=== PATIENT | female | born 1950 | race Caucasian/White ===

== ENCOUNTER → 2016-09-10 | Outpatient (CLI) | payer OTHER, MEDICAID ==
[2016-02-02 16:21] VITALS: BP 92/53
--- NOTE | 2016-09-11 16:56 | KCIC ---
PROCEDURE Bone mineral density study using DEXA HISTORY Postmenopausal screening for osteoporosis. Follow up study. COMPARISON March 09, 2014. FINDINGS Bone Density: -BMD: (g/cm2) - AP Spine Total (L1-L4) ..........0.862 - Total left Hip.................0.754 T-Score: - AP Spine Total (L1-L4) .........-1.7 - Total left Hip.................-1.5 Z-Score: - AP Spine Total (L1-L4) ..........0 - Total left Hip.................-0.4 World Health Organization criteria for BMD interpretation classify patients as Normal (T-score at or above -1.0), Osteopenic (T-score between -1.0 and -2.5), or Osteoporotic (T-score at or below -2.5). IMPRESSION 1. AP Spine Total L1-L4 ---osteopenia. Since the previous study, there has been a decrease in the BMD of approximately 3 percent. 2. Total left Hip---osteopenia. Since the previous study, there has been a decrease in the BMD of approximately 4 percent. Electronically signed by: Akil Boston MD (Sep 11, 2016 16:55:01)
== END | disposition home or self-care (01) ==
LOC: KCIC DEXA 09:55
PROVIDERS: ATTEND Family Medicine
DX: Z13.820 Encounter for screening for osteoporosis (principal); M85.88 Other specified disorders of bone density and structure, other site
CPT/HCPCS: 77080

== ENCOUNTER → 2016-11-19 | Outpatient (CLI) | payer OTHER, MEDICAID ==
[2016-02-02 16:21] VITALS: BP 92/53
[~2016-11-19] MED LIST: IOHEXOL 240 MG/ML 50ML VIAL. IV ONE; IOHEXOL 300 MG/ML 75 ML VIAL IV ONE
--- NOTE | 2016-11-19 09:36 | RAD ---
EXAM: Abdomen and pelvis CT with intravenous contrast. HISTORY: Epigastric pain. TECHNIQUE: Computed tomographic images of the abdomen and pelvis were obtained following the administration of 75 cc Omnipaque 300 intravenous contrast. Multiplanar reformatting was performed. COMPARISON: None. FINDINGS: Evaluation of the lower thorax demonstrates atelectasis. There is no infiltrate or effusion. The heart is normal in size. There is a 1 cm hypodense lesion within the right hepatic lobe, too small to characterize. There is slight fatty infiltration of the liver along the falciform ligament. The gallbladder, pancreas, spleen, adrenal glands and kidneys are unremarkable. There is moderate colonic stool. There is no evidence of bowel obstruction. The bladder is unremarkable. The uterus is surgically absent. No pathologically enlarged lymph node is seen. There is aortic and aortic branch vessel atherosclerotic plaque. No suspicious osseous lesion is seen. IMPRESSION: 1. No acute abdominal or pelvic finding. 2. 1.0 cm hypodense lesion within the right hepatic lobe, too small to characterize. In the absence of known malignancy, this is likely a cyst or hemangioma. 3. Moderate colonic stool. PQRS Compliance Statement: One or more of the following individualized dose reduction techniques were utilized for this examination: 1. Automated exposure control 2. Adjustment of the mA and/or kV according to patient size 3. Use of iterative reconstruction technique
== END | disposition home or self-care (01) ==
LOC: CT 06:55
PROVIDERS: ATTEND Physician Assistant
DX: R10.13 Epigastric pain (principal)
CPT/HCPCS: 74177; Q9966; Q9967

== ENCOUNTER → 2017-01-17 | Day surgery (SDC) | payer OTHER, MEDICAID ==
[~2017-01-17] MED LIST changes: +ALPR0.5T PO; +ALPR0.5T6 PO; +ATOR10TA PO; +BUPR150T8 PO; +ESTR0.62 PO; +FLUT1DIS3 IH; +GABA-585 PO; -IOHEXOL 240 MG/ML 50ML VIAL. IV ONE; -IOHEXOL 300 MG/ML 75 ML VIAL IV ONE; +IPRA3AMP NEB; +IV RINGERS,LACTATED 1000ML 1,000 ML IV SCH; +LIDOCAINE 2% PF Vial for OR 5 ML VIAL. ONE; +OXYC-250 PO; +OXYC10TA32 PO; +OXYC1TAB9 PO; +PANT40TA5 PO; +PROPOFOL 0 ML IV ONE; +PROPOFOL 20 ML IV ONE; +VENL150C PO; +VENL150T PO; +VENTOLIN HFA18 GM INH
[2017-01-17 09:05] VITALS: BP 135/85
--- NOTE | 2017-01-22 11:05 | PATHOLOGY ---
PATHOLOGY REPORT * * * * * * * * FINAL DIAGNOSIS: Esophageal biopsies, distal esophagus: - Segments of mildly hyperplastic squamous esophageal mucosa. See comment. COMMENT: Sections of the distal esophageal biopsy reveal multiple segments of tangentially oriented, mildly hyperplastic squamous esophageal mucosa. The findings are consistent with reflux. There is no evidence of Tejeda's change, dysplasia, or malignancy. REPORT ELECTRONICALLY SIGNED BY: Shane Cleveland M.D. DATE/TIME: 01/21/2017 13:30 * * * * * * * * GROSS PATHOLOGY: Received in formalin labeled "Toña Guzmán, distal esophagus biopsy," are four segments of phillips soft tissue measuring 1.0 x 0.6 x 0.1 cm in aggregate dimensions and ranging from 0.4 to 0.6 cm in maximum dimension. The specimen is submitted entirely in cassette A1. (CAA; 01/18/2017) INITIAL CPT CODE(S): A; 40396 Professional services performed [place] [facility] [place] [address] Technical services performed by [facility] at [address] [place] [address]. SPECIMEN(S) RECEIVED: A.Distal esophagus biopsy CLINICAL HISTORY: Nausea, vomiting, epigastric pain PATIENT: TOÑA GUZMÁN /AGE: 12 1950 (Age: 66) PATIENT #: [id number] ALT CASE #: SPECIMEN COLLECTION DATE: 01/17/2017 SPECIMEN RECEIVED DATE: 01/17/2017 [facility] - [address] [place] [address] - PHONE: [phone] * * * END OF REPORT * * *
== END | disposition home or self-care (01) ==
LOC: ENDOS 07:01
PROVIDERS: ATTEND Internal Medicine Gastroenterology
DX: K21.0 Gastro-esophageal reflux disease with esophagitis (principal); K29.50 Unspecified chronic gastritis without bleeding; F41.9 Anxiety disorder, unspecified; M19.90 Unspecified osteoarthritis, unspecified site; E78.00 Pure hypercholesterolemia, unspecified; F32.9 Major depressive disorder, single episode, unspecified; Z83.3 Family history of diabetes mellitus; Z72.89 Other problems related to lifestyle; F17.210 Nicotine dependence, cigarettes, uncomplicated; Z90.710 Acquired absence of both cervix and uterus
CPT/HCPCS: 43239; J2704; 88305

== ENCOUNTER 2017-01-21 07:14 | Inpatient (IN) | payer OTHER ==
[~2017-01-21] VITALS: Ht 162.6 cm; Wt 54.7 kg
[~2017-01-21 07:14] MED LIST changes: -ALPR0.5T6 PO; -ATOR10TA PO; -BUPR150T8 PO; -ESTR0.62 PO; -FLUT1DIS3 IH; -IPRA3AMP NEB; -IV RINGERS,LACTATED 1000ML 1,000 ML IV SCH; -LIDOCAINE 2% PF Vial for OR 5 ML VIAL. ONE; -OXYC-250 PO; -OXYC1TAB9 PO; -PANT40TA5 PO; -PROPOFOL 0 ML IV ONE; -PROPOFOL 20 ML IV ONE; -VENL150C PO; -VENL150T PO; -VENTOLIN HFA18 GM INH
--- NOTE | 2017-01-21 07:18 | PHYS DOC ---
Past Medical History Past Medical History: Arthritis, Asthma, COPD, Fibromyalgia, High Cholesterol, Migraines, Seizure, Other Additional Past Medical Histor: OSTEOPOROSIS Past Surgical History: Appendectomy, Hysterectomy, Other Additional Past Surgical Histo: LEFT EYE Alcohol Use: None Drug Use: Marijuana Adult General Chief Complaint Chief Complaint: ABDOMINAL PAIN HPI HPI Patient is a 66 year old female who presents with abdominal pain and decreased appetite. She states he sentences been going on for several months and got worse about 4 days ago. She states she's had nothing to eat or drink over the last 4 days. She states that her stomach is hurting as a constant ache that has been moving around. She states that pain is also been going on for several months. She states she had an EGD done about a week ago and hasn't had any results. She denies any chest pain, shortness of breath, fevers chills, or constipation. Review of Systems Review of Systems Constitutional: Denies fever or chills [] Eyes: Denies change in visual acuity, redness, or eye pain [] HENT: Denies nasal congestion or sore throat [] Respiratory: Denies cough or shortness of breath [] Cardiovascular: No additional information not addressed in HPI [] GI: Positive for abdominal pain, denies any vomiting, diarrhea, constipation. : Denies dysuria or hematuria [] Musculoskeletal: Denies back pain or joint pain [] Integument: Denies rash or skin lesions [] Neurologic: Denies headache, focal weakness or sensory changes [] Endocrine: Denies polyuria or polydipsia [] Current Medications Current Medications Current Medications Medications (Trade) Dose Ordered Sig/[facility] Start Time Stop Time Status Last Admin Dose Admin Fentanyl Citrate (Fentanyl 2ml Vial) 25 mcg PRN Q15MIN PRN 01/21/17 07:30 01/22/17 07:29 01/21/17 08:46 25 MCG Info (Do NOT chart on this entry -- for MONITORING) 1 each PRN DAILY PRN 01/21/17 08:30 01/23/17 08:29 Iohexol (Omnipaque 240 Mg/ml) 30 ml 1X ONCE 01/21/17 08:30 01/21/17 08:31 DC 01/21/17 10:02 30 ML Iohexol (Omnipaque 300 Mg/ml) 75 ml 1X ONCE 01/21/17 08:30 01/21/17 08:31 DC 01/21/17 10:02 75 ML Ondansetron HCl (Zofran) 4 mg 1X ONCE 01/21/17 09:30 01/21/17 09:31 DC 01/21/17 09:33 4 MG Sodium Chloride 1,000 ml @ 1,000 mls/hr Q1H 01/21/17 07:45 01/21/17 08:44 DC 01/21/17 07:50 1,000 MLS/HR Allergies Allergies Allergies Coded Allergies Type Severity Reaction Last Updated Verified morphine Allergy Intermediate 01/17/17 Yes Physical Exam Physical Exam Constitutional: Well developed, well nourished, no acute distress, non-toxic appearance. [] HENT: Normocephalic, atraumatic, bilateral external ears normal, oropharynx moist, no oral exudates, nose normal. [] Eyes: PERRLA, EOMI, conjunctiva normal, no discharge. [] Neck: Normal range of motion, no tenderness, supple, no stridor. [] Cardiovascular:Heart rate regular rhythm, no murmur [] Lungs & Thorax: Bilateral breath sounds clear to auscultation [] Abdomen: Bowel sounds normal, soft, mild tender to palpation epigastric area, no masses, no pulsatile masses. [] Skin: Warm, dry, no erythema, no rash. [] Back: No tenderness, no CVA tenderness. [] Extremities: No tenderness, no cyanosis, no clubbing, ROM intact, no edema. [] Neurologic: Alert and oriented X 3, normal motor function, normal sensory function, no focal deficits noted. [] Psychologic: Affect normal, judgement normal, mood normal. [] Current Patient Data Vital Signs Vital Signs Date Time Temp Pulse Resp B/P (MAP) Pulse Ox O2 Delivery O2 Flow Rate FiO2 01/21/17 09:24 86 28 133/80 (97) Room Air 01/21/17 08:54 96 01/21/17 07:25 97.9 97.9 Lab Values Laboratory Tests Test 01/21/17 07:30 01/21/17 08:00 01/21/17 08:38 01/21/17 09:10 White Blood Count 16.7 x10^3/uL (4.0-11.0) H Red Blood Count 4.44 x10^6/uL (3.50-5.40) Hemoglobin 14.5 g/dL (12.0-15.5) Hematocrit 42.6 % (36.0-47.0) Mean Corpuscular Volume 96 fL (79-100) Mean Corpuscular Hemoglobin 33 pg (25-35) Mean Corpuscular Hemoglobin Concent 34 g/dL (31-37) Red Cell Distribution Width 13.1 % (11.5-14.5) Platelet Count 357 x10^3/uL (140-400) Neutrophils (%) (Auto) 84 % (31-73) H Lymphocytes (%) (Auto) 6 % (24-48) L Monocytes (%) (Auto) 9 % (0-9) Eosinophils (%) (Auto) 0 % (0-3) Basophils (%) (Auto) 1 % (0-3) Neutrophils # (Auto) 14.1 x10^3uL (1.8-7.7) H Lymphocytes # (Auto) 1.0 x10^3/uL (1.0-4.8) Monocytes # (Auto) 1.6 x10^3/uL (0.0-1.1) H Eosinophils # (Auto) 0.1 x10^3/uL (0.0-0.7) Basophils # (Auto) 0.1 x10^3/uL (0.0-0.2) Segmented Neutrophils % 83 % (35-66) H Band Neutrophils % 3 % (0-9) Lymphocytes % 8 % (24-48) L Monocytes % 6 % (0-10) Platelet Estimate Adequate (ADEQUATE) Prothrombin Time 12.2 SEC (11.7-14.0) Prothrombin Time INR 1.0 (0.8-1.1) Sodium Level 145 mmol/L (136-145) Potassium Level 3.0 mmol/L (3.5-5.1) L Chloride Level 105 mmol/L (98-107) Carbon Dioxide Level 22 mmol/L (21-32) Anion Gap 18 (6-14) H Blood Urea Nitrogen 18 mg/dL (7-20) Creatinine 0.9 mg/dL (0.6-1.0) Estimated GFR (Cockcroft-Gault) 63.0 Glucose Level 180 mg/dL (70-99) H Lactic Acid Level 3.3 mmol/L (0.4-2.0) H Calcium Level 10.6 mg/dL (8.5-10.1) H Magnesium Level 2.0 mg/dL (1.8-2.4) Total Bilirubin 0.7 mg/dL (0.2-1.0) Direct Bilirubin 0.2 mg/dL (0.0-0.2) Aspartate Amino Transferase (AST) 42 U/L (15-37) H Alanine Aminotransferase (ALT) 29 U/L (14-59) Alkaline Phosphatase 109 U/L (46-116) Creatine Kinase 671 U/L (26-192) H Creatine Kinase MB (Mass) 13.3 ng/mL (0.0-3.6) H Creatine Kinase MB Relative Index 2.0 % (0-4) Troponin I Quantitative 4.926 ng/mL (0.000-0.055) IV-Syi-E-Type Natriuretic Peptide 6757 pg/mL (0-124) H Total Protein 8.7 g/dL (6.4-8.2) H Albumin 4.6 g/dL (3.4-5.0) Lipase 49 U/L (73-393) L Thyroid Stimulating Hormone (TSH) 2.391 uIU/mL (0.358-3.74) Urine Opiates Screen Neg (NEG) Urine Methadone Screen Neg (NEG) Urine Barbiturates Neg (NEG) Urine Phencyclidine Screen Neg (NEG) Urine Amphetamine/Methamphetamine Neg (NEG) Urine Benzodiazepines Screen Pos (NEG) Urine Cocaine Screen Neg (NEG) Urine Cannabinoids Screen Pos (NEG) Urine Ethyl Alcohol Neg (NEG) O2 Saturation 98 % (92-99) Arterial Blood pH 7.58 (7.35-7.45) *H Arterial Blood pCO2 at Patient Temp 22 mmHg (35-46) L Arterial Blood pO2 at Patient Temp 96 mmHg (65-108) Arterial Blood HCO3 20 mmol/L (21-28) L Arterial Blood Base Excess 0 mmol/L (-3-3) FiO2 21 Urine Collection Type Unknown Urine Color Yellow Urine Clarity Hazy Urine pH 7.0 Urine Specific [place] 1.025 Urine Protein 100 mg/dL (NEG-TRACE) Urine Glucose (UA) Negative mg/dL (NEG) Urine Ketones (Stick) 15 mg/dL (NEG) Urine Blood Large (NEG) Urine Nitrite Negative (NEG) Urine Bilirubin Negative (NEG) Urine Urobilinogen Dipstick 0.2 mg/dL (0.2 mg/dL) Urine Leukocyte Esterase Negative (NEG) Urine RBC 1-2 /HPF (0-2) Urine WBC 0 /HPF (0-4) Urine Bacteria Moderate /HPF (0-FEW) Test 01/21/17 09:30 Lactic Acid Level 1.9 mmol/L (0.4-2.0) Creatine Kinase 895 U/L (26-192) H Creatine Kinase MB (Mass) 17.8 ng/mL (0.0-3.6) H Creatine Kinase MB Relative Index 2.0 % (0-4) Troponin I Quantitative 6.395 ng/mL (0.000-0.055) Laboratory Tests 01/21/17 07:30 Laboratory Tests 01/21/17 07:30 EKG EKG EKG shows sinus rhythm with rate of [address] elevations, T-wave inversions noted in aVL, normal axis, QTC 482 ms, as interpreted by me. Radiology/Procedures Radiology/[facility] [address] [place] [address] IMAGING REPORT Signed PATIENT: TOÑA GUZMÁN ACCOUNT: [id number] : 1950 LOCATION: ER AGE: 66 SEX: F EXAM STATUS: REG ER ORD. PHYSICIAN: SAROJ ESTEVEZ MD REASON: abd pain and vomitting PROCEDURE: ACUTE ABDOMEN SERIES Indication abdominal pain and vomiting for 3 days. A single view of the chest as well as flat and upright films of the abdomen were obtained and are compared to an examination 01/26/2016. The heart and pulmonary vessels appear normal. The lungs are clear of acute infiltrates. There has not been a significant change in the appearance of the chest compared to the previous exam. There is no free air. The abdominal gas pattern is normal. No organomegaly or abnormal calculi are seen. Benign-appearing calcifications are noted in the pelvis similar to the previous exam. IMPRESSION: No acute finding seen in the chest or abdomen on plain films DICTATED and SIGNED BY: KAYLIE VERA MD DATE: 01/21/17 0676 CC: SAROJ ESTEVEZ MD; SPARKLE ABRAHAM MD ~ Impressions: Abdominal pain Respiratory alkalosis with metabolic acidosis Elevated troponin COPD Continued tobacco abuse Course & Med Decision Making Course & Med Decision Making Pertinent Labs and Imaging studies reviewed. (See chart for details) Patient's EKG doesn't show signs of a STEMI but she does have an elevated troponin at 5. Her ABG shows acute respiratory alkalosis with a concomitant gap metabolic acidosis. Spoke with Dr. Abraham regarding admission and updated him with the vitals, labs, EKG findings and spoke with Dr. Garrett regarding the same. I have ordered repeat troponin and lactic acid. Dr. Garrett requests an echo to be ordered. The patient is in stable condition pending CT scan of her abdomen pelvis this time. [address] Garrett regarding the repeat troponin that is higher than the initial troponin and her CK-MB. She has been given aspirin and second liter of fluids. Her lactic acid has improved. The patient still complaining of abdominal pain and not chest discomfort. CT abdomen and pelvis is still pending at this time. CT scan of her abdomen pelvis does not show any acute abnormalities. Patient is being transferred to the floor. She is in stable condition at this time. I did repeat yet an additional EKG that does not show any additional changes or concerns. Dragon Disclaimer Dragon Disclaimer This electronic medical record was generated, in whole or in part, using a voice recognition dictation system. Departure Departure Impression: Primary Impression: Abdominal pain Disposition: ADMITTED INPATIENT Admitting Physician: Sparkle Abraham Condition: STABLE Referrals: SPARKLE ABRAHAM MD (PCP) SAROJ ESTEVEZ MD January 21, 2017 07:18
[2017-01-21 07:38] LABS: BASO # 0.1 x10^3/uL (0.0-0.2); BASO % 1 % (0-3); EOS % 0 % (0-3); HEMATOCRIT 42.6 % (36.0-47.0); HEMOGLOBIN 14.5 g/dL (12.0-15.5); LYMPH % 6 % (24-48); MEAN CORPUSCULAR HEMOGLOBIN 33 pg (25-35); MEAN CORPUSCULAR HGB CONC 34 g/dL (31-37); MEAN CORPUSCULAR VOLUME 96 fL (79-100); MONO % 9 % (0-9); NEUT % 84 % (31-73); PLATELET COUNT 357 x10^3/uL (140-400); RED BLOOD COUNT 4.44 x10^6/uL (3.50-5.40); RED CELL DISTRIBUTION WIDTH 13.1 % (11.5-14.5); WHITE BLOOD COUNT 16.7 x10^3/uL (4.0-11.0)
--- NOTE | 2017-01-21 07:40 | EKG ---
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
[2017-01-21] MEDS ORDERED: IV NORMAL SALINE 1000ML BAG 1,000 ML IV SCH (07:45)
[2017-01-21] MEDS: fentaNYL PF VIAL 100 MCG/2 ML VIAL IV PRN ×2 (07:49→08:46)
[2017-01-21 07:52] LABS: CALCIUM 10.6 mg/dL (8.5-10.1); CREATININE 0.9 mg/dL (0.6-1.0)
[2017-01-21 07:54] LABS: PROTHROMBIN TIME PATIENT 12.2 SEC (11.7-14.0)
--- NOTE | 2017-01-21 07:58 | RAD ---
Indication abdominal pain and vomiting for 3 days. A single view of the chest as well as flat and upright films of the abdomen were obtained and are compared to an examination 01/26/2016. The heart and pulmonary vessels appear normal. The lungs are clear of acute infiltrates. There has not been a significant change in the appearance of the chest compared to the previous exam. There is no free air. The abdominal gas pattern is normal. No organomegaly or abnormal calculi are seen. Benign-appearing calcifications are noted in the pelvis similar to the previous exam. IMPRESSION: No acute finding seen in the chest or abdomen on plain films
[2017-01-21 07:59] LABS: ALBUMIN 4.6 g/dL (3.4-5.0); DIRECT BILIRUBIN 0.2 mg/dL (0.0-0.2); TOTAL BILIRUBIN 0.7 mg/dL (0.2-1.0); TOTAL PROTEIN 8.7 g/dL (6.4-8.2)
[2017-01-21 08:06] LABS: CKMB MASS 13.3 ng/mL (0.0-3.6)
[2017-01-21] MEDS ORDERED: IOHEXOL 300 MG/ML 75 ML VIAL IV ONE (08:30)
[2017-01-21] MEDS ORDERED: IOHEXOL 240 MG/ML 50ML VIAL. PO ONE (08:30)
[2017-01-21] MEDS ORDERED: CONTRAST GIVEN MC PRN (08:30)
[2017-01-21 09:22] LABS: HCO3 ABG 20 mmol/L (21-28); PCO2 ABG 22 mmHg (35-46); PO2 ABG 96 mmHg (65-108); SAT O2 ABG 98 % (92-99)
[2017-01-21 09:24] LABS: BARBITURATES NEG (NEG); BENZODIAZEPINES POS (NEG); CANNABINOIDS POS (NEG); COCAINE NEG (NEG); METHADONE NEG (NEG); OPIATES NEG (NEG); PHENCYCLIDINE NEG (NEG)
[2017-01-21 09:25] LABS: FIO2 ABG 21
[2017-01-21] MEDS ORDERED: ONDANSETRON PF 4 MG/2 ML VIAL. IV ONE (09:30)
[2017-01-21] MEDS ORDERED: IV NORMAL SALINE 1000ML BAG 1,000 ML IV ONE (10:00)
[2017-01-21] MEDS ORDERED: ASPIRIN 325 MG TABLET PO ONE (10:15)
[2017-01-21 10:16] LABS: CKMB MASS 17.8 ng/mL (0.0-3.6)
--- NOTE | 2017-01-21 10:17 | ACF ---
Admission Forms Criteria ABDOMINAL PAIN Clinical Indications for Admission to Inpatient Care (Place 'X' for any and all applicable criteria): Admission is indicated for ANY ONE of the following(1)(2)(3)(4)(5): [ ]I. Inpatient admission required rather than observation care (Also use Abdominal Pain: Observation Care, as appropriate) because of ANY ONE of the following: [ ]a) Severe pain requiring acute inpatient management [ ]b) Identification of etiology/finding that requires inpatient care (eg, aortic dissection, free air) [ ]c) Absent bowel sounds with complete ileus(6) [ ]d) Suspected toxic megacolon [ ]e) Severe electrolyte abnormalities requiring inpatient care [ ]f) High fever or infection requiring inpatient admission as indicated by ANY ONE of following(7)(8): [ ] i) Appropriate outpatient or observational care antimicrobial treatment unavailable, not effective, or not feasible [ ] ii) Documented bacteremia [ ] iii) Temperature > 104.9 degrees F (oral) [ ] iv) T >103.1 F (oral) or < 96.8 F(rectal) that does not respond to all emergency treatment measures [ ]g) Signs of intestinal obstruction [B] [ ]h) Hemodynamic instability [ ]i) IV fluid to replace significant ongoing losses (greater than 3 L/m2 per day) (12)(13) [ ]j) Percutaneous or open drainage (eg, abscess, biliary tract ) procedures [ ]k) Parenteral nutrition regimen that must be implemented on inpatient basis [ ]l) Other condition,treatment or monitoring requiring inpatient admission. [ ]II. Peritoneal signs present [ ]III. Surgery needed that cannot be performed on an ambulatory basis. [ ]IV. Evaluation requires patient to not eat or drink for extended period ( eg, more than 24 hours). [ ]V. Contraindications and/or Inappropriate clinical situations for Observational Care in patients with abdominal pain, when ANY ONE of the following is required: [ ]a) Thorough evaluation is required to prevent catastrophic events due to delays in diagnosing (e.g.Mesenteric ischemia) 1,3 [ ]b) Patient with severe pathology or with chronic symptoms unlikely to improve in the ED stay (3) [X]. General contraindications and/or Inappropriate clinical situations for Observational Care in patients with abdominal pain, when ANY ONE of the following is required: [ ]a) Prediction of prolongation of LOS based on ANY ONE of the following may be considered as a contraindication for observational care 2, 3, 4, 5, 6, 7, 8, 9, 10, 11 [ ]i) Age > 65 yrs. [ ]ii) Patient arriving by ambulance [ ]iii) Patient with high acuity [ ]iv) Patient requiring vital sign monitoring [ ]v) Patient on IV medication [X]b) Systolic blood pressures 180mmHg 3,12 [ ]c) Patient with altered mental status including delirium and other alteration of consciousness, (3) [ ]d) Patient whose discharge disposition will be to a group home home or rehabilitation home should not be managed in Emergency Department Observation Unit. CMS rule requires 3 days hospital stay before such placement.3,13 [ ]e) Patient with failure to thrive due to broad array of etiologies 3,16,17 [ ]f) Inability to ambulate 3,14 Extended stay beyond goal length of stay may be needed for(2)(3): [ ]a) Persistent abdominal pain with suspected intra-abdominal process [ ]b) Diagnosed condition requiring continued stay (e.g., pancreatitis, complicated diverticulitis) [ ]c) Surgery (e.g., colectomy) The original [employer] content created by [employer] has been revised. The portions of the content which have been revised are identified through the use of italic text or in bold, and [facility] has neither reviewed nor approved the modified material.All other unmodified content is copyright [employer]. Please see references footnoted in the original [employer] edition 2016 Admission Criteria Met?: Yes MIGUEL A WALLACE January 21, 2017 10:17
[2017-01-21 10:23] LABS: BILIRUBIN,URINE NEGATIVE (NEG); GLUCOSE,URINE NEGATIVE (NEG); NITRITE,URINE NEGATIVE (NEG); PROTEIN,URINE 100 mg/dL (NEG-TRACE); UROBILINOGEN,URINE 0.2 mg/dL (0.2 mg/dL)
[2017-01-21 10:24] LABS: BACTERIA,URINE MODERATE /HPF (0-FEW); WBC,URINE 0 /HPF (0-4)
--- NOTE | 2017-01-21 10:26 | RAD ---
CT head without contrast History: Altered mental status. Comparison: CT head February 02, 2016. Procedure: Axial images are obtained of the head from the skull base through the vertex without IV contrast. One or more of the following individualized dose reduction techniques were utilized for the study: Automated exposure control Adjustment of mA and/or kV according to patient's size Use of iterative reconstruction technique. Findings: The ventricles and sulci are normal for the patient's age. No mass-effect, intracranial mass, midline shift, hemorrhage or obvious acute infarction is identified. Basilar cisterns are patent. Bone windows demonstrate no significant calvarial abnormality. The visualized paranasal sinuses appear clear. Impression: No acute intracranial process. Please note that CT can be relatively insensitive to acute ischemic infarction for up to 24 hours after symptom onset.
[2017-01-21] MEDS ORDERED: ONDANSETRON PF 4 MG/2 ML VIAL. IV PRN ×2 (10:30→17:34)
--- NOTE | 2017-01-21 10:40 | RAD ---
Indication abdominal pain. Axial images through the abdomen and pelvis were obtained. Both IV and oral contrast were administered. Approximately 75 cc of Omnipaque 300 was administered intravenously. Note is made of a previous examination 11/19/2016. The lung bases are clear. A definite significant finding in the liver is not seen. There is a hypervascular 1 cm mass in the right lobe of the liver likely reflecting an hemangioma. Clinical correlation as to the likelihood of hepatic disease advised. The gallbladder appears grossly normal. The spleen appears unremarkable. There is possible thickening of the gastric fundus. The finding is not certain. If gastric pathology is suspect endoscopy is advised. The pancreas appears unremarkable. No adrenal or renal anomalies are seen. There is no significant central or retroperitoneal adenopathy within the abdomen. An acute finding is not seen. In the pelvis no focal mass or inflammatory process is seen. IMPRESSION: No acute finding seen in the abdomen or pelvis. Probable small hemangioma in the liver. Possible thickening of the fundus of the stomach. The finding is not certain. If gastric pathology is suspect endoscopy would be advised PQRS Compliance Statement: One or more of the following individualized dose reduction techniques were utilized for this examination: 1. Automated exposure control 2. Adjustment of the mA and/or kV according to patient size 3. Use of iterative reconstruction technique
[2017-01-21 10:52] VITALS: BP 139/65
--- NOTE | 2017-01-21 11:42 | EKG ---
[facility] [address] [place] [address] Test Date: 2017-01-21 Test Time: 11:40:07 Pat Name: TOÑA GUZMÁN Department: Room: 262 1 Gender: F Role Player: : 1950 Requested By: FRANKY WINTERS Order Number: [id number] Reading MD: Mike Sykes Measurements Intervals [place] Rate: 73 P: 66 [place]: 144 QRS: 72 QRSD: 86 T: 72 QT: 442 QTc: 491 Interpretive Statements SINUS RHYTHM Electronically Signed On 01-23-2017 9:15:14 CDT by Mike Sykes
[2017-01-21 11:57] LABS: PLT ESTIMATE ADEQUATE (ADEQUATE)
--- NOTE | 2017-01-21 12:59 | EKG ---
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
[2017-01-21] MEDS ORDERED: HEPARIN for IV BOLUS 10,000 UNIT/10 ML VIAL. IV ONE (13:00)
[2017-01-21] MEDS: HEPARIN 25,000UTS/500ML PREMIX 500 ML IV PRN (13:40)
[2017-01-21 14:04] LABS: PH ABG 7.58 (7.35-7.45)
[2017-01-21 15:00] VITALS: BP 130/81
[2017-01-21] MEDS ORDERED: VENL150T PO (15:16)
[2017-01-21] MEDS ORDERED: VENL150C PO (15:16)
[2017-01-21] MEDS ORDERED: BUPR150T8 PO (15:19)
[2017-01-21] MEDS ORDERED: OXYC-250 PO (15:19)
[2017-01-21] MEDS ORDERED: OXYC1TAB9 PO (15:20)
[2017-01-21] MEDS ORDERED: PANT40TA5 PO (15:22)
[2017-01-21] MEDS ORDERED: IPRA3AMP NEB (15:22)
[2017-01-21] MEDS ORDERED: FLUT1DIS3 IH (15:23)
[2017-01-21] MEDS ORDERED: VENTOLIN HFA18 GM INH (15:24)
[2017-01-21] MEDS ORDERED: ALPR0.5T6 PO (15:28)
[2017-01-21] MEDS ORDERED: ATOR10TA PO (15:29)
[2017-01-21] MEDS ORDERED: ESTR0.62 PO (15:33)
--- NOTE | 2017-01-21 16:36 | CARD ---
APPROVED REPORT EXAM: Two-dimensional and M-mode echocardiogram with Doppler and color Doppler. Other Information Quality : GoodHR: 70bpm Rhythm : NSR INDICATION Elevated troponins RISK FACTORS Smoking 2D DIMENSIONS RVDd2.1 (2.9-3.5cm)Left Atrium(2D)2.8 (1.6-4.0cm) IVSd0.9 (0.7-1.1cm)Aortic Root(2D)2.2 (2.0-3.7cm) LVDd3.5 (3.9-5.9cm)LVOT Diameter2.0 (1.8-2.4cm) PWd1.0 (0.7-1.1cm)LVDs2.5 (2.5-4.0cm) FS (%) 28.7 %SV29.0 ml LVEF(%)55.0 (>50%) Aortic Valve LVOT Peak Ruben.96.4cm/sAVA (VMAX)1.97cm2 Mitral Valve MV E Sqmnhpgs69.8cm/sMV E Peak Gr.5mmHg MV DECEL [id number] A Fwawegxd459.3cm/s MV E Mean Gr.2mmHgE/A Ratio0.7 MV A [id number] Pulmonary Valve PV Peak Cusmesmm955.2cm/s Pulmonary Vein S1 Gdpkkody22.2cm/sD2 Hbdtmkxt62.1cm/s PVa [id number] LEFT VENTRICLE The left ventricle is normal size. There is normal left ventricular wall thickness. The left ventricu lar systolic function is normal and the ejection fraction is within normal range. The Ejection Fracti on is 55%. There is normal LV segmental wall motion. Transmitral Doppler flow pattern is Grade I-abno rmal relaxation pattern. RIGHT VENTRICLE The right ventricle is normal size. There is normal right ventricular wall thickness. The right ventr icular systolic function is normal. ATRIA The left atrium size is normal. The right atrium size is normal. The interatrial septum is intact wit h no evidence for an atrial septal defect or patent foramen ovale as noted on 2-D or Doppler imaging. AORTIC VALVE The aortic valve is thickened. The aortic valve is trileaflet. Doppler and Color Flow revealed no sig nificant aortic regurgitation. There is no significant aortic valvular stenosis. MITRAL VALVE The mitral valve leaflets are thickened. There is no evidence of mitral valve prolapse. There is no m itral valve stenosis. Doppler and Color Flow revealed trace mitral regurgitation. TRICUSPID VALVE Doppler and Color Flow revealed trace tricuspid regurgitation. Unable to determine pulmonary artery p ressure at exam time. PULMONIC VALVE Doppler and Color Flow revealed no pulmonic valvular regurgitation. There is no pulmonic valvular sanket nosis. GREAT VESSELS The aortic root is normal in size. The ascending aorta is normal in size. The pulmonary artery is nor mal. The IVC is normal in size and collapses >50% with inspiration. PERICARDIAL EFFUSION There is no evidence of significant pericardial effusion. Critical Notification Critical Value: No <Conclusion> The left ventricular systolic function is normal and the ejection fraction is within normal range. The Ejection Fraction is 55%. Transmitral Doppler flow pattern is Grade I-abnormal relaxation pattern. The left atrium size is normal. The right atrium size is normal. The aortic valve is thickened. The aortic valve is trileaflet. Doppler and Color Flow revealed no significant aortic regurgitation. Doppler and Color Flow revealed trace mitral regurgitation. Doppler and Color Flow revealed trace tricuspid regurgitation. Unable to determine pulmonary artery p ressure at exam time. Doppler and Color Flow revealed no pulmonic valvular regurgitation. There is no evidence of significant pericardial effusion.
--- NOTE | 2017-01-21 17:14 | PDOC2 ---
CONSULT Date of Consult Date of Consult DATE: 01/21/17 TIME: 17:07 Reason for Consult Reason for Consult: Elevated enzymes Referring Physician Referring Physician: Dr. Hallman Identification/Chief Complaint Chief Complaint Abdominal pain History of Present Illness Reason for Visit: This patient is a 66-year-old lady with a known history of asthma, hypertension , COPD, some substance abuse, that has some psychological issues and is not the best of historians. She has been having abdominal pains on and off for some time and has had a GI workup done in the past. She came in with periumbilical pain associated with nausea and denies having any chest pains. After arrival the patient's labs were found to be quite abnormal with multiple things being elevated including a high troponin. The patient's EKG shows J-point elevation in the inferior leads. At the time that I examined her she denies having any shortness of breath and she denies having any chest pains. Her lactic acid was elevated, her blood gases showed respiratory alkalosis with a metabolic acidosis that is a little overcompensated. Past Medical History Cardiovascular: HTN Pulmonary: Asthma, COPD Current Problem List Problem List Problems Medical Problems: (1) Abdominal pain Status: Acute Current Medications Current Medications Current Medications Fentanyl Citrate (Fentanyl 2ml Vial) 25 mcg PRN Q15MIN PRN IV PAIN GREATER THAN 3/10 Last administered on 01/21/17 08:46; Start 01/21/17 at 07:30; Stop at 07:29 Sodium Chloride 1,000 ml @ 1,000 mls/hr Q1H IV Last administered on 01/21/17 07:50; Start 01/21/17 at 07:45; Stop 01/21/17 at 08:44; Status DC Iohexol (Omnipaque 240 Mg/ml) 30 ml 1X ONCE PO Last administered on 01/21/17 10:02; Start 01/21/17 at 08:30; Stop 01/21/17 at 08:31; Status DC Iohexol (Omnipaque 300 Mg/ml) 75 ml 1X ONCE IV Last administered on 01/21/17 10:02; Start 01/21/17 at 08:30; Stop 01/21/17 at 08:31; Status DC Info (Do NOT chart on this entry -- for MONITORING) 1 each PRN DAILY PRN MC SEE COMMENTS; Start 01/21/17 at 08:30; Stop 01/23/17 at 08:29 Ondansetron HCl (Zofran) 4 mg 1X ONCE IV Last administered on 01/21/17 09:33 ; Start 01/21/17 at 09:30; Stop 01/21/17 at 09:31; Status DC Sodium Chloride 1,000 ml @ 1,000 mls/hr 1X ONCE IV Last administered on 10:00; Start 01/21/17 at 10:00; Stop 01/21/17 at 10:59; Status DC Aspirin (Britton Aspirin) 325 mg 1X ONCE PO Last administered on 01/21/17 10:17 ; Start 01/21/17 at 10:15; Stop 01/21/17 at 10:16; Status DC Ondansetron HCl (Zofran) 4 mg PRN Q8HRS PRN IV NAUSEA/VOMITING Last administered on 01/21/17 11:47; Start 01/21/17 at 10:30; Stop 01/22/17 at 10:29 Heparin Sodium/ Dextrose 500 ml @ 0 mls/hr CONT PRN IV SEE I/O RECORD Last administered on 01/21/17 13:40; Start 01/21/17 at 12:45 Heparin Sodium (Porcine) (Heparin Sodium) 4,700 unit 1X ONCE IV Last administered on 01/21/17 13:34; Start 01/21/17 at 13:00; Stop 01/21/17 at 13:01 ; Status DC Info (Anti-Coagulation Monitoring By Pharmacy) 1 each PRN DAILY PRN SEE COMMENTS; Start 01/21/17 at 13:00 Active Scripts Active Reported Premarin (Estrogens, Conjugated) 0.625 Mg Tablet 0.625 Mg PO DAILY Lipitor (Atorvastatin Calcium) 10 Mg Tablet 10 Mg PO HS Alprazolam 0.5 Mg Tablet 0.5 Mg PO PRN Q6HRS PRN Ventolin Hfa Inhaler (Albuterol Sulfate) 18 Gm Hfa.aer.ad 2 Puff INH QID Advair 250-50 Diskus (Fluticasone/Salmeterol) 1 Each Disk.w.dev 1 Inh IH BID Pantoprazole Sodium 40 Mg Tablet.dr 40 Mg PO DAILY Duoneb 0.5-3(2.5) Mg/3 Ml (Albuterol/Ipratropium) 3 Ml Ampul.neb 3 Ml NEB QID Oxycodone-Acetaminophen 10-325 (Oxycodone Hcl/Acetaminophen) 1 Each Tablet 1 Each PO PRN Q6HRS PRN Percocet 10-325 Mg Tablet (Oxycodone/Acetaminophen) 1 Each Tablet 1 Tab PO PRN Q6HRS PRN Wellbutrin Sr (Bupropion Hcl) 150 Mg Tablet.er 150 Mg PO DAILY Venlafaxine Hcl Er (Venlafaxine Hcl) 150 Mg Tab.er.24 150 Mg PO DAILY Effexor Xr (Venlafaxine Hcl) 150 Mg Cap.er.24h 150 Mg PO DAILY Gabapentin 100 Mg Capsule 400 Mg PO TID Xanax (Alprazolam) 0.5 Mg Tablet 0.5 Mg PO TID PRN Allergies Allergies: Coded Allergies: morphine (Verified Allergy, Intermediate, 01/17/17) Physical Exam Physical Exam The patient was not in acute distress at the time of this examination. H EENT pupils are reactive. Oral mucosa well-hydrated. Neck is supple no JVD. Lungs breath sounds are decreased but no Rales, no wheezing. Heart regular rate and rhythm S1-S2 no S3 no S4. Abdomen bowel sounds are present, mild periumbilical and epigastric tenderness. Extremities no edema. Vitals VITALS Vital Signs Date Time Temp Pulse Resp B/P (MAP) Pulse Ox O2 Delivery O2 Flow Rate FiO2 01/21/17 15:00 98.2 77 24 130/81 (97) 97 Room Air 98.2 01/21/17 11:43 2.0 Labs Labs Laboratory Tests Test 01/21/17 07:30 01/21/17 08:00 01/21/17 08:38 01/21/17 09:10 White Blood Count 16.7 x10^3/uL (4.0-11.0) Red Blood Count 4.44 x10^6/uL (3.50-5.40) Hemoglobin 14.5 g/dL (12.0-15.5) Hematocrit 42.6 % (36.0-47.0) Mean Corpuscular Volume 96 fL (79-100) Mean Corpuscular Hemoglobin 33 pg (25-35) Mean Corpuscular Hemoglobin Concent 34 g/dL (31-37) Red Cell Distribution Width 13.1 % (11.5-14.5) Platelet Count 357 x10^3/uL (140-400) Neutrophils (%) (Auto) 84 % (31-73) Lymphocytes (%) (Auto) 6 % (24-48) Monocytes (%) (Auto) 9 % (0-9) Eosinophils (%) (Auto) 0 % (0-3) Basophils (%) (Auto) 1 % (0-3) Neutrophils # (Auto) 14.1 x10^3uL (1.8-7.7) Lymphocytes # (Auto) 1.0 x10^3/uL (1.0-4.8) Monocytes # (Auto) 1.6 x10^3/uL (0.0-1.1) Eosinophils # (Auto) 0.1 x10^3/uL (0.0-0.7) Basophils # (Auto) 0.1 x10^3/uL (0.0-0.2) Segmented Neutrophils % 83 % (35-66) Band Neutrophils % 3 % (0-9) Lymphocytes % 8 % (24-48) Monocytes % 6 % (0-10) Platelet Estimate Adequate (ADEQUATE) Prothrombin Time 12.2 SEC (11.7-14.0) Prothromb Time International Ratio 1.0 (0.8-1.1) Sodium Level 145 mmol/L (136-145) Potassium Level 3.0 mmol/L (3.5-5.1) Chloride Level 105 mmol/L (98-107) Carbon Dioxide Level 22 mmol/L (21-32) Anion Gap 18 (6-14) Blood Urea Nitrogen 18 mg/dL (7-20) Creatinine 0.9 mg/dL (0.6-1.0) Estimated GFR (Cockcroft-Gault) 63.0 Glucose Level 180 mg/dL (70-99) Lactic Acid Level 3.3 mmol/L (0.4-2.0) Calcium Level 10.6 mg/dL (8.5-10.1) Magnesium Level 2.0 mg/dL (1.8-2.4) Total Bilirubin 0.7 mg/dL (0.2-1.0) Direct Bilirubin 0.2 mg/dL (0.0-0.2) Aspartate Amino Transf (AST/SGOT) 42 U/L (15-37) Alanine Aminotransferase (ALT/SGPT) 29 U/L (14-59) Alkaline Phosphatase 109 U/L (46-116) Creatine Kinase 671 U/L (26-192) Creatine Kinase MB (Mass) 13.3 ng/mL (0.0-3.6) Creatine Kinase MB Relative Index 2.0 % (0-4) Troponin I Quantitative 4.926 ng/mL (0.000-0.055) QS-Kef-L-Type Natriuretic Peptide 6757 pg/mL (0-124) Total Protein 8.7 g/dL (6.4-8.2) Albumin 4.6 g/dL (3.4-5.0) Lipase 49 U/L (73-393) Thyroid Stimulating Hormone (TSH) 2.391 uIU/mL (0.358-3.74) Urine Opiates Screen Neg (NEG) Urine Methadone Screen Neg (NEG) Urine Barbiturates Neg (NEG) Urine Phencyclidine Screen Neg (NEG) Urine Amphetamine/Methamphetamine Neg (NEG) Urine Benzodiazepines Screen Pos (NEG) Urine Cocaine Screen Neg (NEG) Urine Cannabinoids Screen Pos (NEG) Urine Ethyl Alcohol Neg (NEG) O2 Saturation 98 % (92-99) Arterial Blood pH 7.58 (7.35-7.45) Arterial Blood pCO2 at Patient Temp 22 mmHg (35-46) Arterial Blood pO2 at Patient Temp 96 mmHg (65-108) Arterial Blood HCO3 20 mmol/L (21-28) Arterial Blood Base Excess 0 mmol/L (-3-3) FiO2 21 Urine Collection Type Unknown Urine Color Yellow Urine Clarity Hazy Urine pH 7.0 Urine Specific [place] 1.025 Urine Protein 100 mg/dL (NEG-TRACE) Urine Glucose (UA) Negative mg/dL (NEG) Urine Ketones (Stick) 15 mg/dL (NEG) Urine Blood Large (NEG) Urine Nitrite Negative (NEG) Urine Bilirubin Negative (NEG) Urine Urobilinogen Dipstick 0.2 mg/dL (0.2 mg/dL) Urine Leukocyte Esterase Negative (NEG) Urine RBC 1-2 /HPF (0-2) Urine WBC 0 /HPF (0-4) Urine Bacteria Moderate /HPF (0-FEW) Test 01/21/17 09:30 01/21/17 12:10 01/21/17 16:20 Lactic Acid Level 1.9 mmol/L (0.4-2.0) Creatine Kinase 895 U/L (26-192) 1090 U/L (26-192) Creatine Kinase MB (Mass) 17.8 ng/mL (0.0-3.6) 20.0 ng/mL (0.0-3.6) Creatine Kinase MB Relative Index 2.0 % (0-4) 1.8 % (0-4) Troponin I Quantitative 6.395 ng/mL (0.000-0.055) 6.632 ng/mL (0.000-0.055) 5.364 ng/mL (0.000-0.055) Laboratory Tests Test 01/21/17 07:30 01/21/17 08:00 01/21/17 08:38 01/21/17 09:10 White Blood Count 16.7 x10^3/uL (4.0-11.0) Red Blood Count 4.44 x10^6/uL (3.50-5.40) Hemoglobin 14.5 g/dL (12.0-15.5) Hematocrit 42.6 % (36.0-47.0) Mean Corpuscular Volume 96 fL (79-100) Mean Corpuscular Hemoglobin 33 pg (25-35) Mean Corpuscular Hemoglobin Concent 34 g/dL (31-37) Red Cell Distribution Width 13.1 % (11.5-14.5) Platelet Count 357 x10^3/uL (140-400) Neutrophils (%) (Auto) 84 % (31-73) Lymphocytes (%) (Auto) 6 % (24-48) Monocytes (%) (Auto) 9 % (0-9) Eosinophils (%) (Auto) 0 % (0-3) Basophils (%) (Auto) 1 % (0-3) Neutrophils # (Auto) 14.1 x10^3uL (1.8-7.7) Lymphocytes # (Auto) 1.0 x10^3/uL (1.0-4.8) Monocytes # (Auto) 1.6 x10^3/uL (0.0-1.1) Eosinophils # (Auto) 0.1 x10^3/uL (0.0-0.7) Basophils # (Auto) 0.1 x10^3/uL (0.0-0.2) Segmented Neutrophils % 83 % (35-66) Band Neutrophils % 3 % (0-9) Lymphocytes % 8 % (24-48) Monocytes % 6 % (0-10) Platelet Estimate Adequate (ADEQUATE) Prothrombin Time 12.2 SEC (11.7-14.0) Prothromb Time International Ratio 1.0 (0.8-1.1) Sodium Level 145 mmol/L (136-145) Potassium Level 3.0 mmol/L (3.5-5.1) Chloride Level 105 mmol/L (98-107) Carbon Dioxide Level 22 mmol/L (21-32) Anion Gap 18 (6-14) Blood Urea Nitrogen 18 mg/dL (7-20) Creatinine 0.9 mg/dL (0.6-1.0) Estimated GFR (Cockcroft-Gault) 63.0 Glucose Level 180 mg/dL (70-99) Lactic Acid Level 3.3 mmol/L (0.4-2.0) Calcium Level 10.6 mg/dL (8.5-10.1) Magnesium Level 2.0 mg/dL (1.8-2.4) Total Bilirubin 0.7 mg/dL (0.2-1.0) Direct Bilirubin 0.2 mg/dL (0.0-0.2) Aspartate Amino Transf (AST/SGOT) 42 U/L (15-37) Alanine Aminotransferase (ALT/SGPT) 29 U/L (14-59) Alkaline Phosphatase 109 U/L (46-116) Creatine Kinase 671 U/L (26-192) Creatine Kinase MB (Mass) 13.3 ng/mL (0.0-3.6) Creatine Kinase MB Relative Index 2.0 % (0-4) Troponin I Quantitative 4.926 ng/mL (0.000-0.055) IW-Ibn-L-Type Natriuretic Peptide 6757 pg/mL (0-124) Total Protein 8.7 g/dL (6.4-8.2) Albumin 4.6 g/dL (3.4-5.0) Lipase 49 U/L (73-393) Thyroid Stimulating Hormone (TSH) 2.391 uIU/mL (0.358-3.74) Urine Opiates Screen Neg (NEG) Urine Methadone Screen Neg (NEG) Urine Barbiturates Neg (NEG) Urine Phencyclidine Screen Neg (NEG) Urine Amphetamine/Methamphetamine Neg (NEG) Urine Benzodiazepines Screen Pos (NEG) Urine Cocaine Screen Neg (NEG) Urine Cannabinoids Screen Pos (NEG) Urine Ethyl Alcohol Neg (NEG) O2 Saturation 98 % (92-99) Arterial Blood pH 7.58 (7.35-7.45) Arterial Blood pCO2 at Patient Temp 22 mmHg (35-46) Arterial Blood pO2 at Patient Temp 96 mmHg (65-108) Arterial Blood HCO3 20 mmol/L (21-28) Arterial Blood Base Excess 0 mmol/L (-3-3) FiO2 21 Urine Collection Type Unknown Urine Color Yellow Urine Clarity Hazy Urine pH 7.0 Urine Specific [place] 1.025 Urine Protein 100 mg/dL (NEG-TRACE) Urine Glucose (UA) Negative mg/dL (NEG) Urine Ketones (Stick) 15 mg/dL (NEG) Urine Blood Large (NEG) Urine Nitrite Negative (NEG) Urine Bilirubin Negative (NEG) Urine Urobilinogen Dipstick 0.2 mg/dL (0.2 mg/dL) Urine Leukocyte Esterase Negative (NEG) Urine RBC 1-2 /HPF (0-2) Urine WBC 0 /HPF (0-4) Urine Bacteria Moderate /HPF (0-FEW) Test 01/21/17 09:30 01/21/17 12:10 01/21/17 16:20 Lactic Acid Level 1.9 mmol/L (0.4-2.0) Creatine Kinase 895 U/L (26-192) 1090 U/L (26-192) Creatine Kinase MB (Mass) 17.8 ng/mL (0.0-3.6) 20.0 ng/mL (0.0-3.6) Creatine Kinase MB Relative Index 2.0 % (0-4) 1.8 % (0-4) Troponin I Quantitative 6.395 ng/mL (0.000-0.055) 6.632 ng/mL (0.000-0.055) 5.364 ng/mL (0.000-0.055) Assessment/Plan Assessment/Plan This patient comes in with noncardiac issues and found to be having an elevated troponin to a significant degree that could represent a non-STEMI with silent ischemia. In addition to that she is not the best of historians so she could've had an MN in the past 3 days and may not have much recollection. At the present time an echocardiogram was done that shows a left ventricular ejection fraction of 55% and no significant valvular disease. I would like to follow the serial enzymes and then if the patient is stable from noncardiac issues would then proceed with a heart catheterization in a day or 2. Thank you very much for asking me to participate in the care of this patient. FRANKY WINTERS MD January 21, 2017 17:14
[2017-01-21 19:40] VITALS: BP 148/76
[2017-01-21] MEDS: ATORVASTATIN CALCIUM 10 MG TABLET. PO SCH (22:32)
[2017-01-21] MEDS: GABAPENTIN 400 MG CAPSULE. PO SCH (22:32)
[2017-01-21] MEDS: PANTOPRAZOLE 40 MG TABLET.DR. PO SCH (22:33)
[2017-01-21] MEDS: ALPRAZolam 0.5 MG TABLET PO PRN (22:33)
[2017-01-21] MEDS: oxyCODONE/APAP 10/325 1 TAB TABLET PO PRN (22:42)
[2017-01-21 23:05] VITALS: BP 108/54
[2017-01-22 03:05] VITALS: BP 110/75
[2017-01-22 04:11] LABS: BASO % 0 % (0-3); EOS % 0 % (0-3); HEMATOCRIT 36.5 % (36.0-47.0); LYMPH # 2.7 x10^3/uL (1.0-4.8); LYMPH % 22 % (24-48); MEAN CORPUSCULAR HEMOGLOBIN 32 pg (25-35); MEAN CORPUSCULAR HGB CONC 33 g/dL (31-37); MEAN CORPUSCULAR VOLUME 98 fL (79-100); MONO % 11 % (0-9); NEUT % 66 % (31-73); PLATELET COUNT 232 x10^3/uL (140-400); RED BLOOD COUNT 3.74 x10^6/uL (3.50-5.40); RED CELL DISTRIBUTION WIDTH 13.6 % (11.5-14.5); WHITE BLOOD COUNT 12.2 x10^3/uL (4.0-11.0)
[2017-01-22 04:36] LABS: CALCIUM 8.1 mg/dL (8.5-10.1); CREATININE 0.6 mg/dL (0.6-1.0); GFR 100.6
[2017-01-22 04:46] LABS: POTASSIUM 2.2 mmol/L (3.5-5.1)
[2017-01-22] MEDS: POTASSIUM CL 40MEQ IN 0.9%NACL 1,000 ML IV SCH ×2 (05:17→18:50)
[2017-01-22] MEDS ORDERED: POTASSIUM CHLORIDE 20 MEQ TABLET.ER. PO ONE (05:30)
[2017-01-22] MEDS: PANTOPRAZOLE 40 MG TABLET.DR. PO SCH (06:29)
[2017-01-22 07:00] VITALS: BP 122/64
--- NOTE | 2017-01-22 08:38 | PDOC ---
Provider Note Provider Note [id number] SPARKLE ABRAHAM MD January 22, 2017 08:38
[2017-01-22] MEDS ORDERED: PROCHLORPERAZINE 5 MG TABLET. PO PRN (08:45)
[2017-01-22] MEDS ORDERED: PROCHLORPERAZINE 10 MG/2 ML VIAL. IV PRN (08:45)
[2017-01-22] MEDS: POTASSIUM CHLORIDE 20 MEQ TABLET.ER. PO SCH ×3 (09:14→18:11)
--- NOTE | 2017-01-22 09:14 | HP ---
ADMIT DATE: CHIEF COMPLAINT: Chest pain and abdominal pain. HISTORY OF PRESENT ILLNESS: A 66-year-old white female with severe COPD and deconditioning, chronic nonmalignant pain came in a couple of days after having a few hours of chest pain. She also came in with diffuse abdominal pain and abdominal CT scan was done which was unremarkable. She has had quite a bit of diarrhea and the C. diff test is negative so far. She is on no new medications. Overnight, she still continued to have diffuse abdominal pain and stools, nonbloody in nature. She has never had a previous heart attack or any cardiac events. She apparently had an EGD about [address] Amin but the results are not available on the record. The patient does not know the results or why this test was done. PAST MEDICAL HISTORY: Multiple. MEDICATIONS: Listed per the chart. ALLERGIES: LISTED TO MORPHINE. She takes oxycodone t.i.d. on the schedule. SOCIAL HISTORY: Continues to smoke fairly heavily, has smoked most of her adult life. She is single, lives with family, not employed. FAMILY HISTORY: Unremarkable. REVIEW OF SYSTEMS: Unremarkable. OBJECTIVE: ENT: All within normal limits. NECK: No masses, nodes or thyroid enlargement. LUNGS: Decreased breath sounds. No wheezes or tachypnea. CARDIOVASCULAR: Regular rate. No irregular beat or tachycardia. ABDOMEN: Diffusely tender. Bowel sounds increased. No masses are felt. EXTREMITIES: Excellent pedal and radial pulses, 2+ clubbing is noted. SKIN: Good skin turgor. No joint or skin lesions. NEUROLOGIC: Nonfocal, but confused, not well oriented at times, but responds appropriately to questions. ASSESSMENT: 1. Elevated troponin, CK-MB and mild EKG changes consistent with recent acute myocardial infarction, likely of inferior wall origin, per EKG. 2. Recent diarrhea, nausea and vomiting, etiology is unclear. 3. Chronic nonmalignant pain. 4. Chronic obstructive pulmonary disease. 5. Chronic tobacco abuse. PLAN: She is a DNR per her request. Potassium replacements are ongoing with oral and IV potassium and cardiac catheterization will be done by Dr. Sandhu once she is more stabilized and potassium levels are better. She remains on heparin, and clear liquids for her GI symptoms. SPARKLE ABRAHAM MD DR: ADAN/osman JOB#: [id number] / [id number]
[2017-01-22] MEDS: oxyCODONE/APAP 10/325 1 TAB TABLET PO PRN ×3 (09:15→21:49)
[2017-01-22] MEDS: GABAPENTIN 400 MG CAPSULE. PO SCH ×3 (09:15→21:45)
[2017-01-22] MEDS: buPROPion SR 150 MG TABLET.SA PO SCH (09:15)
[2017-01-22] MEDS: VENLAFAXINE 50 MG TABLET. PO SCH ×3 (09:15→21:45)
[2017-01-22 11:00] VITALS: BP 144/75
[2017-01-22] MEDS: ANTI-COAG MONITOR BY PHARMACY. MC PRN (13:02)
[2017-01-22 15:00] VITALS: BP 106/73
[2017-01-22] MEDS: HEPARIN 25,000UTS/500ML PREMIX 500 ML IV PRN (18:12)
--- NOTE | 2017-01-22 18:44 | PDOC ---
PROGRESS NOTES Subjective Subjective No chest pain Objective Objective Vital Signs Date Time Temp Pulse Resp B/P (MAP) Pulse Ox O2 Delivery O2 Flow Rate FiO2 01/22/17 18:07 18 95 Room Air 01/22/17 15:00 98.6 75 106/73 (84) 98.6 01/22/17 09:15 2.0 Intake and Output 01/22/17 07:00 Intake Total 1800 ml Balance 1800 ml Intake Oral 800 ml IV Total 1000 ml # Voids 2 # Bowel Movements 5 Physical Exam Physical Exam No changes in cardiac exam Assessment Assessment The situation was discussed with the pt as well as the options and risks and she wants to proceed with a cath possible. Will cath in am Comment Review of Relevant I have reviewed the following items chery (where applicable) has been applied. Labs Laboratory Tests Test 01/21/17 07:30 01/21/17 08:00 01/21/17 08:38 01/21/17 09:10 White Blood Count 16.7 x10^3/uL (4.0-11.0) Red Blood Count 4.44 x10^6/uL (3.50-5.40) Hemoglobin 14.5 g/dL (12.0-15.5) Hematocrit 42.6 % (36.0-47.0) Mean Corpuscular Volume 96 fL (79-100) Mean Corpuscular Hemoglobin 33 pg (25-35) Mean Corpuscular Hemoglobin Concent 34 g/dL (31-37) Red Cell Distribution Width 13.1 % (11.5-14.5) Platelet Count 357 x10^3/uL (140-400) Neutrophils (%) (Auto) 84 % (31-73) Lymphocytes (%) (Auto) 6 % (24-48) Monocytes (%) (Auto) 9 % (0-9) Eosinophils (%) (Auto) 0 % (0-3) Basophils (%) (Auto) 1 % (0-3) Neutrophils # (Auto) 14.1 x10^3uL (1.8-7.7) Lymphocytes # (Auto) 1.0 x10^3/uL (1.0-4.8) Monocytes # (Auto) 1.6 x10^3/uL (0.0-1.1) Eosinophils # (Auto) 0.1 x10^3/uL (0.0-0.7) Basophils # (Auto) 0.1 x10^3/uL (0.0-0.2) Segmented Neutrophils % 83 % (35-66) Band Neutrophils % 3 % (0-9) Lymphocytes % 8 % (24-48) Monocytes % 6 % (0-10) Platelet Estimate Adequate (ADEQUATE) Prothrombin Time 12.2 SEC (11.7-14.0) Prothromb Time International Ratio 1.0 (0.8-1.1) Sodium Level 145 mmol/L (136-145) Potassium Level 3.0 mmol/L (3.5-5.1) Chloride Level 105 mmol/L (98-107) Carbon Dioxide Level 22 mmol/L (21-32) Anion Gap 18 (6-14) Blood Urea Nitrogen 18 mg/dL (7-20) Creatinine 0.9 mg/dL (0.6-1.0) Estimated GFR (Cockcroft-Gault) 63.0 Glucose Level 180 mg/dL (70-99) Lactic Acid Level 3.3 mmol/L (0.4-2.0) Calcium Level 10.6 mg/dL (8.5-10.1) Magnesium Level 2.0 mg/dL (1.8-2.4) Total Bilirubin 0.7 mg/dL (0.2-1.0) Direct Bilirubin 0.2 mg/dL (0.0-0.2) Aspartate Amino Transf (AST/SGOT) 42 U/L (15-37) Alanine Aminotransferase (ALT/SGPT) 29 U/L (14-59) Alkaline Phosphatase 109 U/L (46-116) Creatine Kinase 671 U/L (26-192) Creatine Kinase MB (Mass) 13.3 ng/mL (0.0-3.6) Creatine Kinase MB Relative Index 2.0 % (0-4) Troponin I Quantitative 4.926 ng/mL (0.000-0.055) AP-Akc-V-Type Natriuretic Peptide 6757 pg/mL (0-124) Total Protein 8.7 g/dL (6.4-8.2) Albumin 4.6 g/dL (3.4-5.0) Lipase 49 U/L (73-393) Thyroid Stimulating Hormone (TSH) 2.391 uIU/mL (0.358-3.74) Urine Opiates Screen Neg (NEG) Urine Methadone Screen Neg (NEG) Urine Barbiturates Neg (NEG) Urine Phencyclidine Screen Neg (NEG) Urine Amphetamine/Methamphetamine Neg (NEG) Urine Benzodiazepines Screen Pos (NEG) Urine Cocaine Screen Neg (NEG) Urine Cannabinoids Screen Pos (NEG) Urine Ethyl Alcohol Neg (NEG) O2 Saturation 98 % (92-99) Arterial Blood pH 7.58 (7.35-7.45) Arterial Blood pCO2 at Patient Temp 22 mmHg (35-46) Arterial Blood pO2 at Patient Temp 96 mmHg (65-108) Arterial Blood HCO3 20 mmol/L (21-28) Arterial Blood Base Excess 0 mmol/L (-3-3) FiO2 21 Urine Collection Type Unknown Urine Color Yellow Urine Clarity Hazy Urine pH 7.0 Urine Specific [place] 1.025 Urine Protein 100 mg/dL (NEG-TRACE) Urine Glucose (UA) Negative mg/dL (NEG) Urine Ketones (Stick) 15 mg/dL (NEG) Urine Blood Large (NEG) Urine Nitrite Negative (NEG) Urine Bilirubin Negative (NEG) Urine Urobilinogen Dipstick 0.2 mg/dL (0.2 mg/dL) Urine Leukocyte Esterase Negative (NEG) Urine RBC 1-2 /HPF (0-2) Urine WBC 0 /HPF (0-4) Urine Bacteria Moderate /HPF (0-FEW) Test 01/21/17 09:30 01/21/17 12:10 01/21/17 14:00 01/21/17 16:20 Lactic Acid Level 1.9 mmol/L (0.4-2.0) Creatine Kinase 895 U/L (26-192) 1090 U/L (26-192) Creatine Kinase MB (Mass) 17.8 ng/mL (0.0-3.6) 20.0 ng/mL (0.0-3.6) Creatine Kinase MB Relative Index 2.0 % (0-4) 1.8 % (0-4) Troponin I Quantitative 6.395 ng/mL (0.000-0.055) 6.632 ng/mL (0.000-0.055) 5.364 ng/mL (0.000-0.055) Clostridium difficile Toxin (PCR) Negative (Negative) Test 01/21/17 19:55 5/31/17 03:20 01/22/17 11:30 Heparin Anti-Xa Act, Unfractionated 0.54 IU/mL (0.30-0.70) 0.44 IU/mL (0.30-0.70) Troponin I Quantitative 4.704 ng/mL (0.000-0.055) White Blood Count 12.2 x10^3/uL (4.0-11.0) Red Blood Count 3.74 x10^6/uL (3.50-5.40) Hemoglobin 12.0 g/dL (12.0-15.5) Hematocrit 36.5 % (36.0-47.0) Mean Corpuscular Volume 98 fL (79-100) Mean Corpuscular Hemoglobin 32 pg (25-35) Mean Corpuscular Hemoglobin Concent 33 g/dL (31-37) Red Cell Distribution Width 13.6 % (11.5-14.5) Platelet Count 232 x10^3/uL (140-400) Neutrophils (%) (Auto) 66 % (31-73) Lymphocytes (%) (Auto) 22 % (24-48) Monocytes (%) (Auto) 11 % (0-9) Eosinophils (%) (Auto) 0 % (0-3) Basophils (%) (Auto) 0 % (0-3) Neutrophils # (Auto) 8.1 x10^3uL (1.8-7.7) Lymphocytes # (Auto) 2.7 x10^3/uL (1.0-4.8) Monocytes # (Auto) 1.4 x10^3/uL (0.0-1.1) Eosinophils # (Auto) 0.0 x10^3/uL (0.0-0.7) Basophils # (Auto) 0.0 x10^3/uL (0.0-0.2) Sodium Level 146 mmol/L (136-145) Potassium Level 2.2 mmol/L (3.5-5.1) Chloride Level 110 mmol/L (98-107) Carbon Dioxide Level 24 mmol/L (21-32) Anion Gap 12 (6-14) Blood Urea Nitrogen 15 mg/dL (7-20) Creatinine 0.6 mg/dL (0.6-1.0) Estimated GFR (Cockcroft-Gault) 100.6 Glucose Level 101 mg/dL (70-99) Calcium Level 8.1 mg/dL (8.5-10.1) Laboratory Tests Test 01/21/17 19:55 01/22/17 03:20 01/22/17 11:30 Heparin Anti-Xa Act, Unfractionated 0.54 IU/mL (0.30-0.70) 0.44 IU/mL (0.30-0.70) Troponin I Quantitative 4.704 ng/mL (0.000-0.055) White Blood Count 12.2 x10^3/uL (4.0-11.0) Red Blood Count 3.74 x10^6/uL (3.50-5.40) Hemoglobin 12.0 g/dL (12.0-15.5) Hematocrit 36.5 % (36.0-47.0) Mean Corpuscular Volume 98 fL (79-100) Mean Corpuscular Hemoglobin 32 pg (25-35) Mean Corpuscular Hemoglobin Concent 33 g/dL (31-37) Red Cell Distribution Width 13.6 % (11.5-14.5) Platelet Count 232 x10^3/uL (140-400) Neutrophils (%) (Auto) 66 % (31-73) Lymphocytes (%) (Auto) 22 % (24-48) Monocytes (%) (Auto) 11 % (0-9) Eosinophils (%) (Auto) 0 % (0-3) Basophils (%) (Auto) 0 % (0-3) Neutrophils # (Auto) 8.1 x10^3uL (1.8-7.7) Lymphocytes # (Auto) 2.7 x10^3/uL (1.0-4.8) Monocytes # (Auto) 1.4 x10^3/uL (0.0-1.1) Eosinophils # (Auto) 0.0 x10^3/uL (0.0-0.7) Basophils # (Auto) 0.0 x10^3/uL (0.0-0.2) Sodium Level 146 mmol/L (136-145) Potassium Level 2.2 mmol/L (3.5-5.1) Chloride Level 110 mmol/L (98-107) Carbon Dioxide Level 24 mmol/L (21-32) Anion Gap 12 (6-14) Blood Urea Nitrogen 15 mg/dL (7-20) Creatinine 0.6 mg/dL (0.6-1.0) Estimated GFR (Cockcroft-Gault) 100.6 Glucose Level 101 mg/dL (70-99) Calcium Level 8.1 mg/dL (8.5-10.1) Microbiology 01/21/17 Urine Culture - Preliminary, Resulted 01/21/17 Urine Culture Result 1 (MANISHA) - Preliminary, Resulted Medications Current Medications Fentanyl Citrate (Fentanyl 2ml Vial) 25 mcg PRN Q15MIN PRN IV PAIN GREATER THAN 3/10 Last administered on 01/21/17 08:46; Start 01/21/17 at 07:30; Stop at 07:29; Status DC Sodium Chloride 1,000 ml @ 1,000 mls/hr Q1H IV Last administered on 01/21/17 07:50; Start 01/21/17 at 07:45; Stop 01/21/17 at 08:44; Status DC Iohexol (Omnipaque 240 Mg/ml) 30 ml 1X ONCE PO Last administered on 01/21/17 10:02; Start 01/21/17 at 08:30; Stop 01/21/17 at 08:31; Status DC Iohexol (Omnipaque 300 Mg/ml) 75 ml 1X ONCE IV Last administered on 01/21/17 10:02; Start 01/21/17 at 08:30; Stop 01/21/17 at 08:31; Status DC Info (Do NOT chart on this entry -- for MONITORING) 1 each PRN DAILY PRN MC SEE COMMENTS; Start 01/21/17 at 08:30; Stop 01/23/17 at 08:29 Ondansetron HCl (Zofran) 4 mg 1X ONCE IV Last administered on 01/21/17 09:33 ; Start 01/21/17 at 09:30; Stop 01/21/17 at 09:31; Status DC Sodium Chloride 1,000 ml @ 1,000 mls/hr 1X ONCE IV Last administered on 10:00; Start 01/21/17 at 10:00; Stop 01/21/17 at 10:59; Status DC Aspirin (Britton Aspirin) 325 mg 1X ONCE PO Last administered on 01/21/17 10:17 ; Start 01/21/17 at 10:15; Stop 01/21/17 at 10:16; Status DC Ondansetron HCl (Zofran) 4 mg PRN Q8HRS PRN IV NAUSEA/VOMITING Last administered on 01/21/17 11:47; Start 01/21/17 at 10:30; Stop 01/21/17 at 17:36 ; Status DC Heparin Sodium/ Dextrose 500 ml @ 0 mls/hr CONT PRN IV SEE I/O RECORD Last administered on 01/22/17 18:12; Start 01/21/17 at 12:45 Heparin Sodium (Porcine) (Heparin Sodium) 4,700 unit 1X ONCE IV Last administered on 01/21/17 13:34; Start 01/21/17 at 13:00; Stop 01/21/17 at 13:01 ; Status DC Info (Anti-Coagulation Monitoring By Pharmacy) 1 each PRN DAILY PRN MC SEE COMMENTS Last administered on 01/22/17 13:02; Start 01/21/17 at 13:00 Ondansetron HCl (Zofran) 4 mg PRN Q6HRS PRN IV NAUSEA/VOMITING; Start 01/21/17 at 17:34 Alprazolam (Xanax) 0.5 mg PRN TID PRN PO ANXIETY / AGITATION Last administered on 01/21/17 22:33; Start 01/21/17 at 21:15 Atorvastatin Calcium (Lipitor) 10 mg HS PO Last administered on 01/21/17 22:32 ; Start 01/21/17 at 22:00 Bupropion HCl (Wellbutrin Sr) 150 mg DAILY PO Last administered on 01/22/17 09 :15; Start 01/22/17 at 09:00 Gabapentin (Neurontin) 400 mg TID PO Last administered on 01/22/17 18:06; Start 01/21/17 at 22:00 Oxycodone/ Acetaminophen (Percocet 10/325) 1 tab PRN Q6HRS PRN PO SEVERE PAIN Last administered on 01/22/17 18:07; Start 01/21/17 at 21:15 Pantoprazole Sodium (Protonix) 40 mg DAILYAC PO Last administered on 01/22/17 06:29; Start 01/21/17 at 23:00 Venlafaxine HCl (Effexor) 50 mg TID PO Last administered on 01/22/17 18:06; Start 01/22/17 at 09:00 Potassium Chloride (Klor-Con) 20 meq 1X ONCE PO Last administered on 05:15; Start 01/22/17 at 05:30; Stop 01/22/17 at 05:31; Status DC Potassium Chloride (Klor-Con) 20 meq TIDWMEALS PO Last administered on 18:11; Start 01/22/17 at 08:00 Potassium Chloride/Sodium Chloride 1,000 ml @ 100 mls/hr Q10H IV Last administered on 01/22/17 05:17; Start 01/22/17 at 05:30 Prochlorperazine Maleate (Compazine) 5 mg PRN Q6HRS PRN PO NAUSEA/VOMITING Last administered on 01/22/17 09:15; Start 01/22/17 at 08:45 Prochlorperazine Edisylate (Compazine) 5 mg PRN Q6HRS PRN IV NAUSEA/VOMITING; Start 01/22/17 at 08:45 Active Scripts Active Reported Premarin (Estrogens, Conjugated) 0.625 Mg Tablet 0.625 Mg PO DAILY Lipitor (Atorvastatin Calcium) 10 Mg Tablet 10 Mg PO HS Alprazolam 0.5 Mg Tablet 0.5 Mg PO PRN Q6HRS PRN Ventolin Hfa Inhaler (Albuterol Sulfate) 18 Gm Hfa.aer.ad 2 Puff INH QID Pantoprazole Sodium 40 Mg Tablet.dr 40 Mg PO DAILY Duoneb 0.5-3(2.5) Mg/3 Ml (Albuterol/Ipratropium) 3 Ml Ampul.neb 3 Ml NEB QID Oxycodone-Acetaminophen 10-325 (Oxycodone Hcl/Acetaminophen) 1 Each Tablet 1 Each PO PRN Q6HRS PRN Percocet 10-325 Mg Tablet (Oxycodone/Acetaminophen) 1 Each Tablet 1 Tab PO PRN Q6HRS PRN Wellbutrin Sr (Bupropion Hcl) 150 Mg Tablet.er 150 Mg PO DAILY Venlafaxine Hcl Er (Venlafaxine Hcl) 150 Mg Tab.er.24 150 Mg PO DAILY Effexor Xr (Venlafaxine Hcl) 150 Mg Cap.er.24h 150 Mg PO DAILY Gabapentin 100 Mg Capsule 400 Mg PO TID Xanax (Alprazolam) 0.5 Mg Tablet 0.5 Mg PO TID PRN Vitals/I & O Vital Sign - Last 24 Hours 01/21/17 01/21/17 01/21/17 01/22/17 19:40 19:55 23:05 03:05 Temp 98.4 98.3 98.2 98.4 98.3 98.2 Pulse 67 67 71 Resp 18 18 B/P (MAP) 148/76 (100) 108/54 (72) 110/75 (87) Pulse Ox 96 97 98 O2 Delivery Room Air Room Air Room Air Room Air 01/22/17 01/22/17 01/22/17 01/22/17 07:00 08:00 09:15 11:00 Temp 98.3 98.1 98.3 98.1 Pulse 72 64 Resp 18 B/P (MAP) 122/64 (83) 144/75 (98) Pulse Ox 97 97 96 O2 Delivery Room Air Room Air Room Air Room Air O2 Flow Rate 2.0 01/22/17 01/22/17 01/22/17 13:57 15:00 18:07 Temp 98.6 98.6 Pulse 75 Resp 18 B/P (MAP) 106/73 (84) Pulse Ox 96 95 95 O2 Delivery Room Air Room Air Room Air Intake and Output 01/21/17 01/21/17 01/22/17 15:00 23:00 07:00 Intake Total 1000 ml 240 ml 560 ml Balance 1000 ml 240 ml 560 ml FRANKY WINTERS MD January 22, 2017 18:44
[2017-01-22 19:45] VITALS: BP 163/81
[2017-01-22] MEDS: ATORVASTATIN CALCIUM 10 MG TABLET. PO SCH (21:45)
[2017-01-22] MEDS: ALPRAZolam 0.5 MG TABLET PO PRN (21:48)
[2017-01-22 22:42] VITALS: BP 110/70
[2017-01-23] VITALS (12 sets, daily range): BP systolic 128–155; BP diastolic 63–82
[2017-01-23] MEDS: POTASSIUM CL 40MEQ IN 0.9%NACL 1,000 ML IV SCH ×2 (06:13→17:14)
[2017-01-23] MEDS: ANTI-COAG MONITOR BY PHARMACY. MC PRN (07:43)
[2017-01-23] MEDS: POTASSIUM CHLORIDE 20 MEQ TABLET.ER. PO SCH ×3 (08:00→18:31)
[2017-01-23] MEDS: oxyCODONE/APAP 10/325 1 TAB TABLET PO PRN ×2 (08:04→21:04)
--- NOTE | 2017-01-23 08:55 | PDOC ---
Provider Note Provider Note vss, labs ok, K+ 3.6 now- less abd pain, still some diarrhea- cath today SPARKLE ABRAHAM MD Jan 23, 2017 08:55
[2017-01-23] MEDS: VENLAFAXINE 50 MG TABLET. PO SCH ×3 (09:00→21:04)
[2017-01-23] MEDS: GABAPENTIN 400 MG CAPSULE. PO SCH ×3 (09:00→21:05)
[2017-01-23] MEDS ORDERED: IOHEXOL 300 MG/ML 100ML VIAL. ONE (10:59)
[2017-01-23] MEDS ORDERED: LIDOCAINE 2% 20 ML VIAL. ONE (10:59)
[2017-01-23] MEDS ORDERED: LIDOCAINE 2% 20 ML VIAL. IJ ONE (11:00)
[2017-01-23] MEDS ORDERED: IOHEXOL 300 MG/ML 100ML VIAL. IART ONE (11:00)
[2017-01-23] MEDS ORDERED: MIDAZOLAM HCL/PF 2 MG/2 ML VIAL. IV ONE (11:00)
[2017-01-23] MEDS ORDERED: fentaNYL PF VIAL 100 MCG/2 ML VIAL IV ONE (11:00)
--- NOTE | 2017-01-23 11:13 | PDOC ---
MODERATE SEDATION ASSESSMENT RISKS/ALTERNATIVES Risks/Alternatives Risks and alternatives of this type of sedation and procedure discussed with: RISK/ALTERNATIVES: Patient H & P ON CHART H & P H & P on chart and reviewed for co-morbid conditions and appropriate labs. H&P ON CHART: Yes STATUS PREG STATUS ASSESSED: Yes MEDS/ALLERGIES REVIEWED Meds/Allergies Reviewed Medications and Allergies including time and route of recently administered narcotics and sedatives. MEDS/ALLERGIES REVIEWED: Yes ASA RATING ASA RATING: I AIRWAY ASSESSMENT Airway Assessment Airway patency, oral function limitations, presence of caps, crowns, dentures, partials, and ability to extend neck assessed. AIRWAY ASSESSMENT: Yes MALLAMPATI SCORE MALLAMPATI SCORE: II PRE-SEDATION ASSESSMENT PRE-SEDATION ASSESSMENT: Yes FRANKY WINTERS MD Jan 23, 2017 11:12
[2017-01-23] MEDS ORDERED: CONTRAST GIVEN MC PRN (11:15)
[2017-01-23] MEDS ORDERED: MIDAZOLAM HCL/PF 2 MG/2 ML VIAL. ONE ×2 (11:19→11:31)
[2017-01-23] MEDS ORDERED: fentaNYL PF VIAL 100 MCG/2 ML VIAL ONE (11:19)
[2017-01-23] MEDS ORDERED: CLOPIDOGREL BISULFATE 75 MG TABLET ONE (11:47)
[2017-01-23] MEDS ORDERED: HEPARIN for IV BOLUS 10,000 UNIT/10 ML VIAL. ONE (11:47)
[2017-01-23] MEDS ORDERED: HEPARIN for IV BOLUS 10,000 UNIT/10 ML VIAL. IV ONE (11:48)
[2017-01-23] MEDS ORDERED: CLOPIDOGREL BISULFATE 75 MG TABLET PO ONE (12:00)
[2017-01-23] MEDS ORDERED: SURGICEL HEMOSTAT 2X3 EACH. ONE (12:16)
--- NOTE | 2017-01-23 13:27 | PDOC4 ---
PROCEDURE Procedure PROCEDURE NOTE Procedure: Left heart catheterization with a brachial approach and stenting of the obtuse marginal Preoperative diagnosis: chest pains, non-STEMI Postoperative diagnosis: Chest pain, non-STEMI, coronary artery disease, successful stenting of the obtuse marginal Procedure note: After obtaining informed consent the patient was brought to the [facility]. With the patient in the supine position the right antecubital area was prepped and draped in the usual fashion. The area was infiltrated with Xylocaine to obtain topical anesthesia. The skin was incised and then using blunt dissection I identified and isolated the brachial artery. The artery was then entered and a sheath was placed in a retrograde fashion. Through this sheath I then advanced a diagnostic catheter and we engaged the left coronary os views of the left coronary artery were then done. I then engage the right coronary os and views of the right coronary artery were then done. Findings: Coronaries: Left main is normal with a high takeoff. The LAD is a large vessel and it is normal all of the diagonals are rather small vessels but no significant disease. The circumflex is a codominant vessel that is normal and the obtuse marginal has a proximal 90% stenosis. The RCA is a medium size vessel with diffuse plaquing in the 20-40% range. After this was evaluated I decided that we needed to proceed with stenting of the obtuse marginal. The patient was given a bolus of IV heparin and then a guiding catheter was utilized to engage the left main. A guidewire was advanced into the circumflex and down into the obtuse marginal across the area of stenosis and to the distal part of the vessel. A 2.5 mm x 15 mm drug-eluting stent was then advanced over the guidewire and once I was satisfied with its position the stent was deployed. Multiple high-pressure inflations were then done there. A view was then done and I saw that there was still some residual disease present and therefore a 3.0 millimeter balloon was then utilized to post-dilate the area with high pressures. After that was done views were then done of the left coronary we saw that the left main the LAD and the circumflex were unchanged. The stent appears to be in good position in the obtuse marginal and no significant residual disease was present. No dissection was identified and now there was an excellent flow through the area. The guiding catheter was then removed and the sheath was pulled and then the artery was repaired with a pursestring suture. Following that we had no significant bleeding and the patient had a good radial pulse therefore the skin edges were approximated with interrupted mattress sutures. A dressing was applied to the area and the pt was returned to her room in satisfactory condition after tolerating the procedure rather well. The patient was given a bolus of Plavix by mouth before leaving the [facility]. This was dictated in [employer] because I was unable to sign on to [employer] since yesterday due to computer issues FRANKY WINTERS MD Jan 23, 2017 13:27
--- NOTE | 2017-01-23 13:38 | CARD ---
APPROVED REPORT PROCEDURE NARRATIVE [facility] PROCEDURE Patient Name: Lilli Johnson Number: [id number] Date of : 1950atient Status: Admitted Inpatient Attending Doctor: Otto Hallman [facility] Number: [id number] PROCEDURE NOTE PROCEDURE Procedure PROCEDURE NOTE Procedure: Left heart catheterization with a brachial approach and stenting of the obtuse marginal Preoperative diagnosis: chest pains, non-STEMI Postoperative diagnosis: Chest pain, non-STEMI, coronary artery disease, successful stenting of the o btuse marginal Procedure note: After obtaining informed consent the patient was brought to the [facility] [employer]. With the patient in the supine position the right antecubital area was prepped and draped in the usua l fashion. The area was infiltrated with Xylocaine to obtain topical anesthesia. The skin was incised and then using blunt dissection I identified and isolated the brachial artery. The artery was then entered and a sheath was placed in a retrograde fashion. Through this sheath I then advanced a diagnostic catheter and we engaged the left coronary os views o f the left coronary artery were then done. I then engage the right coronary os and views of the right coronary artery were then done. Findings: Coronaries: Left main is normal with a high takeoff. The LAD is a large vessel and it is normal all o f the diagonals are rather small vessels but no significant disease. The circumflex is a codominant v essel that is normal and the obtuse marginal has a proximal 90% stenosis. The RCA is a medium size vessel w ith diffuse plaquing in the 20-40% range. After this was evaluated I decided that we needed to proceed with stenting of the obtuse marginal. The patient was given a bolus of IV heparin and then a guiding catheter was utilized to engage the le ft main. A guidewire was advanced into the circumflex and down into the obtuse marginal across the area of sanket nosis and to the distal part of the vessel. A 2.5 mm x 15 mm drug-eluting stent was then advanced over the guidewire and once I was satisfied with its position the stent was deployed. Multiple high-pressure inflations were then done there. A view was then done and I saw that there was still some residual disease present and therefore a 3.0 millimeter balloon was then utilized to post-dilate the area with high pressures. After that was done views were then done of the left coronary we saw that the left main the LAD and t he circumflex were unchanged. The stent appears to be in good position in the obtuse marginal and no significant residual disease was present. No dissection was identified and now there was an excellent flow through the area. The guiding catheter was then removed and the sheath was pulled and then the artery was repaired with a pursestring suture. Following that we had no significant bleeding and the patient had a good radia l pulse therefore the skin edges were approximated with interrupted mattress sutures. A dressing was applied to the area and the pt was returned to her room in satisfactory condition afte r tolerating the procedure rather well. The patient was given a bolus of Plavix by mouth before leaving the [facility] [employer]. This was dictated in [place] because I was unable to sign on to [employer] since yesterday due to comp uter issues FRANKY WINTERS MDJun 2016 13:27 Conclusion This pt has CAD with a tight lesion on the OM. A succesful stenting of the OM was done with a drug eluting stent. Pt started on ASA/Plavix. If stable may go home in am. Sutures ou in one week. Recommendations Daily ASA with Plavix for at least one year
[2017-01-23] MEDS: PANTOPRAZOLE 40 MG TABLET.DR. PO SCH (14:08)
[2017-01-23] MEDS: buPROPion SR 150 MG TABLET.SA PO SCH (14:08)
[2017-01-23] MEDS: HEPARIN 25,000UTS/500ML PREMIX 500 ML IV PRN (17:20)
[2017-01-23] MEDS: ATORVASTATIN CALCIUM 10 MG TABLET. PO SCH (21:04)
[2017-01-23] MEDS: ALPRAZolam 0.5 MG TABLET PO PRN (21:05)
[2017-01-24 02:48] VITALS: BP 131/59
[2017-01-24] MEDS: POTASSIUM CL 40MEQ IN 0.9%NACL 1,000 ML IV SCH (03:26)
[2017-01-24] MEDS: oxyCODONE/APAP 10/325 1 TAB TABLET PO PRN (05:56)
[2017-01-24 07:37] VITALS: BP 164/62
[2017-01-24] MEDS ORDERED: CLOPIDOGREL BISULFATE 75 MG TABLET PO SCH (08:00)
[2017-01-24] MEDS ORDERED: ASPIRIN CHEWABLE 81 MG TABLET. PO SCH (08:00)
--- NOTE | 2017-01-24 08:24 | DISCH ---
DISCHARGE INSTRUCTIONS Condition on Discharge Condition on Discharge: Stable Activity After Discharge Activity Instructions for Disc: No restrictions Diet after Discharge Diet after Discharge: Cardiac Follow-Up Follow up with: SPARKLE Chapman 2, MD Jan 24, 2017 08:24
--- NOTE | 2017-01-24 08:28 | PDOC ---
Provider Note Provider Note [id number] SPARKLE ABRAHAM MD Jan 24, 2017 08:28
[2017-01-24] MEDS: buPROPion SR 150 MG TABLET.SA PO SCH (08:36)
[2017-01-24] MEDS: PANTOPRAZOLE 40 MG TABLET.DR. PO SCH (08:36)
[2017-01-24] MEDS: GABAPENTIN 400 MG CAPSULE. PO SCH (08:36)
[2017-01-24] MEDS: VENLAFAXINE 50 MG TABLET. PO SCH (08:36)
[2017-01-24] MEDS: POTASSIUM CHLORIDE 20 MEQ TABLET.ER. PO SCH (08:36)
[2017-01-24] MEDS ORDERED: CLOP75TA PO (09:41)
[2017-01-24] MEDS ORDERED: ASPI81TA2 PO (09:41)
--- NOTE | 2017-01-24 16:12 | DS ---
DATE OF DISCHARGE: 01/24/2017 HOSPITAL SUMMARY: A 66-year-old white female came in with abdominal pain, diarrhea, and recent episode of chest pain. Troponin was elevated at 6.6 and potassium was though at 3.0, was down to 2.2, but it came up to 3.6 prior to discharge. CK-MB was elevated, consistent with myocardial injury as well, but renal function was normal as was the CBC and urinalysis. There was a large present and the urine culture grew out E. coli sensitive to all antibiotics tested. Chest x-ray was clear and abdominal pelvic CT was unremarkable as was the head CT. Because of the elevated CK-MB and troponin, she underwent cardiac catheterization, which revealed minor disease of the right coronary artery, severe stenosis of the first obtuse marginal of the circumflex with about 90% stenosis. Dr. Sandhu angioplastied and stented that vessel today prior to dismissal and at this time, she is comfortable to be followed as an outpatient. FINAL DIAGNOSES: 1. Acute myocardial infarction. 2. Coronary artery disease, obtuse marginal branch of the circumflex. 3. Urinary tract infection. 4. Hypokalemia secondary to recent diarrhea. OPERATIONS AND PROCEDURES: Cardiac catheterization, coronary arteriograms, angioplasty and stent placement. COMPLICATIONS: None. CONSULTATIONS: Dr. Sandhu. DISPOSITION: We will add aspirin 81 mg daily and Plavix 75 mg daily indefinitely. She will take 3 days of Cipro 250 mg twice a day and all rest of the home medicines since remain the same. Activity as tolerated. Continued avoidance of tobacco encouraged. She is a DNR patient by her own choice given multiple chronic medical problems and tobacco use. SPARKLE ABRAHAM MD DR: ADAN/osman JOB#: [id number] / [id number]
== END 2017-01-24 10:35 | disposition home or self-care (01) | DRG 246 ==
LOC: ER 07:14 → 2 SOUTH 09:45
PROVIDERS: ADMIT Family Medicine; ATTEND Family Medicine
PROC: 027034Z Dilation of Coronary Artery, One Artery with Drug-eluting Intraluminal Device, Percutaneous Approach (ICD-10-PCS; principal; 2017-01-21)
PROC: 4A023N7 Measurement of Cardiac Sampling and Pressure, Left Heart, Percutaneous Approach (ICD-10-PCS; 2017-01-21)
PROC: B2111ZZ Fluoroscopy of Multiple Coronary Arteries using Low Osmolar Contrast (ICD-10-PCS; 2017-01-21)
DX: I21.4 Non-ST elevation (NSTEMI) myocardial infarction (principal); G92 Toxic encephalopathy; E87.4 Mixed disorder of acid-base balance; N39.0 Urinary tract infection, site not specified; F12.90 Cannabis use, unspecified, uncomplicated; G43.909 Migraine, unspecified, not intractable, without status migrainosus; M19.90 Unspecified osteoarthritis, unspecified site; E78.00 Pure hypercholesterolemia, unspecified; R56.9 Unspecified convulsions; E87.6 Hypokalemia; Z66 Do not resuscitate; F17.200 Nicotine dependence, unspecified, uncomplicated; G89.29 Other chronic pain; I10 Essential (primary) hypertension; I25.10 Atherosclerotic heart disease of native coronary artery without angina pectoris; J44.9 Chronic obstructive pulmonary disease, unspecified; M79.7 Fibromyalgia; M81.0 Age-related osteoporosis without current pathological fracture; Z90.49 Acquired absence of other specified parts of digestive tract; Z90.710 Acquired absence of both cervix and uterus
CPT/HCPCS: 36415; 36600; 70450; 74022; 74177; 80048; 80076; 81001; 82553; 82805; 83605; 83690; 83735; 83880; 84132; 84443; 84484; 85007; 85027; 85520; 85610; 87086; 87186; 87324; 92928; 93005; 93306; 93454; 96361; 96374; 96375; 96376; C1725; C1769; C1874; C1887; C1892; G0481; J2250; J2405; J3010; J3480; J7030; Q0164; Q9966; Q9967; 99285-25

== ENCOUNTER → 2017-02-07 | Outpatient (CLI) | payer OTHER ==
[2017-01-28 07:00] VITALS: BP 125/63
[~2017-02-07] MED LIST changes: +ALPR0.5T6 PO; +ASPI-630 PO; +ATOR10TA PO; +BUPR150T8 PO; +CLOP75TA PO; +ESTR0.62 PO; +FLUT1DIS3 IH; +IPRA3AMP NEB; +OXYC-328 PO; -OXYC10TA32 PO; +OXYC10TA45 PO; +OXYC1TAB9 PO; +PANT40TA5 PO; +VENL150C PO; +VENL150T PO; +VENTOLIN HFA18 GM INH
--- NOTE | 2017-02-07 17:06 | RAD ---
Left rib series 02/07/2017 Clinical history: Left chest wall pain for 2 weeks. AP and oblique digital radiographs of the left ribs were obtained. Comparison is made to a portable chest radiograph dated 01/24/2017. The left lung is essentially clear. Linear bands of subsegmental atelectasis is seen involving the left lower lobe. No left-sided pneumothorax is seen. No left-sided rib fracture is seen. Impression: No left rib fracture is seen.
== END | disposition home or self-care (01) ==
LOC: RAD 15:34
PROVIDERS: ATTEND Family Medicine
DX: J98.11 Atelectasis (principal)
CPT/HCPCS: 71100

== ENCOUNTER 2017-04-05 09:12 | Inpatient (IN) | payer OTHER ==
[~2017-04-05] VITALS: Ht 162.6 cm; Wt 54.4 kg
[2017-04-05] MEDS ORDERED: IV NORMAL SALINE 1000ML BAG 1,000 ML IV SCH (10:30)
[2017-04-05 10:38] LABS: BASO # 0.1 x10^3/uL (0.0-0.2); BASO % 1 % (0-3); EOS % 6 % (0-3); HEMATOCRIT 42.2 % (36.0-47.0); HEMOGLOBIN 14.6 g/dL (12.0-15.5); LYMPH # 1.4 x10^3/uL (1.0-4.8); LYMPH % 24 % (24-48); MEAN CORPUSCULAR HEMOGLOBIN 34 pg (25-35); MEAN CORPUSCULAR HGB CONC 35 g/dL (31-37); MEAN CORPUSCULAR VOLUME 98 fL (79-100); MONO % 12 % (0-9); NEUT % 57 % (31-73); PLATELET COUNT 268 x10^3/uL (140-400); RED BLOOD COUNT 4.32 x10^6/uL (3.50-5.40); RED CELL DISTRIBUTION WIDTH 13.8 % (11.5-14.5); WHITE BLOOD COUNT 5.6 x10^3/uL (4.0-11.0)
[2017-04-05 10:47] LABS: CALCIUM 9.6 mg/dL (8.5-10.1); CREATININE 0.9 mg/dL (0.6-1.0); POTASSIUM 3.3 mmol/L (3.5-5.1)
--- NOTE | 2017-04-05 10:48 | RAD ---
Two-view abdomen radiographs 04/05/2017 Clinical history: Abdominal pain. Supine and erect AP portable digital radiographs of the abdomen/pelvis were obtained. Comparison study is dated 03/31/2017. The abdominal bowel gas pattern is nonobstructive. Calcifications are seen within the pelvis consistent with phleboliths. There is no evidence of free air. Linear bands of subsegmental atelectasis are seen involving both lower lobes. Calcifications are seen within the pelvis consistent with phleboliths. The osseous structures are unchanged. Impression: Nonobstructive bowel gas pattern.
[2017-04-05 10:53] LABS: ALBUMIN 3.9 g/dL (3.4-5.0); ALBUMIN/GLOBULIN RATIO 1.1 (1.0-1.7); TOTAL BILIRUBIN 0.4 mg/dL (0.2-1.0); TOTAL PROTEIN 7.3 g/dL (6.4-8.2)
--- NOTE | 2017-04-05 13:04 | PHYS DOC ---
Past Medical History Past Medical History: Arthritis, Asthma, COPD, Fibromyalgia, High Cholesterol, [place], Migraines, Seizure, Other Additional Past Medical Histor: OSTEOPOROSIS, chronic abd pain Past Surgical History: Appendectomy, Hysterectomy, Other Additional Past Surgical Histo: LEFT EYE, cardiac stent Additional Information: 08/26 ppd Alcohol Use: None Drug Use: Benzodiazepine, Marijuana, Opiates Adult General Chief Complaint Chief Complaint: ABDOMINAL PAIN HPI HPI Patient is a 66 year old female who comes in with the complaint of abdominal pain. Patient states "I called Dr. Hallman and he told me to come back in." Patient was recently hospitalized with this and she states "I feel the same as I did when I came home from the hospital". States that she has no appetite and can't eat anything. She's had some nausea but no vomiting. When she was in the hospital recently she had diarrhea and then had a hard stool. She doesn't know whether she is constipated or not. He has lost weight due to this illness. I discussed the case with Dr. Hallman who told me that the patient is not able to have endoscopy because she has such bad COPD. It's limited what he can do for her due to her severity of COPD and he is not sure what is causing her abdominal pain symptoms. PCP Dr. Otto Hallman Review of Systems Review of Systems Constitutional: Denies fever or chills [] Eyes: Denies change in visual acuity, redness, or eye pain [] HENT: Denies nasal congestion or sore throat [] Respiratory: Denies cough or shortness of breath [] Cardiovascular: Denies chest pain GI: As in history of present illness : Denies dysuria or hematuria [] Musculoskeletal: Denies back pain or joint pain [] Integument: Denies rash or skin lesions [] Neurologic: Denies headache, focal weakness or sensory changes [] Current Medications Current Medications Current Medications Medications (Trade) Dose Ordered Sig/Salomón Start Time Stop Time Status Last Admin Dose Admin Sodium Chloride 1,000 ml @ 1,000 mls/hr Q1H 04/05/17 10:30 04/05/17 11:29 DC 04/05/17 10:44 1,000 MLS/HR Allergies Allergies Allergies Coded Allergies Type Severity Reaction Last Updated Verified aluminum Allergy Severe BREAK OUT ALL OVER 04/01/17 Yes gold Au 198 Allergy Severe BREAK OUT ALL OVER 04/01/17 Yes iron Allergy Severe BREAK OUT ALL OVER 04/01/17 Yes nickel Allergy Severe BREAK OUT ALL OVER 04/01/17 Yes silver Allergy Severe BREAK OUT ALL OVER 04/01/17 Yes morphine Allergy Intermediate 01/17/17 Yes Physical Exam Physical Exam Constitutional: Elderly, cachectic appearing 66-year-old female who is having no dyspnea, warm and dry, alert, mentating normally HENT: Normocephalic, atraumatic, bilateral external ears normal, nose normal. [ ] Eyes: conjunctiva normal, no discharge. [] Neck: Normal range of motion, no stridor. [] Cardiovascular:Heart rate regular rhythm, no murmur [] Lungs & Thorax: Bilateral breath sounds clear to auscultation [] Abdomen: Bowel sounds normal, soft, nondistended, no mass, no pulsatile mass. Mild generalized tenderness to palpation, no rebound or guarding, no localized tenderness. No hernia. Skin: Warm, dry, no erythema, no rash. [] Extremities: No tenderness, no cyanosis, no clubbing, ROM intact, no edema. [] Neurologic: Alert and oriented X 3, normal motor function, normal sensory function, no focal deficits noted. [] Current Patient Data Vital Signs Vital Signs Date Time Temp Pulse Resp B/P (MAP) Pulse Ox O2 Delivery O2 Flow Rate FiO2 04/05/17 13:00 76 17 104/55 (71) 96 04/05/17 10:44 Room Air 04/05/17 09:20 97.8 97.8 Lab Values Laboratory Tests Test 04/05/17 09:23 White Blood Count 5.6 x10^3/uL (4.0-11.0) Red Blood Count 4.32 x10^6/uL (3.50-5.40) Hemoglobin 14.6 g/dL (12.0-15.5) Hematocrit 42.2 % (36.0-47.0) Mean Corpuscular Volume 98 fL (79-100) Mean Corpuscular Hemoglobin 34 pg (25-35) Mean Corpuscular Hemoglobin Concent 35 g/dL (31-37) Red Cell Distribution Width 13.8 % (11.5-14.5) Platelet Count 268 x10^3/uL (140-400) Neutrophils (%) (Auto) 57 % (31-73) Lymphocytes (%) (Auto) 24 % (24-48) Monocytes (%) (Auto) 12 % (0-9) H Eosinophils (%) (Auto) 6 % (0-3) H Basophils (%) (Auto) 1 % (0-3) Neutrophils # (Auto) 3.2 x10^3uL (1.8-7.7) Lymphocytes # (Auto) 1.4 x10^3/uL (1.0-4.8) Monocytes # (Auto) 0.7 x10^3/uL (0.0-1.1) Eosinophils # (Auto) 0.3 x10^3/uL (0.0-0.7) Basophils # (Auto) 0.1 x10^3/uL (0.0-0.2) Sodium Level 140 mmol/L (136-145) Potassium Level 3.3 mmol/L (3.5-5.1) L Chloride Level 102 mmol/L (98-107) Carbon Dioxide Level 29 mmol/L (21-32) Anion Gap 9 (6-14) Blood Urea Nitrogen 7 mg/dL (7-20) Creatinine 0.9 mg/dL (0.6-1.0) Estimated GFR (Cockcroft-Gault) 63.0 BUN/Creatinine Ratio 8 (6-20) Glucose Level 96 mg/dL (70-99) Calcium Level 9.6 mg/dL (8.5-10.1) Total Bilirubin 0.4 mg/dL (0.2-1.0) Aspartate Amino Transferase (AST) 21 U/L (15-37) Alanine Aminotransferase (ALT) 19 U/L (14-59) Alkaline Phosphatase 83 U/L (46-116) Total Protein 7.3 g/dL (6.4-8.2) Albumin 3.9 g/dL (3.4-5.0) Albumin/Globulin Ratio 1.1 (1.0-1.7) Lipase 55 U/L (73-393) L Laboratory Tests 04/05/17 09:23 Laboratory Tests 04/05/17 09:23 EKG EKG [] Radiology/Procedures Radiology/Procedures Abdomen flat and upright read by the radiologist. No acute findings. Nonspecific bowel gas pattern. I reviewed the films. It does not appear to be consistent with significant constipation. [] Course & Med Decision Making Course & Med Decision Making Pertinent Labs and Imaging studies reviewed. (See chart for details) 66-year-old female with severe COPD returns with abdominal pain after recent hospitalization for same. She wondered if she might be constipated but flat and upright films of the abdomen do not appear consistent with constipation to me, also do not show obstruction or other abnormality. Labs are unremarkable. The patient is miserable from her symptoms. She has no appetite and states she is losing weight. I discussed the case with Dr. Hallman who will admit the patient for further evaluation. I wrote bridge orders. [] Dragon Disclaimer Dragon Disclaimer This electronic medical record was generated, in whole or in part, using a voice recognition dictation system. Departure Departure Impression: Primary Impression: Abdominal pain Disposition: ADMITTED INPATIENT Admitting Physician: Otto Hallman Condition: STABLE Referrals: OTTO HALLMAN MD (PCP) DEVIN GANN MD Apr 05, 2017 13:04
[2017-04-05 15:38] VITALS: BP 109/60
[2017-04-05] MEDS ORDERED: ALPRAZolam 0.5 MG TABLET PO PRN (16:00)
--- NOTE | 2017-04-05 16:14 | PDOC ---
Provider Note Provider Note [id number] SPARKLE ABRAHAM MD Apr 05, 2017 16:14
[2017-04-05] MEDS ORDERED: ASPIRIN CHEWABLE 81 MG TABLET. PO SCH (16:30)
[2017-04-05] MEDS ORDERED: GABAPENTIN 400 MG CAPSULE. PO SCH (16:30)
[2017-04-05] MEDS ORDERED: CLOPIDOGREL BISULFATE 75 MG TABLET PO SCH (16:30)
[2017-04-05] MEDS ORDERED: IPRATRPIUM/ALBUTEROL 0.5/2.5MG 3 ML NEBU. NEB SCH (16:30)
[2017-04-05] MEDS ORDERED: buPROPion XL 150 MG TAB.ER.24H. PO SCH (16:30)
[2017-04-05] MEDS ORDERED: SUCRALFATE 1 GM/10 ML ORAL.SUSP. PO SCH (16:30)
[2017-04-05] MEDS ORDERED: PANTOPRAZOLE 40 MG TABLET.DR. PO SCH (16:30)
--- NOTE | 2017-04-05 16:48 | HP ---
ADMIT DATE: 04/05/2017 CHIEF COMPLAINT: Persistent nausea and diffuse abdominal pain. HISTORY OF PRESENT ILLNESS: A 66-year-old white female with end-stage COPD and history of coronary artery disease, who has had recurrent epigastric pain and nausea for the last couple of months. An EGD was unrevealing and gallbladder sonogram and hepatobiliary scan were unremarkable as well. Her main problem is more nausea ____ and she was in the hospital just recently for constipation and diarrhea and her stool problems are resolved, but the nausea has not improved. CT scan of the abdomen and pelvis a few days ago was normal as well. There has been no melena, hematochezia, dysphagia, fever or other specific symptoms. No new medications have been given. PAST MEDICAL HISTORY: Coronary artery stenting about 2 months ago and is now on aspirin and Plavix for this. She is on oxygen at home. She is a DNR patient by her choice. She has had other surgical problems in the past. SOCIAL HISTORY: Has not been smoking very much, her smoked most of her adult life. She is a nondrinker. FAMILY HISTORY: Unremarkable. REVIEW OF SYSTEMS: No other complaints. OBJECTIVE: ENT: All within normal limits. NECK: No masses, nodes or bruits. LUNGS: Clear, without tachypnea. CARDIOVASCULAR: Regular rate. No irregular beat or murmur. ABDOMEN: Diffusely tender, no guarding, masses or rebound. Bowel sounds are normal. EXTREMITIES: Decreased pedal pulses, 2+ clubbing. No joint or skin lesions or nail bed findings. NEUROLOGIC: Physiologic and responsive and oriented x 4. ASSESSMENT: Persistent nausea and diffuse abdominal pain. Workup has been unrevealing so far. I told her that one possibility would be the oxycodone that she takes on regular schedule and she understands we have to stop this ____ to see if that helps to clear her nausea and she is willing to do so. We will add Carafate as well for possibility of further gastritis prophylaxis. Likelihood of delayed gastric emptying, gastroparesis is present, but there is no clear etiology for this problems. We will hold the gastroparesis study for now. SPARKLE ABRAHAM MD DR: ADAN/osman JOB#: [id number] / [id number]
[2017-04-05] MEDS ORDERED: ATORVASTATIN CALCIUM 10 MG TABLET. PO SCH (21:00)
--- NOTE | 2017-04-06 04:32 | ACF ---
Admission Forms Criteria ABDOMINAL PAIN Clinical Indications for Admission to Inpatient Care ( chitimacha/check or initial the applicable condition/criteria): Admission is indicated for ANY ONE of the following (1)(2)(3)(4)(5)(6): [ ]I. Surgery needed that cannot be performed on ambulatory basis [ ]II. Peritoneal signs present (eg, rebound tenderness, rigidity) [ ]III. Evaluation requires patient to not eat or drink for extended period ( eg, more than 24 hours). [ X]IV. Inpatient admission required[B] rather than observation care (see Abdominal Pain: Observation Care guideline as appropriate) because of ANY ONE of the following(7)(8)(9): [ ] a) Hemodynamic instability [ ]b) Severe pain requiring acute inpatient management [ X]c) Identification of etiology or finding that requires inpatient care (eg, aortic dissection, free air,bowel ischemia)(10) [ ]d) Absent bowel sounds with complete ileus (11) [ ]e) Signs of intestinal obstruction[C] [ ]f) Suspected toxic megacolon [ ]g) Severe electrolyte abnormalities requiring inpatient care [ ]h) High fever or infection requiring inpatient admission as indicated by ANY ONE of the following (12)(13): [ ]i) Appropriate outpatient or observation care antimicrobial treatment unavailable, not effective, or not feasible [ ]ii) Documented bacteremia [ ]iii) Temperature greater than 104.9 degrees F (40.5 degrees C) (oral) [ ]iv) Temperature greater than 103.1 degrees F (39.5 degrees C) ( oral) or less than 96.8 degrees F (36 degrees C) (rectal) that does not respond to all emergency treatment measures [ ]i) IV fluid required rather than oral rehydration to replace significant ongoing (eg, for greater than 24 hours) losses (greater than 3 L/m2 per day)(14)(15) [ ]j) Percutaneous or open drainage (eg, abscess, biliary tract) procedures [ ]k) Parenteral nutrition regimen that must be implemented on inpatient basis [ ]l) Other condition, treatment, or monitoring requiring inpatient admission Extended stay beyond goal length of stay may be needed for (1)(3)(4)(10)(16): [ ]a) Surgery (e.g., colectomy, revascularization procedure) [ ]b) Persistent abdominal pain with suspected intra-abdominal process [ ]c) Diagnosed condition requiring continued stay (e.g., pancreatitis, complicated diverticulitis) The original [facility] content created by [facility] has been revised. The portions of the content which have been revised are identified through the use of italic text, and [facility] has neither reviewed nor approved the modified material.All other unmodified content is copyright [facility]. Please see references footnoted in the original [facility] edition 2015 Admission Criteria Met?: Yes MARCY GILLILAND Apr 06, 2017 04:32
[2017-04-06] MEDS ORDERED: VENLAFAXINE 50 MG TABLET. PO SCH (09:00)
[2017-04-06] MEDS ORDERED: NON FORMULARY ITEM (Venlafaxine Hcl (Venlafaxine Hcl Er) 150 MG) PO SCH (09:00)
--- NOTE | 2017-04-07 08:03 | PDOC ---
Provider Note Provider Note [id number] SPARKLE ABRAHAM MD Apr 07, 2017 08:03
--- NOTE | 2017-04-07 10:04 | DS ---
DATE OF DISCHARGE: 04/05/2017 HOSPITAL SUMMARY: The patient came in with persistent nausea, vomiting and diffuse abdominal pain. Her CBC and chemistry profile were all within normal limits as was a KUB abdominal series. Previous CT scan she had was normal as well. She was admitted for further evaluation for her nausea and it was recommended by me that we stop her opioids to see if this is causing the persistent nausea and she had already undergone multiple diagnostic tests without a definitive diagnosis. When asked by the nurses to keep her home medicines for her so that opioids would not be available, the patient became angry and refused to go medications and got up and left the hospital under conditions, aware that she was leaving against the hospitalist advice and leaving AMA. FINAL DIAGNOSIS: Persistent nausea, etiology undetermined. OPERATIONS, PROCEDURES, COMPLICATIONS, AND CONSULTATIONS: None. DISPOSITION: The patient left against medical advice and no instructions were given. SPARKLE ABRAHAM MD DR: ADAN/nts JOB#: [id number] / [id number]
== END 2017-04-05 18:20 | disposition left against medical advice (07) | DRG 392 ==
LOC: ER 09:12 → 5 SOUTH 13:00
PROVIDERS: ADMIT Family Medicine; ATTEND Family Medicine
DX: R10.9 Unspecified abdominal pain (principal); R11.0 Nausea; J44.9 Chronic obstructive pulmonary disease, unspecified; I25.10 Atherosclerotic heart disease of native coronary artery without angina pectoris; F17.210 Nicotine dependence, cigarettes, uncomplicated; K31.84 Gastroparesis; T40.2X5A Adverse effect of other opioids, initial encounter; Z66 Do not resuscitate; Z53.21 Procedure and treatment not carried out due to patient leaving prior to being seen by health care provider; E78.00 Pure hypercholesterolemia, unspecified; M79.7 Fibromyalgia; M81.0 Age-related osteoporosis without current pathological fracture; M19.90 Unspecified osteoarthritis, unspecified site; G89.29 Other chronic pain; G43.909 Migraine, unspecified, not intractable, without status migrainosus; Z90.49 Acquired absence of other specified parts of digestive tract; I25.2 Old myocardial infarction; Z99.81 Dependence on supplemental oxygen; Z79.01 Long term (current) use of anticoagulants; Z79.82 Long term (current) use of aspirin; Z95.5 Presence of coronary angioplasty implant and graft; Y92.89 Other specified places as the place of occurrence of the external cause; Z90.710 Acquired absence of both cervix and uterus
CPT/HCPCS: 36415; 74020; 80053; 83690; 85025; 96360; J7030; 99285-25

== ENCOUNTER 2019-04-26 09:41 | Emergency (ER) | payer OTHER, MEDICAID ==
[~2019-04-26] VITALS: Ht 162.6 cm; Wt 53.1 kg
[~2019-04-26 09:41] MED LIST changes: -IPRA3AMP NEB; +IPRA3AMP29 NEB; -OXYC-328 PO; +OXYC-411 PO; -OXYC10TA45 PO; +OXYC10TA46 PO; +OXYC1TAB22 PO; -OXYC1TAB9 PO; -PANT40TA5 PO; +PANT40TA77 PO
[2019-04-26 11:19] LABS: BASO # 0.1 x10^3/uL (0.0-0.2); BASO % 1 % (0-3); EOS # 0.1 x10^3/uL (0.0-0.7); EOS % 2 % (0-3); HEMATOCRIT 43.1 % (36.0-47.0); LYMPH # 1.5 x10^3/uL (1.0-4.8); LYMPH % 29 % (24-48); MEAN CORPUSCULAR HEMOGLOBIN 33 pg (25-35); MEAN CORPUSCULAR HGB CONC 35 g/dL (31-37); MEAN CORPUSCULAR VOLUME 96 fL (79-100); MONO # 0.5 x10^3/uL (0.0-1.1); MONO % 10 % (0-9); NEUT % 57 % (31-73); PLATELET COUNT 270 x10^3/uL (140-400); RED BLOOD COUNT 4.52 x10^6/uL (3.50-5.40); RED CELL DISTRIBUTION WIDTH 13.2 % (11.5-14.5); WHITE BLOOD COUNT 5.2 x10^3/uL (4.0-11.0)
[2019-04-26 11:28] LABS: CALCIUM 9.8 mg/dL (8.5-10.1); CREATININE 0.8 mg/dL (0.6-1.0); GFR 71.8
[2019-04-26 11:29] LABS: PROTHROMBIN TIME PATIENT 12.7 SEC (11.7-14.0)
[2019-04-26 11:34] LABS: ALBUMIN 4.5 g/dL (3.4-5.0); ALBUMIN/GLOBULIN RATIO 1.3 (1.0-1.7); MAGNESIUM 1.7 mg/dL (1.8-2.4); TOTAL BILIRUBIN 0.5 mg/dL (0.2-1.0); TOTAL PROTEIN 7.9 g/dL (6.4-8.2)
[2019-04-26] MEDS ORDERED: MORPHINE SULFATE 4 MG/ML VIAL. IV ONE (11:45)
[2019-04-26] MEDS ORDERED: ONDANSETRON PF 4 MG/2 ML VIAL. IV ONE (11:45)
[2019-04-26] MEDS ORDERED: IV NORMAL SALINE 1000ML BAG 1,000 ML IV ONE (11:45)
[2019-04-26] MEDS ORDERED: fentaNYL PF VIAL 100 MCG/2 ML VIAL IV ONE (12:00)
[2019-04-26] MEDS ORDERED: POTASSIUM CHLORIDE 20 MEQ TABLET.ER. PO ONE (12:15)
[2019-04-26] MEDS ORDERED: CONTRAST GIVEN. MC PRN (12:30)
[2019-04-26] MEDS ORDERED: IOHEXOL 300 MG/ML 100ML VIAL. IV ONE (12:30)
[2019-04-26 12:33] LABS: BILIRUBIN,URINE SMALL (NEG); CLARITY,URINE CLEAR; COLOR,URINE AMBER; NITRITE,URINE NEGATIVE (NEG); PROTEIN,URINE NEGATIVE (NEG-TRACE); UROBILINOGEN,URINE 0.2 mg/dL (0.2 mg/dL)
--- NOTE | 2019-04-26 12:40 | RAD ---
CT ABD PELV W/ IV CONTRST ONLY Indication: Left-sided abdominal pain. Exposure: One or more of the following individualized dose reduction techniques were utilized for this examination: 1. Automated exposure control 2. Adjustment of the mA and/or kV according to patient size 3. Use of iterative reconstruction technique. Technique: Intravenous contrast was given. Oral contrast was given. Findings: Lung bases are clear. Liver and spleen appear unremarkable. Pancreas appears unremarkable. No adrenal mass. Kidneys demonstrate symmetric enhancement without hydronephrosis or mass No calcified gallstone. Aorta calcified without aneurysm. No significant lymph node enlargement. No significant small bowel distention. No evidence of acute colitis. Density within the colon presumably from prior radiology study. No evidence of pneumoperitoneum. No significant ascites. No evidence of pelvic mass. Vertebral body height and alignment are intact. Old right rib fracture is partially visualized. IMPRESSION: No evidence of acute finding in the abdomen or pelvis. Electronically signed by: Keith Lainez MD (04/26/2019 12:37 PM) [facility]
[2019-04-26 12:42] LABS: BACTERIA,URINE FEW /HPF (0-FEW); SQUAMOUS EPITHELIAL CELL,UR MANY /LPF
[2019-04-26 12:50] VITALS: BP 129/71
--- NOTE | 2019-04-26 12:58 | PHYS DOC ---
Past Medical History Past Medical History: Arthritis, Asthma, COPD, Fibromyalgia, High Cholesterol, [place], Migraines, Seizure, Other Additional Past Medical Histor: OSTEOPOROSIS, chronic abd pain Past Surgical History: Appendectomy, Hysterectomy, Other Additional Past Surgical Histo: LEFT EYE, cardiac stent Alcohol Use: None Drug Use: Marijuana Adult General Chief Complaint Chief Complaint: NAUSEA/VOMITING/DIARRHA HPI HPI Patient is a 68 year old female who presents to the emergency Department today with complaints of nausea, vomiting, diarrhea, left-sided abdominal pain for the last 5 days. Patient states she has had 5 episodes of vomiting, and 10 episodes of diarrhea in the last 24 hours. She reports that her pain as a 5 out of 10 on the pain scale this time, there are no alleviating factors. ROS Patient denies any fever, chest pains, palpitations, shortness of breath, sore throat, or ear pain. She states she has been dizzy with position changes for the last few days. Patient states that she has a smoker and denies any change in her chronic cough. She complains of her mouth feeling dry. All other ROS is neg unless otherwise noted in HPI. Review of Systems Review of Systems Current Medications Current Medications Current Medications Medications (Trade) Dose Ordered Sig/Salomón Start Time Stop Time Status Last Admin Dose Admin Fentanyl Citrate (Fentanyl 2ml Vial) 50 mcg 1X ONCE 04/26/19 12:00 04/26/19 12:01 DC 04/26/19 12:08 50 MCG Info (CONTRAST GIVEN -- Rx MONITORING) 1 each PRN DAILY PRN 04/26/19 12:30 04/26/19 13:32 DC Iohexol (Omnipaque 300 Mg/ml) 75 ml 1X ONCE 04/26/19 12:30 04/26/19 12:31 DC 04/26/19 12:29 75 ML Morphine Sulfate (Morphine Sulfate) 4 mg 1X ONCE 04/26/19 11:45 04/26/19 11:46 UNV Ondansetron HCl (Zofran) 4 mg 1X ONCE 04/26/19 11:45 04/26/19 11:46 DC 04/26/19 12:08 4 MG Potassium Chloride (Klor-Con) 40 meq 1X ONCE 04/26/19 12:15 04/26/19 12:16 DC 04/26/19 13:05 40 MEQ Sodium Chloride 1,000 ml @ 1,000 mls/hr 1X ONCE 04/26/19 11:45 04/26/19 12:44 DC 04/26/19 12:08 1,000 MLS/HR Allergies Allergies Allergies Coded Allergies Type Severity Reaction Last Updated Verified aluminum Allergy Severe BREAK OUT ALL OVER 04/01/17 Yes gold Au 198 Allergy Severe BREAK OUT ALL OVER 04/01/17 Yes iron Allergy Severe BREAK OUT ALL OVER 04/01/17 Yes nickel Allergy Severe BREAK OUT ALL OVER 04/01/17 Yes silver Allergy Severe BREAK OUT ALL OVER 04/01/17 Yes morphine Allergy Intermediate 01/17/17 Yes Physical Exam Physical Exam Constitutional: Well developed, well nourished, no acute distress, non-toxic appearance. [] HENT: Normocephalic, atraumatic, bilateral external ears normal, oropharynx dry, no oral exudates, nose normal. [] Eyes: PERRLA, EOMI, conjunctiva normal, no discharge. [] Neck: Normal range of motion, no stridor. [] Cardiovascular:Heart rate regular rhythm, Lungs & Thorax: Bilateral breath sounds clear to auscultation in upper lobes bi laterally, coarse with scattered wheezing and lower lobes bilaterally [] Abdomen: Bowel sounds normal, soft, left upper and left lower tenderness to palpation, no rebound tenderness, no guarding, no masses, no pulsatile masses. [] Skin: Warm, dry, no erythema, no rash. [] Back: No tenderness, no CVA tenderness. [] Extremities: No cyanosis, ROM intact, no edema. [] Neurologic: Alert and oriented X 3, no focal deficits noted. [] Psychologic: Affect normal, judgement normal, mood normal. [] Current Patient Data Vital Signs Vital Signs Date Time Temp Pulse Resp B/P (MAP) Pulse Ox O2 Delivery O2 Flow Rate FiO2 04/26/19 12:50 72 16 129/71 (90) 97 Room Air 04/26/19 10:28 98.4 98.4 Lab Values Laboratory Tests Test 04/26/19 11:05 04/26/19 11:54 White Blood Count 5.2 x10^3/uL (4.0-11.0) Red Blood Count 4.52 x10^6/uL (3.50-5.40) Hemoglobin 15.0 g/dL (12.0-15.5) Hematocrit 43.1 % (36.0-47.0) Mean Corpuscular Volume 96 fL (79-100) Mean Corpuscular Hemoglobin 33 pg (25-35) Mean Corpuscular Hemoglobin Concent 35 g/dL (31-37) Red Cell Distribution Width 13.2 % (11.5-14.5) Platelet Count 270 x10^3/uL (140-400) Neutrophils (%) (Auto) 57 % (31-73) Lymphocytes (%) (Auto) 29 % (24-48) Monocytes (%) (Auto) 10 % (0-9) H Eosinophils (%) (Auto) 2 % (0-3) Basophils (%) (Auto) 1 % (0-3) Neutrophils # (Auto) 3.0 x10^3/uL (1.8-7.7) Lymphocytes # (Auto) 1.5 x10^3/uL (1.0-4.8) Monocytes # (Auto) 0.5 x10^3/uL (0.0-1.1) Eosinophils # (Auto) 0.1 x10^3/uL (0.0-0.7) Basophils # (Auto) 0.1 x10^3/uL (0.0-0.2) Prothrombin Time 12.7 SEC (11.7-14.0) Prothrombin Time INR 1.0 (0.8-1.1) Activated Partial Thromboplast Time 27 SEC (24-38) Sodium Level 143 mmol/L (136-145) Potassium Level 3.0 mmol/L (3.5-5.1) L Chloride Level 103 mmol/L (98-107) Carbon Dioxide Level 26 mmol/L (21-32) Anion Gap 14 (6-14) Blood Urea Nitrogen 9 mg/dL (7-20) Creatinine 0.8 mg/dL (0.6-1.0) Estimated GFR (Cockcroft-Gault) 71.8 BUN/Creatinine Ratio 11 (6-20) Glucose Level 111 mg/dL (70-99) H Lactic Acid Level 1.2 mmol/L (0.4-2.0) Calcium Level 9.8 mg/dL (8.5-10.1) Magnesium Level 1.7 mg/dL (1.8-2.4) L Total Bilirubin 0.5 mg/dL (0.2-1.0) Aspartate Amino Transferase (AST) 26 U/L (15-37) Alanine Aminotransferase (ALT) 17 U/L (14-59) Alkaline Phosphatase 97 U/L (46-116) Creatine Kinase 159 U/L (26-192) Creatine Kinase MB (Mass) 1.9 ng/mL (0.0-3.6) Creatine Kinase MB Relative Index 1.2 % (0-4) Troponin I Quantitative < 0.017 ng/mL (0.000-0.055) Total Protein 7.9 g/dL (6.4-8.2) Albumin 4.5 g/dL (3.4-5.0) Albumin/Globulin Ratio 1.3 (1.0-1.7) Urine Collection Type Unknown Urine Color Violeta Urine Clarity Clear Urine pH 5.0 Urine Specific [place] 1.025 Urine Protein Negative mg/dL (NEG-TRACE) Urine Glucose (UA) Negative mg/dL (NEG) Urine Ketones (Stick) 15 mg/dL (NEG) Urine Blood Moderate (NEG) Urine Nitrite Negative (NEG) Urine Bilirubin Small (NEG) Urine Urobilinogen Dipstick 0.2 mg/dL (0.2 mg/dL) Urine Leukocyte Esterase Small (NEG) Urine RBC 1-2 /HPF (0-2) Urine WBC 1-4 /HPF (0-4) Urine Squamous Epithelial Cells Many /LPF Urine Bacteria Few /HPF (0-FEW) Urine Mucus Mod /LPF Laboratory Tests 04/26/19 11:05 Laboratory Tests 04/26/19 11:05 Microbiology 04/26/19 Urine Culture - Final, Complete 04/26/19 Urine Culture Result 1 (MANISHA) - Final, Complete EKG EKG 1050 SR, rate 75, No STEMI read by Dr. Collado[] Radiology/Procedures Radiology/Procedures PROCEDURE: CT ABD PELV W/ IV CONTRST ONLY CT ABD PELV W/ IV CONTRST ONLY Indication: Left-sided abdominal pain. Exposure: One or more of the following individualized dose reduction techniques were utilized for this examination: 1. Automated exposure control 2. Adjustment of the mA and/or kV according to patient size 3. Use of iterative reconstruction technique. Technique: Intravenous contrast was given. Oral contrast was given. Findings: Lung bases are clear. Liver and spleen appear unremarkable. Pancreas appears unremarkable. No adrenal mass. Kidneys demonstrate symmetric enhancement without hydronephrosis or mass No calcified gallstone. Aorta calcified without aneurysm. No significant lymph node enlargement. No significant small bowel distention. No evidence of acute colitis. Density within the colon presumably from prior radiology study. No evidence of pneumoperitoneum. No significant ascites. No evidence of pelvic mass. Vertebral body height and alignment are intact. Old right rib fracture is partially visualized. IMPRESSION: No evidence of acute finding in the abdomen or pelvis. [] Course & Med Decision Making Course & Med Decision Making Pertinent Labs and Imaging studies reviewed. (See chart for details) Dx: nausea, vomiting, Diarrhea, hypokalemia Pt was given 1L NS, 50 mcg of fentanyl, and 4 mg of zofran in the ER for releif of sx. She was also given 40 meq of KCL for hypokalemia CBC unremarkable, PT/INR WNL, CMP: K+ of 3.0, Mg 1.7, glucose 111 otherwise unremarkable, UA likely contaminated as patient denied complaints CT abd/pel negative for any acute findings Pt states she feels better after IVF and medications. Prescription written for zofran prn nausea. Pt instructed to drink clear fluids for the next 24 hours then advance diet as tolerated starting with bland foods. Follow up with PCP if sx persist, return to ER if sx worsen Patient verbalized an understanding of home care, medications, follow-up, and return to ED instructions and was in agreement with the plan of care. [] Dragon Disclaimer Dragon Disclaimer This electronic medical record was generated, in whole or in part, using a voice recognition dictation system. Departure Departure Impression: Primary Impression: Nausea vomiting and diarrhea Additional Impression: Hypokalemia Disposition: 01 HOME, SELF-CARE Condition: STABLE Referrals: UNKNOWN PCP NAME (PCP) Patient Instructions: Diet for Diarrhea, Adult, Nausea and Vomiting, [id number] Additional Instructions: Fill prescriptions and use them as directed. Recommend clear fluids for the next 24 hours. Then you may advance to bland foods such as bananas, rice, applesauce, and dry toast. Follow-up with your primary care doctor in the next 1-2 days. Return to the emergency room if your symptoms worsen. Scripts Ondansetron (ONDANSETRON ODT) 4 Mg Tab.rapdis 1 TAB PO PRN Q6-8HRS PRN for NAUSEA/VOMITING, #16 TAB 0 Refills Prov: BOGUSLAW,OSCAR D PROTOHISTORIAN 04/26/19 Problem Qualifiers OSCAR CHOE APRN Apr 26, 2019 12:58
[2019-04-26] MEDS ORDERED: ONDA4TAB12 PO (13:17)
--- NOTE | 2019-04-26 16:59 | EKG ---
[facility] [address] [place] [address] Test Date: 2019-04-26 Test Time: 10:50:26 Pat Name: TOÑA GUZMÁN Department: Room: Gender: F Nurse Paralegal: : 1950 Requested By: OSCAR CHOE Order Number: [id number] Reading MD: Measurements Intervals [place] Rate: 75 P: 66 DE: 138 QRS: 73 QRSD: 84 T: 49 QT: 396 QTc: 444 Interpretive Statements SINUS RHYTHM NORMAL ECG No previous ECG available for comparison
== END 2019-04-26 13:32 | disposition home or self-care (01) ==
LOC: ER 09:41
DX: R11.2 Nausea with vomiting, unspecified (principal); R19.7 Diarrhea, unspecified; E87.6 Hypokalemia; J45.909 Unspecified asthma, uncomplicated; J44.9 Chronic obstructive pulmonary disease, unspecified; E78.00 Pure hypercholesterolemia, unspecified; I25.2 Old myocardial infarction; G43.909 Migraine, unspecified, not intractable, without status migrainosus; G89.29 Other chronic pain; Z95.5 Presence of coronary angioplasty implant and graft; Z90.89 Acquired absence of other organs; Z90.710 Acquired absence of both cervix and uterus; F17.200 Nicotine dependence, unspecified, uncomplicated; Z88.5 Allergy status to narcotic agent; Z88.8 Allergy status to other drugs, medicaments and biological substances
CPT/HCPCS: 36415; 74177; 80053; 81001; 82553; 83605; 83735; 84484; 85025; 85610; 85730; 87086; 93005; 96361; 96374; 96375; 99285; J2405; J3010; J7030; Q9967

== ENCOUNTER 2020-02-26 08:25 | Emergency (ER) | payer MEDICARE, OTHER ==
[~2020-02-26] VITALS: Ht 162.6 cm; Wt 45.0 kg
[~2020-02-26 08:25] MED LIST changes: +ONDA4TAB12 PO
[2020-02-26] MEDS ORDERED: IOHEXOL 240 MG/ML 50ML VIAL. PO ONE (08:45)
[2020-02-26] MEDS ORDERED: IV NORMAL SALINE 1000ML BAG 1,000 ML IV ONE (08:45)
[2020-02-26] MEDS ORDERED: ONDANSETRON PF 4 MG/2 ML VIAL. IVP ONE (08:45)
[2020-02-26] MEDS ORDERED: IOHEXOL 300 MG/ML 100ML VIAL. IV ONE (08:45)
[2020-02-26] MEDS ORDERED: CONTRAST GIVEN. MC PRN (09:00)
[2020-02-26 09:01] LABS: BASO # 0.1 x10^3/uL (0.0-0.2); BASO % 1 % (0-3); EOS % 0 % (0-3); HEMATOCRIT 41.5 % (36.0-47.0); HEMOGLOBIN 14.5 g/dL (12.0-15.5); LYMPH % 14 % (24-48); MEAN CORPUSCULAR HEMOGLOBIN 33 pg (25-35); MEAN CORPUSCULAR HGB CONC 35 g/dL (31-37); MEAN CORPUSCULAR VOLUME 95 fL (79-100); MONO # 0.6 x10^3/uL (0.0-1.1); MONO % 8 % (0-9); NEUT # 5.6 x10^3/uL (1.8-7.7); NEUT % 77 % (31-73); PLATELET COUNT 335 x10^3/uL (140-400); RED BLOOD COUNT 4.37 x10^6/uL (3.50-5.40); RED CELL DISTRIBUTION WIDTH 13.3 % (11.5-14.5); WHITE BLOOD COUNT 7.2 x10^3/uL (4.0-11.0)
[2020-02-26 09:22] LABS: ALBUMIN 4.2 g/dL (3.4-5.0); ALBUMIN/GLOBULIN RATIO 1.2 (1.0-1.7); CALCIUM 9.9 mg/dL (8.5-10.1); CREATININE 0.8 mg/dL (0.6-1.0); GFR 71.5; TOTAL BILIRUBIN 0.6 mg/dL (0.2-1.0); TOTAL PROTEIN 7.7 g/dL (6.4-8.2)
[2020-02-26 09:23] LABS: POTASSIUM 2.7 mmol/L (3.5-5.1)
[2020-02-26] MEDS ORDERED: POTASSIUM CHLORIDE 20 MEQ TABLET.ER. PO ONE (09:45)
--- NOTE | 2020-02-26 11:33 | RAD ---
Examination: CT ABD PELV W/ORAL IV CONTRAST History: Reason: abdominal pain, elderly / Spl. Instructions: OMNI 240, OMNI 300 75 / History: Comparison/Correlation: None Findings: Axial images of the abdomen and pelvis were obtained following IV and oral contrast. Sagittal and coronal reformatted images were provided. The lung bases are clear. Liver, spleen, pancreas, adrenal glands, and kidneys are normal. Gallbladder fossa is unremarkable. No ascites or pelvic free fluid. No inflammatory findings about the cecum or elsewhere within the abdomen or pelvis. Suture material appears to be present associated with the cecum. Correlate with surgical history. Appendix is not delineated. Urinary bladder is unremarkable. No extraluminal gas or bowel obstruction. No enlarged abdominal or pelvic lymph nodes. Bony structures are unremarkable. Calcific involvement is notable about the celiac artery origin and superior mesenteric artery origin. No abdominal aortic aneurysm. No findings of ischemic bowel. Impression: No suspicious process. PQRS Compliance Statement: One or more of the following individualized dose reduction techniques were utilized for this examination: 1. Automated exposure control 2. Adjustment of the mA and/or kV according to patient size 3. Use of iterative reconstruction technique Electronically signed by: Shiv Richard MD (02/26/2020 11:30 AM) [id number]
[2020-02-26 11:54] LABS: BILIRUBIN,URINE NEGATIVE (NEG); CLARITY,URINE CLEAR; COLOR,URINE YELLOW; NITRITE,URINE NEGATIVE (NEG); PROTEIN,URINE 30 mg/dL (NEG-TRACE); UROBILINOGEN,URINE 0.2 mg/dL (0.2 mg/dL)
[2020-02-26 12:10] LABS: SQUAMOUS EPITHELIAL CELL,UR MOD /LPF
[2020-02-26 12:11] LABS: BACTERIA,URINE 0 /HPF (0-FEW); WBC,URINE 0 /HPF (0-4)
[2020-02-26] MEDS ORDERED: RINGERS LACTATED IV ONE (12:15)
[2020-02-26] MEDS ORDERED: LIDO:MAALOX 1:1 20 ML SINGLE DOSE. SWSW ONE (12:15)
[2020-02-26] MEDS ORDERED: FAMO-63 PO (12:40)
[2020-02-26] MEDS ORDERED: ONDA4TAB7 PO (12:40)
[2020-02-26] MEDS ORDERED: POTA20TA4 PO (12:40)
--- NOTE | 2020-02-26 12:40 | PHYS DOC ---
Past Medical History Past Medical History: Arthritis, Asthma, COPD, Fibromyalgia, High Cholesterol, RI, Migraines, Seizure, Other Additional Past Medical Histor: OSTEOPOROSIS, chronic abd pain Past Surgical History: Appendectomy, Hysterectomy, Other Additional Past Surgical Histo: LEFT EYE, cardiac stent Smoking Status: Current Every Day Smoker Alcohol Use: None Drug Use: Marijuana General Adult EDM: Chief Complaint: NAUSEA/VOMITING/DIARRHA HPI: HPI: Patient is a 69 year old female who presents with nausea, vomiting, diarrhea. She states that this started yesterday and has been ongoing. She had a tooth pulled yesterday but denies any anesthesia. She states that she is not been able to keep anything down. She has not had any vomiting today. She did have some diarrhea this morning. She is complaining of abdominal pain. She has chronic abdominal pain. Review of Systems: Review of Systems: General: Denies fever, chills, sweats, fatigue Eyes: Denies drainage, blurred vision, eye redness HENT: Denies rhinorrhea, sore throat, earache Respiratory: Denies cough, shortness of breath, wheezing Cardiac: Denies edema, palpitations, chest pain GI: Reports nausea, vomiting, abdominal pain, diarrhea MSK: Denies neck pain, back pain Skin: Denies rash, jaundice Neuro: Denies headache, dizziness Psychiatric: Denies SI/HI Heart Score: Risk Factors: Risk Factors: DM, Current or recent (<one month) smoker, HTN, HLP, family history of CAD, obesity. Risk Scores: Score 0 - 3: 2.5% MACE over next 6 weeks - Discharge Home Score 4 - 6: 20.3% MACE over next 6 weeks - Admit for Clinical Observation Score 7 - 10: 72.7% MACE over next 6 weeks - Early Invasive Strategies Current Medications: Current Medications Medications (Trade) Dose Ordered Sig/Salomón Start Time Stop Time Status Last Admin Dose Admin Info (CONTRAST GIVEN -- Rx MONITORING) 1 each PRN DAILY PRN 02/26/20 09:00 02/28/20 08:59 Iohexol (Omnipaque 240 Mg/ml) 30 ml 1X ONCE 02/26/20 08:45 02/26/20 08:49 DC Iohexol (Omnipaque 300 Mg/ml) 75 ml 1X ONCE 02/26/20 08:45 02/26/20 08:49 DC 02/26/20 08:45 75 ML Multi-Ingredient Mouthwash/Gargle (Gi Cocktail) 20 ml 1X ONCE 02/26/20 12:15 02/26/20 12:16 DC 02/26/20 12:27 20 ML Ondansetron HCl (Zofran) 4 mg 1X ONCE 02/26/20 08:45 02/26/20 08:46 DC 02/26/20 09:00 4 MG Potassium Chloride (Klor-Con) 40 meq 1X ONCE 02/26/20 09:45 02/26/20 09:46 DC 02/26/20 10:52 40 MEQ Ringer's Solution 900 ml @ 900 mls/hr 1X ONCE 02/26/20 12:15 02/26/20 13:14 02/26/20 12:15 900 MLS/HR Sodium Chloride 1,000 ml @ 30 mls/hr 1X ONCE 02/26/20 08:45 02/27/20 18:04 02/26/20 09:01 30 MLS/HR Allergies: Allergies: Allergies Coded Allergies Type Severity Reaction Last Updated Verified aluminum Allergy Severe BREAK OUT ALL OVER 04/01/17 Yes gold Au 198 Allergy Severe BREAK OUT ALL OVER 04/01/17 Yes iron Allergy Severe BREAK OUT ALL OVER 04/01/17 Yes nickel Allergy Severe BREAK OUT ALL OVER 04/01/17 Yes silver Allergy Severe BREAK OUT ALL OVER 04/01/17 Yes morphine Allergy Intermediate 01/17/17 Yes Physical Exam: PE: General: Awake, alert, NAD. Well Nourished, well hydrated. Cooperative HEENT: Atraumatic, EOMI, PERRL, airway patent, moist oral mucosa Neck: Supple, trachea midline Respiratory: CTA bilaterally, normal effort, no wheezing/crackles CV: RRR, no murmur, cap refill <2 GI: Soft, nondistended, diffuse tenderness, no masses MSK: No obvious deformities Skin: Warm, dry, intact Neuro: A&O x3, speech NL, sensory and motor grossly intact, no focal deficits Psych: Normal affect, normal mood, not suicidal or homicidal Current Patient Data: Labs: Laboratory Tests Test 02/26/20 08:30 02/26/20 11:45 White Blood Count 7.2 x10^3/uL (4.0-11.0) Red Blood Count 4.37 x10^6/uL (3.50-5.40) Hemoglobin 14.5 g/dL (12.0-15.5) Hematocrit 41.5 % (36.0-47.0) Mean Corpuscular Volume 95 fL (79-100) Mean Corpuscular Hemoglobin 33 pg (25-35) Mean Corpuscular Hemoglobin Concent 35 g/dL (31-37) Red Cell Distribution Width 13.3 % (11.5-14.5) Platelet Count 335 x10^3/uL (140-400) Neutrophils (%) (Auto) 77 % (31-73) H Lymphocytes (%) (Auto) 14 % (24-48) L Monocytes (%) (Auto) 8 % (0-9) Eosinophils (%) (Auto) 0 % (0-3) Basophils (%) (Auto) 1 % (0-3) Neutrophils # (Auto) 5.6 x10^3/uL (1.8-7.7) Lymphocytes # (Auto) 1.0 x10^3/uL (1.0-4.8) Monocytes # (Auto) 0.6 x10^3/uL (0.0-1.1) Eosinophils # (Auto) 0.0 x10^3/uL (0.0-0.7) Basophils # (Auto) 0.1 x10^3/uL (0.0-0.2) Sodium Level 142 mmol/L (136-145) Potassium Level 2.7 mmol/L (3.5-5.1) *L Chloride Level 102 mmol/L (98-107) Carbon Dioxide Level 22 mmol/L (21-32) Anion Gap 18 (6-14) H Blood Urea Nitrogen 25 mg/dL (7-20) H Creatinine 0.8 mg/dL (0.6-1.0) Estimated GFR (Cockcroft-Gault) 71.5 BUN/Creatinine Ratio 31 (6-20) H Glucose Level 136 mg/dL (70-99) H Calcium Level 9.9 mg/dL (8.5-10.1) Total Bilirubin 0.6 mg/dL (0.2-1.0) Aspartate Amino Transferase (AST) 15 U/L (15-37) Alanine Aminotransferase (ALT) 10 U/L (14-59) L Alkaline Phosphatase 107 U/L (46-116) Total Protein 7.7 g/dL (6.4-8.2) Albumin 4.2 g/dL (3.4-5.0) Albumin/Globulin Ratio 1.2 (1.0-1.7) Lipase 39 U/L (73-393) L Urine Collection Type Unknown Urine Color Yellow Urine Clarity Clear Urine pH 5.0 (<5.0-8.0) Urine Specific Hurley >=1.030 (1.000-1.030) Urine Protein 30 mg/dL (NEG-TRACE) Urine Glucose (UA) Negative mg/dL (NEG) Urine Ketones (Stick) 40 mg/dL (NEG) Urine Blood Small (NEG) Urine Nitrite Negative (NEG) Urine Bilirubin Negative (NEG) Urine Urobilinogen Dipstick 0.2 mg/dL (0.2 mg/dL) Urine Leukocyte Esterase Negative (NEG) Urine RBC 1-2 /HPF (0-2) Urine WBC 0 /HPF (0-4) Urine Squamous Epithelial Cells Mod /LPF Urine Bacteria 0 /HPF (0-FEW) Laboratory Tests 02/26/20 08:30 Laboratory Tests 02/26/20 08:30 Vital Signs: Vital Signs Date Time Temp Pulse Resp B/P (MAP) Pulse Ox O2 Delivery O2 Flow Rate FiO2 02/26/20 08:45 99.6 81 18 135/77 (96) 97 Room Air 99.6 EKG: EKG: [] Radiology/Procedures: Radiology/Procedures: [] Course & Med Decision Making: Course & Med Decision Making Pertinent Labs and Imaging studies reviewed. (See chart for details) Patient is a 69 year-old female with a history of diabetes who presents to the Emergency Room complaining of abdominal pain, nausea, vomiting, diarrhea. On exam, patient has diffuse abdominal pain and is anxious. Due to patients history, age, and exam work up will need to be done to evaluate for intra- abdominal pathology. Work up ordered includes CBC, CMP, lipase, UA, CT abdomen and pelvis. Ddx includes diverticulitis, appendicitis, gastroenteritis, gastritis, cyclic vomiting. Work up was reviewed and patient appears dehydrated and has hypokalemia. It is likely this is either due to cyclic vomiting or gastroenteritis. Patient will be treated symptomatically. She is stable at this time. Potassium will be replaced. Patient given fluids. Patient's test results and vitals while in the ED were fully reviewed and discussed with the patient. Patient is stable and at this time does not need admission to the hospital. We have discussed strict return precautions and the importance of following up with their Primary Care Physician. Patient stated understanding and was given an opportunity to ask any questions. Patient is in agreement with plan. Dragon Disclaimer: Dragon Disclaimer: This electronic medical record was generated, in whole or in part, using a voice recognition dictation system. Departure Departure Impression: Primary Impression: Nausea vomiting and diarrhea Additional Impressions: Hypokalemia Abdominal pain Disposition: HOME, SELF-CARE Condition: STABLE Referrals: NO PCP (PCP) Patient Instructions: Cyclic Vomiting Syndrome, Hypokalemia-Brief, Nausea and Vomiting Scripts Famotidine (PEPCID) 20 Mg Tablet 20 MG PO BID, #30 TAB Prov: MARKUS KENYON MD 02/26/20 Potassium Chloride (KLOR-CON M20) 20 Meq Tab.er.prt 1 TAB PO DAILY for 7 Days, #7 TAB 0 Refills Prov: MARKUS KENYON MD 02/26/20 Ondansetron Hcl (ZOFRAN) 4 Mg Tablet 1 TAB PO PRN Q6-8HRS, #12 TAB Prov: MARKUS KENYON MD 02/26/20 Justicifation of Admission Dx: Justifications for Admission: Justification of Admission Dx: No MARKUS KENYON MD Feb 26, 2020 12:40
[2020-02-26 13:45] VITALS: BP 143/65
== END 2020-02-26 14:25 | disposition home or self-care (01) ==
LOC: ER 08:25
DX: R11.2 Nausea with vomiting, unspecified (principal); R19.7 Diarrhea, unspecified; G89.29 Other chronic pain; R10.84 Generalized abdominal pain; E87.6 Hypokalemia; J44.9 Chronic obstructive pulmonary disease, unspecified; E78.00 Pure hypercholesterolemia, unspecified; G43.909 Migraine, unspecified, not intractable, without status migrainosus; I25.2 Old myocardial infarction; F17.200 Nicotine dependence, unspecified, uncomplicated; Z90.710 Acquired absence of both cervix and uterus; Z90.89 Acquired absence of other organs
CPT/HCPCS: 36415; 74177; 80053; 81001; 83690; 85025; 96361; 96374; 99285; J2405; J7030; J7120; Q9967

== ENCOUNTER → 2020-05-16 | Outpatient (CLI) | payer MEDICARE, OTHER ==
[~2020-05-16] MED LIST changes: +FAMO-63 PO; +ONDA4TAB7 PO; -OXYC-411 PO; +OXYC1TAB20 PO; +POTA20TA4 PO; +REGADENOSON 0.4 MG/5 ML DISP.SYRIN. IV ONE
--- NOTE | 2020-05-16 16:25 | RAD ---
MR#: [id number] Date of Study: 05/16/2020 Ordering Physician: PEDRITO MUNGUIA, Referring Physician: AJ DUARTE Tech: RT Suresh (R) (N) APPROVED REPORT Test Type: Pharmacological Stress Nurse/Tech: Kera Oquendo R.N. Test Indications: chest pain Cardiac History: [place] w/stents, Smoker Medications: See Electronic Medical Record Medical History: See Electronic Medical Record Resting ECG: SR Resting Heart Rate: 69 bpm Resting Blood Pressure: 113/53mmHg Pretest Chest Pain: None Nurse/Tech Notes S1S2, coarse on all of rt side of lungs Consent: The procedure was explained to the patient in lay terms. Informed consent was witnessed. Andrew eout was entered into [employer]. History and Stress Test performed by RT Suresh (R) (N) Pharm. Details Pharmacologic stress testing was performed using 0.4mg per 5ml of regadenoson given intravenously ove r 7-10 seconds. Stress Symptoms SOA, nausea POST EXERCISE Reason for Termination: Infusion complete Max HR: 105 bpm Max Blood Pressure: 139/75mmHg Blood Pressure response to exercise: Normal blood pressure response during stress. Heart Rate response to exercise: wnl Chest Pain: No. Arrhythmia: No. INTERPRETATION Stress EKG Conclusion: The resting EKG showed a sinus rhythm, left ventricle hypertrophy and mild non specific ST-T wave changes. The stress EKG showed no significant changes from baseline. No EKG evidence of stress-induced ischemia. Imaging Protocol IMAGE PROTOCOL: Rest Tc-99m/stress Tc-99m 1 day Rest: Stress: Viability: Radiopharm.Tc99m [id number] Sestamibi Dose10.7mCi 33mCi Duration 15min. 10min. Img Date 05/16/2020 05/16/2020 Inj-Img [id number]. 60min. Rest Admin Site:IV - Right AntecubitalAdministrator:RT Suresh (R)(N) Stress Admin Site: IV - Right AntecubitalAdministrator: GARRISON Hodge, ARRT (R)(N) STRESS DATA End Diast. Vol.46.0mlAv. Heart Rate91.0bpm End Syst. Vol.7.0mlCO Index BSA0.0L/min Myocardial Mass90.0gEject. Xlaoujaj03.0% Stress Rates Pk. Fill Rate3.76EDV/secLVtime Pk. Fill 179.13msec Pk. Empty Rate5.82ESV/secLVtime Pk. Qcbum679.13msec 1/3 Pk. Fill0.79EDV/sec Stress Scores Regional WT1.00Summed WT6.00 Regional WM0.00Summed WM1.00 LV Perfusion The stress scans showed no significant defects. The rest scans showed no significant defects. Nuclear imaging shows no reversible ischemia or infarct. Wall Motion Left ventricular systolic function is normal with no regional wall motion abnormalities and an ejecti on fraction of greater than 70%. LV Perf. Quant 17 Seg. SSS1.00 17 Seg. SRS14.00 17 Seg. SDS0.00 Stress Defect Extent (% LAD)0.00Rest Defect Extent (% LAD)31.30Rev. Defect Extent (% LAD)0.00 Stress Defect Extent (% LCX) 6.30Rest Defect Extent (% LCX)25.00Rev. Defect Extent (% LCX)0.00 Stress Defect Extent (% RCA)0.00Rest Defect Extent (% RCA)41.10Rev. Defect Extent (% RCA)0.00 Stress Defect Extent (% SUZAN)1.10Rest Defect Extent (% SUZAN)36.10Rev. Defect Extent (% SUZAN)0.00 Conclusion 1. No EKG evidence of stress-induced ischemia. 2. Nuclear imaging shows no reversible ischemia or infarct. 3. Normal left ventricular systolic function with an ejection fraction of greater than 70%. 4. Low risk Lexiscan nuclear stress test. Signed by : Pedrito Munguia MD Electronically Approved : 05/16/2020 16:24:38
== END | disposition home or self-care (01) ==
LOC: NM 09:03
PROVIDERS: ATTEND Internal Medicine Cardiovascular Disease
DX: R07.89 Other chest pain (principal); I25.2 Old myocardial infarction; Z95.5 Presence of coronary angioplasty implant and graft; Z87.891 Personal history of nicotine dependence
CPT/HCPCS: 78452; 93017; A9500; J2785

== ENCOUNTER 2020-07-12 15:11 | Emergency (ER) | payer MEDICARE, OTHER ==
[~2020-07-12] VITALS: Ht 162.6 cm; Wt 52.0 kg
[~2020-07-12 15:11] MED LIST changes: -REGADENOSON 0.4 MG/5 ML DISP.SYRIN. IV ONE
[2020-07-12] MEDS ORDERED: fentaNYL PF VIAL 100 MCG/2 ML VIAL IVP ONE (16:00)
--- NOTE | 2020-07-12 16:12 | ED.ADGEN ---
Past Medical History Past Medical History: Asthma, Gallstones, GERD, [place], Other Additional Past Medical Histor: OSTEOPOROSIS, chronic abd pain Past Surgical History: Angioplasty, Hip Replacement, Tonsillectomy Additional Past Surgical Histo: LEFT EYE, cardiac stent Smoking Status: Former Smoker Alcohol Use: None Drug Use: Marijuana General Adult EDM: Chief Complaint: ABDOMINAL PAIN HPI: HPI: Patient is a 69 year old female coming in for right upper quadrant pain that she attributes to her gallbladder. Patient had a similar episode this pain in the past. Is scheduled to have surgery to have it removed. Was hospitalized for the same thing and discharged May 25. Has run out of her oxycodones at home. Patient states last thing she ate was yogurt this morning. Says she has intermittent problems. No nausea, no vomiting, no diarrhea constipation. No changes in urination. Says the pain is colicky and comes and goes. Review of Systems: Review of Systems: Constitutional: Denies fever or chills. [] Eyes: Denies change in visual acuity. [] HENT: Denies nasal congestion or sore throat. [] Respiratory: Denies cough or shortness of breath. [] Cardiovascular: Denies chest pain or edema. [] GI: Right upper quadrant abdominal pain and nausea, no vomiting or diarrhea. : Denies dysuria. [] Musculoskeletal: Denies back pain or joint pain. [] Integument: Denies rash. [] Neurologic: Denies headache, focal weakness or sensory changes. [] Endocrine: Denies polyuria or polydipsia. [] Lymphatic: Denies swollen glands. [] Psychiatric: Denies depression or anxiety. [] Current Medications: Current Medications Medications (Trade) Dose Ordered Sig/Salomón Start Time Stop Time Status Last Admin Dose Admin Dicyclomine HCl (Bentyl) 20 mg 1X ONCE 07/12/20 16:15 07/12/20 16:16 DC 07/12/20 16:57 20 MG Fentanyl Citrate (Fentanyl 2ml Vial) 75 mcg 1X ONCE 07/12/20 16:00 07/12/20 16:01 DC 07/12/20 16:57 75 MCG Ondansetron HCl (Zofran) 4 mg 1X ONCE 07/12/20 16:15 07/12/20 16:16 DC 07/12/20 16:56 4 MG Sodium Chloride 500 ml @ 500 mls/hr 1X ONCE 07/12/20 16:15 07/12/20 17:14 DC 07/12/20 16:55 500 MLS/HR Allergies: Allergies: Allergies Coded Allergies Type Severity Reaction Last Updated Verified aluminum Allergy Severe BREAK OUT ALL OVER 04/01/17 Yes gold Au 198 Allergy Severe BREAK OUT ALL OVER 04/01/17 Yes iron Allergy Severe BREAK OUT ALL OVER 04/01/17 Yes nickel Allergy Severe BREAK OUT ALL OVER 04/01/17 Yes silver Allergy Severe BREAK OUT ALL OVER 04/01/17 Yes Physical Exam: PE: Constitutional: Well developed, well nourished, no acute distress, non-toxic appearance. [] HENT: Normocephalic, atraumatic, bilateral external ears normal, oropharynx moist, no oral exudates, nose normal. [] Eyes: PERRLA, EOMI, conjunctiva normal, no discharge. [] Neck: Normal range of motion, no tenderness, supple, no stridor. [] Cardiovascular:Heart rate regular rhythm, no murmur [] Lungs & Thorax: Bilateral breath sounds clear to auscultation [] Abdomen: Right upper quadrant abdominal tenderness, Skin: Warm, dry, no erythema, no rash. [] Back: No tenderness, no CVA tenderness. [] Extremities: No tenderness, no cyanosis, no clubbing, ROM intact, no edema. [] Neurologic: Alert and oriented X 3, normal motor function, normal sensory function, no focal deficits noted. [] Psychologic: Affect normal, judgement normal, mood normal. [] Current Patient Data: Labs: Laboratory Tests Test 07/12/20 16:40 White Blood Count 8.9 x10^3/uL (4.0-11.0) Red Blood Count 4.14 x10^6/uL (3.50-5.40) Hemoglobin 13.8 g/dL (12.0-15.5) Hematocrit 40.8 % (36.0-47.0) Mean Corpuscular Volume 98 fL (79-100) Mean Corpuscular Hemoglobin 33 pg (25-35) Mean Corpuscular Hemoglobin Concent 34 g/dL (31-37) Red Cell Distribution Width 13.6 % (11.5-14.5) Platelet Count 289 x10^3/uL (140-400) Neutrophils (%) (Auto) 76 % (31-73) H Lymphocytes (%) (Auto) 14 % (24-48) L Monocytes (%) (Auto) 8 % (0-9) Eosinophils (%) (Auto) 1 % (0-3) Basophils (%) (Auto) 1 % (0-3) Neutrophils # (Auto) 6.8 x10^3/uL (1.8-7.7) Lymphocytes # (Auto) 1.2 x10^3/uL (1.0-4.8) Monocytes # (Auto) 0.7 x10^3/uL (0.0-1.1) Eosinophils # (Auto) 0.1 x10^3/uL (0.0-0.7) Basophils # (Auto) 0.1 x10^3/uL (0.0-0.2) Sodium Level 135 mmol/L (136-145) L Potassium Level 3.5 mmol/L (3.5-5.1) Chloride Level 100 mmol/L (98-107) Carbon Dioxide Level 26 mmol/L (21-32) Anion Gap 9 (6-14) Blood Urea Nitrogen 21 mg/dL (7-20) H Creatinine 0.6 mg/dL (0.6-1.0) Estimated GFR (Cockcroft-Gault) 99.7 BUN/Creatinine Ratio 35 (6-20) H Glucose Level 107 mg/dL (70-99) H Calcium Level 9.9 mg/dL (8.5-10.1) Total Bilirubin 0.4 mg/dL (0.2-1.0) Aspartate Amino Transferase (AST) 19 U/L (15-37) Alanine Aminotransferase (ALT) 19 U/L (14-59) Alkaline Phosphatase 89 U/L (46-116) Total Protein 8.1 g/dL (6.4-8.2) Albumin 4.6 g/dL (3.4-5.0) Albumin/Globulin Ratio 1.3 (1.0-1.7) Laboratory Tests 07/12/20 16:40 Laboratory Tests 07/12/20 16:40 Vital Signs: Vital Signs Date Time Temp Pulse Resp B/P (MAP) Pulse Ox O2 Delivery O2 Flow Rate FiO2 07/12/20 17:35 78 18 138/78 (98) 98 Room Air 07/12/20 15:45 98.5 98.5 EKG: EKG: Normal sinus rhythm, established patient, no ectopy, heart rate 52 [] Heart Score: Risk Factors: Risk Factors: DM, Current or recent (<one month) smoker, HTN, HLP, family history of CAD, obesity. Risk Scores: Score 0 - 3: 2.5% MACE over next 6 weeks - Discharge Home Score 4 - 6: 20.3% MACE over next 6 weeks - Admit for Clinical Observation Score 7 - 10: 72.7% MACE over next 6 weeks - Early Invasive Strategies Radiology/Procedures: Radiology/Procedures: Examination: ABDOMEN LTD History: Right upper quadrant pain Comparison/Correlation: CTA of the abdomen and pelvis with contrast Findings: Limited right upper quadrant ultrasound examination was performed. Hepatic echotexture is within normal limits. Common bile duct measures up to 0.47 cm diameter. Small calculi are present within the gallbladder measuring less than 1 cm diameter. Gallbladder wall thickness is within normal limits. No pericholecystic fluid. Right kidney measures 9.6 cm x 2.7 cm x 3.2 cm. No right hydronephrosis. Right adrenal contour and echotexture are unremarkable. Proximal pancreas is unremarkable. Distal pancreas is obscured by bowel gas. Inferior vena cava is unremarkable. Impression: Cholelithiasis. No findings of acute cholecystitis or biliary dilatation. [] Course & Med Decision Making: Course & Med Decision Making Pertinent Labs and Imaging studies reviewed. (See chart for details) Pain resolved and no findings of acute cholecystitis on laboratory values or imaging. Discussed return precautions, patient agrees to follow-up with her surgeon regarding planned cholecystectomy [] Dragon Disclaimer: Marquise Disclaimer: This electronic medical record was generated, in whole or in part, using a voice recognition dictation system. Departure Departure Impression: Primary Impression: Biliary colic Disposition: 01 DC HOME SELF CARE/HOMELESS Condition: IMPROVED Referrals: IJEOMA MCCRAY MD (PCP) Patient Instructions: Biliary Colic Scripts Dicyclomine Hcl (DICYCLOMINE HCL) 20 Mg Tablet 1 TAB PO TID for gallstone pain for 10 Days, #20 TAB 1 Refill Prov: MARYANNE LUU MD 07/12/20 Hydrocodone/Apap 5-325 (NORCO 5-325 TABLET) 1 Each Tablet 1 TAB PO TID for pain for 5 Days, #15 TAB Prov: MARYANNE LUU MD 07/12/20 MARYANNE LUU MD Jul 12, 2020 16:12
[2020-07-12] MEDS ORDERED: ONDANSETRON PF 4 MG/2 ML VIAL. IVP ONE (16:15)
[2020-07-12] MEDS ORDERED: DICYCLOMINE 20 MG/2 ML VIAL. IM ONE (16:15)
[2020-07-12] MEDS ORDERED: IV NORMAL SALINE 500ML BAG 500 ML IV ONE (16:15)
[2020-07-12 17:01] LABS: BASO # 0.1 x10^3/uL (0.0-0.2); BASO % 1 % (0-3); EOS # 0.1 x10^3/uL (0.0-0.7); EOS % 1 % (0-3); HEMATOCRIT 40.8 % (36.0-47.0); HEMOGLOBIN 13.8 g/dL (12.0-15.5); LYMPH # 1.2 x10^3/uL (1.0-4.8); LYMPH % 14 % (24-48); MEAN CORPUSCULAR HEMOGLOBIN 33 pg (25-35); MEAN CORPUSCULAR HGB CONC 34 g/dL (31-37); MEAN CORPUSCULAR VOLUME 98 fL (79-100); MONO # 0.7 x10^3/uL (0.0-1.1); MONO % 8 % (0-9); NEUT # 6.8 x10^3/uL (1.8-7.7); NEUT % 76 % (31-73); PLATELET COUNT 289 x10^3/uL (140-400); RED BLOOD COUNT 4.14 x10^6/uL (3.50-5.40); RED CELL DISTRIBUTION WIDTH 13.6 % (11.5-14.5); WHITE BLOOD COUNT 8.9 x10^3/uL (4.0-11.0)
[2020-07-12 17:16] LABS: ALBUMIN 4.6 g/dL (3.4-5.0); ALBUMIN/GLOBULIN RATIO 1.3 (1.0-1.7); CALCIUM 9.9 mg/dL (8.5-10.1); CREATININE 0.6 mg/dL (0.6-1.0); GFR 99.7; TOTAL BILIRUBIN 0.4 mg/dL (0.2-1.0); TOTAL PROTEIN 8.1 g/dL (6.4-8.2)
--- NOTE | 2020-07-12 17:24 | RAD ---
Examination: ABDOMEN LTD History: Right upper quadrant pain Comparison/Correlation: CTA of the abdomen and pelvis with contrast Findings: Limited right upper quadrant ultrasound examination was performed. Hepatic echotexture is within normal limits. Common bile duct measures up to 0.47 cm diameter. Small calculi are present within the gallbladder measuring less than 1 cm diameter. Gallbladder wall thickness is within normal limits. No pericholecystic fluid. Right kidney measures 9.6 cm x 2.7 cm x 3.2 cm. No right hydronephrosis. Right adrenal contour and echotexture are unremarkable. Proximal pancreas is unremarkable. Distal pancreas is obscured by bowel gas. Inferior vena cava is unremarkable. Impression: Cholelithiasis. No findings of acute cholecystitis or biliary dilatation. Electronically signed by: Shiv Richard MD (07/12/2020 5:21 PM) [facility]
[2020-07-12 17:35] VITALS: BP 138/78
[2020-07-12 17:47] LABS: POTASSIUM 3.5 mmol/L (3.5-5.1)
[2020-07-12] MEDS ORDERED: HYDR-3164 PO (18:13)
[2020-07-12] MEDS ORDERED: DICY20TA3 PO (18:13)
== END 2020-07-12 18:35 | disposition home or self-care (01) ==
LOC: ER 15:11
DX: K80.50 Calculus of bile duct without cholangitis or cholecystitis without obstruction (principal); R10.11 Right upper quadrant pain; R11.0 Nausea; J45.909 Unspecified asthma, uncomplicated; K21.9 Gastro-esophageal reflux disease without esophagitis; I25.2 Old myocardial infarction; G89.29 Other chronic pain; F12.90 Cannabis use, unspecified, uncomplicated; Z98.890 Other specified postprocedural states; Z90.89 Acquired absence of other organs; Z87.891 Personal history of nicotine dependence; Z87.442 Personal history of urinary calculi; Z88.8 Allergy status to other drugs, medicaments and biological substances; Z88.6 Allergy status to analgesic agent
CPT/HCPCS: 36415; 76705; 80053; 85025; 93005; 96361; 96372; 96374; 96375; 99285; J0500; J2405; J3010; J7040

== ENCOUNTER → 2020-08-01 | Emergency (ER) | payer MEDICARE, OTHER ==
[2020-07-12 17:35] VITALS: BP 138/78
[~2020-08-01] MED LIST changes: +DICY20TA3 PO; +HYDR-3164 PO
== END | disposition left against medical advice (07) ==
LOC: ER 12:08
DX: R10.9 Unspecified abdominal pain (principal); Z53.21 Procedure and treatment not carried out due to patient leaving prior to being seen by health care provider

== ENCOUNTER 2020-08-02 09:24 | Inpatient (IN) | payer MEDICARE, OTHER ==
[~2020-08-02] VITALS: Ht 162.6 cm; Wt 52.4 kg
[2020-08-02] MEDS ORDERED: ONDANSETRON PF 4 MG/2 ML VIAL. IVP ONE (09:30)
[2020-08-02] MEDS: fentaNYL PF VIAL 100 MCG/2 ML VIAL IV PRN ×4 (09:43→11:29)
[2020-08-02 09:45] LABS: BASO # 0.1 x10^3/uL (0.0-0.2); BASO % 1 % (0-3); EOS % 0 % (0-3); HEMATOCRIT 43.5 % (36.0-47.0); HEMOGLOBIN 14.8 g/dL (12.0-15.5); LYMPH # 1.2 x10^3/uL (1.0-4.8); LYMPH % 15 % (24-48); MEAN CORPUSCULAR HEMOGLOBIN 33 pg (25-35); MEAN CORPUSCULAR HGB CONC 34 g/dL (31-37); MEAN CORPUSCULAR VOLUME 98 fL (79-100); MONO # 0.5 x10^3/uL (0.0-1.1); MONO % 7 % (0-9); NEUT # 5.9 x10^3/uL (1.8-7.7); NEUT % 77 % (31-73); PLATELET COUNT 340 x10^3/uL (140-400); RED BLOOD COUNT 4.42 x10^6/uL (3.50-5.40); RED CELL DISTRIBUTION WIDTH 13.5 % (11.5-14.5); WHITE BLOOD COUNT 7.6 x10^3/uL (4.0-11.0)
--- NOTE | 2020-08-02 09:48 | PHYS DOC ---
Past Medical History Past Medical History: Gallstones, GERD, High Cholesterol, [place], Other Additional Past Medical Histor: OSTEOPOROSIS, chronic abd pain Past Surgical History: Angioplasty, Hysterectomy, Tonsillectomy Additional Past Surgical Histo: LEFT EYE, cardiac stent Smoking Status: Current Every Day Smoker Alcohol Use: None Drug Use: Marijuana General Adult EDM: Chief Complaint: ABDOMINAL PAIN HPI: HPI: Patient is a 70 year old female presents from home via EMS for evaluation of worsening right upper quadrant abdominal pain. She reports she has a cholecystectomy scheduled with Dr. Amos on 08/07/2020. States she does not think she can make it that long. She is nauseated but no vomiting. Reports the pain increased overnight. She states the pain got so bad at one point that it caused her to fall down to the ground and she had to have help to get back up. She did not hit her head or lose consciousness. States that she has not had any fevers, cough, chest pain or shortness of air. Last bowel movement was this morning and normal per her report. Review of Systems: Review of Systems: Constitutional: Denies fever or chills. [] Eyes: Denies change in visual acuity. [] HENT: Denies nasal congestion or sore throat. [] Respiratory: Denies cough or shortness of breath. [] Cardiovascular: Denies chest pain or edema. [] GI: REPORTS abdominal pain, nausea, DENIES vomiting, bloody stools or diarrhea. [] : Denies dysuria. [] Musculoskeletal: Denies back pain or joint pain. [] Integument: Denies rash. [] Neurologic: Denies headache, focal weakness or sensory changes. [] Endocrine: Denies polyuria or polydipsia. [] Lymphatic: Denies swollen glands. [] Psychiatric: Denies depression or anxiety. [] Heart Score: Risk Factors: Risk Factors: DM, Current or recent (<one month) smoker, HTN, HLP, family history of CAD, obesity. Risk Scores: Score 0 - 3: 2.5% MACE over next 6 weeks - Discharge Home Score 4 - 6: 20.3% MACE over next 6 weeks - Admit for Clinical Observation Score 7 - 10: 72.7% MACE over next 6 weeks - Early Invasive Strategies Current Medications: Current Medications Medications (Trade) Dose Ordered Sig/Salomón Start Time Stop Time Status Last Admin Dose Admin Fentanyl Citrate (Fentanyl 2ml Vial) 25 mcg PRN Q15MIN PRN 08/02/20 09:30 12 09:29 08/02/20 09:43 25 MCG Ondansetron HCl (Zofran) 4 mg 1X ONCE 08/02/20 09:30 08/02/20 09:33 DC 08/02/20 09:41 4 MG Allergies: Allergies: Allergies Coded Allergies Type Severity Reaction Last Updated Verified aluminum Allergy Severe BREAK OUT ALL OVER 04/01/17 Yes gold Au 198 Allergy Severe BREAK OUT ALL OVER 04/01/17 Yes iron Allergy Severe BREAK OUT ALL OVER 04/01/17 Yes nickel Allergy Severe BREAK OUT ALL OVER 04/01/17 Yes silver Allergy Severe BREAK OUT ALL OVER 04/01/17 Yes Physical Exam: PE: Constitutional: Well developed, well nourished, no acute distress, non-toxic appearance, IN PAIN. [] HENT: Normocephalic, atraumatic, bilateral external ears normal, [] Eyes: PERRLA, EOMI, conjunctiva normal, no discharge. [] Neck: Normal range of motion, no tenderness, supple, no stridor. [] Cardiovascular:Heart rate regular rhythm, no murmur [] Lungs & Thorax: Bilateral breath sounds clear to auscultation [] Abdomen: Bowel sounds normal, soft, RUQ TTP. [] Skin: Warm, dry, no erythema, no rash. [] Extremities: No tenderness, no cyanosis, no clubbing, ROM intact, no edema. [] Neurologic: Alert and oriented X 3, normal motor function, normal sensory fun ction, no focal deficits noted. [] Psychologic: Affect normal, judgement normal, mood normal. [] Current Patient Data: Vital Signs: Vital Signs Date Time Temp Pulse Resp B/P (MAP) Pulse Ox O2 Delivery O2 Flow Rate FiO2 08/02/20 09:43 20 100 Room Air 08/02/20 09:25 98.3 103 128/84 (99) 98.3 EKG: EKG: EKG 0938 READ BY EDP SINUS RHYTHM, PVCs, PROLONGED QT, BIGEMINY; EKG CHANGES NOTED FROM PREVIOUS EKG 07/12/20 NSR[] Radiology/Procedures: Radiology/Procedures: []ROCEDURE: ABDOMEN LTD INDICATION : Reason: RUQ PAIN, NAUSEA / Spl. Instructions: / History: COMPARISON: July 12, 2020 TECHNIQUE: Multiple ultrasound images obtained through the abdomen in grayscale and color. FINDINGS: Liver: Borderline echogenic. Calcific atherosclerosis. Gallbladder: Layering debris within. IVC: Partially distended at level of liver. Common Bile Duct: Not dilated. Pancreas: Limited evaluation secondary to overlying structures obscuring. Right Kidney: No hydronephrosis. IMPRESSION: * Small amount of layering debris within the gallbladder which could be from sludge or tiny stones. No common bile duct dilation or gallbladder wall thickening. Electronically signed by: Jose Eduardo Hallman MD (08/02/2020 11:12 AM) [id number] Course & Med Decision Making: Course & Med Decision Making Pertinent Labs and Imaging studies reviewed. (See chart for details) [][address] Salguero, general surgeon, he requests admit to medicine, consult cardiology for EKG changes. [address] Mercado who accepts admission Dragon Disclaimer: Marquise Disclaimer: This electronic medical record was generated, in whole or in part, using a voice recognition dictation system. Departure Departure Impression: Primary Impression: Intractable abdominal pain Additional Impression: UTI (urinary tract infection) Qualified Codes: N30.01 - Acute cystitis with hematuria Disposition: ADMITTED INPT THIS HOSP Admitting Physician: GEOFF HOPE) Condition: STABLE Referrals: IJEOMA MCCRAY MD (PCP) CARLA [employer]INTER [employer] Aug 02, 2020 09:48
[2020-08-02 10:00] LABS: CREATININE 0.7 mg/dL (0.6-1.0); GFR 83.2; POTASSIUM 3.5 mmol/L (3.5-5.1)
[2020-08-02 10:07] LABS: ALBUMIN 4.4 g/dL (3.4-5.0); ALBUMIN/GLOBULIN RATIO 1.2 (1.0-1.7); TOTAL BILIRUBIN 0.5 mg/dL (0.2-1.0); TOTAL PROTEIN 8.1 g/dL (6.4-8.2)
[2020-08-02 11:01] LABS: BILIRUBIN,URINE NEGATIVE (NEG); CLARITY,URINE TURBID; COLOR,URINE AMBER; NITRITE,URINE NEGATIVE (NEG); PROTEIN,URINE 100 mg/dL (NEG-TRACE); UROBILINOGEN,URINE 0.2 mg/dL (0.2 mg/dL)
[2020-08-02 11:11] LABS: BACTERIA,URINE 0 /HPF (0-FEW)
--- NOTE | 2020-08-02 11:15 | RAD ---
INDICATION : Reason: RUQ PAIN, NAUSEA / Spl. Instructions: / History: COMPARISON: July 12, 2020 TECHNIQUE: Multiple ultrasound images obtained through the abdomen in grayscale and color. FINDINGS: Liver: Borderline echogenic. Calcific atherosclerosis. Gallbladder: Layering debris within. IVC: Partially distended at level of liver. Common Bile Duct: Not dilated. Pancreas: Limited evaluation secondary to overlying structures obscuring. Right Kidney: No hydronephrosis. IMPRESSION: * Small amount of layering debris within the gallbladder which could be from sludge or tiny stones. No common bile duct dilation or gallbladder wall thickening. Electronically signed by: Jose Eduardo Hallman MD (08/02/2020 11:12 AM) [id number]
[2020-08-02] MEDS ORDERED: cefTRIAXone IV Push 1 GM VIAL. IVP ONE (11:30)
--- NOTE | 2020-08-02 12:07 | PDOC1 ---
History and Physical Date of Admission Date of Admission DATE: 08/02/20 TIME: 11:49 Identification/Chief Complaint Chief Complaint Abdominal pain Source Source: Chart review, Patient History of Present Illness History of Present Illness Patient 70-year-old female with past medical history of cholelithiasis, who presents to the ER with complaints of worsening right upper quadrant pain. She reports pain 10/10 at worst, aggravated by eating. She reports associated nausea. She denies any vomiting. She is reportedly scheduled to have cholecystectomy on 08/08/[address] Salguero. She denies any fevers, cough, chest pain, shortness of breath. Will admit patient with general surgery consult. Cardiology consult was placed by ER due to bigeminy noted on EKG. Past Medical History Cardiovascular: CAD, HTN, Other Pulmonary: Asthma, COPD Past Surgical History Past Surgical History: No pertinent history Family History Family History Denies pertinent family history Social History Smoke: Quit ALCOHOL: none Drugs: Marijuana Current Problem List Problem List Problems Medical Problems: (1) Intractable abdominal pain Status: Acute (2) UTI (urinary tract infection) Status: Acute Current Medications Current Medications Current Medications Fentanyl Citrate (Fentanyl 2ml Vial) 25 mcg PRN Q15MIN PRN IV PAIN GREATER THAN 3/10 Last administered on 08/02/20at 11:29; Start 08/02/20 at 09:30; Stop 08/03/20 at 09:29 Ondansetron HCl (Zofran) 4 mg 1X ONCE IVP Last administered on 08/02/20at 09:41; Start 08/02/20 at 09:30; Stop 08/02/20 at 09:33; Status DC Ceftriaxone Sodium (Rocephin) 1 gm 1X ONCE IVP Last administered on 08/02/20at 11:33; Start 08/02/20 at 11:30; Stop 08/02/20 at 11:31; Status DC Active Scripts Active Dicyclomine Hcl 20 Mg Tablet 1 Tab PO TID 10 Days [place] 5-325 Tablet (Acetaminophen/Hydrocodone Bitart) 1 Each Tablet 1 Tab PO TID 5 Days Zofran (Ondansetron Hcl) 4 Mg Tablet 1 Tab PO Q8HRS Potassium Chloride (Potassium Chloride) 20 Meq Tablet.er 20 Meq PO DAILY 7 Days Pepcid (Famotidine) 20 Mg Tablet 20 Mg PO BID Klor-Con M20 (Potassium Chloride) 20 Meq Tab.er.prt 1 Tab PO DAILY 7 Days Zofran (Ondansetron Hcl) 4 Mg Tablet 1 Tab PO PRN Q6-8HRS Ondansetron Odt (Ondansetron) 4 Mg Tab.rapdis 1 Tab PO PRN Q6-8HRS PRN Reported Aspirin 81 Mg Tab.chew 1 Tab PO DAILY Clopidogrel (Clopidogrel Bisulfate) 75 Mg Tablet 1 Tab PO DAILY Lipitor (Atorvastatin Calcium) 10 Mg Tablet 10 Mg PO HS Alprazolam 0.5 Mg Tablet 0.5 Mg PO PRN Q6HRS PRN Pantoprazole Sodium (Pantoprazole Sodium) 40 Mg Tablet.dr 40 Mg PO DAILY Duoneb 0.5-3(2.5) Mg/3 Ml (Albuterol/Ipratropium) 3 Ml Ampul.neb 3 Ml NEB QID Oxycodone-Acetaminophen 10-325 (Oxycodone Hcl/Acetaminophen) 1 Each Tablet 1 Each PO PRN Q6HRS PRN Percocet 10-325 Mg Tablet (Oxycodone/Acetaminophen) 1 Each Tablet 1 Tab PO PRN Q6HRS PRN Wellbutrin Sr (Bupropion Hcl) 150 Mg Tablet.er 150 Mg PO DAILY Venlafaxine Hcl Er (Venlafaxine Hcl) 150 Mg Tab.er.24 150 Mg PO DAILY Effexor Xr (Venlafaxine Hcl) 150 Mg Cap.er.24h 150 Mg PO DAILY Gabapentin (Gabapentin) 100 Mg Capsule 400 Mg PO TID Xanax (Alprazolam) 0.5 Mg Tablet 0.5 Mg PO TID PRN Allergies Allergies: Coded Allergies: aluminum (Verified Allergy, Severe, BREAK OUT ALL OVER, 04/01/17) gold Au 198 (Verified Allergy, Severe, BREAK OUT ALL OVER, 04/01/17) iron (Verified Allergy, Severe, BREAK OUT ALL OVER, 04/01/17) METALS nickel (Verified Allergy, Severe, BREAK OUT ALL OVER, 04/01/17) silver (Verified Allergy, Severe, BREAK OUT ALL OVER, 04/01/17) ROS Review of System GENERAL: No history of weight change, weakness or fevers. SKIN: No bruising, hair changes or rashes. EYES: No blurred, double or loss of vision. NOSE AND THROAT: No history of nosebleeds, hoarseness or sore throat. HEART: Denies chest pain, denies palpitations. LUNGS: Denies cough, hemoptysis, wheezing or shortness of breath. GASTROINTESTINAL: Abdominal pain, nausea. GENITOURINARY: Denies dysuria, frequency, urgency, hematuria. NEUROLOGIC: Denies history of numbness, tingling, tremor or weakness. PSYCHIATRIC: Denies anxiety, denies depression. ENDOCRINE: No history of heat or cold intolerance, polyuria or polydipsia. EXTREMITIES: Denies muscle weakness, joint pain, pain on walking or stiffness. Physical Exam Physical Exam General: Alert, Oriented X3, Cooperative, mild distress HEENT: PERRLA, EOMI Lungs: Clear to auscultation, Normal air movement Heart: RRR, no murmurs Cardiovascular: S1, S2 Abdomen: Right upper quadrant tenderness. Soft abdomen. Extremities: No clubbing, No cyanosis Skin: No rashes, No significant lesion Neuro: Normal speech, Normal tone, Sensation intact Psych/Mental Status: Mental status NL, Mood NL Vitals Vitals Vital Signs Date Time Temp Pulse Resp B/P (MAP) Pulse Ox O2 Delivery O2 Flow Rate FiO2 08/02/20 11:29 18 99 Room Air 08/02/20 09:25 98.3 103 128/84 (99) 98.3 Labs Labs Laboratory Tests Test 08/02/20 09:30 08/02/20 09:48 08/02/20 10:16 White Blood Count 7.6 x10^3/uL (4.0-11.0) Red Blood Count 4.42 x10^6/uL (3.50-5.40) Hemoglobin 14.8 g/dL (12.0-15.5) Hematocrit 43.5 % (36.0-47.0) Mean Corpuscular Volume 98 fL (79-100) Mean Corpuscular Hemoglobin 33 pg (25-35) Mean Corpuscular Hemoglobin Concent 34 g/dL (31-37) Red Cell Distribution Width 13.5 % (11.5-14.5) Platelet Count 340 x10^3/uL (140-400) Neutrophils (%) (Auto) 77 % (31-73) Lymphocytes (%) (Auto) 15 % (24-48) Monocytes (%) (Auto) 7 % (0-9) Eosinophils (%) (Auto) 0 % (0-3) Basophils (%) (Auto) 1 % (0-3) Neutrophils # (Auto) 5.9 x10^3/uL (1.8-7.7) Lymphocytes # (Auto) 1.2 x10^3/uL (1.0-4.8) Monocytes # (Auto) 0.5 x10^3/uL (0.0-1.1) Eosinophils # (Auto) 0.0 x10^3/uL (0.0-0.7) Basophils # (Auto) 0.1 x10^3/uL (0.0-0.2) Sodium Level 139 mmol/L (136-145) Potassium Level 3.5 mmol/L (3.5-5.1) Chloride Level 103 mmol/L (98-107) Carbon Dioxide Level 23 mmol/L (21-32) Anion Gap 13 (6-14) Blood Urea Nitrogen 16 mg/dL (7-20) Creatinine 0.7 mg/dL (0.6-1.0) Estimated GFR (Cockcroft-Gault) 83.2 BUN/Creatinine Ratio 23 (6-20) Glucose Level 131 mg/dL (70-99) Calcium Level 10.0 mg/dL (8.5-10.1) Total Bilirubin 0.5 mg/dL (0.2-1.0) Aspartate Amino Transf (AST/SGOT) 21 U/L (15-37) Alanine Aminotransferase (ALT/SGPT) 18 U/L (14-59) Alkaline Phosphatase 98 U/L (46-116) Total Protein 8.1 g/dL (6.4-8.2) Albumin 4.4 g/dL (3.4-5.0) Albumin/Globulin Ratio 1.2 (1.0-1.7) Lipase 45 U/L (73-393) Troponin I Quantitative < 0.017 ng/mL (0.000-0.055) Urine Collection Type Unknown Urine Color Violeta Urine Clarity Turbid Urine pH 6.0 (<5.0-8.0) Urine Specific [place] 1.020 (1.000-1.030) Urine Protein 100 mg/dL (NEG-TRACE) Urine Glucose (UA) Negative mg/dL (NEG) Urine Ketones (Stick) 15 mg/dL (NEG) Urine Blood Large (NEG) Urine Nitrite Negative (NEG) Urine Bilirubin Negative (NEG) Urine Urobilinogen Dipstick 0.2 mg/dL (0.2 mg/dL) Urine Leukocyte Esterase Negative (NEG) Urine RBC 11-20 /HPF (0-2) Urine WBC 1-4 /HPF (0-4) Urine Squamous Epithelial Cells Mod /LPF Urine Bacteria 0 /HPF (0-FEW) Urine Mucus Marked /LPF Laboratory Tests Test 08/02/20 09:30 08/02/20 09:48 08/02/20 10:16 White Blood Count 7.6 x10^3/uL (4.0-11.0) Red Blood Count 4.42 x10^6/uL (3.50-5.40) Hemoglobin 14.8 g/dL (12.0-15.5) Hematocrit 43.5 % (36.0-47.0) Mean Corpuscular Volume 98 fL (79-100) Mean Corpuscular Hemoglobin 33 pg (25-35) Mean Corpuscular Hemoglobin Concent 34 g/dL (31-37) Red Cell Distribution Width 13.5 % (11.5-14.5) Platelet Count 340 x10^3/uL (140-400) Neutrophils (%) (Auto) 77 % (31-73) Lymphocytes (%) (Auto) 15 % (24-48) Monocytes (%) (Auto) 7 % (0-9) Eosinophils (%) (Auto) 0 % (0-3) Basophils (%) (Auto) 1 % (0-3) Neutrophils # (Auto) 5.9 x10^3/uL (1.8-7.7) Lymphocytes # (Auto) 1.2 x10^3/uL (1.0-4.8) Monocytes # (Auto) 0.5 x10^3/uL (0.0-1.1) Eosinophils # (Auto) 0.0 x10^3/uL (0.0-0.7) Basophils # (Auto) 0.1 x10^3/uL (0.0-0.2) Sodium Level 139 mmol/L (136-145) Potassium Level 3.5 mmol/L (3.5-5.1) Chloride Level 103 mmol/L (98-107) Carbon Dioxide Level 23 mmol/L (21-32) Anion Gap 13 (6-14) Blood Urea Nitrogen 16 mg/dL (7-20) Creatinine 0.7 mg/dL (0.6-1.0) Estimated GFR (Cockcroft-Gault) 83.2 BUN/Creatinine Ratio 23 (6-20) Glucose Level 131 mg/dL (70-99) Calcium Level 10.0 mg/dL (8.5-10.1) Total Bilirubin 0.5 mg/dL (0.2-1.0) Aspartate Amino Transf (AST/SGOT) 21 U/L (15-37) Alanine Aminotransferase (ALT/SGPT) 18 U/L (14-59) Alkaline Phosphatase 98 U/L (46-116) Total Protein 8.1 g/dL (6.4-8.2) Albumin 4.4 g/dL (3.4-5.0) Albumin/Globulin Ratio 1.2 (1.0-1.7) Lipase 45 U/L (73-393) Troponin I Quantitative < 0.017 ng/mL (0.000-0.055) Urine Collection Type Unknown Urine Color Violeta Urine Clarity Turbid Urine pH 6.0 (<5.0-8.0) Urine Specific [place] 1.020 (1.000-1.030) Urine Protein 100 mg/dL (NEG-TRACE) Urine Glucose (UA) Negative mg/dL (NEG) Urine Ketones (Stick) 15 mg/dL (NEG) Urine Blood Large (NEG) Urine Nitrite Negative (NEG) Urine Bilirubin Negative (NEG) Urine Urobilinogen Dipstick 0.2 mg/dL (0.2 mg/dL) Urine Leukocyte Esterase Negative (NEG) Urine RBC 11-20 /HPF (0-2) Urine WBC 1-4 /HPF (0-4) Urine Squamous Epithelial Cells Mod /LPF Urine Bacteria 0 /HPF (0-FEW) Urine Mucus Marked /LPF Images Images INDICATION : Reason: RUQ PAIN, NAUSEA / Spl. Instructions: / History: COMPARISON: July 12, 2020 TECHNIQUE: Multiple ultrasound images obtained through the abdomen in grayscale and color. FINDINGS: Liver: Borderline echogenic. Calcific atherosclerosis. Gallbladder: Layering debris within. IVC: Partially distended at level of liver. Common Bile Duct: Not dilated. Pancreas: Limited evaluation secondary to overlying structures obscuring. Right Kidney: No hydronephrosis. IMPRESSION: * Small amount of layering debris within the gallbladder which could be from sludge or tiny stones. No common bile duct dilation or gallbladder wall thickening. VTE Prophylaxis Ordered VTE Prophylaxis Devices: No VTE Pharmacological Prophylaxi: Yes Assessment/Plan Assessment/Plan Intractable pain and nausea Symptomatic cholelithiasis Bigeminy, QTc prolongation Plan: We will admit patient with general surgery consult Consult was placed by ED to cardiology due to EKG abnormalities Ultrasound shows gallbladder sludge versus tiny stones, no evidence of acute cholecystitis Clear liquid diet, advance diet as tolerated. She may need to be n.p.o. after midnight for possible surgical intervention tomorrow.e Pain management IV Zofran Resume home medications FEN - Cardiac diet PPX - Lovenox FULL CODE Dispo - inpatient for above Justifications for Admission Other Justification NA COPELAND MD Aug 02, 2020 12:07
[2020-08-02] MEDS ORDERED: MORPHINE SULFATE 2 MG/ML VIAL. IV PRN (12:15)
[2020-08-02] MEDS ORDERED: HYDROcodone/APAP 5/325MG 1 TAB TABLET PO PRN (12:15)
[2020-08-02] MEDS ORDERED: IBUPROFEN 400 MG TABLET. PO PRN (12:15)
[2020-08-02] MEDS ORDERED: MAG HYDROX/ALUMINUM HYD/SIMETH 30 ML ORAL.SUSP PO PRN (12:15)
[2020-08-02] MEDS ORDERED: BISACODYL 10 MG SUPP.RECT. PR PRN (12:15)
[2020-08-02] MEDS ORDERED: CALCIUM CARBONATE 500 MG TAB.CHEW PO PRN (12:15)
[2020-08-02] MEDS ORDERED: ACETAMINOPHEN 325 MG TABLET. PO PRN (12:15)
[2020-08-02] MEDS ORDERED: MAGNESIUM HYDROXIDE 2,400 MG/30 ML ORAL.SUSP. PO PRN (12:15)
[2020-08-02] MEDS: IPRATRPIUM/ALBUTEROL 0.5/2.5MG 3 ML NEBU. NEB SCH ×3 (12:42→20:24)
[2020-08-02] MEDS: ONDANSETRON PF 4 MG/2 ML VIAL. IVP PRN ×2 (13:07→19:56)
[2020-08-02 15:00] VITALS: BP 137/70
[2020-08-02] MEDS: GABAPENTIN 400 MG CAPSULE. PO SCH ×2 (17:03→19:56)
[2020-08-02] MEDS: CLOPIDOGREL BISULFATE 75 MG TABLET PO SCH (17:04)
[2020-08-02] MEDS: PROCHLORPERAZINE 10 MG/2 ML VIAL. IV PRN (17:04)
[2020-08-02] MEDS: FAMOTIDINE 20 MG TABLET. PO SCH ×2 (17:04→19:56)
[2020-08-02] MEDS: NICOTINE 14MG PATCH. TD SCH (17:04)
[2020-08-02] MEDS: POTASSIUM CHLORIDE 20 MEQ TABLET.ER. PO SCH (17:04)
[2020-08-02 19:00] VITALS: BP 112/74
[2020-08-02] MEDS: ATORVASTATIN CALCIUM 10 MG TABLET. PO SCH (19:56)
[2020-08-02] MEDS: HEPARIN for SUB-Q USE 5,000 UNIT/ML VIAL. SQ SCH (19:58)
[2020-08-02 23:48] VITALS: BP 112/74
[2020-08-03 03:00] VITALS: BP 133/66
[2020-08-03] MEDS: ONDANSETRON PF 4 MG/2 ML VIAL. IVP PRN (03:23)
[2020-08-03] MEDS: fentaNYL PF VIAL 100 MCG/2 ML VIAL IVP PRN ×3 (03:24→20:49)
[2020-08-03] MEDS: PROCHLORPERAZINE 10 MG/2 ML VIAL. IV PRN (04:05)
[2020-08-03 07:00] VITALS: BP 99/54
--- NOTE | 2020-08-03 08:03 | PDOC ---
[facility] PROGRESS NOTE Date of Service DOS: DATE: 08/03/20 TIME: 08:00 Chief Complaint Chief Complaint Intractable pain and nausea Symptomatic cholelithiasis Bigeminy, QTc prolongation Abdominal pain of uncertain etiology. 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 Hypertension. Tobacco abuse. Plan: Consult was placed by ED to cardiology due to EKG abnormalities and general surgery for symptomatic cholelithiasis Ultrasound shows gallbladder sludge versus tiny stones, no evidence of acute cholecystitis Clear liquid diet, advance diet as tolerated. Pain management IV Zofran Resume home medications FEN - Cardiac diet PPX - Lovenox FULL CODE Dispo - inpatient for above History of Present Illness History of Present Illness Ms Johnson is a 70-year-old female with past medical history of cholelithiasis, who presents to the ER with complaints of worsening right upper quadrant pain. She reports pain 10/10 at worst, aggravated by eating. She reports associated nausea. She denies any vomiting. She is reportedly scheduled to have cholecystectomy on 08/08/[address] Salguero. She denies any fevers, cough, chest pain, shortness of breath. Patient was admitted with general surgery consult. Cardiology consult was placed by ER due to bigeminy noted on EKG. Afebrile today and her pain is better controlled. She is tearful however and does not feel safe at home but notes there is no domestic violence and her family treats her very well. She has requested that I not place in the medical record the reason. No shortness of breath or chest pain. Difficulty ambulating and taking care of herself. Plan: PT/OT Placement in SNF prior to planned surgery would be appropriate Vitals/I&O Vitals/I&O: Vital Signs Date Time Temp Pulse Resp B/P (MAP) Pulse Ox O2 Delivery O2 Flow Rate FiO2 08/03/20 03:54 20 99 Room Air 08/03/20 03:00 98.0 76 133/66 (88) 98.0 I & O 08/02/20 08/02/20 08/03/20 15:00 23:00 07:00 Intake Total 600 ml Balance 600 ml Physical Exam Lungs: Clear Labs Labs: Laboratory Tests Test 08/02/20 09:30 08/02/20 09:48 08/02/20 10:16 White Blood Count 7.6 x10^3/uL (4.0-11.0) Red Blood Count 4.42 x10^6/uL (3.50-5.40) Hemoglobin 14.8 g/dL (12.0-15.5) Hematocrit 43.5 % (36.0-47.0) Mean Corpuscular Volume 98 fL (79-100) Mean Corpuscular Hemoglobin 33 pg (25-35) Mean Corpuscular Hemoglobin Concent 34 g/dL (31-37) Red Cell Distribution Width 13.5 % (11.5-14.5) Platelet Count 340 x10^3/uL (140-400) Neutrophils (%) (Auto) 77 % (31-73) Lymphocytes (%) (Auto) 15 % (24-48) Monocytes (%) (Auto) 7 % (0-9) Eosinophils (%) (Auto) 0 % (0-3) Basophils (%) (Auto) 1 % (0-3) Neutrophils # (Auto) 5.9 x10^3/uL (1.8-7.7) Lymphocytes # (Auto) 1.2 x10^3/uL (1.0-4.8) Monocytes # (Auto) 0.5 x10^3/uL (0.0-1.1) Eosinophils # (Auto) 0.0 x10^3/uL (0.0-0.7) Basophils # (Auto) 0.1 x10^3/uL (0.0-0.2) Sodium Level 139 mmol/L (136-145) Potassium Level 3.5 mmol/L (3.5-5.1) Chloride Level 103 mmol/L (98-107) Carbon Dioxide Level 23 mmol/L (21-32) Anion Gap 13 (6-14) Blood Urea Nitrogen 16 mg/dL (7-20) Creatinine 0.7 mg/dL (0.6-1.0) Estimated GFR (Cockcroft-Gault) 83.2 BUN/Creatinine Ratio 23 (6-20) Glucose Level 131 mg/dL (70-99) Calcium Level 10.0 mg/dL (8.5-10.1) Total Bilirubin 0.5 mg/dL (0.2-1.0) Aspartate Amino Transf (AST/SGOT) 21 U/L (15-37) Alanine Aminotransferase (ALT/SGPT) 18 U/L (14-59) Alkaline Phosphatase 98 U/L (46-116) Total Protein 8.1 g/dL (6.4-8.2) Albumin 4.4 g/dL (3.4-5.0) Albumin/Globulin Ratio 1.2 (1.0-1.7) Lipase 45 U/L (73-393) Troponin I Quantitative < 0.017 ng/mL (0.000-0.055) Urine Collection Type Unknown Urine Color Violeta Urine Clarity Turbid Urine pH 6.0 (<5.0-8.0) Urine Specific [place] 1.020 (1.000-1.030) Urine Protein 100 mg/dL (NEG-TRACE) Urine Glucose (UA) Negative mg/dL (NEG) Urine Ketones (Stick) 15 mg/dL (NEG) Urine Blood Large (NEG) Urine Nitrite Negative (NEG) Urine Bilirubin Negative (NEG) Urine Urobilinogen Dipstick 0.2 mg/dL (0.2 mg/dL) Urine Leukocyte Esterase Negative (NEG) Urine RBC 11-20 /HPF (0-2) Urine WBC 1-4 /HPF (0-4) Urine Squamous Epithelial Cells Mod /LPF Urine Bacteria 0 /HPF (0-FEW) Urine Mucus Marked /LPF Assessment and Plan Assessmemt and Plan Problems Medical Problems: (1) Intractable abdominal pain Status: Acute (2) UTI (urinary tract infection) Status: Acute Comment Review of Relevant I have reviewed the following items chery (where applicable) has been applied. Medications: Current Medications Medications (Trade) Dose Ordered Sig/Salomón Route PRN Reason Start Time Stop Time Status Last Admin Dose Admin Fentanyl Citrate (Fentanyl 2ml Vial) 25 mcg PRN Q15MIN PRN IV PAIN GREATER THAN 3/10 08/02/20 09:30 08/03/20 09:29 08/02/20 11:29 Ondansetron HCl (Zofran) 4 mg 1X ONCE IVP 08/02/20 09:30 08/02/20 09:33 DC 08/02/20 09:41 Ceftriaxone Sodium (Rocephin) 1 gm 1X ONCE IVP 08/02/20 11:30 08/02/20 11:31 DC 08/02/20 11:33 Atorvastatin Calcium (Lipitor) 10 mg HS PO 08/02/20 21:00 08/02/20 19:56 Clopidogrel Bisulfate (Plavix) 75 mg DAILY PO 08/02/20 13:00 08/02/20 17:04 Famotidine (Pepcid) 20 mg BID PO 08/02/20 13:00 08/02/20 19:56 Gabapentin (Neurontin) 400 mg TID PO 08/02/20 14:00 08/02/20 19:56 Albuterol/ Ipratropium (Duoneb) 3 ml QID NEB 08/02/20 13:00 08/02/20 20:24 Potassium Chloride (Klor-Con) 20 meq DAILY PO 08/02/20 13:00 08/02/20 17:04 Ondansetron HCl (Zofran) 4 mg PRN Q6HRS PRN IVP NAUSEA/VOMITING 08/02/20 12:15 08/03/20 03:23 Heparin Sodium (Porcine) (Heparin Sodium) 5,000 unit Q12HR SQ 08/02/20 21:00 08/02/20 19:58 Fentanyl Citrate (Fentanyl 2ml Vial) 50 mcg PRN Q4HRS PRN IVP SEVERE PAIN 7-10, 2ND CHOICE 08/02/20 12:15 08/03/20 03:24 Prochlorperazine Edisylate (Compazine) 10 mg PRN Q6HRS PRN IV NAUSEA/VOMITING 08/02/20 16:00 08/03/20 04:05 Nicotine (Nicoderm Cq 14mg) 1 patch DAILY TD 08/02/20 16:00 08/02/20 17:04 Justifications for Admission Other Justification Intractable abdominal pain, symptomatic cholelithiasis CONOR SAPP MD Aug 03, 2020 08:03
[2020-08-03] MEDS: IPRATRPIUM/ALBUTEROL 0.5/2.5MG 3 ML NEBU. NEB SCH ×4 (08:37→20:04)
[2020-08-03] MEDS: FAMOTIDINE 20 MG TABLET. PO SCH (09:00)
[2020-08-03] MEDS ORDERED: ASPIRIN CHEWABLE 81 MG TABLET. PO SCH (09:00)
[2020-08-03] MEDS: CLOPIDOGREL BISULFATE 75 MG TABLET PO SCH (09:00)
[2020-08-03] MEDS: VENLAFAXINE XR 37.5 MG CAP.ER.24H. PO SCH (09:01)
[2020-08-03] MEDS: PANTOPRAZOLE 40 MG TABLET.DR. PO SCH (09:01)
[2020-08-03] MEDS: GABAPENTIN 400 MG CAPSULE. PO SCH ×3 (09:01→20:49)
[2020-08-03] MEDS: buPROPion SR 150 MG TABLET.SA PO SCH (09:01)
[2020-08-03] MEDS: NICOTINE 14MG PATCH. TD SCH (09:01)
[2020-08-03] MEDS: POTASSIUM CHLORIDE 20 MEQ TABLET.ER. PO SCH (09:01)
[2020-08-03] MEDS: HEPARIN for SUB-Q USE 5,000 UNIT/ML VIAL. SQ SCH ×2 (09:06→20:55)
--- NOTE | 2020-08-03 09:47 | PDOC2 ---
JUAN PEREZ MANAGEMENT DEVELOPER 08/03/20 0947: CARDIAC CONSULT DATE OF CONSULT Date of Consult DATE: 08/03/20 TIME: 09:38 REASON FOR CONSULT Reason for Consult: abnormal EKG REFERRING PHYSICIAN Referring Physician: Dr. Perez SOURCE Source: Chart review, Patient HISTORY OF PRESENT ILLNESS HISTORY OF PRESENT ILLNESS This is a 70 yo female who presented secondary to worsening abdominal pain. Is scheduled for outpatient cholecystectomy with Dr. Amos on 08/07/2020. Associated with nausea/vomiting. She denies any chest pain, palpitations, dizziness, diaphoresis, or SOA. Initial EKG showed bigeminal PVC's and prolonged QTc at 523. PAST MEDICAL HISTORY Cardiovascular: CAD, HTN, Hyperlipidemia Pulmonary: COPD GI: GERD, Other (Tejeda's Esophagus ) Hepatobiliary: Cirrhosis Psych: Anxiety, Depression Musculoskeletal: Osteoarthritis Rheumatologic: Fibromyalgia PAST SURGICAL HISTORY Past Surgical History: Tonsillectomy, Hysterectomy FAMILY HISTORY Family History: Hypertension SOCIAL HISTORY Smoke: <1 pack per day ALCOHOL: none Drugs: None Lives: with Family CURRENT MEDICATIONS CURRENT MEDICATIONS Current Medications Medications (Trade) Dose Ordered Sig/[place] Route PRN Reason Start Time Stop Time Status Last Admin Dose Admin Ceftriaxone Sodium (Rocephin) 1 gm 1X ONCE IVP 08/02/20 11:30 08/02/20 11:31 DC 08/02/20 11:33 Aspirin (Aspirin Chewable) 81 mg DAILY PO 08/03/20 09:00 08/03/20 09:00 Atorvastatin Calcium (Lipitor) 10 mg HS PO 08/02/20 21:00 08/02/20 19:56 Bupropion HCl (Wellbutrin Sr) 150 mg DAILY PO 08/03/20 09:00 08/03/20 09:01 Clopidogrel Bisulfate (Plavix) 75 mg DAILY PO 08/02/20 13:00 08/02/20 17:04 Famotidine (Pepcid) 20 mg BID PO 08/02/20 13:00 08/03/20 09:00 Gabapentin (Neurontin) 400 mg TID PO 08/02/20 14:00 08/03/20 09:01 Albuterol/ Ipratropium (Duoneb) 3 ml QID NEB 08/02/20 13:00 08/03/20 08:37 Pantoprazole Sodium (Protonix) 40 mg DAILYAC PO 08/03/20 07:30 08/03/20 09:01 Potassium Chloride (Klor-Con) 20 meq DAILY PO 08/02/20 13:00 08/03/20 09:01 Venlafaxine HCl (Effexor Xr) 150 mg DAILY PO 08/03/20 09:00 08/03/20 09:01 Ondansetron HCl (Zofran) 4 mg PRN Q6HRS PRN IVP NAUSEA/VOMITING 08/02/20 12:15 08/03/20 03:23 Heparin Sodium (Porcine) (Heparin Sodium) 5,000 unit Q12HR SQ 08/02/20 21:00 08/03/20 09:06 Fentanyl Citrate (Fentanyl 2ml Vial) 50 mcg PRN Q4HRS PRN IVP SEVERE PAIN 7-10, 2ND CHOICE 08/02/20 12:15 08/03/20 09:13 Prochlorperazine Edisylate (Compazine) 10 mg PRN Q6HRS PRN IV NAUSEA/VOMITING 08/02/20 16:00 08/03/20 04:05 Nicotine (Nicoderm Cq 14mg) 1 patch DAILY TD 08/02/20 16:00 08/03/20 09:01 ALLERGIES ALLERGIES: Coded Allergies: aluminum (Verified Allergy, Severe, BREAK OUT ALL OVER, 04/01/17) gold Au 198 (Verified Allergy, Severe, BREAK OUT ALL OVER, 04/01/17) iron (Verified Allergy, Severe, BREAK OUT ALL OVER, 04/01/17) METALS nickel (Verified Allergy, Severe, BREAK OUT ALL OVER, 04/01/17) silver (Verified Allergy, Severe, BREAK OUT ALL OVER, 04/01/17) ROS Review of System 14 point ROS conducted with pertinent positives noted above in hPI PHYSICAL EXAM General: Alert, Oriented X3, Cooperative, No acute distress HEENT: Atraumatic Lungs: Clear to auscultation Heart: Regular rate (intermittent bigeminal PVCs) Abdomen: Soft, No tenderness Extremities: No edema, Normal pulses Neuro: Normal speech, Sensation intact Psych/Mental Status: Mental status NL, Other (anxious ) MUSCULOSKELETAL: Osteoarthritic changes both hands VITALS/I&O VITALS/I&O: Vital Signs Date Time Temp Pulse Resp B/P (MAP) Pulse Ox O2 Delivery O2 Flow Rate FiO2 08/03/20 09:13 Room Air 08/03/20 08:37 96 08/03/20 07:00 98.3 71 18 99/54 (69) 98.3 I & O 08/02/20 08/02/20 08/03/20 15:00 23:00 07:00 Intake Total 600 ml Balance 600 ml LABS Lab: Laboratory Tests Test 08/02/20 09:48 08/02/20 10:16 Troponin I Quantitative < 0.017 ng/mL (0.000-0.055) Urine Collection Type Unknown Urine Color Violeta Urine Clarity Turbid Urine pH 6.0 (<5.0-8.0) Urine Specific [place] 1.020 (1.000-1.030) Urine Protein 100 mg/dL (NEG-TRACE) Urine Glucose (UA) Negative mg/dL (NEG) Urine Ketones (Stick) 15 mg/dL (NEG) Urine Blood Large (NEG) Urine Nitrite Negative (NEG) Urine Bilirubin Negative (NEG) Urine Urobilinogen Dipstick 0.2 mg/dL (0.2 mg/dL) Urine Leukocyte Esterase Negative (NEG) Urine RBC 11-20 /HPF (0-2) Urine WBC 1-4 /HPF (0-4) Urine Squamous Epithelial Cells Mod /LPF Urine Bacteria 0 /HPF (0-FEW) Urine Mucus Marked /LPF ECHOCARDIOGRAM ECHOCARDIOGRAM <Conclusion> The left ventricular systolic function is normal and the ejection fraction is w ithin normal range. The Ejection Fraction is 55%. Transmitral Doppler flow pattern is Grade I-abnormal relaxation pattern. The left atrium size is normal. The right atrium size is normal. The aortic valve is thickened. The aortic valve is trileaflet. Doppler and Color Flow revealed no significant aortic regurgitation. Doppler and Color Flow revealed trace mitral regurgitation. Doppler and Color Flow revealed trace tricuspid regurgitation. Unable to determine pulmonary artery pressure at exam time. Doppler and Color Flow revealed no pulmonic valvular regurgitation. There is no evidence of significant pericardial effusion. DATE: 01/21/17 1635 STRESS TEST STRESS TEST Conclusion 1. No EKG evidence of stress-induced ischemia. 2. Nuclear imaging shows no reversible ischemia or infarct. 3. Normal left ventricular systolic function with an ejection fraction of greater than 70%. 4. Low risk Lexiscan nuclear stress test. DATE: 05/16/20 1108 HEART CATH HEART CATH Conclusion This pt has CAD with a tight lesion on the OM. A succesful stenting of the OM was done with a drug eluting stent. Pt started on ASA/Plavix. If stable may go home in am. Sutures ou in one week. Recommendations Daily ASA with Plavix for at least one year DATE: 01/23/17 1337 ASSESSMENT/PLAN ASSESSMENT/PLAN 1. Abdominal pain, nausea/vomiting. 2. Symptomatic cholelithiasis; scheduled for michelle with Dr. Salguero later this month 3. Arrhythmia; EKG noted with bigeminy, QTc prolongation at 523. On venlafaxine 4. CAD s/p PCI/ESTHER to the OM 01/2017. Recent stress test without evidence of ischemia/infarct 5. Hypertension; controlled 6. Hyperlipidemia 7. GERD 8. Anxiety, depression Recommendations Check Mg, TSH Echo to assess LV systolic function Consider BB for suppression Monitor QT; consider alternative to venlafaxine Supportive care Follow GS team recs PEDRITO SEBASTIAN MD 08/03/20 1734: CARDIAC CONSULT ASSESSMENT/PLAN ASSESSMENT/PLAN Patient seen and examined I agree with our nurse practitioners assessment and plan as above. Abdominal pain. History of cholelithiasis. As per the primary service and general surgery. Arrhythmias with bigeminy. QTC prolonged at 523. Would consider holding venlafaxine. We will continue to monitor. Controlled hypertension. Hyperlipidemia. Continue medical treatment. Gastroesophageal reflux disease. Thank you for allowing us to participate in the care of your patient. ANA,JUAN GATICA Aug 03, 2020 09:47 PEDRITO SEBASTIAN MD Aug 03, 2020 17:34
[2020-08-03 11:00] VITALS: BP 122/70
--- NOTE | 2020-08-03 11:30 | PDOC2 ---
TORIBIO MORRIS FRUCTOSE LOADER 08/03/20 1129: CONSULT Date of Consult Date of Consult DATE: 08/03/20 TIME: 11:24 Reason for Consult Reason for Consult: abdominal pain Referring Physician Referring Physician: ER Identification/Chief Complaint Chief Complaint abdominal pain Source Source: Chart review, Patient History of Present Illness Reason for Visit: Patient known from previous admission, she is scheduled for lap michelle 08/08 Worsening of symptoms, inability to eat, episode of syncope cardiac eval noted, for abnormal EKG Past Medical History Cardiovascular: CAD, HTN, Hyperlipidemia Pulmonary: COPD GI: GERD, Other (Tejeda's Esophagus ) Hepatobiliary: Cirrhosis Psych: Anxiety, Depression Musculoskeletal: Osteoarthritis Rheumatologic: Fibromyalgia Past Surgical History Past Surgical History: Tonsillectomy, Hysterectomy Social History Quit ALCOHOL: none Drugs: Marijuana Current Problem List Problem List Problems Medical Problems: (1) Intractable abdominal pain Status: Acute (2) UTI (urinary tract infection) Status: Acute Current Medications Current Medications Current Medications Fentanyl Citrate (Fentanyl 2ml Vial) 25 mcg PRN Q15MIN PRN IV PAIN GREATER THAN 3/10 Last administered on 08/02/20at 11:29; Start 08/02/20 at 09:30; Stop 08/03/20 at 09:29; Status DC Ondansetron HCl (Zofran) 4 mg 1X ONCE IVP Last administered on 08/02/20at 09:41; Start 08/02/20 at 09:30; Stop 08/02/20 at 09:33; Status DC Ceftriaxone Sodium (Rocephin) 1 gm 1X ONCE IVP Last administered on 08/02/20at 11:33; Start 08/02/20 at 11:30; Stop 08/02/20 at 11:31; Status DC Alprazolam (Xanax) 0.5 mg PRN Q6HRS PRN PO ANXIETY / AGITATION; Start 08/02/20 at 12:00 Aspirin (Aspirin Chewable) 81 mg DAILY PO Last administered on 08/03/20at 09:00; Start 08/03/20 at 09:00 Atorvastatin Calcium (Lipitor) 10 mg HS PO Last administered on 08/02/20at 19:56; Start 08/02/20 at 21:00 Bupropion HCl (Wellbutrin Sr) 150 mg DAILY PO Last administered on 08/03/20at 09:01; Start 08/03/20 at 09:00 Clopidogrel Bisulfate (Plavix) 75 mg DAILY PO Last administered on 08/02/20at 17:04; Start 08/02/20 at 13:00 Famotidine (Pepcid) 20 mg BID PO Last administered on 08/03/20at 09:00; Start 08/02/20 at 13:00 Gabapentin (Neurontin) 400 mg TID PO Last administered on 08/03/20at 09:01; Start 08/02/20 at 14:00 Albuterol/ Ipratropium (Duoneb) 3 ml QID NEB Last administered on 08/03/20at 08:37; Start 08/02/20 at 13:00 Pantoprazole Sodium (Protonix) 40 mg DAILYAC PO Last administered on 08/03/20at 09:01; Start 08/03/20 at 07:30 Potassium Chloride (Klor-Con) 20 meq DAILY PO Last administered on 08/03/20at 09:01; Start 08/02/20 at 13:00 Venlafaxine HCl (Effexor Xr) 150 mg DAILY PO Last administered on 08/03/20at 09:01; Start 08/03/20 at 09:00 Ondansetron HCl (Zofran) 4 mg PRN Q6HRS PRN IVP NAUSEA/VOMITING Last administered on 08/03/20at 03:23; Start 08/02/20 at 12:15 Al Hydroxide/Mg Hydroxide (Mylanta Plus Xs) 30 ml PRN Q3HRS PRN PO HEARTBURN / GAS; Start 08/02/20 at 12:15 Calcium Carbonate/ Glycine (Tums) 500 mg PRN Q3HRS PRN PO UPSET STOMACH; Start 08/02/20 at 12:15 Morphine Sulfate (Morphine Sulfate) 1 mg PRN Q1HR PRN IV PAIN; Start 08/02/20 at 12:15 Morphine Sulfate (Morphine Sulfate) 2 mg PRN Q1HR PRN IV PAIN; Start 08/02/20 at 12:15 Acetaminophen/ Hydrocodone Bitart (Lortab 5/325) 1 tab PRN Q4HRS PRN PO MILD PAIN 1-3; Start 08/02/20 at 12:15 Acetaminophen/ Hydrocodone Bitart (Lortab 5/325) 2 tab PRN Q4HRS PRN PO MODERATE PAIN, SEVERE PAIN; Start 08/02/20 at 12:15 Oxycodone/ Acetaminophen (Percocet 5/325) 1 tab PRN Q4HRS PRN PO MILD PAIN, 2ND CHOICE; Start 08/02/20 at 12:15 Oxycodone/ Acetaminophen (Percocet 5/325) 2 tab PRN Q4HRS PRN PO MODERATE PAIN, SEVERE PAIN; Start 08/02/20 at 12:15 Acetaminophen (Tylenol) 650 mg PRN Q6HRS PRN PO Headaches, Temp > 101.5F; Start 08/02/20 at 12:15 Ibuprofen (Motrin) 400 mg PRN Q6HRS PRN PO MILD PAIN 1-3; Start 08/02/20 at 12:15 Magnesium Hydroxide (Milk Of Magnesia) 2,400 mg PRN Q12HR PRN PO CONSTIPATION; Start 08/02/20 at 12:15 Bisacodyl (Dulcolax Supp) 10 mg PRN DAILY PRN [place] CONSTIPATION; Start 08/02/20 at 12:15 Heparin Sodium (Porcine) (Heparin Sodium) 5,000 unit Q12HR SQ Last administered on 08/03/20at 09:06; Start 08/02/20 at 21:00 Fentanyl Citrate (Fentanyl 2ml Vial) 50 mcg PRN Q4HRS PRN IVP SEVERE PAIN 7-10, 2ND CHOICE Last administered on 08/03/20at 09:13; Start 08/02/20 at 12:15 Prochlorperazine Edisylate (Compazine) 10 mg PRN Q6HRS PRN IV NAUSEA/VOMITING Last administered on 08/03/20at 04:05; Start 08/02/20 at 16:00 Nicotine (Nicoderm Cq 14mg) 1 patch DAILY TD Last administered on 08/03/20at 09:01; Start 08/02/20 at 16:00 Active Scripts Active Dicyclomine Hcl 20 Mg Tablet 1 Tab PO TID 10 Days [place] 5-325 Tablet (Acetaminophen/Hydrocodone Bitart) 1 Each Tablet 1 Tab PO TID 5 Days Zofran (Ondansetron Hcl) 4 Mg Tablet 1 Tab PO Q8HRS Potassium Chloride (Potassium Chloride) 20 Meq Tablet.er 20 Meq PO DAILY 7 Days Pepcid (Famotidine) 20 Mg Tablet 20 Mg PO BID Klor-Con M20 (Potassium Chloride) 20 Meq Tab.er.prt 1 Tab PO DAILY 7 Days Zofran (Ondansetron Hcl) 4 Mg Tablet 1 Tab PO PRN Q6-8HRS Ondansetron Odt (Ondansetron) 4 Mg Tab.rapdis 1 Tab PO PRN Q6-8HRS PRN Reported Aspirin 81 Mg Tab.chew 1 Tab PO DAILY Clopidogrel (Clopidogrel Bisulfate) 75 Mg Tablet 1 Tab PO DAILY Lipitor (Atorvastatin Calcium) 10 Mg Tablet 10 Mg PO HS Alprazolam 0.5 Mg Tablet 0.5 Mg PO PRN Q6HRS PRN Pantoprazole Sodium (Pantoprazole Sodium) 40 Mg Tablet.dr 40 Mg PO DAILY Duoneb 0.5-3(2.5) Mg/3 Ml (Albuterol/Ipratropium) 3 Ml Ampul.neb 3 Ml NEB QID Oxycodone-Acetaminophen 10-325 (Oxycodone Hcl/Acetaminophen) 1 Each Tablet 1 Each PO PRN Q6HRS PRN Percocet 10-325 Mg Tablet (Oxycodone/Acetaminophen) 1 Each Tablet 1 Tab PO PRN Q6HRS PRN Wellbutrin Sr (Bupropion Hcl) 150 Mg Tablet.er 150 Mg PO DAILY Venlafaxine Hcl Er (Venlafaxine Hcl) 150 Mg Tab.er.24 150 Mg PO DAILY Effexor Xr (Venlafaxine Hcl) 150 Mg Cap.er.24h 150 Mg PO DAILY Gabapentin (Gabapentin) 100 Mg Capsule 400 Mg PO TID Xanax (Alprazolam) 0.5 Mg Tablet 0.5 Mg PO TID PRN Allergies Allergies: Coded Allergies: aluminum (Verified Allergy, Severe, BREAK OUT ALL OVER, 04/01/17) gold Au 198 (Verified Allergy, Severe, BREAK OUT ALL OVER, 04/01/17) iron (Verified Allergy, Severe, BREAK OUT ALL OVER, 04/01/17) METALS nickel (Verified Allergy, Severe, BREAK OUT ALL OVER, 04/01/17) silver (Verified Allergy, Severe, BREAK OUT ALL OVER, 04/01/17) ROS General: YES: Fatigue; No: Chills PSYCHOLOGICAL ROS: YES: Anxiety; No: Depression Eyes: No Blurry vision, No Double vision HEENT: No: Heacaches, Sore Throat Hematological and Lymphatic: YES: Bleeding Problems; No: Blood Clots Respiratory: YES: Shortness of breath; No: Cough Cardiovascular: No Chest Pain, No Palpitations Gastrointestinal: Yes Other (see hpi) Genitourinary: No Dysuria, No Hematuria Musculoskeletal: Yes Muscular Weakness; No Joint Pain Neurological: Yes Impaired Coord/balance; No Numbness/Tingling Skin: No Pruritus, No Rash Physical Exam General: Alert, Oriented X3, Cooperative HEENT: Atraumatic, PERRLA Lungs: Clear to auscultation Heart: Regular rate, Normal S1, Normal S2 Abdomen: Soft, Other (ttp upper abdomen ) Extremities: No clubbing, No cyanosis Skin: No rashes, No breakdown Neuro: Normal speech, Sensation intact Psych/Mental Status: Mental status NL, Mood NL MUSCULOSKELETAL: No deformity, No swelling Vitals VITALS Vital Signs Date Time Temp Pulse Resp B/P (MAP) Pulse Ox O2 Delivery O2 Flow Rate FiO2 08/03/20 09:58 Room Air 08/03/20 08:37 96 08/03/20 07:00 98.3 71 18 99/54 (69) 98.3 Labs Labs Laboratory Tests Test 08/02/20 09:30 08/02/20 09:48 08/02/20 10:16 White Blood Count 7.6 x10^3/uL (4.0-11.0) Red Blood Count 4.42 x10^6/uL (3.50-5.40) Hemoglobin 14.8 g/dL (12.0-15.5) Hematocrit 43.5 % (36.0-47.0) Mean Corpuscular Volume 98 fL (79-100) Mean Corpuscular Hemoglobin 33 pg (25-35) Mean Corpuscular Hemoglobin Concent 34 g/dL (31-37) Red Cell Distribution Width 13.5 % (11.5-14.5) Platelet Count 340 x10^3/uL (140-400) Neutrophils (%) (Auto) 77 % (31-73) Lymphocytes (%) (Auto) 15 % (24-48) Monocytes (%) (Auto) 7 % (0-9) Eosinophils (%) (Auto) 0 % (0-3) Basophils (%) (Auto) 1 % (0-3) Neutrophils # (Auto) 5.9 x10^3/uL (1.8-7.7) Lymphocytes # (Auto) 1.2 x10^3/uL (1.0-4.8) Monocytes # (Auto) 0.5 x10^3/uL (0.0-1.1) Eosinophils # (Auto) 0.0 x10^3/uL (0.0-0.7) Basophils # (Auto) 0.1 x10^3/uL (0.0-0.2) Sodium Level 139 mmol/L (136-145) Potassium Level 3.5 mmol/L (3.5-5.1) Chloride Level 103 mmol/L (98-107) Carbon Dioxide Level 23 mmol/L (21-32) Anion Gap 13 (6-14) Blood Urea Nitrogen 16 mg/dL (7-20) Creatinine 0.7 mg/dL (0.6-1.0) Estimated GFR (Cockcroft-Gault) 83.2 BUN/Creatinine Ratio 23 (6-20) Glucose Level 131 mg/dL (70-99) Calcium Level 10.0 mg/dL (8.5-10.1) Total Bilirubin 0.5 mg/dL (0.2-1.0) Aspartate Amino Transf (AST/SGOT) 21 U/L (15-37) Alanine Aminotransferase (ALT/SGPT) 18 U/L (14-59) Alkaline Phosphatase 98 U/L (46-116) Total Protein 8.1 g/dL (6.4-8.2) Albumin 4.4 g/dL (3.4-5.0) Albumin/Globulin Ratio 1.2 (1.0-1.7) Lipase 45 U/L (73-393) Troponin I Quantitative < 0.017 ng/mL (0.000-0.055) Urine Collection Type Unknown Urine Color Violeta Urine Clarity Turbid Urine pH 6.0 (<5.0-8.0) Urine Specific [place] 1.020 (1.000-1.030) Urine Protein 100 mg/dL (NEG-TRACE) Urine Glucose (UA) Negative mg/dL (NEG) Urine Ketones (Stick) 15 mg/dL (NEG) Urine Blood Large (NEG) Urine Nitrite Negative (NEG) Urine Bilirubin Negative (NEG) Urine Urobilinogen Dipstick 0.2 mg/dL (0.2 mg/dL) Urine Leukocyte Esterase Negative (NEG) Urine RBC 11-20 /HPF (0-2) Urine WBC 1-4 /HPF (0-4) Urine Squamous Epithelial Cells Mod /LPF Urine Bacteria 0 /HPF (0-FEW) Urine Mucus Marked /LPF Assessment/Plan Assessment/Plan abd pain, acute on chronic hold plavix tentative plan for lap michelle 08/08--needs 5 days off plavix FRANCIS YEH MD 08/03/20 1448: CONSULT Assessment/Plan Assessment/Plan Pt seen and examined. Agree with Luke' s note Pt with severe abd pain, chronic unknown etiology, but favored to be biliary tentatively plan cholecystectomy on 08/08 appreciate cards w/u and may have component of UTI, given blood on UA Thanks for consult! TORIBIO MORRIS FRUCTOSE LOADER Aug 03, 2020 11:29 FRANCIS YEH MD Aug 03, 2020 14:48
[2020-08-03] MEDS: oxyCODONE/APAP 5/325 1 TAB TABLET PO PRN ×2 (13:17→19:13)
[2020-08-03 15:00] VITALS: BP 126/68
--- NOTE | 2020-08-03 15:19 | NUR ---
SW following for discharge planning. Spoke with RN and reviewed chart to coordinate care. Pt from home. PT/OT to evaluate. Pt on room air and IV pain medication. SW following.
[2020-08-03 19:00] VITALS: BP 112/55
[2020-08-03] MEDS: ATORVASTATIN CALCIUM 10 MG TABLET. PO SCH (20:49)
[2020-08-03] MEDS: HYDROcodone/APAP 5/325MG 1 TAB TABLET PO PRN (22:22)
[2020-08-03] MEDS: ALPRAZolam 0.5 MG TABLET PO PRN (22:22)
[2020-08-03 23:48] VITALS: BP 124/62
[2020-08-04] MEDS: fentaNYL PF VIAL 100 MCG/2 ML VIAL IVP PRN ×4 (01:10→22:57)
[2020-08-04] MEDS: oxyCODONE/APAP 5/325 1 TAB TABLET PO PRN ×4 (02:48→20:28)
[2020-08-04 03:44] VITALS: BP 124/81
[2020-08-04 07:00] VITALS: BP 116/65
[2020-08-04] MEDS: IPRATRPIUM/ALBUTEROL 0.5/2.5MG 3 ML NEBU. NEB SCH ×4 (07:38→20:26)
[2020-08-04] MEDS: buPROPion SR 150 MG TABLET.SA PO SCH (08:46)
[2020-08-04] MEDS: GABAPENTIN 400 MG CAPSULE. PO SCH ×3 (08:46→20:27)
[2020-08-04] MEDS: POTASSIUM CHLORIDE 20 MEQ TABLET.ER. PO SCH (08:46)
[2020-08-04] MEDS: FAMOTIDINE 20 MG TABLET. PO SCH (08:46)
[2020-08-04] MEDS: PANTOPRAZOLE 40 MG TABLET.DR. PO SCH (08:46)
[2020-08-04] MEDS: VENLAFAXINE XR 37.5 MG CAP.ER.24H. PO SCH (08:47)
[2020-08-04] MEDS: NICOTINE 14MG PATCH. TD SCH (08:47)
[2020-08-04] MEDS: HEPARIN for SUB-Q USE 5,000 UNIT/ML VIAL. SQ SCH ×2 (08:52→20:35)
[2020-08-04 11:00] VITALS: BP 119/64
[2020-08-04] MEDS: ONDANSETRON PF 4 MG/2 ML VIAL. IVP PRN (11:33)
--- NOTE | 2020-08-04 12:11 | PDOC ---
TORIBIO MORRIS APRN 08/04/20 1211: SURGICAL PROGRESS NOTE DATE: 08/04/20 TIME: 12:10 Subjective pain, nausea Vital Signs Vital Signs Date Time Temp Pulse Resp B/P (MAP) Pulse Ox O2 Delivery O2 Flow Rate FiO2 08/04/20 11:46 Room Air 08/04/20 07:40 98 08/04/20 07:00 98.8 76 18 116/65 (82) 98.8 I&O Intake and Output 08/04/20 07:00 Intake Total 1300 ml Balance 1300 ml Intake Oral 1300 ml # Voids 2 General: Alert, Oriented X3, Cooperative Abdomen: Soft, Other (upper ttp) Problem List Problems Medical Problems: (1) Intractable abdominal pain Status: Acute (2) UTI (urinary tract infection) Status: Acute Assessment/Plan tentative plan for michelle 08/08 Justicifation of Admission Dx: Justifications for Admission: Justification of Admission Dx: N/A FRANCIS YEH MD 08/04/20 2102: SURGICAL PROGRESS NOTE Assessment/Plan Pt seen and examined. agree with Ms. Morris's note Pt does feels somewhat better cont supportive care. TORIBIO MORRIS APRN Aug 04, 2020 12:11 FRANCIS YEH MD Aug 04, 2020 21:02
--- NOTE | 2020-08-04 13:33 | EKG ---
[facility] [address] [place] [address] Test Date: 2020-08-04 Test Time: 11:38:09 Pat Name: TOÑA GUZMÁN Department: Room: 528 1 Gender: F Sole Splitter: JUAN FRANCISCO : 1950 Requested By: PEDRITO SEBASTIAN Order Number: [id number] Reading MD: Measurements Intervals [place] Rate: 72 P: 63 WA: 136 QRS: 68 QRSD: 88 T: 66 QT: 382 QTc: 420 Interpretive Statements SINUS RHYTHM NO SPECIFIC ECG ABNORMALITIES RI6.01 Compared to ECG 08/02/2020 09:38:44 Atrial abnormality no longer present Prolonged QT interval no longer present
[2020-08-04] MEDS: POTASSIUM CL 20MEQ D5-0.45NACL 1,000 ML IV SCH (14:25)
--- NOTE | 2020-08-04 14:34 | PDOC ---
PROGRESS NOTES Date of Service DATE: 08/04/20 TIME: 14:31 Subjective Subjective Patient seen and examined Objective Objective Vital Signs Date Time Temp Pulse Resp B/P (MAP) Pulse Ox O2 Delivery O2 Flow Rate FiO2 08/04/20 14:25 Room Air 08/04/20 11:00 97.7 78 18 119/64 (82) 98 97.7 Intake and Output 08/04/20 07:00 Intake Total 1300 ml Balance 1300 ml Intake Oral 1300 ml # Voids 2 Physical Exam Abdomen: Normal bowel sounds Heart: Regular rate General: mild distress Lungs: Clear to auscultation Assessment Assessment Problems Medical Problems: (1) Intractable abdominal pain Status: Acute (2) UTI (urinary tract infection) Status: Acute Abdominal pain, nausea/vomiting. Improved today. Followed by general surgery. [facility] scheduled for 08/08. Arrhythmia; EKG noted with chase, improved today. QTc prolongation at 523. Would consider discontinuation of venlafaxine. We will continue to monitor. Echo pending. CAD s/p PCI/ESTHER to the OM 01/2017. Recent stress test without evidence of ischemia/infarct Hypertension; controlled Hyperlipidemia GERD Anxiety, depression Comment Review of Relevant I have reviewed the following items chery (where applicable) has been applied. Medications Current Medications Fentanyl Citrate (Fentanyl 2ml Vial) 25 mcg PRN Q15MIN PRN IV PAIN GREATER THAN 3/10 Last administered on 08/02/20at 11:29; Start 08/02/20 at 09:30; Stop 08/03/20 at 09:29; Status DC Ondansetron HCl (Zofran) 4 mg 1X ONCE IVP Last administered on 08/02/20at 09:41; Start 08/02/20 at 09:30; Stop 08/02/20 at 09:33; Status DC Ceftriaxone Sodium (Rocephin) 1 gm 1X ONCE IVP Last administered on 08/02/20at 11:33; Start 08/02/20 at 11:30; Stop 08/02/20 at 11:31; Status DC Alprazolam (Xanax) 0.5 mg PRN Q6HRS PRN PO ANXIETY / AGITATION Last administered on 08/03/20at 22:22; Start 08/02/20 at 12:00 Aspirin (Aspirin Chewable) 81 mg DAILY PO Last administered on 08/03/20at 09:00; Start 08/03/20 at 09:00; Stop 08/03/20 at 11:25; Status DC Atorvastatin Calcium (Lipitor) 10 mg HS PO Last administered on 08/03/20at 2 0:49; Start 08/02/20 at 21:00 Bupropion HCl (Wellbutrin Sr) 150 mg DAILY PO Last administered on 08/04/20at 08:46; Start 08/03/20 at 09:00 Clopidogrel Bisulfate (Plavix) 75 mg DAILY PO Last administered on 08/02/20at 17:04; Start 08/02/20 at 13:00; Stop 08/03/20 at 11:25; Status DC Famotidine (Pepcid) 20 mg BID PO Last administered on 08/03/20at 09:00; Start 08/02/20 at 13:00; Stop 08/03/20 at 15:14; Status DC Gabapentin (Neurontin) 400 mg TID PO Last administered on 08/04/20at 14:09; Start 08/02/20 at 14:00 Albuterol/ Ipratropium (Duoneb) 3 ml QID NEB Last administered on 08/04/20at 11:45; Start 08/02/20 at 13:00 Pantoprazole Sodium (Protonix) 40 mg DAILYAC PO Last administered on 08/04/20at 08:46; Start 08/03/20 at 07:30 Potassium Chloride (Klor-Con) 20 meq DAILY PO Last administered on 08/04/20at 08:46; Start 08/02/20 at 13:00 Venlafaxine HCl (Effexor Xr) 150 mg DAILY PO Last administered on 08/04/20at 08:47; Start 08/03/20 at 09:00 Ondansetron HCl (Zofran) 4 mg PRN Q6HRS PRN IVP NAUSEA/VOMITING Last administered on 08/04/20at 11:33; Start 08/02/20 at 12:15 Al Hydroxide/Mg Hydroxide (Mylanta Plus Xs) 30 ml PRN Q3HRS PRN PO HEARTBURN / GAS; Start 08/02/20 at 12:15 Calcium Carbonate/ Glycine (Tums) 500 mg PRN Q3HRS PRN PO UPSET STOMACH; Start 08/02/20 at 12:15 Morphine Sulfate (Morphine Sulfate) 1 mg PRN Q1HR PRN IV MODERATE PAIN; Start 08/02/20 at 12:15; Stop 08/04/20 at 14:14; Status DC Morphine Sulfate (Morphine Sulfate) 2 mg PRN Q1HR PRN IV SEVERE PAIN; Start 08/02/20 at 12:15 Acetaminophen/ Hydrocodone Bitart (Lortab 5/325) 1 tab PRN Q4HRS PRN PO MILD PAIN 1-3; Start 08/02/20 at 12:15 Acetaminophen/ Hydrocodone Bitart (Lortab 5/325) 2 tab PRN Q4HRS PRN PO MODERATE PAIN, SEVERE PAIN Last administered on 08/03/20at 22:22; Start 08/02/20 at 12:15 Oxycodone/ Acetaminophen (Percocet 5/325) 1 tab PRN Q4HRS PRN PO MILD PAIN, 2ND CHOICE Last administered on 08/03/20at 19:13; Start 08/02/20 at 12:15 Oxycodone/ Acetaminophen (Percocet 5/325) 2 tab PRN Q4HRS PRN PO MODERATE PAIN, SEVERE PAIN-2ND Last administered on 08/04/20at 14:25; Start 08/02/20 at 12:15 Acetaminophen (Tylenol) 650 mg PRN Q6HRS PRN PO Headaches, Temp > 101.5F; Start 08/02/20 at 12:15 Ibuprofen (Motrin) 400 mg PRN Q6HRS PRN PO inflammation; Start 08/02/20 at 12:15 Magnesium Hydroxide (Milk Of Magnesia) 2,400 mg PRN Q12HR PRN PO CONSTIPATION; Start 08/02/20 at 12:15 Bisacodyl (Dulcolax Supp) 10 mg PRN DAILY PRN MD CONSTIPATION; Start 08/02/20 at 12:15 Heparin Sodium (Porcine) (Heparin Sodium) 5,000 unit Q12HR SQ Last administered on 08/04/20at 08:52; Start 08/02/20 at 21:00 Fentanyl Citrate (Fentanyl 2ml Vial) 50 mcg PRN Q4HRS PRN IVP SEVERE PAIN 7-10, 2ND CHOICE Last administered on 08/04/20at 05:36; Start 08/02/20 at 12:15 Prochlorperazine Edisylate (Compazine) 10 mg PRN Q6HRS PRN IV NAUSEA/VOMITING- 2ND CHOICE Last administered on 08/03/20at 04:05; Start 08/02/20 at 16:00 Nicotine (Nicoderm Cq 14mg) 1 patch DAILY TD Last administered on 08/04/20at 08:47; Start 08/02/20 at 16:00 Famotidine (Pepcid) 20 mg DAILY PO Last administered on 08/04/20at 08:46; Start 08/04/20 at 09:00 Potassium Chloride/Dextrose/ Sod Cl 1,000 ml @ 80 mls/hr [id number] IV Last administered on 08/04/20at 14:25; Start 08/04/20 at 14:15 Active Scripts Active Dicyclomine Hcl 20 Mg Tablet 1 Tab PO TID 10 Days [place] 5-325 Tablet (Acetaminophen/Hydrocodone Bitart) 1 Each Tablet 1 Tab PO TID 5 Days Zofran (Ondansetron Hcl) 4 Mg Tablet 1 Tab PO Q8HRS Potassium Chloride (Potassium Chloride) 20 Meq Tablet.er 20 Meq PO DAILY 7 Days Pepcid (Famotidine) 20 Mg Tablet 20 Mg PO BID Klor-Con M20 (Potassium Chloride) 20 Meq Tab.er.prt 1 Tab PO DAILY 7 Days Zofran (Ondansetron Hcl) 4 Mg Tablet 1 Tab PO PRN Q6-8HRS Ondansetron Odt (Ondansetron) 4 Mg Tab.rapdis 1 Tab PO PRN Q6-8HRS PRN Reported Aspirin 81 Mg Tab.chew 1 Tab PO DAILY Clopidogrel (Clopidogrel Bisulfate) 75 Mg Tablet 1 Tab PO DAILY Lipitor (Atorvastatin Calcium) 10 Mg Tablet 10 Mg PO HS Alprazolam 0.5 Mg Tablet 0.5 Mg PO PRN Q6HRS PRN Pantoprazole Sodium (Pantoprazole Sodium) 40 Mg Tablet.dr 40 Mg PO DAILY Duoneb 0.5-3(2.5) Mg/3 Ml (Albuterol/Ipratropium) 3 Ml Ampul.neb 3 Ml NEB QID Oxycodone-Acetaminophen 10-325 (Oxycodone Hcl/Acetaminophen) 1 Each Tablet 1 Each PO PRN Q6HRS PRN Percocet 10-325 Mg Tablet (Oxycodone/Acetaminophen) 1 Each Tablet 1 Tab PO PRN Q6HRS PRN Wellbutrin Sr (Bupropion Hcl) 150 Mg Tablet.er 150 Mg PO DAILY Venlafaxine Hcl Er (Venlafaxine Hcl) 150 Mg Tab.er.24 150 Mg PO DAILY Effexor Xr (Venlafaxine Hcl) 150 Mg Cap.er.24h 150 Mg PO DAILY Gabapentin (Gabapentin) 100 Mg Capsule 400 Mg PO TID Xanax (Alprazolam) 0.5 Mg Tablet 0.5 Mg PO TID PRN Vitals/I & O Vital Sign - Last 24 Hours 08/03/20 08/03/20 08/03/20 08/03/20 14:38 14:58 15:00 19:00 Temp 98.7 97.9 98.7 97.9 Pulse 99 75 Resp 18 18 B/P (MAP) 126/68 (87) 112/55 (74) Pulse Ox 98 95 O2 Delivery Room Air Room Air Room Air Room Air 08/03/20 08/03/20 08/03/20 08/03/20 19:13 20:00 20:05 20:13 Resp 18 20 Pulse Ox 98 97 97 O2 Delivery Room Air Room Air Room Air Room Air 08/03/20 08/03/20 08/03/20 08/03/20 20:49 21:19 22:22 23:22 Resp 20 18 20 18 Pulse Ox 97 97 97 97 O2 Delivery Room Air Room Air Room Air Room Air 08/03/20 08/04/20 08/04/20 08/04/20 23:48 01:10 01:40 02:48 Temp 98.1 98.1 Pulse 72 Resp 18 20 16 18 B/P (MAP) 124/62 (82) Pulse Ox 96 96 97 96 O2 Delivery Room Air Room Air Room Air Room Air 08/04/20 08/04/20 08/04/20 08/04/20 03:44 03:48 05:36 07:00 Temp 97.8 98.8 97.8 98.8 Pulse 67 76 Resp 18 18 16 18 B/P (MAP) 124/81 (95) 116/65 (82) Pulse Ox 97 97 97 96 O2 Delivery Room Air Room Air Room Air Room Air 08/04/20 08/04/20 08/04/20 08/04/20 07:24 07:40 08:00 08:47 Pulse Ox 98 O2 Delivery Room Air Room Air Room Air Room Air 08/04/20 08/04/20 08/04/20 08/04/20 10:23 11:00 11:46 14:25 Temp 97.7 97.7 Pulse 78 Resp 18 B/P (MAP) 119/64 (82) Pulse Ox 98 O2 Delivery Room Air Room Air Room Air Room Air Intake and Output 08/03/20 08/03/20 08/04/20 15:00 23:00 07:00 Intake Total 640 ml 660 ml Balance 640 ml 660 ml Justifications for Admission Other Justification Intractable abdominal pain, symptomatic cholelithiasis Nutrition Consultation Dietary Evaluation: Recommendations by RD: Dietary education by RD, Increase Calorie Intake, Protein supplementation Comments: ensure tid Expected Outcomes/Goals: to meet >75% est nutr needs Malnutrition Findings: Body Fat Depletion (Non Severe: Mod to Severe Weight Status: Underweight PEDRITO SEBASTIAN MD Aug 04, 2020 14:34
[2020-08-04 15:00] VITALS: BP 110/49
--- NOTE | 2020-08-04 17:06 | NUR ---
SW following for discharge planning. Spoke with RN and reviewed chart to coordinate care. Pt from home with brother. PT recommendation is home with 24 hour care. Spoke with pt. Pt resides with her brother and discharge plan is home, self-care. Pt on room air. No anticipated SW needs on discharge.
[2020-08-04 19:00] VITALS: BP 111/55
[2020-08-04] MEDS: ATORVASTATIN CALCIUM 10 MG TABLET. PO SCH (20:27)
[2020-08-04 23:01] VITALS: BP 115/59
[2020-08-05 03:00] VITALS: BP 134/68
[2020-08-05] MEDS: POTASSIUM CL 20MEQ D5-0.45NACL 1,000 ML IV SCH ×2 (03:48→15:49)
[2020-08-05] MEDS: ALPRAZolam 0.5 MG TABLET PO PRN ×2 (03:55→23:00)
[2020-08-05] MEDS: oxyCODONE/APAP 5/325 1 TAB TABLET PO PRN ×3 (03:55→19:27)
[2020-08-05 07:00] VITALS: BP 103/63
[2020-08-05] MEDS: fentaNYL PF VIAL 100 MCG/2 ML VIAL IVP PRN (07:35)
[2020-08-05] MEDS: PANTOPRAZOLE 40 MG TABLET.DR. PO SCH (07:35)
[2020-08-05] MEDS: IPRATRPIUM/ALBUTEROL 0.5/2.5MG 3 ML NEBU. NEB SCH ×4 (07:49→20:49)
[2020-08-05] MEDS: buPROPion SR 150 MG TABLET.SA PO SCH (08:17)
[2020-08-05] MEDS: POTASSIUM CHLORIDE 20 MEQ TABLET.ER. PO SCH (08:17)
[2020-08-05] MEDS: NICOTINE 14MG PATCH. TD SCH (08:17)
[2020-08-05] MEDS: FAMOTIDINE 20 MG TABLET. PO SCH (08:17)
[2020-08-05] MEDS: VENLAFAXINE XR 37.5 MG CAP.ER.24H. PO SCH (08:17)
[2020-08-05] MEDS: GABAPENTIN 400 MG CAPSULE. PO SCH ×3 (08:18→20:46)
[2020-08-05] MEDS: HEPARIN for SUB-Q USE 5,000 UNIT/ML VIAL. SQ SCH ×2 (08:25→20:50)
[2020-08-05] MEDS: ONDANSETRON PF 4 MG/2 ML VIAL. IVP PRN ×2 (09:48→17:32)
[2020-08-05] MEDS: MORPHINE SULFATE 2 MG/ML VIAL. IV PRN ×4 (09:57→23:01)
--- NOTE | 2020-08-05 10:56 | PDOC ---
SURGICAL PROGRESS NOTE DATE: 08/05/20 TIME: 10:55 Subjective Pt with c/o cont RUQ pain, can't eat Vital Signs Vital Signs Date Time Temp Pulse Resp B/P (MAP) Pulse Ox O2 Delivery O2 Flow Rate FiO2 08/05/20 09:57 97 Room Air 08/05/20 07:35 16 08/05/20 07:00 98.3 86 103/63 (76) 98.3 I&O Intake and Output 08/05/20 07:00 Intake Total 1990 ml Output Total 1200 ml Balance 790 ml Intake Oral 990 ml IV Total 1000 ml Output Urine Total 1200 ml # Voids 1 General: Alert, Oriented X3, Cooperative, moderate distress Abdomen: Soft, Other (TTP RUQ) Labs Laboratory Tests Test 08/04/20 12:00 SARS-CoV-2 Antigen (Rapid) Negative (NEGATIVE) Laboratory Tests Test 08/04/20 12:00 SARS-CoV-2 Antigen (Rapid) Negative (NEGATIVE) Problem List Problems Medical Problems: (1) Intractable abdominal pain Status: Acute (2) UTI (urinary tract infection) Status: Acute Assessment/Plan plan cholecystectomy on 08/08, pending off anticoagulants Justicifation of Admission Dx: Justifications for Admission: Justification of Admission Dx: N/A FRANCIS YEH MD Aug 05, 2020 10:56
[2020-08-05 11:00] VITALS: BP 115/54
[2020-08-05 15:00] VITALS: BP 136/69
[2020-08-05] MEDS: HYDROcodone/APAP 5/325MG 1 TAB TABLET PO PRN (15:49)
--- NOTE | 2020-08-05 17:00 | PDOC ---
GENERAL General: Patient examined chart reviewed. Today's hospital day 4 for this patient with acute cholecystitis and bigeminy. We appreciate subspecialty support. We will hold Effexor per cardiology recommendations given prolonged QT syndrome patient is agreeable to this plan. She does not even remember when that was started or why. She is without new complaint tonbobby tells me that her pain is in decent control. She is not that hungry despite holding her diet for several days. Surgery is planned for Friday. We are also holding Motrin. Problems: (1) Acute cholecystitis (2) Prolonged Q-T interval on ECG (3) Abdominal pain VITAL SIGNS Vital Signs/I&O: Vital Signs Date Time Temp Pulse Resp B/P (MAP) Pulse Ox O2 Delivery O2 Flow Rate FiO2 08/05/20 16:16 97 Room Air 08/05/20 15:00 97.7 82 16 136/69 (91) 97.7 I & O 08/04/20 08/04/20 08/05/20 15:00 23:00 07:00 Intake Total 250 ml 260 ml 1480 ml Output Total 1200 ml Balance 250 ml 260 ml 280 ml In general the patient is pleasant alert and oriented x3 no acute distress HEENT exam is unremarkable Neck is soft and supple no adenopathy or thyromegaly noted Chest is clear to auscultation Heart S1-S2 normal regular rate and rhythm no murmurs or gallops are noted Abdomen scaphoid tender upper abdomen no masses organomegaly noted bowel sounds diminished Extremity exam is unremarkable for acute abnormality ALLERGIES Allergies: Allergies Coded Allergies Type Severity Reaction Last Updated Verified aluminum Allergy Severe BREAK OUT ALL OVER 04/01/17 Yes gold Au 198 Allergy Severe BREAK OUT ALL OVER 04/01/17 Yes iron Allergy Severe BREAK OUT ALL OVER 04/01/17 Yes nickel Allergy Severe BREAK OUT ALL OVER 04/01/17 Yes silver Allergy Severe BREAK OUT ALL OVER 04/01/17 Yes MEDS Medications: Current Medications Medications (Trade) Dose Ordered Sig/[place] Start Time Stop Time Status Last Admin Dose Admin Acetaminophen (Tylenol) 650 mg PRN Q6HRS PRN 08/02/20 12:15 Acetaminophen/ Hydrocodone Bitart (Lortab 5/325) 2 tab PRN Q4HRS PRN 08/02/20 12:15 08/05/20 15:49 Al Hydroxide/Mg Hydroxide (Mylanta Plus Xs) 30 ml PRN Q3HRS PRN 08/02/20 12:15 Albuterol/ Ipratropium (Duoneb) 3 ml QID 08/02/20 13:00 08/05/20 16:16 Alprazolam (Xanax) 0.5 mg PRN Q6HRS PRN 08/02/20 12:00 08/05/20 03:55 Aspirin (Aspirin Chewable) 81 mg DAILY 08/03/20 09:00 08/03/20 11:25 DC 08/03/20 09:00 Atorvastatin Calcium (Lipitor) 10 mg HS 08/02/20 21:00 08/04/20 20:27 Bisacodyl (Dulcolax Supp) 10 mg PRN DAILY PRN 08/02/20 12:15 Bupropion HCl (Wellbutrin Sr) 150 mg DAILY 08/03/20 09:00 08/05/20 08:17 Calcium Carbonate/ Glycine (Tums) 500 mg PRN Q3HRS PRN 08/02/20 12:15 Ceftriaxone Sodium (Rocephin) 1 gm 1X ONCE 08/02/20 11:30 08/02/20 11:31 DC 08/02/20 11:33 Clopidogrel Bisulfate (Plavix) 75 mg DAILY 08/02/20 13:00 08/03/20 11:25 DC 08/02/20 17:04 Famotidine (Pepcid) 20 mg DAILY 08/04/20 09:00 08/05/20 08:17 Fentanyl Citrate (Fentanyl 2ml Vial) 50 mcg PRN Q4HRS PRN 08/02/20 12:15 08/05/20 07:35 Gabapentin (Neurontin) 400 mg TID 08/02/20 14:00 08/05/20 14:39 Heparin Sodium (Porcine) (Heparin Sodium) 5,000 unit Q12HR 08/02/20 21:00 08/05/20 08:25 Ibuprofen (Motrin) 400 mg PRN Q6HRS PRN 08/02/20 12:15 Magnesium Hydroxide (Milk Of Magnesia) 2,400 mg PRN Q12HR PRN 08/02/20 12:15 Morphine Sulfate (Morphine Sulfate) 2 mg PRN Q1HR PRN 08/02/20 12:15 08/05/20 14:40 Nicotine (Nicoderm Cq 14mg) 1 patch DAILY 08/02/20 16:00 08/05/20 08:17 Ondansetron HCl (Zofran) 4 mg PRN Q6HRS PRN 08/02/20 12:15 08/05/20 09:48 Oxycodone/ Acetaminophen (Percocet 5/325) 2 tab PRN Q4HRS PRN 08/02/20 12:15 08/05/20 08:17 Pantoprazole Sodium (Protonix) 40 mg DAILYAC 08/03/20 07:30 08/05/20 07:35 Potassium Chloride/Dextrose/ Sod Cl 1,000 ml @ 80 mls/hr [id number] 08/04/20 14:15 08/05/20 15:49 Potassium Chloride (Klor-Con) 20 meq DAILY 08/02/20 13:00 08/05/20 08:17 Prochlorperazine Edisylate (Compazine) 10 mg PRN Q6HRS PRN 08/02/20 16:00 08/03/20 04:05 Venlafaxine HCl (Effexor Xr) 150 mg DAILY 08/03/20 09:00 08/05/20 08:17 ASSESSMENT & PLAN A&P Plan as noted above This note was created using [employer] and may have omissions and/or errors due to the nature of real-time voice immigration investigator. Justifications for Admission Other Justification Intractable abdominal pain, symptomatic cholelithiasis Nutrition Consultation Dietary Evaluation: Recommendations by RD: Dietary education by RD, Increase Calorie Intake, Protein supplementation Comments: ensure tid Expected Outcomes/Goals: to meet >75% est nutr needs Malnutrition Findings: Body Fat Depletion (Non Severe: Mod to Severe Weight Status: Underweight KATHY WILDE MD Aug 05, 2020 17:00
[2020-08-05 19:00] VITALS: BP 122/56
[2020-08-05] MEDS: ATORVASTATIN CALCIUM 10 MG TABLET. PO SCH (20:46)
[2020-08-05 23:00] VITALS: BP 121/66
[2020-08-06 03:00] VITALS: BP 112/68
[2020-08-06] MEDS: POTASSIUM CL 20MEQ D5-0.45NACL 1,000 ML IV SCH ×2 (03:16→15:19)
[2020-08-06] MEDS: HYDROcodone/APAP 5/325MG 1 TAB TABLET PO PRN ×4 (03:16→18:27)
[2020-08-06] MEDS: PANTOPRAZOLE 40 MG TABLET.DR. PO SCH (06:43)
[2020-08-06] MEDS: MORPHINE SULFATE 2 MG/ML VIAL. IV PRN ×4 (06:56→19:56)
[2020-08-06 07:00] VITALS: BP 109/51
[2020-08-06] MEDS: IPRATRPIUM/ALBUTEROL 0.5/2.5MG 3 ML NEBU. NEB SCH ×4 (07:40→20:55)
[2020-08-06 07:45] LABS: BASO # 0.1 x10^3/uL (0.0-0.2); BASO % 2 % (0-3); EOS # 0.3 x10^3/uL (0.0-0.7); EOS % 6 % (0-3); HEMATOCRIT 36.3 % (36.0-47.0); HEMOGLOBIN 12.5 g/dL (12.0-15.5); LYMPH # 1.3 x10^3/uL (1.0-4.8); LYMPH % 31 % (24-48); MEAN CORPUSCULAR HEMOGLOBIN 34 pg (25-35); MEAN CORPUSCULAR HGB CONC 34 g/dL (31-37); MEAN CORPUSCULAR VOLUME 100 fL (79-100); MONO # 0.7 x10^3/uL (0.0-1.1); MONO % 17 % (0-9); NEUT # 1.9 x10^3/uL (1.8-7.7); NEUT % 44 % (31-73); PLATELET COUNT 246 x10^3/uL (140-400); RED BLOOD COUNT 3.65 x10^6/uL (3.50-5.40); RED CELL DISTRIBUTION WIDTH 13.3 % (11.5-14.5); WHITE BLOOD COUNT 4.3 x10^3/uL (4.0-11.0)
[2020-08-06 08:07] LABS: ALBUMIN 3.8 g/dL (3.4-5.0); ALBUMIN/GLOBULIN RATIO 1.2 (1.0-1.7); CALCIUM 9.6 mg/dL (8.5-10.1); CREATININE 0.8 mg/dL (0.6-1.0); GFR 71.3; POTASSIUM 4.8 mmol/L (3.5-5.1); TOTAL BILIRUBIN 0.3 mg/dL (0.2-1.0)
[2020-08-06] MEDS: POTASSIUM CHLORIDE 20 MEQ TABLET.ER. PO SCH (08:32)
[2020-08-06] MEDS: GABAPENTIN 400 MG CAPSULE. PO SCH ×3 (08:32→21:26)
[2020-08-06] MEDS: buPROPion SR 150 MG TABLET.SA PO SCH (08:32)
[2020-08-06] MEDS: FAMOTIDINE 20 MG TABLET. PO SCH (08:32)
[2020-08-06] MEDS: NICOTINE 14MG PATCH. TD SCH (08:33)
[2020-08-06] MEDS: HEPARIN for SUB-Q USE 5,000 UNIT/ML VIAL. SQ SCH ×2 (08:38→21:29)
[2020-08-06] MEDS: PROCHLORPERAZINE 10 MG/2 ML VIAL. IV PRN (09:30)
--- NOTE | 2020-08-06 10:06 | PDOC ---
TORIBIO MORRIS [employer] 08/06/20 1006: SURGICAL PROGRESS NOTE DATE: 08/06/20 TIME: 10:05 Subjective sleeping did not awaken her plan for lap michelle 08/08 Vital Signs Vital Signs Date Time Temp Pulse Resp B/P (MAP) Pulse Ox O2 Delivery O2 Flow Rate FiO2 08/06/20 08:32 Room Air 08/06/20 07:42 99 08/06/20 07:00 98.0 83 18 109/51 (70) 98.0 I&O Intake and Output 08/06/20 07:00 Intake Total 560 ml Balance 560 ml Intake Oral 560 ml # Voids 3 Labs Laboratory Tests Test 08/04/20 12:00 08/06/20 06:15 08/06/20 06:40 SARS-CoV-2 Antigen (Rapid) Negative (NEGATIVE) Sodium Level 137 mmol/L (136-145) Potassium Level 4.8 mmol/L (3.5-5.1) Chloride Level 100 mmol/L (98-107) Carbon Dioxide Level 30 mmol/L (21-32) Anion Gap 7 (6-14) Blood Urea Nitrogen 14 mg/dL (7-20) Creatinine 0.8 mg/dL (0.6-1.0) Estimated GFR (Cockcroft-Gault) 71.3 BUN/Creatinine Ratio 18 (6-20) Glucose Level 97 mg/dL (70-99) Calcium Level 9.6 mg/dL (8.5-10.1) Total Bilirubin 0.3 mg/dL (0.2-1.0) Aspartate Amino Transf (AST/SGOT) 15 U/L (15-37) Alanine Aminotransferase (ALT/SGPT) 19 U/L (14-59) Alkaline Phosphatase 86 U/L (46-116) Total Protein 7.0 g/dL (6.4-8.2) Albumin 3.8 g/dL (3.4-5.0) Albumin/Globulin Ratio 1.2 (1.0-1.7) White Blood Count 4.3 x10^3/uL (4.0-11.0) Red Blood Count 3.65 x10^6/uL (3.50-5.40) Hemoglobin 12.5 g/dL (12.0-15.5) Hematocrit 36.3 % (36.0-47.0) Mean Corpuscular Volume 100 fL (79-100) Mean Corpuscular Hemoglobin 34 pg (25-35) Mean Corpuscular Hemoglobin Concent 34 g/dL (31-37) Red Cell Distribution Width 13.3 % (11.5-14.5) Platelet Count 246 x10^3/uL (140-400) Neutrophils (%) (Auto) 44 % (31-73) Lymphocytes (%) (Auto) 31 % (24-48) Monocytes (%) (Auto) 17 % (0-9) Eosinophils (%) (Auto) 6 % (0-3) Basophils (%) (Auto) 2 % (0-3) Neutrophils # (Auto) 1.9 x10^3/uL (1.8-7.7) Lymphocytes # (Auto) 1.3 x10^3/uL (1.0-4.8) Monocytes # (Auto) 0.7 x10^3/uL (0.0-1.1) Eosinophils # (Auto) 0.3 x10^3/uL (0.0-0.7) Basophils # (Auto) 0.1 x10^3/uL (0.0-0.2) Laboratory Tests Test 08/06/20 06:15 08/06/20 06:40 Sodium Level 137 mmol/L (136-145) Potassium Level 4.8 mmol/L (3.5-5.1) Chloride Level 100 mmol/L (98-107) Carbon Dioxide Level 30 mmol/L (21-32) Anion Gap 7 (6-14) Blood Urea Nitrogen 14 mg/dL (7-20) Creatinine 0.8 mg/dL (0.6-1.0) Estimated GFR (Cockcroft-Gault) 71.3 BUN/Creatinine Ratio 18 (6-20) Glucose Level 97 mg/dL (70-99) Calcium Level 9.6 mg/dL (8.5-10.1) Total Bilirubin 0.3 mg/dL (0.2-1.0) Aspartate Amino Transf (AST/SGOT) 15 U/L (15-37) Alanine Aminotransferase (ALT/SGPT) 19 U/L (14-59) Alkaline Phosphatase 86 U/L (46-116) Total Protein 7.0 g/dL (6.4-8.2) Albumin 3.8 g/dL (3.4-5.0) Albumin/Globulin Ratio 1.2 (1.0-1.7) White Blood Count 4.3 x10^3/uL (4.0-11.0) Red Blood Count 3.65 x10^6/uL (3.50-5.40) Hemoglobin 12.5 g/dL (12.0-15.5) Hematocrit 36.3 % (36.0-47.0) Mean Corpuscular Volume 100 fL (79-100) Mean Corpuscular Hemoglobin 34 pg (25-35) Mean Corpuscular Hemoglobin Concent 34 g/dL (31-37) Red Cell Distribution Width 13.3 % (11.5-14.5) Platelet Count 246 x10^3/uL (140-400) Neutrophils (%) (Auto) 44 % (31-73) Lymphocytes (%) (Auto) 31 % (24-48) Monocytes (%) (Auto) 17 % (0-9) Eosinophils (%) (Auto) 6 % (0-3) Basophils (%) (Auto) 2 % (0-3) Neutrophils # (Auto) 1.9 x10^3/uL (1.8-7.7) Lymphocytes # (Auto) 1.3 x10^3/uL (1.0-4.8) Monocytes # (Auto) 0.7 x10^3/uL (0.0-1.1) Eosinophils # (Auto) 0.3 x10^3/uL (0.0-0.7) Basophils # (Auto) 0.1 x10^3/uL (0.0-0.2) Problem List Problems Medical Problems: (1) Intractable abdominal pain Status: Acute (2) UTI (urinary tract infection) Status: Acute Justicifation of Admission Dx: Justifications for Admission: Justification of Admission Dx: N/A FRANCIS YEH MD 08/06/202101: SURGICAL PROGRESS NOTE Assessment/Plan Pt seen and examined. Agree with Ms. Morris's note Pt feels a little better but still with pain tentative surgery on 08/08 ALEXANDRATORIBIOSOFIE Gallegos APRN Aug 06, 2020 10:06 FRANCIS YEH MD Aug 06, 2020 21:02
[2020-08-06 10:44] VITALS: BP 106/61
[2020-08-06 15:00] VITALS: BP 163/65
--- NOTE | 2020-08-06 15:30 | PDOC ---
GENERAL General: Patient examined chart reviewed patient is in good spirits this afternoon happy that the [employer] won their game. She is nauseated some but otherwise tolerating her diet. She is looking forward to her cholecystectomy on August 08. We will continue current management otherwise appreciate subspecialty support Problems: (1) Acute cholecystitis (2) Prolonged Q-T interval on ECG (3) Chronic generalized abdominal pain VITAL SIGNS Vital Signs/I&O: Vital Signs Date Time Temp Pulse Resp B/P (MAP) Pulse Ox O2 Delivery O2 Flow Rate FiO2 08/06/20 15:19 Room Air 08/06/20 15:00 98.2 87 18 163/65 (97) 95 98.2 I & O 08/05/20 08/05/20 08/06/20 15:00 23:00 07:00 Intake Total 240 ml 320 ml Balance 240 ml 320 ml In general the patient is pleasant alert and oriented x3 no acute distress HEENT exam is unremarkable for acute abnormality Chest is clear to auscultation Heart S1-S2 normal regular rate and rhythm no murmurs or gallops are noted Abdomen scaphoid normoactive bowel sounds soft nontender nondistended no masses organomegaly noted Extremity exam is unremarkable for acute abnormality ALLERGIES Allergies: Allergies Coded Allergies Type Severity Reaction Last Updated Verified aluminum Allergy Severe BREAK OUT ALL OVER 04/01/17 Yes gold Au 198 Allergy Severe BREAK OUT ALL OVER 04/01/17 Yes iron Allergy Severe BREAK OUT ALL OVER 04/01/17 Yes nickel Allergy Severe BREAK OUT ALL OVER 04/01/17 Yes silver Allergy Severe BREAK OUT ALL OVER 04/01/17 Yes MEDS Medications: Current Medications Medications (Trade) Dose Ordered Sig/[place] Start Time Stop Time Status Last Admin Dose Admin Acetaminophen (Tylenol) 650 mg PRN Q6HRS PRN 08/02/20 12:15 Acetaminophen/ Hydrocodone Bitart (Lortab 5/325) 2 tab PRN Q4HRS PRN 08/02/20 12:15 08/06/20 14:02 Al Hydroxide/Mg Hydroxide (Mylanta Plus Xs) 30 ml PRN Q3HRS PRN 08/02/20 12:15 Albuterol/ Ipratropium (Duoneb) 3 ml QID 08/02/20 13:00 08/06/20 11:29 Alprazolam (Xanax) 0.5 mg PRN Q6HRS PRN 08/02/20 12:00 08/05/20 23:00 Aspirin (Aspirin Chewable) 81 mg DAILY 08/03/20 09:00 08/03/20 11:25 DC 08/03/20 09:00 Atorvastatin Calcium (Lipitor) 10 mg HS 08/02/20 21:00 08/05/20 20:46 Bisacodyl (Dulcolax Supp) 10 mg PRN DAILY PRN 08/02/20 12:15 Bupropion HCl (Wellbutrin Sr) 150 mg DAILY 08/03/20 09:00 08/06/20 08:32 Calcium Carbonate/ Glycine (Tums) 500 mg PRN Q3HRS PRN 08/02/20 12:15 Ceftriaxone Sodium (Rocephin) 1 gm 1X ONCE 08/02/20 11:30 08/02/20 11:31 DC 08/02/20 11:33 Clopidogrel Bisulfate (Plavix) 75 mg DAILY 08/02/20 13:00 08/03/20 11:25 DC 08/02/20 17:04 Famotidine (Pepcid) 20 mg DAILY 08/04/20 09:00 08/06/20 08:32 Fentanyl Citrate (Fentanyl 2ml Vial) 50 mcg PRN Q4HRS PRN 08/02/20 12:15 08/05/20 07:35 Gabapentin (Neurontin) 400 mg TID 08/02/20 14:00 08/06/20 14:02 Heparin Sodium (Porcine) (Heparin Sodium) 5,000 unit Q12HR 08/02/20 21:00 08/06/20 08:38 Ibuprofen (Motrin) 400 mg PRN Q6HRS PRN 08/02/20 12:15 08/05/20 16:50 DC Magnesium Hydroxide (Milk Of Magnesia) 2,400 mg PRN Q12HR PRN 08/02/20 12:15 Morphine Sulfate (Morphine Sulfate) 2 mg PRN Q1HR PRN 08/02/20 12:15 08/06/20 11:28 Nicotine (Nicoderm Cq 14mg) 1 patch DAILY 08/02/20 16:00 08/06/20 08:33 Ondansetron HCl (Zofran) 4 mg PRN Q6HRS PRN 08/02/20 12:15 08/05/20 17:32 Oxycodone/ Acetaminophen (Percocet 5/325) 2 tab PRN Q4HRS PRN 08/02/20 12:15 08/05/20 19:27 Pantoprazole Sodium (Protonix) 40 mg DAILYAC 08/03/20 07:30 08/06/20 06:43 Potassium Chloride/Dextrose/ Sod Cl 1,000 ml @ 80 mls/hr [id number] 08/04/20 14:15 08/06/20 15:19 Potassium Chloride (Klor-Con) 20 meq DAILY 08/02/20 13:00 08/06/20 08:32 Prochlorperazine Edisylate (Compazine) 10 mg PRN Q6HRS PRN 08/02/20 16:00 08/06/20 09:30 Venlafaxine HCl (Effexor Xr) 150 mg DAILY 08/03/20 09:00 08/05/20 16:50 DC 08/05/20 08:17 LAB Lab: Laboratory Tests Test 08/06/20 06:15 08/06/20 06:40 Sodium Level 137 mmol/L (136-145) Potassium Level 4.8 mmol/L (3.5-5.1) Chloride Level 100 mmol/L (98-107) Carbon Dioxide Level 30 mmol/L (21-32) Anion Gap 7 (6-14) Blood Urea Nitrogen 14 mg/dL (7-20) Creatinine 0.8 mg/dL (0.6-1.0) Estimated GFR (Cockcroft-Gault) 71.3 BUN/Creatinine Ratio 18 (6-20) Glucose Level 97 mg/dL (70-99) Calcium Level 9.6 mg/dL (8.5-10.1) Total Bilirubin 0.3 mg/dL (0.2-1.0) Aspartate Amino Transferase (AST) 15 U/L (15-37) Alanine Aminotransferase (ALT) 19 U/L (14-59) Alkaline Phosphatase 86 U/L (46-116) Total Protein 7.0 g/dL (6.4-8.2) Albumin 3.8 g/dL (3.4-5.0) Albumin/Globulin Ratio 1.2 (1.0-1.7) White Blood Count 4.3 x10^3/uL (4.0-11.0) Red Blood Count 3.65 x10^6/uL (3.50-5.40) Hemoglobin 12.5 g/dL (12.0-15.5) Hematocrit 36.3 % (36.0-47.0) Mean Corpuscular Volume 100 fL (79-100) Mean Corpuscular Hemoglobin 34 pg (25-35) Mean Corpuscular Hemoglobin Concent 34 g/dL (31-37) Red Cell Distribution Width 13.3 % (11.5-14.5) Platelet Count 246 x10^3/uL (140-400) Neutrophils (%) (Auto) 44 % (31-73) Lymphocytes (%) (Auto) 31 % (24-48) Monocytes (%) (Auto) 17 % (0-9) H Eosinophils (%) (Auto) 6 % (0-3) H Basophils (%) (Auto) 2 % (0-3) Neutrophils # (Auto) 1.9 x10^3/uL (1.8-7.7) Lymphocytes # (Auto) 1.3 x10^3/uL (1.0-4.8) Monocytes # (Auto) 0.7 x10^3/uL (0.0-1.1) Eosinophils # (Auto) 0.3 x10^3/uL (0.0-0.7) Basophils # (Auto) 0.1 x10^3/uL (0.0-0.2) Laboratory Tests 08/06/20 06:40 Laboratory Tests 08/06/20 06:15 ASSESSMENT & PLAN A&P Plan as noted above This note was created using [employer] and may have omissions and/or errors due to the 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 Justifications for Admission Other Justification Intractable abdominal pain, symptomatic cholelithiasis Nutrition Consultation Dietary Evaluation: Recommendations by RD: Dietary education by RD, Increase Calorie Intake, Protein supplementation Comments: ensure tid Expected Outcomes/Goals: to meet >75% est nutr needs Malnutrition Findings: Body Fat Depletion (Non Severe: Mod to Severe Weight Status: Underweight KATHY WILDE MD Aug 06, 2020 15:30
[2020-08-06 19:00] VITALS: BP 111/56
[2020-08-06] MEDS: ALPRAZolam 0.5 MG TABLET PO PRN (19:56)
[2020-08-06] MEDS: ATORVASTATIN CALCIUM 10 MG TABLET. PO SCH (21:26)
[2020-08-06 23:00] VITALS: BP 128/92
[2020-08-07 00:20] LABS: BILIRUBIN,URINE NEGATIVE (NEG); CLARITY,URINE CLEAR; COLOR,URINE YELLOW; NITRITE,URINE NEGATIVE (NEG); PROTEIN,URINE NEGATIVE (NEG-TRACE); UROBILINOGEN,URINE 0.2 mg/dL (0.2 mg/dL)
[2020-08-07 00:27] LABS: BACTERIA,URINE FEW /HPF (0-FEW); RBC,URINE OCC /HPF (0-2); WBC,URINE OCC /HPF (0-4)
[2020-08-07] MEDS: HYDROcodone/APAP 5/325MG 1 TAB TABLET PO PRN ×2 (00:57→06:37)
[2020-08-07] MEDS: MORPHINE SULFATE 2 MG/ML VIAL. IV PRN ×7 (01:42→22:17)
[2020-08-07 03:06] VITALS: BP 128/71
[2020-08-07] MEDS: ALPRAZolam 0.5 MG TABLET PO PRN ×2 (03:09→22:17)
[2020-08-07] MEDS: POTASSIUM CL 20MEQ D5-0.45NACL 1,000 ML IV SCH ×2 (04:03→17:24)
[2020-08-07] MEDS: ONDANSETRON PF 4 MG/2 ML VIAL. IVP PRN ×2 (04:12→20:05)
[2020-08-07] MEDS: PANTOPRAZOLE 40 MG TABLET.DR. PO SCH (06:36)
[2020-08-07 07:00] VITALS: BP 106/39
[2020-08-07] MEDS: IPRATRPIUM/ALBUTEROL 0.5/2.5MG 3 ML NEBU. NEB SCH ×4 (07:27→22:00)
[2020-08-07] MEDS: FAMOTIDINE 20 MG TABLET. PO SCH (07:50)
[2020-08-07] MEDS: GABAPENTIN 400 MG CAPSULE. PO SCH ×3 (07:50→20:27)
[2020-08-07] MEDS: buPROPion SR 150 MG TABLET.SA PO SCH (07:50)
[2020-08-07] MEDS: NICOTINE 14MG PATCH. TD SCH (07:51)
[2020-08-07] MEDS: POTASSIUM CHLORIDE 20 MEQ TABLET.ER. PO SCH (07:51)
[2020-08-07] MEDS: HEPARIN for SUB-Q USE 5,000 UNIT/ML VIAL. SQ SCH (08:11)
--- NOTE | 2020-08-07 10:41 | PDOC ---
PROGRESS NOTES Date of Service: DATE: 08/07/20 TIME: 10:40 Chief Complaint Chief Complaint impression Intractable pain and nausea Symptomatic cholelithiasis Bigeminy, QTc prolongation Abdominal pain of uncertain etiology. 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 Hypertension. Tobacco abuse. Plan: Consult was placed by ED to cardiology due to EKG abnormalities and general surgery for symptomatic cholelithiasis Ultrasound shows gallbladder sludge versus tiny stones, no evidence of acute cholecystitis Clear liquid diet, advance diet as tolerated. Pain management IV Zofran Resume home medications plan admit FEN - Cardiac diet PPX - Lovenox FULL CODE Dispo - inpatient for above d/w rn History of Present Illness History of Present Illness Ms Johnson is a 70-year-old female with past medical history of cholelithiasis, who presents to the ER with complaints of worsening right upper quadrant pain. She reports pain 10/10 at worst, aggravated by eating. She reports associated nausea. She denies any vomiting. She is reportedly sche duled to have cholecystectomy on 08/08/[address] Salguero. She denies any fevers, cough, chest pain, shortness of breath. Patient was admitted with general surgery consult. Cardiology consult was placed by ER due to bigeminy noted on EKG. Afebrile today and her pain is better controlled. She is tearful however and does not feel safe at home but notes there is no domestic violence and her family treats her very well. She has requested that I not place in the medical record the reason. No shortness of breath or chest pain. Difficulty ambulating and taking care of herself. Plan: PT/OT Placement in SNF prior to planned surgery would be appropriate Vitals Vitals Vital Signs Date Time Temp Pulse Resp B/P (MAP) Pulse Ox O2 Delivery O2 Flow Rate FiO2 08/07/20 08:00 Room Air 08/07/20 07:53 20 95 08/07/20 07:00 97.3 90 106/39 (61) 97.3 Physical Exam General: Alert, Oriented X3, Cooperative, moderate distress Heart: Regular rate Lungs: Clear Abdomen: Soft, Other (TTP RUQ) Extremities: No edema, Normal pulses Skin: No rashes, No breakdown Labs LABS INDICATION : Reason: RUQ PAIN, NAUSEA / Spl. Instructions: / History: COMPARISON: July 12, 2020 TECHNIQUE: Multiple ultrasound images obtained through the abdomen in grayscale and color. FINDINGS: Liver: Borderline echogenic. Calcific atherosclerosis. Gallbladder: Layering debris within. IVC: Partially distended at level of liver. Common Bile Duct: Not dilated. Pancreas: Limited evaluation secondary to overlying structures obscuring. Right Kidney: No hydronephrosis. IMPRESSION: * Small amount of layering debris within the gallbladder which could be from sludge or tiny stones. No common bile duct dilation or gallbladder wall thickening. Electronically signed by: Jose Abraham MD (08/02/2020 11:12 AM) [id number] DICTATED and SIGNED BY: JOSE ABRAHAM MD DATE: 08/02/20 [id number] 0 DPOA REVIEW 19 MIN to patient portal What Is a Power of Finish Painter? A power of insurance defense attorney (POA) is a legal document giving one person (the agent or [id number]) the power to act for another person (the principal). The agent can have broad legal authority or limited authority to make legal decisions about the principal's property, finances or medical care. The power of insurance defense attorney is frequently used in the event of a principal's illness or disability, or when the principal can't be present to sign necessary legal documents for financial transactions. A power of insurance defense attorney can end for a number of reasons, such as when the principal dies, the principal revokes it, a court invalidates it, the principal divorces their spouse, who happens to be the agent, or the agent can no longer carry out the outlined responsibilities. Conventional POAs lapse when the creator becomes incapacitated, but a durable POA remains in force to enable the agent to manage the creators affairs, and a springing POA comes into effect only if and when the creator of the POA becomes incapacitated. A medical or healthcare POA enables an agent to make medical decisions on behalf of an incapacitated person. Shrestha Takeaways A power of insurance defense attorney (POA) is a legal document giving one person, the agent or [id number] the power to act for another person, the principal. The agent can have broad legal authority or limited authority to make decisions about the principal's property, finances or medical care. The power of insurance defense attorney is often used when a principal becomes ill or disabled, or when they can't be present to sign necessary legal documents for financial transactions. Understanding Power of Finish Painter A power of insurance defense attorney should be considered when planning for long-term care. There are different types of POAs that fall under either a general power of insurance defense attorney or limited power of insurance defense attorney. A general power of insurance defense attorney acts on behalf of the principal in any and all matters, as allowed by the state. The agent under a general POA agreement may be authorized to take care of issues such as handling bank accounts, signing checks, selling property and assets like stocks, f A limited power of insurance defense attorney gives the agent the power to act on behalf of the principal in specific matters or events. For example, the limited POA may explicitly state that the agent is only allowed to manage the principal's care home accounts. A limited POA may also be limited to a specific period of time (e.g., if the principal will be out of the country for, say, two years). Most jeffers of insurance defense attorney documents allow an agent to represent the principal in all property and financial matters as long as the principals mental state of mind is good. If a situation occurs where the principal becomes incapable of making decisions for him or herself, the POA agreement would automatically end. However, someone who wants the POA to remain in effect after the persons health deteriorates would need to sign a durable power of insurance defense attorney (DPOA). What is an advance directive? An advance directive is a legal document that says how you want to be cared for if you are unable to make decisions. You can include what medical treatments you would want and who you would trust to make decisions for you. An advance directive can also include other legal documents. A living will is a list of treatment preferences. It can be used to indicate whether you would want cardiopulmonary resuscitation (CPR), tube feedings, a breathing machine, or certain medicines, like antibiotics. The durable power of insurance defense attorney for health care document identifies the person you would want to make medical decisions for you. This person is also called a proxy. Your proxy should be familiar with your values and wishes. How do I get started? You can get advance directive documents for your state from your doctor's office or from [email or web address]. Review the forms, and ask your doctor if you have any questions. Pick a person to be your proxy, and talk it over with that person. Laboratory Tests Test 08/06/20 23:44 Urine Collection Type Unknown Urine Color Yellow Urine Clarity Clear Urine pH 7.0 (<5.0-8.0) Urine Specific [place] <=1.005 (1.000-1.030) Urine Protein Negative mg/dL (NEG-TRACE) Urine Glucose (UA) Negative mg/dL (NEG) Urine Ketones (Stick) Negative mg/dL (NEG) Urine Blood Negative (NEG) Urine Nitrite Negative (NEG) Urine Bilirubin Negative (NEG) Urine Urobilinogen Dipstick 0.2 mg/dL (0.2 mg/dL) Urine Leukocyte Esterase Negative (NEG) Urine RBC Occ /HPF (0-2) Urine WBC Occ /HPF (0-4) Urine Squamous Epithelial Cells Occ /LPF Urine Bacteria Few /HPF (0-FEW) Assessment and Plan Assessmemt and Plan Problems Medical Problems: (1) Intractable abdominal pain Status: Acute (2) UTI (urinary tract infection) Status: Acute Comment Review of Relevant I have reviewed the following items chery (where applicable) has been applied. Labs Laboratory Tests Test 08/06/20 06:15 08/06/20 06:40 08/06/20 23:44 Sodium Level 137 mmol/L (136-145) Potassium Level 4.8 mmol/L (3.5-5.1) Chloride Level 100 mmol/L (98-107) Carbon Dioxide Level 30 mmol/L (21-32) Anion Gap 7 (6-14) Blood Urea Nitrogen 14 mg/dL (7-20) Creatinine 0.8 mg/dL (0.6-1.0) Estimated GFR (Cockcroft-Gault) 71.3 BUN/Creatinine Ratio 18 (6-20) Glucose Level 97 mg/dL (70-99) Calcium Level 9.6 mg/dL (8.5-10.1) Total Bilirubin 0.3 mg/dL (0.2-1.0) Aspartate Amino Transf (AST/SGOT) 15 U/L (15-37) Alanine Aminotransferase (ALT/SGPT) 19 U/L (14-59) Alkaline Phosphatase 86 U/L (46-116) Total Protein 7.0 g/dL (6.4-8.2) Albumin 3.8 g/dL (3.4-5.0) Albumin/Globulin Ratio 1.2 (1.0-1.7) White Blood Count 4.3 x10^3/uL (4.0-11.0) Red Blood Count 3.65 x10^6/uL (3.50-5.40) Hemoglobin 12.5 g/dL (12.0-15.5) Hematocrit 36.3 % (36.0-47.0) Mean Corpuscular Volume 100 fL (79-100) Mean Corpuscular Hemoglobin 34 pg (25-35) Mean Corpuscular Hemoglobin Concent 34 g/dL (31-37) Red Cell Distribution Width 13.3 % (11.5-14.5) Platelet Count 246 x10^3/uL (140-400) Neutrophils (%) (Auto) 44 % (31-73) Lymphocytes (%) (Auto) 31 % (24-48) Monocytes (%) (Auto) 17 % (0-9) Eosinophils (%) (Auto) 6 % (0-3) Basophils (%) (Auto) 2 % (0-3) Neutrophils # (Auto) 1.9 x10^3/uL (1.8-7.7) Lymphocytes # (Auto) 1.3 x10^3/uL (1.0-4.8) Monocytes # (Auto) 0.7 x10^3/uL (0.0-1.1) Eosinophils # (Auto) 0.3 x10^3/uL (0.0-0.7) Basophils # (Auto) 0.1 x10^3/uL (0.0-0.2) Urine Collection Type Unknown Urine Color Yellow Urine Clarity Clear Urine pH 7.0 (<5.0-8.0) Urine Specific [place] <=1.005 (1.000-1.030) Urine Protein Negative mg/dL (NEG-TRACE) Urine Glucose (UA) Negative mg/dL (NEG) Urine Ketones (Stick) Negative mg/dL (NEG) Urine Blood Negative (NEG) Urine Nitrite Negative (NEG) Urine Bilirubin Negative (NEG) Urine Urobilinogen Dipstick 0.2 mg/dL (0.2 mg/dL) Urine Leukocyte Esterase Negative (NEG) Urine RBC Occ /HPF (0-2) Urine WBC Occ /HPF (0-4) Urine Squamous Epithelial Cells Occ /LPF Urine Bacteria Few /HPF (0-FEW) Laboratory Tests Test 08/06/20 23:44 Urine Collection Type Unknown Urine Color Yellow Urine Clarity Clear Urine pH 7.0 (<5.0-8.0) Urine Specific [place] <=1.005 (1.000-1.030) Urine Protein Negative mg/dL (NEG-TRACE) Urine Glucose (UA) Negative mg/dL (NEG) Urine Ketones (Stick) Negative mg/dL (NEG) Urine Blood Negative (NEG) Urine Nitrite Negative (NEG) Urine Bilirubin Negative (NEG) Urine Urobilinogen Dipstick 0.2 mg/dL (0.2 mg/dL) Urine Leukocyte Esterase Negative (NEG) Urine RBC Occ /HPF (0-2) Urine WBC Occ /HPF (0-4) Urine Squamous Epithelial Cells Occ /LPF Urine Bacteria Few /HPF (0-FEW) Medications Current Medications Fentanyl Citrate (Fentanyl 2ml Vial) 25 mcg PRN Q15MIN PRN IV PAIN GREATER THAN 3/10 Last administered on 08/02/20at 11:29; Start 08/02/20 at 09:30; Stop 08/03/20 at 09:29; Status DC Ondansetron HCl (Zofran) 4 mg 1X ONCE IVP Last administered on 08/02/20at 09:41; Start 08/02/20 at 09:30; Stop 08/02/20 at 09:33; Status DC Ceftriaxone Sodium (Rocephin) 1 gm 1X ONCE IVP Last administered on 08/02/20at 11:33; Start 08/02/20 at 11:30; Stop 08/02/20 at 11:31; Status DC Alprazolam (Xanax) 0.5 mg PRN Q6HRS PRN PO ANXIETY / AGITATION Last administered on 08/07/20at 03:09; Start 08/02/20 at 12:00 Aspirin (Aspirin Chewable) 81 mg DAILY PO Last administered on 08/03/20at 09:00; Start 08/03/20 at 09:00; Stop 08/03/20 at 11:25; Status DC Atorvastatin Calcium (Lipitor) 10 mg HS PO Last administered on 08/06/20at 21:26; Start 08/02/20 at 21:00 Bupropion HCl (Wellbutrin Sr) 150 mg DAILY PO Last administered on 08/07/20at 07:50; Start 08/03/20 at 09:00 Clopidogrel Bisulfate (Plavix) 75 mg DAILY PO Last administered on 08/02/20at 17:04; Start 08/02/20 at 13:00; Stop 08/03/20 at 11:25; Status DC Famotidine (Pepcid) 20 mg BID PO Last administered on 08/03/20at 09:00; Start 08/02/20 at 13:00; Stop 08/03/20 at 15:14; Status DC Gabapentin (Neurontin) 400 mg TID PO Last administered on 08/07/20at 07:50; Start 08/02/20 at 14:00 Albuterol/ Ipratropium (Duoneb) 3 ml QID NEB Last administered on 08/07/20at 07:27; Start 08/02/20 at 13:00 Pantoprazole Sodium (Protonix) 40 mg DAILYAC PO Last administered on 08/07/20at 06:36; Start 08/03/20 at 07:30 Potassium Chloride (Klor-Con) 20 meq DAILY PO Last administered on 08/07/20at 07:51; Start 08/02/20 at 13:00 Venlafaxine HCl (Effexor Xr) 150 mg DAILY PO Last administered on 08/05/20at 08:17; Start 08/03/20 at 09:00; Stop 08/05/20 at 16:50; Status DC Ondansetron HCl (Zofran) 4 mg PRN Q6HRS PRN IVP NAUSEA/VOMITING Last administered on 08/07/20at 04:12; Start 08/02/20 at 12:15 Al Hydroxide/Mg Hydroxide (Mylanta Plus Xs) 30 ml PRN Q3HRS PRN PO HEARTBURN / GAS; Start 08/02/20 at 12:15 Calcium Carbonate/ Glycine (Tums) 500 mg PRN Q3HRS PRN PO UPSET STOMACH; Start 08/02/20 at 12:15 Morphine Sulfate (Morphine Sulfate) 1 mg PRN Q1HR PRN IV MODERATE PAIN; Start 08/02/20 at 12:15; Stop 08/04/20 at 14:14; Status DC Morphine Sulfate (Morphine Sulfate) 2 mg PRN Q1HR PRN IV SEVERE PAIN Last administered on 08/07/20at 07:53; Start 08/02/20 at 12:15 Acetaminophen/ Hydrocodone Bitart (Lortab 5/325) 1 tab PRN Q4HRS PRN PO MILD PAIN 1-3; Start 08/02/20 at 12:15 Acetaminophen/ Hydrocodone Bitart (Lortab 5/325) 2 tab PRN Q4HRS PRN PO MODERATE PAIN, SEVERE PAIN Last administered on 08/07/20at 06:37; Start 08/02/20 at 12:15 Oxycodone/ Acetaminophen (Percocet 5/325) 1 tab PRN Q4HRS PRN PO MILD PAIN, 2ND CHOICE Last administered on 08/03/20at 19:13; Start 08/02/20 at 12:15 Oxycodone/ Acetaminophen (Percocet 5/325) 2 tab PRN Q4HRS PRN PO MODERATE PAIN, SEVERE PAIN-2ND Last administered on 08/05/20at 19:27; Start 08/02/20 at 12:15 Acetaminophen (Tylenol) 650 mg PRN Q6HRS PRN PO Headaches, Temp > 101.5F; Start 08/02/20 at 12:15 Ibuprofen (Motrin) 400 mg PRN Q6HRS PRN PO inflammation; Start 08/02/20 at 12:15; Stop 08/05/20 at 16:50; Status DC Magnesium Hydroxide (Milk Of Magnesia) 2,400 mg PRN Q12HR PRN PO CONSTIPATION; Start 08/02/20 at 12:15 Bisacodyl (Dulcolax Supp) 10 mg PRN DAILY PRN NM CONSTIPATION; Start 08/02/20 at 12:15 Heparin Sodium (Porcine) (Heparin Sodium) 5,000 unit Q12HR SQ Last administered on 08/07/20at 08:11; Start 08/02/20 at 21:00 Fentanyl Citrate (Fentanyl 2ml Vial) 50 mcg PRN Q4HRS PRN IVP SEVERE PAIN 7-10, 2ND CHOICE Last administered on 08/05/20at 07:35; Start 08/02/20 at 12:15 Prochlorperazine Edisylate (Compazine) 10 mg PRN Q6HRS PRN IV NAUSEA/VOMITING-2 ND CHOICE Last administered on 08/06/20at 09:30; Start 08/02/20 at 16:00 Nicotine (Nicoderm Cq 14mg) 1 patch DAILY TD Last administered on 08/07/20at 07:51; Start 08/02/20 at 16:00 Famotidine (Pepcid) 20 mg DAILY PO Last administered on 08/07/20at 07:50; Start 08/04/20 at 09:00 Potassium Chloride/Dextrose/ Sod Cl 1,000 ml @ 80 mls/hr [id number] IV Last administered on 08/07/20at 04:03; Start 08/04/20 at 14:15 Active Scripts Active Dicyclomine Hcl 20 Mg Tablet 1 Tab PO TID 10 Days [place] 5-325 Tablet (Acetaminophen/Hydrocodone Bitart) 1 Each Tablet 1 Tab PO TID 5 Days Zofran (Ondansetron Hcl) 4 Mg Tablet 1 Tab PO Q8HRS Potassium Chloride (Potassium Chloride) 20 Meq Tablet.er 20 Meq PO DAILY 7 Days Pepcid (Famotidine) 20 Mg Tablet 20 Mg PO BID Klor-Con M20 (Potassium Chloride) 20 Meq Tab.er.prt 1 Tab PO DAILY 7 Days Zofran (Ondansetron Hcl) 4 Mg Tablet 1 Tab PO PRN Q6-8HRS Ondansetron Odt (Ondansetron) 4 Mg Tab.rapdis 1 Tab PO PRN Q6-8HRS PRN Reported Aspirin 81 Mg Tab.chew 1 Tab PO DAILY Clopidogrel (Clopidogrel Bisulfate) 75 Mg Tablet 1 Tab PO DAILY Lipitor (Atorvastatin Calcium) 10 Mg Tablet 10 Mg PO HS Alprazolam 0.5 Mg Tablet 0.5 Mg PO PRN Q6HRS PRN Pantoprazole Sodium (Pantoprazole Sodium) 40 Mg Tablet.dr 40 Mg PO DAILY Duoneb 0.5-3(2.5) Mg/3 Ml (Albuterol/Ipratropium) 3 Ml Ampul.neb 3 Ml NEB QID Oxycodone-Acetaminophen 10-325 (Oxycodone Hcl/Acetaminophen) 1 Each Tablet 1 Each PO PRN Q6HRS PRN Percocet 10-325 Mg Tablet (Oxycodone/Acetaminophen) 1 Each Tablet 1 Tab PO PRN Q6HRS PRN Wellbutrin Sr (Bupropion Hcl) 150 Mg Tablet.er 150 Mg PO DAILY Venlafaxine Hcl Er (Venlafaxine Hcl) 150 Mg Tab.er.24 150 Mg PO DAILY Effexor Xr (Venlafaxine Hcl) 150 Mg Cap.er.24h 150 Mg PO DAILY Gabapentin (Gabapentin) 100 Mg Capsule 400 Mg PO TID Xanax (Alprazolam) 0.5 Mg Tablet 0.5 Mg PO TID PRN Vitals/I & O Vital Sign - Last 24 Hours 08/06/20 08/06/20 08/06/20 08/06/20 10:44 11:28 11:30 12:07 Temp 97.2 97.2 Pulse 103 Resp 18 B/P (MAP) 106/61 (76) Pulse Ox 95 99 O2 Delivery Room Air Room Air Room Air Room Air 08/06/20 08/06/20 08/06/20 08/06/20 14:02 15:00 15:19 15:57 Temp 98.2 98.2 Pulse 87 Resp 18 B/P (MAP) 163/65 (97) Pulse Ox 95 99 O2 Delivery Room Air Room Air Room Air Room Air 08/06/20 08/06/20 08/06/20 08/06/20 16:02 17:38 18:27 19:00 Temp 98.2 98.2 Pulse 74 Resp 18 B/P (MAP) 111/56 (74) Pulse Ox 97 O2 Delivery Room Air Room Air Room Air Room Air 08/06/20 08/06/20 08/06/20 08/06/20 19:27 19:56 20:00 20:26 Resp 20 16 18 Pulse Ox 99 97 99 O2 Delivery Room Air Room Air Room Air Room Air 08/06/20 08/06/20 08/07/20 08/07/20 20:56 23:00 00:57 01:42 Temp 97.9 97.9 Pulse 74 Resp 18 18 18 B/P (MAP) 128/92 (104) Pulse Ox 99 95 95 95 O2 Delivery Room Air Room Air Room Air Room Air 08/07/20 08/07/20 08/07/20 08/07/20 01:57 01:57 03:06 03:10 Temp 97.7 97.7 Pulse 82 Resp 16 20 B/P (MAP) 128/71 (90) Pulse Ox 97 97 97 97 O2 Delivery Room Air Room Air Room Air Room Air 08/07/20 08/07/20 08/07/20 08/07/20 03:40 04:12 06:37 07:00 Temp 97.3 97.3 Pulse 90 Resp 16 20 17 B/P (MAP) 106/39 (61) Pulse Ox 97 97 97 95 O2 Delivery Room Air Room Air Room Air Room Air 08/07/20 08/07/20 08/07/20 07:27 07:53 08:00 Resp 20 Pulse Ox 97 95 O2 Delivery Room Air Room Air Room Air Intake and Output 08/06/20 08/06/20 08/07/20 15:00 23:00 07:00 Intake Total 650 ml 550 ml Output Total 300 ml Balance 650 ml 550 ml -300 ml Nutrition Consultation Dietary Evaluation: Recommendations by RD: Dietary education by RD, Increase Calorie Intake, Protein supplementation Comments: ensure tid Expected Outcomes/Goals: 08/07 new goal:diet advancement Malnutrition Findings: Body Fat Depletion (Non Severe: Mod to Severe Weight Status: Underweight Justicifation of Admission Dx: Justifications for Admission: Justification of Admission Dx: N/A CATARINA ROSALES MD Aug 07, 2020 10:41
[2020-08-07 10:49] VITALS: BP 117/65
--- NOTE | 2020-08-07 11:41 | PDOC ---
SURGICAL PROGRESS NOTE DATE: 08/07/20 TIME: 11:40 Subjective pain daughter present, we discussed postop plans, etc Vital Signs Vital Signs Date Time Temp Pulse Resp B/P (MAP) Pulse Ox O2 Delivery O2 Flow Rate FiO2 08/07/20 11:30 20 98 Room Air 08/07/20 10:49 98.1 97 117/65 (82) 98.1 I&O Intake and Output 08/07/20 07:00 Intake Total 1200 ml Output Total 300 ml Balance 900 ml Intake Oral 1200 ml Output Urine Total 300 ml # Voids 3 General: Alert, Oriented X3, Cooperative Abdomen: Soft, Other (ttp upper abdomen ) Labs Laboratory Tests Test 08/06/20 06:15 08/06/20 06:40 08/06/20 23:44 Sodium Level 137 mmol/L (136-145) Potassium Level 4.8 mmol/L (3.5-5.1) Chloride Level 100 mmol/L (98-107) Carbon Dioxide Level 30 mmol/L (21-32) Anion Gap 7 (6-14) Blood Urea Nitrogen 14 mg/dL (7-20) Creatinine 0.8 mg/dL (0.6-1.0) Estimated GFR (Cockcroft-Gault) 71.3 BUN/Creatinine Ratio 18 (6-20) Glucose Level 97 mg/dL (70-99) Calcium Level 9.6 mg/dL (8.5-10.1) Total Bilirubin 0.3 mg/dL (0.2-1.0) Aspartate Amino Transf (AST/SGOT) 15 U/L (15-37) Alanine Aminotransferase (ALT/SGPT) 19 U/L (14-59) Alkaline Phosphatase 86 U/L (46-116) Total Protein 7.0 g/dL (6.4-8.2) Albumin 3.8 g/dL (3.4-5.0) Albumin/Globulin Ratio 1.2 (1.0-1.7) White Blood Count 4.3 x10^3/uL (4.0-11.0) Red Blood Count 3.65 x10^6/uL (3.50-5.40) Hemoglobin 12.5 g/dL (12.0-15.5) Hematocrit 36.3 % (36.0-47.0) Mean Corpuscular Volume 100 fL (79-100) Mean Corpuscular Hemoglobin 34 pg (25-35) Mean Corpuscular Hemoglobin Concent 34 g/dL (31-37) Red Cell Distribution Width 13.3 % (11.5-14.5) Platelet Count 246 x10^3/uL (140-400) Neutrophils (%) (Auto) 44 % (31-73) Lymphocytes (%) (Auto) 31 % (24-48) Monocytes (%) (Auto) 17 % (0-9) Eosinophils (%) (Auto) 6 % (0-3) Basophils (%) (Auto) 2 % (0-3) Neutrophils # (Auto) 1.9 x10^3/uL (1.8-7.7) Lymphocytes # (Auto) 1.3 x10^3/uL (1.0-4.8) Monocytes # (Auto) 0.7 x10^3/uL (0.0-1.1) Eosinophils # (Auto) 0.3 x10^3/uL (0.0-0.7) Basophils # (Auto) 0.1 x10^3/uL (0.0-0.2) Urine Collection Type Unknown Urine Color Yellow Urine Clarity Clear Urine pH 7.0 (<5.0-8.0) Urine Specific [place] <=1.005 (1.000-1.030) Urine Protein Negative mg/dL (NEG-TRACE) Urine Glucose (UA) Negative mg/dL (NEG) Urine Ketones (Stick) Negative mg/dL (NEG) Urine Blood Negative (NEG) Urine Nitrite Negative (NEG) Urine Bilirubin Negative (NEG) Urine Urobilinogen Dipstick 0.2 mg/dL (0.2 mg/dL) Urine Leukocyte Esterase Negative (NEG) Urine RBC Occ /HPF (0-2) Urine WBC Occ /HPF (0-4) Urine Squamous Epithelial Cells Occ /LPF Urine Bacteria Few /HPF (0-FEW) Laboratory Tests Test 08/06/20 23:44 Urine Collection Type Unknown Urine Color Yellow Urine Clarity Clear Urine pH 7.0 (<5.0-8.0) Urine Specific [place] <=1.005 (1.000-1.030) Urine Protein Negative mg/dL (NEG-TRACE) Urine Glucose (UA) Negative mg/dL (NEG) Urine Ketones (Stick) Negative mg/dL (NEG) Urine Blood Negative (NEG) Urine Nitrite Negative (NEG) Urine Bilirubin Negative (NEG) Urine Urobilinogen Dipstick 0.2 mg/dL (0.2 mg/dL) Urine Leukocyte Esterase Negative (NEG) Urine RBC Occ /HPF (0-2) Urine WBC Occ /HPF (0-4) Urine Squamous Epithelial Cells Occ /LPF Urine Bacteria Few /HPF (0-FEW) Problem List Problems Medical Problems: (1) Intractable abdominal pain Status: Acute (2) UTI (urinary tract infection) Status: Acute Assessment/Plan lap michelle in AM orders done Justicifation of Admission Dx: Justifications for Admission: Justification of Admission Dx: N/A TORIBIO MORRIS APRN Aug 07, 2020 11:41
--- NOTE | 2020-08-07 11:51 | NUR ---
SW following. Discussed with RN, pt from home with family, room air, full liquid diet, COVID-19 negative. Plans for lap michelle tomorrow (08/08/2020). SW will continue to follow.
[2020-08-07] MEDS: oxyCODONE/APAP 5/325 1 TAB TABLET PO PRN ×2 (13:36→18:00)
--- NOTE | 2020-08-07 14:44 | CARD ---
MR#: [id number] Date of Study: 08/07/2020 Ordering Physician: JUAN PEREZ, Referring Physician: JUAN PEREZ, Tech: Abby Goodrich [facility] APPROVED REPORT EXAM: Two-dimensional and M-mode echocardiogram with Doppler and color Doppler. Other Information Quality : Good INDICATION Abnormal ECG Pre-Op 2D DIMENSIONS RVDd2.8 (2.9-3.5cm)Left Atrium(2D)2.7 (1.6-4.0cm) IVSd0.8 (0.7-1.1cm)Aortic Root(2D)2.7 (2.0-3.7cm) LVDd3.6 (3.9-5.9cm)LVOT Diameter1.9 (1.8-2.4cm) PWd0.9 (0.7-1.1cm)LVDs1.9 (2.5-4.0cm) FS (%) 30.0 %SV43.3 ml LVEF(%)60.0 (>50%) Aortic Valve AoV Peak Ruben.165.7cm/sAoV VTI22.1cm AO Peak GR.11.0mmHgLVOT Peak Ruben.115.3cm/s AO Mean GR.6mmHgAVA (VMAX)1.89cm2 Mitral Valve MV E Iddtfcpu10.0cm/sMV DECEL [id number] MV A Pegfsgmy32.4cm/sE/A Ratio0.8 Tricuspid Valve TR P. Shebbpqs522fv/sRAP [id number] TR Peak Gr.52hpZgUBXF05etHb Pulmonary Vein S1 Qbafvtfp70.6cm/sD2 Jnlsaild96.0cm/s LEFT VENTRICLE The left ventricle is normal size. There is normal left ventricular wall thickness. The left ventricu lar systolic function is normal and the ejection fraction is within normal range. The Ejection Fracti on is 55-60%. There is normal LV segmental wall motion. Transmitral Doppler flow pattern is Grade I-a bnormal relaxation pattern. RIGHT VENTRICLE The right ventricle is normal size. The right ventricular systolic function is normal. ATRIA The left atrium size is normal. The right atrium size is normal. The interatrial septum is intact wit h no evidence for an atrial septal defect or patent foramen ovale as noted on 2-D or Doppler imaging. AORTIC VALVE The aortic valve is mildly thickened but opens well. Doppler and Color Flow revealed no significant a ortic regurgitation. There is no significant aortic valvular stenosis. MITRAL VALVE The mitral valve is calcified but opens well. There is no evidence of mitral valve prolapse. There is no mitral valve stenosis. Doppler and Color Flow revealed trace mitral valve regurgitation. TRICUSPID VALVE The tricuspid valve is normal in structure and function. Doppler and Color Flow revealed mild tricusp id regurgitation. The PA pressure was estimated at 33 mmHg. There is no tricuspid valve stenosis. PULMONIC VALVE The pulmonic valve is not well visualized. Doppler and Color Flow revealed no pulmonic valvular regur gitation. There is no pulmonic valvular stenosis. GREAT VESSELS The aortic root is normal in size. The ascending aorta is not well seen. The IVC is normal in size an d collapses >50% with inspiration. PERICARDIAL EFFUSION There is no evidence of significant pericardial effusion. Critical Notification Critical Value: No <Conclusion> The left ventricle is normal size. The left ventricular systolic function is normal and the ejection fraction is within normal range. The Ejection Fraction is 55-60%. Doppler and Color Flow revealed no significant aortic regurgitation. There is no significant aortic valvular stenosis. Doppler and Color Flow revealed trace mitral valve regurgitation. Doppler and Color Flow revealed mild tricuspid regurgitation. The PA pressure was estimated at 33 mmHg. Signed by : Rob Munguia MD Electronically Approved : 08/07/2020 14:43:58
[2020-08-07 15:00] VITALS: BP 97/44
--- NOTE | 2020-08-07 16:37 | PDOC ---
PROGRESS NOTES Date of Service DATE: 08/07/20 TIME: 16:35 Subjective Subjective Patient seen and examined Objective Objective Vital Signs Date Time Temp Pulse Resp B/P (MAP) Pulse Ox O2 Delivery O2 Flow Rate FiO2 08/07/20 15:00 97.6 82 18 97/44 (61) 97 Room Air 97.6 Intake and Output 08/07/20 07:00 Intake Total 1200 ml Output Total 300 ml Balance 900 ml Intake Oral 1200 ml Output Urine Total 300 ml # Voids 3 Physical Exam Abdomen: Normal bowel sounds Heart: Regular rate General: mild distress Lungs: Other (Slightly decreased breath sounds) Assessment Assessment Problems Medical Problems: (1) Intractable abdominal pain Status: Acute (2) UTI (urinary tract infection) Status: Acute Abdominal pain, nausea/vomiting. Improved. Followed by general surgery. [facility] scheduled for 08/08. Arrhythmia; EKG noted with chase. Also improving. QTc prolongation at 523. Repeat EKG from the showed improved QTC at 420. We will continue to monitor. CAD s/p PCI/ESTHER to the 01/2017. Recent stress test without evidence of ischemia/infarct Hypertension; controlled Hyperlipidemia Comment Review of Relevant I have reviewed the following items chery (where applicable) has been applied. Labs Laboratory Tests Test 08/06/20 06:15 08/06/20 06:40 08/06/20 23:44 Sodium Level 137 mmol/L (136-145) Potassium Level 4.8 mmol/L (3.5-5.1) Chloride Level 100 mmol/L (98-107) Carbon Dioxide Level 30 mmol/L (21-32) Anion Gap 7 (6-14) Blood Urea Nitrogen 14 mg/dL (7-20) Creatinine 0.8 mg/dL (0.6-1.0) Estimated GFR (Cockcroft-Gault) 71.3 BUN/Creatinine Ratio 18 (6-20) Glucose Level 97 mg/dL (70-99) Calcium Level 9.6 mg/dL (8.5-10.1) Total Bilirubin 0.3 mg/dL (0.2-1.0) Aspartate Amino Transf (AST/SGOT) 15 U/L (15-37) Alanine Aminotransferase (ALT/SGPT) 19 U/L (14-59) Alkaline Phosphatase 86 U/L (46-116) Total Protein 7.0 g/dL (6.4-8.2) Albumin 3.8 g/dL (3.4-5.0) Albumin/Globulin Ratio 1.2 (1.0-1.7) White Blood Count 4.3 x10^3/uL (4.0-11.0) Red Blood Count 3.65 x10^6/uL (3.50-5.40) Hemoglobin 12.5 g/dL (12.0-15.5) Hematocrit 36.3 % (36.0-47.0) Mean Corpuscular Volume 100 fL (79-100) Mean Corpuscular Hemoglobin 34 pg (25-35) Mean Corpuscular Hemoglobin Concent 34 g/dL (31-37) Red Cell Distribution Width 13.3 % (11.5-14.5) Platelet Count 246 x10^3/uL (140-400) Neutrophils (%) (Auto) 44 % (31-73) Lymphocytes (%) (Auto) 31 % (24-48) Monocytes (%) (Auto) 17 % (0-9) Eosinophils (%) (Auto) 6 % (0-3) Basophils (%) (Auto) 2 % (0-3) Neutrophils # (Auto) 1.9 x10^3/uL (1.8-7.7) Lymphocytes # (Auto) 1.3 x10^3/uL (1.0-4.8) Monocytes # (Auto) 0.7 x10^3/uL (0.0-1.1) Eosinophils # (Auto) 0.3 x10^3/uL (0.0-0.7) Basophils # (Auto) 0.1 x10^3/uL (0.0-0.2) Urine Collection Type Unknown Urine Color Yellow Urine Clarity Clear Urine pH 7.0 (<5.0-8.0) Urine Specific [place] <=1.005 (1.000-1.030) Urine Protein Negative mg/dL (NEG-TRACE) Urine Glucose (UA) Negative mg/dL (NEG) Urine Ketones (Stick) Negative mg/dL (NEG) Urine Blood Negative (NEG) Urine Nitrite Negative (NEG) Urine Bilirubin Negative (NEG) Urine Urobilinogen Dipstick 0.2 mg/dL (0.2 mg/dL) Urine Leukocyte Esterase Negative (NEG) Urine RBC Occ /HPF (0-2) Urine WBC Occ /HPF (0-4) Urine Squamous Epithelial Cells Occ /LPF Urine Bacteria Few /HPF (0-FEW) Laboratory Tests Test 08/06/20 23:44 Urine Collection Type Unknown Urine Color Yellow Urine Clarity Clear Urine pH 7.0 (<5.0-8.0) Urine Specific [place] <=1.005 (1.000-1.030) Urine Protein Negative mg/dL (NEG-TRACE) Urine Glucose (UA) Negative mg/dL (NEG) Urine Ketones (Stick) Negative mg/dL (NEG) Urine Blood Negative (NEG) Urine Nitrite Negative (NEG) Urine Bilirubin Negative (NEG) Urine Urobilinogen Dipstick 0.2 mg/dL (0.2 mg/dL) Urine Leukocyte Esterase Negative (NEG) Urine RBC Occ /HPF (0-2) Urine WBC Occ /HPF (0-4) Urine Squamous Epithelial Cells Occ /LPF Urine Bacteria Few /HPF (0-FEW) Medications Current Medications Fentanyl Citrate (Fentanyl 2ml Vial) 25 mcg PRN Q15MIN PRN IV PAIN GREATER THAN 3/10 Last administered on 08/02/20at 11:29; Start 08/02/20 at 09:30; Stop 08/03/20 at 09:29; Status DC Ondansetron HCl (Zofran) 4 mg 1X ONCE IVP Last administered on 08/02/20at 09:41; Start 08/02/20 at 09:30; Stop 08/02/20 at 09:33; Status DC Ceftriaxone Sodium (Rocephin) 1 gm 1X ONCE IVP Last administered on 08/02/20at 11:33; Start 08/02/20 at 11:30; Stop 08/02/20 at 11:31; Status DC Alprazolam (Xanax) 0.5 mg PRN Q6HRS PRN PO ANXIETY / AGITATION Last administered on 08/07/20at 03:09; Start 08/02/20 at 12:00 Aspirin (Aspirin Chewable) 81 mg DAILY PO Last administered on 08/03/20at 09:00; Start 08/03/20 at 09:00; Stop 08/03/20 at 11:25; Status DC Atorvastatin Calcium (Lipitor) 10 mg HS PO Last administered on 08/06/20at 21:26; Start 08/02/20 at 21:00 Bupropion HCl (Wellbutrin Sr) 150 mg DAILY PO Last administered on 08/07/20at 07:50; Start 08/03/20 at 09:00 Clopidogrel Bisulfate (Plavix) 75 mg DAILY PO Last administered on 08/02/20at 17:04; Start 08/02/20 at 13:00; Stop 08/03/20 at 11:25; Status DC Famotidine (Pepcid) 20 mg BID PO Last administered on 08/03/20at 09:00; Start 08/02/20 at 13:00; Stop 08/03/20 at 15:14; Status DC Gabapentin (Neurontin) 400 mg TID PO Last administered on 08/07/20at 13:35; Start 08/02/20 at 14:00 Albuterol/ Ipratropium (Duoneb) 3 ml QID NEB Last administered on 08/07/20at 11:09; Start 08/02/20 at 13:00 Pantoprazole Sodium (Protonix) 40 mg DAILYAC PO Last administered on 08/07/20at 06:36; Start 08/03/20 at 07:30 Potassium Chloride (Klor-Con) 20 meq DAILY PO Last administered on 08/07/20at 07:51; Start 08/02/20 at 13:00 Venlafaxine HCl (Effexor Xr) 150 mg DAILY PO Last administered on 08/05/20at 08:17; Start 08/03/20 at 09:00; Stop 08/05/20 at 16:50; Status DC Ondansetron HCl (Zofran) 4 mg PRN Q6HRS PRN IVP NAUSEA/VOMITING Last administered on 08/07/20at 04:12; Start 08/02/20 at 12:15 Al Hydroxide/Mg Hydroxide (Mylanta Plus Xs) 30 ml PRN Q3HRS PRN PO HEARTBURN / GAS; Start 08/02/20 at 12:15 Calcium Carbonate/ Glycine (Tums) 500 mg PRN Q3HRS PRN PO UPSET STOMACH; Start 08/02/20 at 12:15 Morphine Sulfate (Morphine Sulfate) 1 mg PRN Q1HR PRN IV MODERATE PAIN; Start 08/02/20 at 12:15; Stop 08/04/20 at 14:14; Status DC Morphine Sulfate (Morphine Sulfate) 2 mg PRN Q1HR PRN IV SEVERE PAIN Last administered on 08/07/20at 11:30; Start 08/02/20 at 12:15 Acetaminophen/ Hydrocodone Bitart (Lortab 5/325) 1 tab PRN Q4HRS PRN PO MILD PAIN 1-3; Start 08/02/20 at 12:15 Acetaminophen/ Hydrocodone Bitart (Lortab 5/325) 2 tab PRN Q4HRS PRN PO MODERATE PAIN, SEVERE PAIN Last administered on 08/07/20at 06:37; Start 08/02/20 at 12:15 Oxycodone/ Acetaminophen (Percocet 5/325) 1 tab PRN Q4HRS PRN PO MILD PAIN, 2ND CHOICE Last administered on 08/03/20at 19:13; Start 08/02/20 at 12:15 Oxycodone/ Acetaminophen (Percocet 5/325) 2 tab PRN Q4HRS PRN PO MODERATE PAIN, SEVERE PAIN-2ND Last administered on 08/07/20at 13:36; Start 08/02/20 at 12:15 Acetaminophen (Tylenol) 650 mg PRN Q6HRS PRN PO Headaches, Temp > 101.5F; Start 08/02/20 at 12:15 Ibuprofen (Motrin) 400 mg PRN Q6HRS PRN PO inflammation; Start 08/02/20 at 12:15; Stop 08/05/20 at 16:50; Status DC Magnesium Hydroxide (Milk Of Magnesia) 2,400 mg PRN Q12HR PRN PO CONSTIPATION Last administered on 08/07/20at 11:49; Start 08/02/20 at 12:15 Bisacodyl (Dulcolax Supp) 10 mg PRN DAILY PRN [place] CONSTIPATION Last administered on 08/07/20at 11:56; Start 08/02/20 at 12:15 Heparin Sodium (Porcine) (Heparin Sodium) 5,000 unit Q12HR SQ Last administered on 08/07/20at 08:11; Start 08/02/20 at 21:00; Stop 08/07/20 at 11:43; Status DC Fentanyl Citrate (Fentanyl 2ml Vial) 50 mcg PRN Q4HRS PRN IVP SEVERE PAIN 7-10, 2ND CHOICE Last administered on 08/05/20at 07:35; Start 08/02/20 at 12:15 Prochlorperazine Edisylate (Compazine) 10 mg PRN Q6HRS PRN IV NAUSEA/VOMITING- 2ND CHOICE Last administered on 08/06/20at 09:30; Start 08/02/20 at 16:00 Nicotine (Nicoderm Cq 14mg) 1 patch DAILY TD Last administered on 08/07/20at 07:51; Start 08/02/20 at 16:00 Famotidine (Pepcid) 20 mg DAILY PO Last administered on 08/07/20at 07:50; Start 08/04/20 at 09:00 Potassium Chloride/Dextrose/ Sod Cl 1,000 ml @ 80 mls/hr [id number] IV Last administered on 08/07/20at 04:03; Start 08/04/20 at 14:15 Cefazolin Sodium/ Dextrose 50 ml @ 100 mls/hr 1X PREOP PRN IV PRIOR TO PROCEDURE; Start 08/08/20 at 06:00; Stop 08/08/20 at 18:00 Heparin Sodium (Porcine) 1000 unit/Sodium Chloride 1,001 ml @ 1,001 mls/hr 1X ONCE IRR ; Start 08/08/20 at 06:00; Stop 08/08/20 at 06:59 Active Scripts Active Dicyclomine Hcl 20 Mg Tablet 1 Tab PO TID 10 Days Harts 5-325 Tablet (Acetaminophen/Hydrocodone Bitart) 1 Each Tablet 1 Tab PO TID 5 Days Zofran (Ondansetron Hcl) 4 Mg Tablet 1 Tab PO Q8HRS Potassium Chloride (Potassium Chloride) 20 Meq Tablet.er 20 Meq PO DAILY 7 Days Pepcid (Famotidine) 20 Mg Tablet 20 Mg PO BID Klor-Con M20 (Potassium Chloride) 20 Meq Tab.er.prt 1 Tab PO DAILY 7 Days Zofran (Ondansetron Hcl) 4 Mg Tablet 1 Tab PO PRN Q6-8HRS Ondansetron Odt (Ondansetron) 4 Mg Tab.rapdis 1 Tab PO PRN Q6-8HRS PRN Reported Aspirin 81 Mg Tab.chew 1 Tab PO DAILY Clopidogrel (Clopidogrel Bisulfate) 75 Mg Tablet 1 Tab PO DAILY Lipitor (Atorvastatin Calcium) 10 Mg Tablet 10 Mg PO HS Alprazolam 0.5 Mg Tablet 0.5 Mg PO PRN Q6HRS PRN Pantoprazole Sodium (Pantoprazole Sodium) 40 Mg Tablet.dr 40 Mg PO DAILY Duoneb 0.5-3(2.5) Mg/3 Ml (Albuterol/Ipratropium) 3 Ml Ampul.neb 3 Ml NEB QID Oxycodone-Acetaminophen 10-325 (Oxycodone Hcl/Acetaminophen) 1 Each Tablet 1 Each PO PRN Q6HRS PRN Percocet 10-325 Mg Tablet (Oxycodone/Acetaminophen) 1 Each Tablet 1 Tab PO PRN Q6HRS PRN Wellbutrin Sr (Bupropion Hcl) 150 Mg Tablet.er 150 Mg PO DAILY Venlafaxine Hcl Er (Venlafaxine Hcl) 150 Mg Tab.er.24 150 Mg PO DAILY Effexor Xr (Venlafaxine Hcl) 150 Mg Cap.er.24h 150 Mg PO DAILY Gabapentin (Gabapentin) 100 Mg Capsule 400 Mg PO TID Xanax (Alprazolam) 0.5 Mg Tablet 0.5 Mg PO TID PRN Vitals/I & O Vital Sign - Last 24 Hours 08/06/20 08/06/20 08/06/20 08/06/20 17:38 18:27 19:00 19:27 Temp 98.2 98.2 Pulse 74 Resp 18 20 B/P (MAP) 111/56 (74) Pulse Ox 97 99 O2 Delivery Room Air Room Air Room Air Room Air 08/06/20 08/06/20 08/06/20 08/06/20 19:56 20:00 20:26 20:56 Resp 16 18 Pulse Ox 97 99 99 O2 Delivery Room Air Room Air Room Air Room Air 08/06/20 08/07/20 08/07/20 08/07/20 23:00 00:57 01:42 01:57 Temp 97.9 97.9 Pulse 74 Resp 18 18 18 16 B/P (MAP) 128/92 (104) Pulse Ox 95 95 95 97 O2 Delivery Room Air Room Air Room Air Room Air 08/07/20 08/07/20 08/07/20 08/07/20 01:57 03:06 03:10 03:40 Temp 97.7 97.7 Pulse 82 Resp 16 18 20 16 B/P (MAP) 128/71 (90) Pulse Ox 97 97 97 97 O2 Delivery Room Air Room Air Room Air Room Air 08/07/20 08/07/20 08/07/20 08/07/20 04:12 06:37 07:00 07:27 Temp 97.3 97.3 Pulse 90 Resp 20 20 17 B/P (MAP) 106/39 (61) Pulse Ox 97 97 95 97 O2 Delivery Room Air Room Air Room Air Room Air 08/07/20 08/07/20 08/07/20 08/07/20 07:37 07:53 08:00 10:49 Temp 98.1 98.1 Pulse 97 Resp 18 20 16 B/P (MAP) 117/65 (82) Pulse Ox 98 95 97 O2 Delivery Room Air Room Air Room Air Room Air 08/07/20 08/07/20 08/07/20 08/07/20 11:09 11:30 13:36 15:00 Temp 97.6 97.6 Pulse 82 Resp 20 18 18 B/P (MAP) 97/44 (61) Pulse Ox 98 98 98 97 O2 Delivery Room Air Room Air Room Air Room Air Intake and Output 08/06/20 08/06/20 08/07/20 15:00 23:00 07:00 Intake Total 650 ml 550 ml Output Total 300 ml Balance 650 ml 550 ml -300 ml Justifications for Admission Other Justification Intractable abdominal pain, symptomatic cholelithiasis Nutrition Consultation Dietary Evaluation: Recommendations by RD: Dietary education by RD, Increase Calorie Intake, Protein supplementation Comments: ensure tid Expected Outcomes/Goals: 08/07 new goal:diet advancement Malnutrition Findings: Body Fat Depletion (Non Severe: Mod to Severe Weight Status: Underweight PEDRITO SEBASTIAN MD Aug 07, 2020 16:37
--- NOTE | 2020-08-07 17:00 | NUR ---
Overall, patient appears to be significantly more comfortable today, expression more relaxed. Patient has related that her last bm was over a week ago, and was getting uncomfortable in lower mid abd, and on left side. Patient took dose of MOM, and dulcolox suppository. Patient passed multiple hard lumps of stool over 2 times.
[2020-08-07 19:00] VITALS: BP 114/65
[2020-08-07] MEDS: ATORVASTATIN CALCIUM 10 MG TABLET. PO SCH (20:27)
[2020-08-07 23:00] VITALS: BP 118/61
[2020-08-08] VITALS (13 sets, daily range): BP systolic 109–162; BP diastolic 48–90
[2020-08-08] MEDS: POTASSIUM CL 20MEQ D5-0.45NACL 1,000 ML IV SCH (05:34)
[2020-08-08] MEDS ORDERED: HEPARIN 1,000 UNIT in IV NORMAL SALINE 1,000 ML for SURG PERIOP IRR ONE (06:00)
[2020-08-08] MEDS ORDERED: BUPIVACAINE-EPI 0.5%-1:200000 MPF 30 ML VIAL. INJ ONE (07:00)
[2020-08-08] MEDS ORDERED: fentaNYL PF VIAL 100 MCG/2 ML VIAL IV PRN (07:00)
[2020-08-08] MEDS ORDERED: MORPHINE SULFATE 2 MG/ML VIAL. IV PRN (07:00)
[2020-08-08] MEDS ORDERED: LIDOCAINE 1% PF 2 ML VIAL. ID PRN (07:00)
[2020-08-08] MEDS ORDERED: HYDROmorphone 2 MG/ML VIAL IV PRN (07:00)
[2020-08-08] MEDS ORDERED: PROCHLORPERAZINE 10 MG/2 ML VIAL. IV PRN (07:00)
[2020-08-08] MEDS ORDERED: ONDANSETRON PF 4 MG/2 ML VIAL. IV PRN (07:00)
[2020-08-08] MEDS ORDERED: IV RINGERS,LACTATED 1000ML 1,000 ML IV SCH (07:00)
[2020-08-08] MEDS ORDERED: IOHEXOL 300 MG/ML 50 ML VIAL. ONE (07:09)
[2020-08-08] MEDS ORDERED: BISACODYL 10 MG SUPP.RECT. ONE (07:10)
[2020-08-08] MEDS ORDERED: SURGICEL HEMOSTAT 4X8 EACH. ONE (07:10)
[2020-08-08] MEDS: PANTOPRAZOLE 40 MG TABLET.DR. PO SCH ×2 (07:30→15:01)
[2020-08-08] MEDS: GABAPENTIN 400 MG CAPSULE. PO SCH ×3 (07:36→22:08)
[2020-08-08] MEDS: IPRATRPIUM/ALBUTEROL 0.5/2.5MG 3 ML NEBU. NEB SCH ×4 (07:55→20:38)
[2020-08-08] MEDS ORDERED: SUCCINYLCHOLINE 200 MG/10 ML VIAL. ONE (08:48)
[2020-08-08] MEDS ORDERED: PROPOFOL 10 MG/ML (20ML) VIAL. IV ONE (08:48)
[2020-08-08] MEDS ORDERED: DEXAMETHASONE SOD PHOS 4 MG/ML VIAL ONE (08:48)
[2020-08-08] MEDS ORDERED: ONDANSETRON PF 4 MG/2 ML VIAL. ONE (08:48)
[2020-08-08] MEDS ORDERED: LIDOCAINE 2% PF 5 ML VIAL. ONE ×2 (08:48→10:29)
[2020-08-08] MEDS ORDERED: ROCURONIUM 50 MG/5 ML VIAL. ONE (08:48)
[2020-08-08] MEDS ORDERED: fentaNYL PF VIAL 100 MCG/2 ML VIAL ONE ×3 (08:51→11:26)
[2020-08-08] MEDS: POTASSIUM CHLORIDE 20 MEQ TABLET.ER. PO SCH (09:00)
--- NOTE | 2020-08-08 09:23 | PDOC ---
SURGICAL PROGRESS NOTE DATE: 08/08/20 TIME: 09:21 Subjective Pre-Op Note 70 yo F with chronic abd pain and symptomatic cholelithiasis. Pt reports feeling better today, had multiple stools yesterday TO OR for laparoscopic versus open cholecystectomy with cholangiogram. R/R/B/A d/w pt and pt's supportive siblings. Risk, including, but not limited to: bleeding, infection, damage to surrounding structures, risk of anesthesia, risk of open, risk of not resolving her pain. They appear to understand, their questions are answered and they elect to proceed. Pt strongly encouraged on smoking cessation. Vital Signs Vital Signs Date Time Temp Pulse Resp B/P (MAP) Pulse Ox O2 Delivery O2 Flow Rate FiO2 08/08/20 08:46 97.7 84 15 108/71 98 Room Air 97.7 I&O Intake and Output 08/08/20 07:00 Intake Total 580 ml Output Total 250 ml Balance 330 ml Intake Oral 580 ml Output Urine Total 250 ml # Voids 2 # Bowel Movements 5 Labs Laboratory Tests Test 08/06/20 23:44 Urine Collection Type Unknown Urine Color Yellow Urine Clarity Clear Urine pH 7.0 (<5.0-8.0) Urine Specific [place] <=1.005 (1.000-1.030) Urine Protein Negative mg/dL (NEG-TRACE) Urine Glucose (UA) Negative mg/dL (NEG) Urine Ketones (Stick) Negative mg/dL (NEG) Urine Blood Negative (NEG) Urine Nitrite Negative (NEG) Urine Bilirubin Negative (NEG) Urine Urobilinogen Dipstick 0.2 mg/dL (0.2 mg/dL) Urine Leukocyte Esterase Negative (NEG) Urine RBC Occ /HPF (0-2) Urine WBC Occ /HPF (0-4) Urine Squamous Epithelial Cells Occ /LPF Urine Bacteria Few /HPF (0-FEW) Problem List Problems Medical Problems: (1) Intractable abdominal pain Status: Acute (2) UTI (urinary tract infection) Status: Acute Justicifation of Admission Dx: Justifications for Admission: Justification of Admission Dx: N/A FRANCIS YEH MD Aug 08, 2020 09:23
[2020-08-08] MEDS ORDERED: FAMOTIDINE 20 MG/2 ML VIAL ONE (10:23)
[2020-08-08] MEDS ORDERED: PHENYLEPHRINE in 0.9% NACL PF 1 MG/10 ML SYRINGE. IV ONE (10:23)
[2020-08-08] MEDS ORDERED: GLYCOPYRROLATE 1 MG/5 ML VIAL. ONE (10:30)
[2020-08-08] MEDS ORDERED: NEOSTIGMINE METHYLSULFATE 5 MG/5 ML SYRINGE. ONE (10:30)
[2020-08-08] MEDS ORDERED: SEVOFLURANE 61 TO 120 MINUTES. IH ONE (10:39)
--- NOTE | 2020-08-08 10:51 | PDOC ---
PROGRESS NOTES Date of Service: DATE: 08/08/20 TIME: 10:50 Chief Complaint Chief Complaint impression Intractable pain and nausea Symptomatic cholelithiasis Bigeminy, QTc prolongation Abdominal pain of uncertain etiology. 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 Hypertension. Tobacco abuse. Plan: Consult was placed by ED to cardiology due to EKG abnormalities and general surgery for symptomatic cholelithiasis Ultrasound shows gallbladder sludge versus tiny stones, no evidence of acute cholecystitis Clear liquid diet, advance diet as tolerated. Pain management IV Zofran Resume home medications plan admit FEN - Cardiac diet PPX - Lovenox FULL CODE Dispo - inpatient for above d/w rn History of Present Illness History of Present Illness Ms Johnson is a 70-year-old female with past medical history of cholelithiasis, who presents to the ER with complaints of worsening right upper quadrant pain. She reports pain 10/10 at worst, aggravated by eating. She reports associated nausea. She denies any vomiting. She is reportedly sche duled to have cholecystectomy on 08/08/[address] Salguero. She denies any fevers, cough, chest pain, shortness of breath. Patient was admitted with general surgery consult. Cardiology consult was placed by ER due to bigeminy noted on EKG. Afebrile today and her pain is better controlled. She is tearful however and does not feel safe at home but notes there is no domestic violence and her family treats her very well. She has requested that I not place in the medical record the reason. No shortness of breath or chest pain. Difficulty ambulating and taking care of herself. Plan: PT/OT Placement in SNF prior to planned surgery would be appropriate Vitals Vitals Vital Signs Date Time Temp Pulse Resp B/P (MAP) Pulse Ox O2 Delivery O2 Flow Rate FiO2 08/08/20 08:46 97.7 84 15 108/71 98 Room Air 97.7 Physical Exam Physical Exam Physical Exam General: Alert, Oriented X3, Cooperative, moderate distress Heart: Regular rate Lungs: Clear Abdomen: Soft, Other (TTP RUQ) Extremities: No edema, Normal pulses Skin: No rashes, No breakdown General: Alert, Oriented X3, Cooperative, mild distress Heart: Regular rate Lungs: Clear Abdomen: Normal bowel sounds Extremities: No edema, Normal pulses Skin: No rashes, No breakdown Labs LABS Date: Aug 08, 2020 Pre-Op Diagnosis: Symptomatic cholelithiasis Post-Op Diagnosis: same, calculous cholecystitis Procedure Performed: laparoscopic cholecystectomy with cholangiogram Surgeon: Juan Salguero Anesthesia Type: GETA plus local Blood Loss: 25 Specimans Obtained: gallbladder Findings: no other obvious pathology noted, adhesions to gallbladder, stones in cystic duct, normal cholangiogram Assessment and Plan Assessmemt and Plan Problems Medical Problems: (1) Intractable abdominal pain Status: Acute (2) UTI (urinary tract infection) Status: Acute Comment Review of Relevant I have reviewed the following items chery (where applicable) has been applied. Labs Laboratory Tests Test 08/06/20 23:44 Urine Collection Type Unknown Urine Color Yellow Urine Clarity Clear Urine pH 7.0 (<5.0-8.0) Urine Specific Gladys <=1.005 (1.000-1.030) Urine Protein Negative mg/dL (NEG-TRACE) Urine Glucose (UA) Negative mg/dL (NEG) Urine Ketones (Stick) Negative mg/dL (NEG) Urine Blood Negative (NEG) Urine Nitrite Negative (NEG) Urine Bilirubin Negative (NEG) Urine Urobilinogen Dipstick 0.2 mg/dL (0.2 mg/dL) Urine Leukocyte Esterase Negative (NEG) Urine RBC Occ /HPF (0-2) Urine WBC Occ /HPF (0-4) Urine Squamous Epithelial Cells Occ /LPF Urine Bacteria Few /HPF (0-FEW) Medications Current Medications Fentanyl Citrate (Fentanyl 2ml Vial) 25 mcg PRN Q15MIN PRN IV PAIN GREATER THAN 3/10 Last administered on 08/02/20at 11:29; Start 08/02/20 at 09:30; Stop 08/03/20 at 09:29; Status DC Ondansetron HCl (Zofran) 4 mg 1X ONCE IVP Last administered on 08/02/20at 09:41; Start 08/02/20 at 09:30; Stop 08/02/20 at 09:33; Status DC Ceftriaxone Sodium (Rocephin) 1 gm 1X ONCE IVP Last administered on 08/02/20at 11:33; Start 08/02/20 at 11:30; Stop 08/02/20 at 11:31; Status DC Alprazolam (Xanax) 0.5 mg PRN Q6HRS PRN PO ANXIETY / AGITATION Last administered on 08/07/20at 22:17; Start 08/02/20 at 12:00 Aspirin (Aspirin Chewable) 81 mg DAILY PO Last administered on 08/03/20at 09:00; Start 08/03/20 at 09:00; Stop 08/03/20 at 11:25; Status DC Atorvastatin Calcium (Lipitor) 10 mg HS PO Last administered on 08/07/20at 20:27; Start 08/02/20 at 21:00 Bupropion HCl (Wellbutrin Sr) 150 mg DAILY PO Last administered on 08/07/20at 07:50; Start 08/03/20 at 09:00 Clopidogrel Bisulfate (Plavix) 75 mg DAILY PO Last administered on 08/02/20at 17:04; Start 08/02/20 at 13:00; Stop 08/03/20 at 11:25; Status DC Famotidine (Pepcid) 20 mg BID PO Last administered on 08/03/20at 09:00; Start 08/02/20 at 13:00; Stop 08/03/20 at 15:14; Status DC Gabapentin (Neurontin) 400 mg TID PO Last administered on 08/07/20at 20:27; Start 08/02/20 at 14:00 Albuterol/ Ipratropium (Duoneb) 3 ml QID NEB Last administered on 08/08/20at 07:55; Start 08/02/20 at 13:00 Pantoprazole Sodium (Protonix) 40 mg DAILYAC PO Last administered on 08/07/20at 06:36; Start 08/03/20 at 07:30 Potassium Chloride (Klor-Con) 20 meq DAILY PO Last administered on 08/07/20at 07:51; Start 08/02/20 at 13:00 Venlafaxine HCl (Effexor Xr) 150 mg DAILY PO Last administered on 08/05/20at 08:17; Start 08/03/20 at 09:00; Stop 08/05/20 at 16:50; Status DC Ondansetron HCl (Zofran) 4 mg PRN Q6HRS PRN IVP NAUSEA/VOMITING Last administered on 08/07/20at 20:05; Start 08/02/20 at 12:15 Al Hydroxide/Mg Hydroxide (Mylanta Plus Xs) 30 ml PRN Q3HRS PRN PO HEARTBURN / GAS; Start 08/02/20 at 12:15 Calcium Carbonate/ Glycine (Tums) 500 mg PRN Q3HRS PRN PO UPSET STOMACH; Start 08/02/20 at 12:15 Morphine Sulfate (Morphine Sulfate) 1 mg PRN Q1HR PRN IV MODERATE PAIN; Start 08/02/20 at 12:15; Stop 08/04/20 at 14:14; Status DC Morphine Sulfate (Morphine Sulfate) 2 mg PRN Q1HR PRN IV SEVERE PAIN Last administered on 08/07/20at 22:17; Start 08/02/20 at 12:15 Acetaminophen/ Hydrocodone Bitart (Lortab 5/325) 1 tab PRN Q4HRS PRN PO MILD PAIN 1-3; Start 08/02/20 at 12:15 Acetaminophen/ Hydrocodone Bitart (Lortab 5/325) 2 tab PRN Q4HRS PRN PO MODERATE PAIN, SEVERE PAIN Last administered on 08/07/20at 06:37; Start 08/02/20 at 12:15 Oxycodone/ Acetaminophen (Percocet 5/325) 1 tab PRN Q4HRS PRN PO MILD PAIN, 2ND CHOICE Last administered on 08/03/20at 19:13; Start 08/02/20 at 12:15 Oxycodone/ Acetaminophen (Percocet 5/325) 2 tab PRN Q4HRS PRN PO MODERATE PAIN, SEVERE PAIN-2ND Last administered on 08/07/20at 18:00; Start 08/02/20 at 12:15 Acetaminophen (Tylenol) 650 mg PRN Q6HRS PRN PO Headaches, Temp > 101.5F; Start 08/02/20 at 12:15 Ibuprofen (Motrin) 400 mg PRN Q6HRS PRN PO inflammation; Start 08/02/20 at 12:15; Stop 08/05/20 at 16:50; Status DC Magnesium Hydroxide (Milk Of Magnesia) 2,400 mg PRN Q12HR PRN PO CONSTIPATION Last administered on 08/07/20at 11:49; Start 08/02/20 at 12:15 Bisacodyl (Dulcolax Supp) 10 mg PRN DAILY PRN GA CONSTIPATION Last administered on 08/07/20 11:56; Start 08/02/20 at 12:15 Heparin Sodium (Porcine) (Heparin Sodium) 5,000 unit Q12HR SQ Last administered on 08/07/20 08:11; Start 08/02/20 at 21:00; Stop 08/07/20 at 11:43; Status DC Fentanyl Citrate (Fentanyl 2ml Vial) 50 mcg PRN Q4HRS PRN IVP SEVERE PAIN 7-10, 2ND CHOICE Last administered on 08/05/20 07:35; Start 08/02/20 at 12:15 Prochlorperazine Edisylate (Compazine) 10 mg PRN Q6HRS PRN IV NAUSEA/VOMITING- 2ND CHOICE Last administered on 08/06/20 09:30; Start 08/02/20 at 16:00 Nicotine (Nicoderm Cq 14mg) 1 patch DAILY TD Last administered on 08/07/20 07:51; Start 08/02/20 at 16:00 Famotidine (Pepcid) 20 mg DAILY PO Last administered on 08/07/20 07:50; Start 08/04/20 at 09:00 Potassium Chloride/Dextrose/ Sod Cl 1,000 ml @ 80 mls/hr [id number] IV Last administered on 08/08/20 05:34; Start 08/04/20 at 14:15 Cefazolin Sodium/ Dextrose 50 ml @ 100 mls/hr 1X PREOP PRN IV PRIOR TO PROCEDURE Last administered on 08/08/20at 09:30; Start 08/08/20 at 06:00; Stop 08/08/20 at 18:00 Heparin Sodium (Porcine) 1000 unit/Sodium Chloride 1,001 ml @ 1,001 mls/hr 1X ONCE IRR Last administered on 08/08/20at 10:19; Start 08/08/20 at 06:00; Stop 08/08/20 at 06:59; Status DC Ondansetron HCl (Zofran) 4 mg PRN Q6HRS PRN IV NAUSEA/VOMITING; Start 08/08/20 at 07:00; Stop 08/09/20 at 06:59 Fentanyl Citrate (Fentanyl 2ml Vial) 25 mcg PRN Q5MIN PRN IV MILD PAIN 1-3; Start 08/08/20 at 07:00; Stop 08/09/20 at 06:59 Fentanyl Citrate (Fentanyl 2ml Vial) 50 mcg PRN Q5MIN PRN IV MODERATE TO SEVERE PAIN; Start 08/08/20 at 07:00; Stop 08/09/20 at 06:59 Morphine Sulfate (Morphine Sulfate) 1 mg PRN Q10MIN PRN IV SEVERE PAIN 7-10; Start 08/08/20 at 07:00; Stop 08/09/20 at 06:59 Ringer's Solution 1,000 ml @ 30 mls/hr Q24H IV Last administered on 08/08/20at 08:41; Start 08/08/20 at 07:00; Stop 08/08/20 at 18:59 Lidocaine HCl (Xylocaine-Mpf 1% 2ml Vial) 2 ml PRN 1X PRN ID PRIOR TO IV START; Start 08/08/20 at 07:00; Stop 08/09/20 at 06:59 Hydromorphone HCl (Dilaudid) 0.5 mg PRN Q10MIN PRN IV SEV PAIN, Second choice; Start 08/08/20 at 07:00; Stop 08/09/20 at 06:59 Prochlorperazine Edisylate (Compazine) 5 mg PACU PRN PRN IV NAUSEA, MRX1; Start 08/08/20 at 07:00; Stop 08/09/20 at 06:59 Bupivacaine HCl/ Epinephrine Bitart (Sensorcain-Epi 0.5%-1:[id number] Mpf) 30 ml 1X ONCE INJ Last administered on 08/08/20at 10:12; Start 08/08/20 at 07:00; Stop 08/08/20 at 07:01; Status DC Iohexol (Omnipaque 300 Mg/ml) 50 ml STK-MED ONCE .ROUTE Last administered on 08/08/20at 10:18; Start 08/08/20 at 07:09; Stop 08/08/20 at 07:10; Status DC Cellulose (Surgicel Hemostat 4x8) 1 each STK-MED ONCE .ROUTE ; Start 08/08/20 at 07:10; Stop 08/08/20 at 07:10; Status DC Bisacodyl (Dulcolax Supp) 10 mg STK-MED ONCE .ROUTE ; Start 08/08/20 at 07:10; Stop 08/08/20 at 07:10; Status DC Ondansetron HCl (Zofran) 4 mg STK-MED ONCE .ROUTE ; Start 08/08/20 at 08:48; Stop 08/08/20 at 08:48; Status DC Propofol (Diprivan) 200 mg STK-MED ONCE IV ; Start 08/08/20 at 08:48; Stop 08/08/20 at 08:48; Status DC Lidocaine HCl (Lidocaine Pf 2% Vial) 5 ml STK-MED ONCE .ROUTE ; Start 08/08/20 at 08:48; Stop 08/08/20 at 08:48; Status DC Dexamethasone Sodium Phosphate (Decadron) 4 mg STK-MED ONCE .ROUTE ; Start 08/08/20 at 08:48; Stop 08/08/20 at 08:48; Status DC Succinylcholine Chloride (Anectine) 200 mg STK-MED ONCE .ROUTE ; Start 08/08/20 at 08:48; Stop 08/08/20 at 08:49; Status DC Rocuronium [place] (Zemuron) 50 mg STK-MED ONCE .ROUTE ; Start 08/08/20 at 08:48; Stop 08/08/20 at 08:49; Status DC Fentanyl Citrate (Fentanyl 2ml Vial) 100 mcg STK-MED ONCE .ROUTE ; Start 08/08/20 at 08:51; Stop 08/08/20 at 08:52; Status DC Phenylephrine HCl (PHENYLEPHRINE in 0.9% NACL PF) 1 mg STK-MED ONCE IV ; Start 08/08/20 at 10:23; Stop 08/08/20 at 10:23; Status DC Famotidine (Pepcid Vial) 20 mg STK-MED ONCE .ROUTE ; Start 08/08/20 at 10:23; Stop 08/08/20 at 10:23; Status DC Lidocaine HCl (Lidocaine Pf 2% Vial) 5 ml STK-MED ONCE .ROUTE ; Start 08/08/20 at 10:29; Stop 08/08/20 at 10:29; Status DC Glycopyrrolate (Robinul) 1 mg STK-MED ONCE .ROUTE ; Start 08/08/20 at 10:30; Stop 08/08/20 at 10:30; Status DC Neostigmine [place] (Neostigmine Methylsulfate) 5 mg STK-MED ONCE .ROUTE ; Start 08/08/20 at 10:30; Stop 08/08/20 at 10:30; Status DC Sevoflurane (Ultane) 60 ml STK-MED ONCE IH ; Start 08/08/20 at 10:39; Stop 08/08/20 at 10:39; Status DC Active Scripts Active Dicyclomine Hcl 20 Mg Tablet 1 Tab PO TID 10 Days [place] 5-325 Tablet (Acetaminophen/Hydrocodone Bitart) 1 Each Tablet 1 Tab PO TID 5 Days Zofran (Ondansetron Hcl) 4 Mg Tablet 1 Tab PO Q8HRS Potassium Chloride (Potassium Chloride) 20 Meq Tablet.er 20 Meq PO DAILY 7 Days Pepcid (Famotidine) 20 Mg Tablet 20 Mg PO BID Klor-Con M20 (Potassium Chloride) 20 Meq Tab.er.prt 1 Tab PO DAILY 7 Days Zofran (Ondansetron Hcl) 4 Mg Tablet 1 Tab PO PRN Q6-8HRS Ondansetron Odt (Ondansetron) 4 Mg Tab.rapdis 1 Tab PO PRN Q6-8HRS PRN Reported Aspirin 81 Mg Tab.chew 1 Tab PO DAILY Clopidogrel (Clopidogrel Bisulfate) 75 Mg Tablet 1 Tab PO DAILY Lipitor (Atorvastatin Calcium) 10 Mg Tablet 10 Mg PO HS Alprazolam 0.5 Mg Tablet 0.5 Mg PO PRN Q6HRS PRN Pantoprazole Sodium (Pantoprazole Sodium) 40 Mg Tablet.dr 40 Mg PO DAILY Duoneb 0.5-3(2.5) Mg/3 Ml (Albuterol/Ipratropium) 3 Ml Ampul.neb 3 Ml NEB QID Oxycodone-Acetaminophen 10-325 (Oxycodone Hcl/Acetaminophen) 1 Each Tablet 1 Each PO PRN Q6HRS PRN Percocet 10-325 Mg Tablet (Oxycodone/Acetaminophen) 1 Each Tablet 1 Tab PO PRN Q6HRS PRN Wellbutrin Sr (Bupropion Hcl) 150 Mg Tablet.er 150 Mg PO DAILY Venlafaxine Hcl Er (Venlafaxine Hcl) 150 Mg Tab.er.24 150 Mg PO DAILY Effexor Xr (Venlafaxine Hcl) 150 Mg Cap.er.24h 150 Mg PO DAILY Gabapentin (Gabapentin) 100 Mg Capsule 400 Mg PO TID Xanax (Alprazolam) 0.5 Mg Tablet 0.5 Mg PO TID PRN Vitals/I & O Vital Sign - Last 24 Hours 08/07/20 08/07/20 08/07/20 08/07/20 11:09 11:30 12:00 13:36 Resp 20 20 18 Pulse Ox 98 98 97 98 O2 Delivery Room Air Room Air Room Air Room Air 08/07/20 08/07/20 08/07/20 08/07/20 14:36 15:00 18:00 19:00 Temp 97.6 97.6 Pulse 82 Resp 17 18 20 B/P (MAP) 97/44 (61) Pulse Ox 97 97 O2 Delivery Room Air Room Air Room Air Room Air 08/07/20 08/07/20 08/07/20 08/07/20 19:00 20:00 20:27 20:57 Temp 98.8 98.8 Pulse 84 Resp 18 18 18 B/P (MAP) 114/65 (81) Pulse Ox 97 97 97 O2 Delivery Room Air Room Air Room Air Room Air 08/07/20 08/07/20 08/07/20 08/08/20 22:17 22:47 23:00 03:00 Temp 98.8 97.9 98.8 97.9 Pulse 76 85 Resp 18 16 18 18 B/P (MAP) 118/61 (80) 121/48 (72) Pulse Ox 97 97 99 97 O2 Delivery Room Air Room Air Room Air Room Air 08/08/20 08/08/20 08/08/20 08/08/20 07:00 07:56 08:00 08:46 Temp 98.3 97.7 98.3 97.7 Pulse 84 84 Resp 18 15 B/P (MAP) 114/59 (77) 108/71 Pulse Ox 97 98 98 O2 Delivery Room Air Room Air Room Air Room Air Intake and Output 08/07/20 08/07/20 08/08/20 14:59 22:59 06:59 Intake Total 100 ml 480 ml Output Total 250 ml Balance 100 ml 480 ml -250 ml Nutrition Consultation Dietary Evaluation: Recommendations by RD: Dietary education by RD, Increase Calorie Intake, Protein supplementation Comments: ensure tid Expected Outcomes/Goals: 08/07 new goal:diet advancement Malnutrition Findings: Body Fat Depletion (Non Severe: Mod to Severe Weight Status: Underweight Justicifation of Admission Dx: Justifications for Admission: Justification of Admission Dx: N/A CATARINA ROSALES MD Aug 08, 2020 10:51
--- NOTE | 2020-08-08 10:54 | RAD ---
Intraoperative cholangiogram 08/08/2020 CLINICAL HISTORY: Laparoscopic cholecystectomy. Three digital spot radiographs of the right quadrant abdomen were obtained during an intraoperative c holangiogram. The total fluoroscopic time is listed as 0.27 minutes. These images demonstrate contras t opacifying the cystic duct remnant, common hepatic duct, the proximal left hepatic duct and the rig ht hepatic duct and their branches along with the common bile duct and proximal main pancreatic duct. No filling defect is seen. Free spillage of contrast into the duodenum is noted. IMPRESSION: No filling defect is seen. Electronically signed by: Brijesh Smith MD (08/08/2020 10:51 AM) [id number]
[2020-08-08] MEDS ORDERED: IV NORMAL SALINE 1000ML BAG 1,000 ML IV SCH (11:00)
[2020-08-08] MEDS ORDERED: NALOXONE 0.4 MG/ML VIAL. IV PRN (11:00)
[2020-08-08] MEDS ORDERED: DEXTROSE 50% 25 GM / 50ML DISP.SYRIN. IV PRN (11:00)
[2020-08-08] MEDS ORDERED: HYDROcodone/APAP 5/325MG 1 TAB TABLET PO PRN (11:00)
--- NOTE | 2020-08-08 11:01 | PDOC4 ---
OPERATIVE NOTE Date: Date: Aug 08, 2020 Pre-Op Diagnosis: Symptomatic cholelithiasis Post-Op Diagnosis: same, calculous cholecystitis Procedure Performed: laparoscopic cholecystectomy with cholangiogram Surgeon: Juan Yeh Anesthesia Type: GETA plus local Blood Loss: 25 Specimans Obtained: gallbladder Findings: no other obvious pathology noted, adhesions to gallbladder, stones in cystic duct, normal cholangiogram Complications: none Operative Note: After obtaining informed consent, patient was taken to OR, induced under GETA and prepped in the usual fashion. 5 mm port placed umbilical and RUQ, 12 port placed epigastric, all under laparoscopic guidance. Abdominal cavity was explored and noted as above. Gallbladder was taken off fossa using cautery in dome down fashion. Anterior and posterior cystic arteries divided between clips. Cholangiogram obtained via cystic duct and was normal. Cystic duct ligated with clips and hemolok. Gallbladder placed in bag, delivered and sent t o pathology. Copious irrigation. No evidence of bleeding or other pathology at time of closure. Ports removed without bleeding. Fascia repaired with 0 vicryl. Skin repaired with 4 0 monocryl. Dressing placed. Patient tolerated procedure well and sent to PACU in stable condition. All counts correct. Wound class is 3. FRANCIS YEH MD Aug 08, 2020 11:01
[2020-08-08] MEDS ORDERED: PROCHLORPERAZINE 10 MG/2 ML VIAL. ONE ×2 (11:15→11:28)
[2020-08-08] MEDS: fentaNYL PF VIAL 100 MCG/2 ML VIAL IV PRN ×3 (11:16→11:36)
--- NOTE | 2020-08-08 12:55 | PDOC ---
CARDIO Progress Notes Date and Time Date of Service 08/08/20 Time of Evaluation 1250 Subjective Subjective: No Chest Pain, No shortness of breath, Other (no specific conplaints ) Vitals Vitals Vital Signs Date Time Temp Pulse Resp B/P (MAP) Pulse Ox O2 Delivery O2 Flow Rate FiO2 08/08/20 11:47 97.1 82 15 138/44 98 Room Air 10.0 97.1 Nasal Cannula Weight Weight [ ] Input and Output Intake and Output Intake and Output 08/08/20 07:00 Intake Total 580 ml Output Total 250 ml Balance 330 ml Intake Oral 580 ml Output Urine Total 250 ml # Voids 2 # Bowel Movements 5 Physical Exam HEENT: Neck Supple W Full Motion Chest: Symmetric LUNGS: Clear to Auscultation Heart: RRR (SR with frequent PVC's, intermittent bigeminy ) Extremities: No Edema Neurology: alert, oriented, follow commands Assessment Assessment 1. Abdominal pain, nausea/vomiting. 2. Symptomatic cholelithiasis; s/p lap michelle this am 3. Arrhythmia; EKG noted with bigeminy, QTc prolongation at 523. Venlafaxine discontinued. Having frequent PVC's post-operatively 4. CAD s/p PCI/ESTHER to the OM 01/2017. Recent stress test without evidence of ischemia/infarct. Echo with preserved LV systolic function 5. Hypertension; controlled 6. Hyperlipidemia 7. GERD 8. Anxiety, depression Recommendations BMP, Mg level Add low-dose BB for suppression Supportive care Follow GS team recs Justicifation of Admission Dx: Justifications for Admission: Justification of Admission Dx: N/A JUAN PEREZ APRN Aug 08, 2020 12:55
[2020-08-08 13:55] LABS: CALCIUM 9.2 mg/dL (8.5-10.1); CREATININE 0.9 mg/dL (0.6-1.0); GFR 62.3; MAGNESIUM 2.1 mg/dL (1.8-2.4); POTASSIUM 4.3 mmol/L (3.5-5.1)
[2020-08-08] MEDS: FAMOTIDINE 20 MG TABLET. PO SCH (15:01)
[2020-08-08] MEDS: DOCUSATE SODIUM 100 MG CAPSULE. PO SCH ×2 (15:01→21:00)
[2020-08-08] MEDS: ALPRAZolam 0.5 MG TABLET PO PRN ×2 (15:01→22:08)
[2020-08-08] MEDS: buPROPion SR 150 MG TABLET.SA PO SCH (15:01)
[2020-08-08] MEDS: NICOTINE 14MG PATCH. TD SCH (15:02)
[2020-08-08] MEDS: fentaNYL PF VIAL 100 MCG/2 ML VIAL IVP PRN (15:10)
[2020-08-08] MEDS: IV RINGERS,LACTATED 1000ML 1,000 ML IV SCH (15:11)
--- NOTE | 2020-08-08 17:04 | NUR ---
SW following. Reviewed chart and discussed with RN. Pt from home. Met with pt. Pt tired but agreeable to HH on discharge. Pt stated no preference in provider. Patient choice of vendor form completed. Pt had lap michelle today. HH referral faxed to [facility]. [facility] following.
[2020-08-08] MEDS: oxyCODONE/APAP 5/325 1 TAB TABLET PO PRN (17:58)
[2020-08-08] MEDS: MORPHINE SULFATE 2 MG/ML VIAL. IV PRN ×3 (19:47→23:47)
[2020-08-08] MEDS: ATORVASTATIN CALCIUM 10 MG TABLET. PO SCH (22:07)
[2020-08-08] MEDS: METOPROLOL TART IMMED RELEASE 25 MG TABLET. PO SCH (22:09)
[2020-08-09] MEDS: HYDROcodone/APAP 5/325MG 1 TAB TABLET PO PRN ×2 (01:38→20:26)
[2020-08-09] MEDS: IV RINGERS,LACTATED 1000ML 1,000 ML IV SCH ×3 (01:47→17:00)
[2020-08-09 03:00] VITALS: BP 130/66
[2020-08-09] MEDS: MORPHINE SULFATE 2 MG/ML VIAL. IV PRN ×2 (04:02→18:17)
[2020-08-09] MEDS: ALPRAZolam 0.5 MG TABLET PO PRN ×2 (04:02→20:24)
[2020-08-09] MEDS: fentaNYL PF VIAL 100 MCG/2 ML VIAL IVP PRN (05:26)
[2020-08-09 07:00] VITALS: BP 123/73
[2020-08-09] MEDS: IPRATRPIUM/ALBUTEROL 0.5/2.5MG 3 ML NEBU. NEB SCH ×4 (07:55→20:42)
[2020-08-09] MEDS: FAMOTIDINE 20 MG TABLET. PO SCH (08:07)
[2020-08-09] MEDS: DOCUSATE SODIUM 100 MG CAPSULE. PO SCH ×2 (08:07→20:24)
[2020-08-09] MEDS: POTASSIUM CHLORIDE 20 MEQ TABLET.ER. PO SCH (08:07)
[2020-08-09] MEDS: buPROPion SR 150 MG TABLET.SA PO SCH (08:07)
[2020-08-09] MEDS: GABAPENTIN 400 MG CAPSULE. PO SCH ×3 (08:08→20:26)
[2020-08-09] MEDS: NICOTINE 14MG PATCH. TD SCH (08:08)
[2020-08-09] MEDS: oxyCODONE/APAP 5/325 1 TAB TABLET PO PRN ×3 (08:08→17:12)
[2020-08-09] MEDS: METOPROLOL TART IMMED RELEASE 25 MG TABLET. PO SCH ×2 (09:27→20:26)
[2020-08-09 11:00] VITALS: BP 120/64
--- NOTE | 2020-08-09 11:29 | NUR ---
[facility] silva. Reviewed chart and discussed with RN. Pt will likely discharge home tomorrow, 08/10 with . Spoke with Roselia from [facility] and they are reviewing clinicals to make sure they can staff this patient. [facility] following. Addendum: 08/09/20 at 1413 by SUGAR CASTANO [facility] has agreed to take this patient and start of care is 08/11.
--- NOTE | 2020-08-09 12:27 | PDOC ---
JUAN PEREZ STAFF EDUCATOR 08/09/20 1227: CARDIO Progress Notes Date and Time Date of Service 08/09/20 Time of Evaluation 1220 Subjective Subjective: No Chest Pain, No shortness of breath, Other (no specific conplaints, wanting to get in shower ) Vitals Vitals Vital Signs Date Time Temp Pulse Resp B/P (MAP) Pulse Ox O2 Delivery O2 Flow Rate FiO2 08/09/20 11:27 Room Air 08/09/20 09:27 80 123/73 08/09/20 07:56 93 08/09/20 07:00 97.4 18 97.4 08/08/20 17:58 10.0 Weight Weight [ ] Input and Output Intake and Output Intake and Output 08/09/20 07:00 Intake Total 1640 ml Output Total 275 ml Balance 1365 ml Intake Oral 690 ml IV Total 950 ml Output Urine Total 250 ml Estimated Blood Loss 25 ml # Voids 6 # Bowel Movements 1 Laboratory Labs Laboratory Tests Test 08/08/20 13:22 Sodium Level 139 mmol/L (136-145) Potassium Level 4.3 mmol/L (3.5-5.1) Chloride Level 103 mmol/L (98-107) Carbon Dioxide Level 29 mmol/L (21-32) Anion Gap 7 (6-14) Blood Urea Nitrogen 11 mg/dL (7-20) Creatinine 0.9 mg/dL (0.6-1.0) Estimated GFR (Cockcroft-Gault) 62.3 Glucose Level 173 mg/dL (70-99) Calcium Level 9.2 mg/dL (8.5-10.1) Magnesium Level 2.1 mg/dL (1.8-2.4) Physical Exam HEENT: Neck Supple W Full Motion Chest: Symmetric LUNGS: Clear to Auscultation Heart: RRR (SR ) Extremities: No Edema Neurology: alert, oriented, follow commands Assessment Assessment 1. Abdominal pain, nausea/vomiting. 2. Symptomatic cholelithiasis; s/p lap michelle. POd #1 3. QTc prolongation at 523. Venlafaxine discontinued. 3. Arrhythmia; EKG noted with bigeminy. Frequent PVC's post-operatively. Improved with metoprolol 4. CAD s/p PCI/ESTHER to the OM 01/2017. Recent stress test without evidence of ischemia/infarct. Echo with preserved LV systolic function 5. Hypertension; controlled 6. Hyperlipidemia 7. GERD 8. Anxiety, depression Recommendations Continue low-dose BB for suppression Supportive care Continue post-op management as per GS team Justicifation of Admission Dx: Justifications for Admission: Justification of Admission Dx: N/A PEDRITO SEBASTIAN MD 08/09/20 1845: CARDIO Progress Notes Assessment Assessment Patient seen and examined Symptomatic cholelithiasis; s/p lap michelle. POD #1. As per surgery. QTc prolongation at 523. Venlafaxine discontinued. Q TC has improved. Arrhythmia; EKG noted with wongy. Frequent PVC's post-operatively. Treated with metoprolol and significantly improved today. Improved with metoprolol CAD s/p PCI/ESTHER to the OM 01/2017. Recent stress test without evidence of ischemia/infarct. Echo with preserved LV systolic function Hypertension; controlled Hyperlipidemia JUAN PEREZ APRN Aug 09, 2020 12:27 PEDRITO SEBASTIAN MD Aug 09, 2020 18:45
--- NOTE | 2020-08-09 13:15 | PDOC ---
PROGRESS NOTES Date of Service: DATE: 08/09/20 TIME: 13:15 Chief Complaint Chief Complaint impression Intractable pain and nausea Symptomatic cholelithiasis Bigeminy, QTc prolongation Abdominal pain of uncertain etiology. 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 Hypertension. Tobacco abuse. Arrhythmia; EKG noted with bigeminy, QTc prolongation at 523. Venlafaxine discontinued. frequent PVC's post-operatively Plan: Consult was placed by ED to cardiology due to EKG abnormalities and general surgery for symptomatic cholelithiasis Ultrasound shows gallbladder sludge versus tiny stones, no evidence of acute cholecystitis Clear liquid diet, advance diet as tolerated. Pain management IV Zofran Resume home medications plan admit FEN - Cardiac diet PPX - Lovenox FULL CODE Dispo - inpatient for above d/w rn History of Present Illness History of Present Illness Ms Johnson is a 70-year-old female with past medical history of cholelithiasis, who presents to the ER with complaints of worsening right upper quadrant pain. She reports pain 10/10 at worst, aggravated by eating. She reports associated nausea. She denies any vomiting. She is reportedly schedule d to have cholecystectomy on 08/08/[address] Salguero. She denies any fevers, cough, chest pain, shortness of breath. Patient was admitted with general surgery consult. Cardiology consult was placed by ER due to bigeminy noted on EKG. Afebrile today and her pain is better controlled. She is tearful however and does not feel safe at home but notes there is no domestic violence and her family treats her very well. She has requested that I not place in the medical record the reason. No shortness of breath or chest pain. Difficulty ambulating and taking care of herself. Plan: PT/OT Placement in SNF prior to planned surgery would be appropriate Date: Aug 08, 2020 Pre-Op Diagnosis: Symptomatic cholelithiasis Post-Op Diagnosis: same, calculous cholecystitis Procedure Performed: laparoscopic cholecystectomy with cholangiogram Surgeon: Juan Salguero Anesthesia Type: GETA plus local Blood Loss: 25 Specimans Obtained: gallbladder Findings: no other obvious pathology noted, adhesions to gallbladder, stones in cystic duct, normal cholangiogram Vitals Vitals Vital Signs Date Time Temp Pulse Resp B/P (MAP) Pulse Ox O2 Delivery O2 Flow Rate FiO2 08/09/20 12:45 Room Air 08/09/20 11:00 98.3 63 18 120/64 (82) 98 98.3 08/08/20 17:58 10.0 Physical Exam Physical Exam Physical Exam General: Alert, Oriented X3, Cooperative, moderate distress Heart: Regular rate Lungs: Clear Abdomen: Soft, Other (TTP RUQ) Extremities: No edema, Normal pulses Skin: No rashes, No breakdown General: Alert, Oriented X3, Cooperative, No acute distress Heart: Regular rate Lungs: Clear Abdomen: Normal bowel sounds, No tenderness Extremities: No edema, Normal pulses Skin: No rashes, No breakdown Labs LABS Laboratory Tests Test 08/08/20 13:22 Sodium Level 139 mmol/L (136-145) Potassium Level 4.3 mmol/L (3.5-5.1) Chloride Level 103 mmol/L (98-107) Carbon Dioxide Level 29 mmol/L (21-32) Anion Gap 7 (6-14) Blood Urea Nitrogen 11 mg/dL (7-20) Creatinine 0.9 mg/dL (0.6-1.0) Estimated GFR (Cockcroft-Gault) 62.3 Glucose Level 173 mg/dL (70-99) Calcium Level 9.2 mg/dL (8.5-10.1) Magnesium Level 2.1 mg/dL (1.8-2.4) Assessment and Plan Assessmemt and Plan Problems Medical Problems: (1) Intractable abdominal pain Status: Acute (2) UTI (urinary tract infection) Status: Acute Comment Review of Relevant I have reviewed the following items chery (where applicable) has been applied. Labs Laboratory Tests Test 08/08/20 13:22 Sodium Level 139 mmol/L (136-145) Potassium Level 4.3 mmol/L (3.5-5.1) Chloride Level 103 mmol/L (98-107) Carbon Dioxide Level 29 mmol/L (21-32) Anion Gap 7 (6-14) Blood Urea Nitrogen 11 mg/dL (7-20) Creatinine 0.9 mg/dL (0.6-1.0) Estimated GFR (Cockcroft-Gault) 62.3 Glucose Level 173 mg/dL (70-99) Calcium Level 9.2 mg/dL (8.5-10.1) Magnesium Level 2.1 mg/dL (1.8-2.4) Laboratory Tests Test 08/08/20 13:22 Sodium Level 139 mmol/L (136-145) Potassium Level 4.3 mmol/L (3.5-5.1) Chloride Level 103 mmol/L (98-107) Carbon Dioxide Level 29 mmol/L (21-32) Anion Gap 7 (6-14) Blood Urea Nitrogen 11 mg/dL (7-20) Creatinine 0.9 mg/dL (0.6-1.0) Estimated GFR (Cockcroft-Gault) 62.3 Glucose Level 173 mg/dL (70-99) Calcium Level 9.2 mg/dL (8.5-10.1) Magnesium Level 2.1 mg/dL (1.8-2.4) Medications Current Medications Fentanyl Citrate (Fentanyl 2ml Vial) 25 mcg PRN Q15MIN PRN IV PAIN GREATER THAN 3/10 Last administered on 08/02/20at 11:29; Start 08/02/20 at 09:30; Stop 08/03/20 at 09:29; Status DC Ondansetron HCl (Zofran) 4 mg 1X ONCE IVP Last administered on 08/02/20at 09:41; Start 08/02/20 at 09:30; Stop 08/02/20 at 09:33; Status DC Ceftriaxone Sodium (Rocephin) 1 gm 1X ONCE IVP Last administered on 08/02/20at 11:33; Start 08/02/20 at 11:30; Stop 08/02/20 at 11:31; Status DC Alprazolam (Xanax) 0.5 mg PRN Q6HRS PRN PO ANXIETY / AGITATION Last administered on 08/09/20at 04:02; Start 08/02/20 at 12:00 Aspirin (Aspirin Chewable) 81 mg DAILY PO Last administered on 08/03/20at 09:00; Start 08/03/20 at 09:00; Stop 08/03/20 at 11:25; Status DC Atorvastatin Calcium (Lipitor) 10 mg HS PO Last administered on 08/08/20at 22:07; Start 08/02/20 at 21:00 Bupropion HCl (Wellbutrin Sr) 150 mg DAILY PO Last administered on 08/09/20at 08:07; Start 08/03/20 at 09:00 Clopidogrel Bisulfate (Plavix) 75 mg DAILY PO Last administered on 08/02/20at 17:04; Start 08/02/20 at 13:00; Stop 08/03/20 at 11:25; Status DC Famotidine (Pepcid) 20 mg BID PO Last administered on 08/03/20at 09:00; Start 08/02/20 at 13:00; Stop 08/03/20 at 15:14; Status DC Gabapentin (Neurontin) 400 mg TID PO Last administered on 08/09/20at 08:08; Start 08/02/20 at 14:00 Albuterol/ Ipratropium (Duoneb) 3 ml QID NEB Last administered on 08/09/20at 11:27; Start 08/02/20 at 13:00 Pantoprazole Sodium (Protonix) 40 mg DAILYAC PO Last administered on 08/08/20at 15:01; Start 08/03/20 at 07:30 Potassium Chloride (Klor-Con) 20 meq DAILY PO Last administered on 08/09/20at 08:07; Start 08/02/20 at 13:00 Venlafaxine HCl (Effexor Xr) 150 mg DAILY PO Last administered on 08/05/20at 08:17; Start 08/03/20 at 09:00; Stop 08/05/20 at 16:50; Status DC Ondansetron HCl (Zofran) 4 mg PRN Q6HRS PRN IVP NAUSEA/VOMITING Last admini stered on 08/07/20at 20:05; Start 08/02/20 at 12:15 Al Hydroxide/Mg Hydroxide (Mylanta Plus Xs) 30 ml PRN Q3HRS PRN PO HEARTBURN / GAS; Start 08/02/20 at 12:15 Calcium Carbonate/ Glycine (Tums) 500 mg PRN Q3HRS PRN PO UPSET STOMACH; Start 08/02/20 at 12:15 Morphine Sulfate (Morphine Sulfate) 1 mg PRN Q1HR PRN IV MODERATE PAIN; Start 08/02/20 at 12:15; Stop 08/04/20 at 14:14; Status DC Morphine Sulfate (Morphine Sulfate) 2 mg PRN Q1HR PRN IV SEVERE PAIN Last administered on 08/09/20at 04:02; Start 08/02/20 at 12:15 Acetaminophen/ Hydrocodone Bitart (Lortab 5/325) 1 tab PRN Q4HRS PRN PO MILD PAIN 1-3; Start 08/02/20 at 12:15 Acetaminophen/ Hydrocodone Bitart (Lortab 5/325) 2 tab PRN Q4HRS PRN PO MODERATE PAIN, SEVERE PAIN Last administered on 08/09/20at 01:38; Start 08/02/20 at 12:15 Oxycodone/ Acetaminophen (Percocet 5/325) 1 tab PRN Q4HRS PRN PO MILD PAIN, 2ND CHOICE Last administered on 08/03/20at 19:13; Start 08/02/20 at 12:15 Oxycodone/ Acetaminophen (Percocet 5/325) 2 tab PRN Q4HRS PRN PO MODERATE PAIN, SEVERE PAIN-2ND Last administered on 08/09/20at 12:45; Start 08/02/20 at 12:15 Acetaminophen (Tylenol) 650 mg PRN Q6HRS PRN PO Headaches, Temp > 101.5F; Start 08/02/20 at 12:15 Ibuprofen (Motrin) 400 mg PRN Q6HRS PRN PO inflammation; Start 08/02/20 at 12:15; Stop 08/05/20 at 16:50; Status DC Magnesium Hydroxide (Milk Of Magnesia) 2,400 mg PRN Q12HR PRN PO CONSTIPATION Last administered on 08/07/20at 11:49; Start 08/02/20 at 12:15 Bisacodyl (Dulcolax Supp) 10 mg PRN DAILY PRN [place] CONSTIPATION Last administered on 08/07/20at 11:56; Start 08/02/20 at 12:15 Heparin Sodium (Porcine) (Heparin Sodium) 5,000 unit Q12HR SQ Last administered on 08/07/20at 08:11; Start 08/02/20 at 21:00; Stop 08/07/20 at 11:43; Status DC Fentanyl Citrate (Fentanyl 2ml Vial) 50 mcg PRN Q4HRS PRN IVP SEVERE PAIN 7-10, 2ND CHOICE Last administered on 08/09/20at 05:26; Start 08/02/20 at 12:15 Prochlorperazine Edisylate (Compazine) 10 mg PRN Q6HRS PRN IV NAUSEA/VOMITING- 2ND CHOICE Last administered on 08/06/20at 09:30; Start 08/02/20 at 16:00 Nicotine (Nicoderm Cq 14mg) 1 patch DAILY TD Last administered on 08/09/20at 08:08; Start 08/02/20 at 16:00 Famotidine (Pepcid) 20 mg DAILY PO Last administered on 08/09/20at 08:07; Start 08/04/20 at 09:00 Potassium Chloride/Dextrose/ Sod Cl 1,000 ml @ 80 mls/hr [id number] IV Last administered on 08/08/20at 05:34; Start 08/04/20 at 14:15; Stop 08/08/20 at 1 2:36; Status DC Cefazolin Sodium/ Dextrose 50 ml @ 100 mls/hr 1X PREOP PRN IV PRIOR TO PROCEDURE Last administered on 08/08/20at 09:30; Start 08/08/20 at 06:00; Stop 08/08/20 at 18:00; Status DC Heparin Sodium (Porcine) 1000 unit/Sodium Chloride 1,001 ml @ 1,001 mls/hr 1X ONCE IRR Last administered on 08/08/20at 10:19; Start 08/08/20 at 06:00; Stop 08/08/20 at 06:59; Status DC Ondansetron HCl (Zofran) 4 mg PRN Q6HRS PRN IV NAUSEA/VOMITING; Start 08/08/20 at 07:00; Stop 08/09/20 at 06:59; Status DC Fentanyl Citrate (Fentanyl 2ml Vial) 25 mcg PRN Q5MIN PRN IV MILD PAIN 1-3; Start 08/08/20 at 07:00; Stop 08/08/20 at 18:30; Status DC Fentanyl Citrate (Fentanyl 2ml Vial) 50 mcg PRN Q5MIN PRN IV MODERATE TO SEVERE PAIN Last administered on 08/08/20at 11:36; Start 08/08/20 at 07:00; Stop 08/08/20 at 18:30; Status DC Morphine Sulfate (Morphine Sulfate) 1 mg PRN Q10MIN PRN IV SEVERE PAIN 7-10; Start 08/08/20 at 07:00; Stop 08/09/20 at 06:59; Status DC Ringer's Solution 1,000 ml @ 30 mls/hr Q24H IV Last administered on 08/08/20at 08:41; Start 08/08/20 at 07:00; Stop 08/08/20 at 18:59; Status DC Lidocaine HCl (Xylocaine-Mpf 1% 2ml Vial) 2 ml PRN 1X PRN ID PRIOR TO IV START; Start 08/08/20 at 07:00; Stop 08/09/20 at 06:59; Status DC Hydromorphone HCl (Dilaudid) 0.5 mg PRN Q10MIN PRN IV SEV PAIN, Second choice; Start 08/08/20 at 07:00; Stop 08/08/20 at 18:30; Status DC Prochlorperazine Edisylate (Compazine) 5 mg PACU PRN PRN IV NAUSEA, MRX1 Last administered on 08/08/20at 11:17; Start 08/08/20 at 07:00; Stop 08/09/20 at 06:59; Status DC Bupivacaine HCl/ Epinephrine Bitart (Sensorcain-Epi 0.5%-1:004472 Mpf) 30 ml 1X ONCE INJ Last administered on 08/08/20at 10:12; Start 08/08/20 at 07:00; Stop 08/08/20 at 07:01; Status DC Iohexol (Omnipaque 300 Mg/ml) 50 ml STK-MED ONCE .ROUTE Last administered on 08/08/20at 10:18; Start 08/08/20 at 07:09; Stop 08/08/20 at 07:10; Status DC Cellulose (Surgicel Hemostat 4x8) 1 each STK-MED ONCE .ROUTE ; Start 08/08/20 at 07:10; Stop 08/08/20 at 07:10; Status DC Bisacodyl (Dulcolax Supp) 10 mg STK-MED ONCE .ROUTE ; Start 08/08/20 at 07:10; Stop 08/08/20 at 07:10; Status DC Ondansetron HCl (Zofran) 4 mg STK-MED ONCE .ROUTE ; Start 08/08/20 at 08:48; Stop 08/08/20 at 08:48; Status DC Propofol (Diprivan) 200 mg STK-MED ONCE IV ; Start 08/08/20 at 08:48; Stop 08/08/20 at 08:48; Status DC Lidocaine HCl (Lidocaine Pf 2% Vial) 5 ml STK-MED ONCE .ROUTE ; Start 08/08/20 at 08:48; Stop 08/08/20 at 08:48; Status DC Dexamethasone Sodium Phosphate (Decadron) 4 mg STK-MED ONCE .ROUTE ; Start 08/08/20 at 08:48; Stop 08/08/20 at 08:48; Status DC Succinylcholine Chloride (Anectine) 200 mg STK-MED ONCE .ROUTE ; Start 08/08/20 at 08:48; Stop 08/08/20 at 08:49; Status DC Rocuronium Lynn (Zemuron) 50 mg STK-MED ONCE .ROUTE ; Start 08/08/20 at 08:48; Stop 08/08/20 at 08:49; Status DC Fentanyl Citrate (Fentanyl 2ml Vial) 100 mcg STK-MED ONCE .ROUTE ; Start 08/08/20 at 08:51; Stop 08/08/20 at 08:52; Status DC Phenylephrine HCl (PHENYLEPHRINE in 0.9% NACL PF) 1 mg STK-MED ONCE IV ; Start 08/08/20 at 10:23; Stop 08/08/20 at 10:23; Status DC Famotidine (Pepcid Vial) 20 mg STK-MED ONCE .ROUTE ; Start 08/08/20 at 10:23; Stop 08/08/20 at 10:23; Status DC Lidocaine HCl (Lidocaine Pf 2% Vial) 5 ml STK-MED ONCE .ROUTE ; Start 08/08/20 at 10:29; Stop 08/08/20 at 10:29; Status DC Glycopyrrolate (Robinul) 1 mg STK-MED ONCE .ROUTE ; Start 08/08/20 at 10:30; Stop 08/08/20 at 10:30; Status DC Neostigmine Lynn (Neostigmine Methylsulfate) 5 mg STK-MED ONCE .ROUTE ; Start 08/08/20 at 10:30; Stop 08/08/20 at 10:30; Status DC Sevoflurane (Ultane) 60 ml STK-MED ONCE IH ; Start 08/08/20 at 10:39; Stop 08/08/20 at 10:39; Status DC Fentanyl Citrate (Fentanyl 2ml Vial) 100 mcg STK-MED ONCE .ROUTE ; Start 08/08/20 at 10:51; Stop 08/08/20 at 10:52; Status DC Ringer's Solution 1,000 ml @ 100 mls/hr Q10H IV Last administered on 08/09/20at 01:47; Start 08/08/20 at 11:00 Dextrose (Dextrose 50%-Water Syringe) 12.5 gm PRN Q15MIN PRN IV SEE COMMENTS; Start 08/08/20 at 11:00 Acetaminophen/ Hydrocodone Bitart (Lortab 5/325) 1 tab PRN Q4HRS PRN PO MILD PAIN 1-3; Start 08/08/20 at 11:00; Stop 08/08/20 at 12:34; Status DC Naloxone HCl (Narcan) 0.4 mg PRN Q2MIN PRN IV SEE INSTRUCTIONS; Start 08/08/20 at 11:00 Sodium Chloride 1,000 ml @ 25 mls/hr Q24H IV ; Start 08/08/20 at 11:00; Stop 08/08/20 at 18:30; Status DC Docusate Sodium (Colace) 100 mg BID PO Last administered on 08/09/20at 08:07; Start 08/08/20 at 12:00 Prochlorperazine Edisylate (Compazine) 10 mg STK-MED ONCE .ROUTE ; Start 08/08/20 at 11:15; Stop 08/08/20 at 11:15; Status DC Fentanyl Citrate (Fentanyl 2ml Vial) 100 mcg STK-MED ONCE .ROUTE ; Start 08/08/20 at 11:26; Stop 08/08/20 at 11:27; Status DC Prochlorperazine Edisylate (Compazine) 10 mg STK-MED ONCE .ROUTE ; Start 08/08/20 at 11:28; Stop 08/08/20 at 11:28; Status DC Metoprolol Tartrate (Lopressor) 12.5 mg BID PO Last administered on 08/09/20at 09:27; Start 08/08/20 at 21:00 Active Scripts Active Dicyclomine Hcl 20 Mg Tablet 1 Tab PO TID 10 Days [place] 5-325 Tablet (Acetaminophen/Hydrocodone Bitart) 1 Each Tablet 1 Tab PO TID 5 Days Zofran (Ondansetron Hcl) 4 Mg Tablet 1 Tab PO Q8HRS Potassium Chloride (Potassium Chloride) 20 Meq Tablet.er 20 Meq PO DAILY 7 Days Pepcid (Famotidine) 20 Mg Tablet 20 Mg PO BID Klor-Con M20 (Potassium Chloride) 20 Meq Tab.er.prt 1 Tab PO DAILY 7 Days Zofran (Ondansetron Hcl) 4 Mg Tablet 1 Tab PO PRN Q6-8HRS Ondansetron Odt (Ondansetron) 4 Mg Tab.rapdis 1 Tab PO PRN Q6-8HRS PRN Reported Aspirin 81 Mg Tab.chew 1 Tab PO DAILY Clopidogrel (Clopidogrel Bisulfate) 75 Mg Tablet 1 Tab PO DAILY Lipitor (Atorvastatin Calcium) 10 Mg Tablet 10 Mg PO HS Alprazolam 0.5 Mg Tablet 0.5 Mg PO PRN Q6HRS PRN Pantoprazole Sodium (Pantoprazole Sodium) 40 Mg Tablet.dr 40 Mg PO DAILY Duoneb 0.5-3(2.5) Mg/3 Ml (Albuterol/Ipratropium) 3 Ml Ampul.neb 3 Ml NEB QID Oxycodone-Acetaminophen 10-325 (Oxycodone Hcl/Acetaminophen) 1 Each Tablet 1 Each PO PRN Q6HRS PRN Percocet 10-325 Mg Tablet (Oxycodone/Acetaminophen) 1 Each Tablet 1 Tab PO PRN Q6HRS PRN Wellbutrin Sr (Bupropion Hcl) 150 Mg Tablet.er 150 Mg PO DAILY Venlafaxine Hcl Er (Venlafaxine Hcl) 150 Mg Tab.er.24 150 Mg PO DAILY Effexor Xr (Venlafaxine Hcl) 150 Mg Cap.er.24h 150 Mg PO DAILY Gabapentin (Gabapentin) 100 Mg Capsule 400 Mg PO TID Xanax (Alprazolam) 0.5 Mg Tablet 0.5 Mg PO TID PRN Vitals/I & O Vital Sign - Last 24 Hours 08/08/20 08/08/20 08/08/20 08/08/20 13:45 14:45 15:00 15:10 Temp 98.5 98.5 Pulse 45 47 49 Resp 18 20 B/P (MAP) 131/55 (80) 129/62 (84) 129/62 (84) Pulse Ox 95 98 O2 Delivery Room Air O2 Flow Rate 10.0 08/08/20 08/08/20 08/08/20 08/08/20 15:40 15:45 17:58 18:58 Pulse 49 Resp 20 18 18 B/P (MAP) 133/67 (89) Pulse Ox 98 98 93 O2 Delivery Room Air Room Air Room Air O2 Flow Rate 10.0 08/08/20 08/08/20 08/08/20 08/08/20 19:00 19:47 20:00 20:17 Temp 98.0 98.0 Pulse 98 Resp 18 18 16 B/P (MAP) 126/72 (90) Pulse Ox 98 98 93 O2 Delivery Room Air Room Air Room Air Room Air 08/08/20 08/08/20 08/08/20 08/08/20 20:39 22:09 22:09 22:39 Pulse 98 Resp 20 16 B/P (MAP) 126/72 Pulse Ox 97 97 93 O2 Delivery Room Air Room Air Room Air 08/08/20 08/08/20 08/09/20 08/09/20 23:00 23:47 00:17 01:38 Temp 98.0 98.0 Pulse 62 Resp 18 20 18 18 B/P (MAP) 109/62 (78) Pulse Ox 93 93 93 93 O2 Delivery Room Air Room Air Room Air Room Air 08/09/20 08/09/20 08/09/20 08/09/20 02:38 03:00 04:02 04:32 Temp 98.0 98.0 Pulse 66 Resp 16 18 20 16 B/P (MAP) 130/66 (87) Pulse Ox 93 97 93 93 O2 Delivery Room Air Room Air Room Air Room Air 08/09/20 08/09/20 08/09/20 08/09/20 05:26 05:56 07:00 07:45 Temp 97.4 97.4 Pulse 80 Resp 18 18 18 B/P (MAP) 123/73 (90) Pulse Ox 93 93 98 O2 Delivery Room Air Room Air Room Air Room Air 08/09/20 08/09/20 08/09/20 08/09/20 07:56 08:08 09:27 09:27 Pulse 80 B/P (MAP) 123/73 Pulse Ox 93 O2 Delivery Room Air Room Air Room Air 08/09/20 08/09/20 08/09/20 11:00 11:27 12:45 Temp 98.3 98.3 Pulse 63 Resp 18 B/P (MAP) 120/64 (82) Pulse Ox 98 O2 Delivery Room Air Room Air Room Air Intake and Output 08/08/20 08/08/20 08/09/20 15:00 23:00 07:00 Intake Total 950 ml 250 ml 440 ml Output Total 275 ml Balance 675 ml 250 ml 440 ml Nutrition Consultation Dietary Evaluation: Recommendations by RD: Dietary education by RD, Increase Calorie Intake, Protein supplementation Comments: ensure tid Expected Outcomes/Goals: 08/07 new goal:diet advancement Malnutrition Findings: Body Fat Depletion (Non Severe: Mod to Severe Weight Status: Underweight Justicifation of Admission Dx: Justifications for Admission: Justification of Admission Dx: N/A CATARINA ROSALES MD Aug 09, 2020 13:15
[2020-08-09 15:00] VITALS: BP 125/53
[2020-08-09 19:00] VITALS: BP 117/67
--- NOTE | 2020-08-09 20:21 | PDOC ---
SURGICAL PROGRESS NOTE DATE: 08/09/20 TIME: 20:19 Subjective Pt with c/o some soreness, jose clears Vital Signs Vital Signs Date Time Temp Pulse Resp B/P (MAP) Pulse Ox O2 Delivery O2 Flow Rate FiO2 08/09/20 19:23 Room Air 08/09/20 15:00 98.3 82 18 125/53 (77) 98 98.3 08/08/20 17:58 10.0 I&O Intake and Output 08/09/20 07:00 Intake Total 1640 ml Output Total 275 ml Balance 1365 ml Intake Oral 690 ml IV Total 950 ml Output Urine Total 250 ml Estimated Blood Loss 25 ml # Voids 6 # Bowel Movements 1 General: Alert, Oriented X3, Cooperative, mild distress Abdomen: Soft, Other (mild TTP) Labs Laboratory Tests Test 08/08/20 13:22 Sodium Level 139 mmol/L (136-145) Potassium Level 4.3 mmol/L (3.5-5.1) Chloride Level 103 mmol/L (98-107) Carbon Dioxide Level 29 mmol/L (21-32) Anion Gap 7 (6-14) Blood Urea Nitrogen 11 mg/dL (7-20) Creatinine 0.9 mg/dL (0.6-1.0) Estimated GFR (Cockcroft-Gault) 62.3 Glucose Level 173 mg/dL (70-99) Calcium Level 9.2 mg/dL (8.5-10.1) Magnesium Level 2.1 mg/dL (1.8-2.4) Problem List Problems Medical Problems: (1) Intractable abdominal pain Status: Acute (2) UTI (urinary tract infection) Status: Acute Assessment/Plan s/p lap michelle cont pain control ADAT Justicifation of Admission Dx: Justifications for Admission: Justification of Admission Dx: N/A FRANCIS YEH MD Aug 09, 2020 20:21
[2020-08-09] MEDS: ATORVASTATIN CALCIUM 10 MG TABLET. PO SCH (20:26)
[2020-08-09 23:00] VITALS: BP 116/90
[2020-08-10] VITALS (7 sets, daily range): BP systolic 109–139; BP diastolic 58–72
[2020-08-10] MEDS: HYDROcodone/APAP 5/325MG 1 TAB TABLET PO PRN ×2 (01:25→06:20)
[2020-08-10] MEDS: ONDANSETRON PF 4 MG/2 ML VIAL. IVP PRN ×2 (01:52→10:03)
[2020-08-10] MEDS: IV RINGERS,LACTATED 1000ML 1,000 ML IV SCH ×2 (03:00→13:07)
--- NOTE | 2020-08-10 05:48 | EKG ---
[facility] [address] [place] [address] Test Date: 2020-08-10 Test Time: 05:36:40 Pat Name: TOÑA GUZMÁN Department: Room: 528 1 Gender: F Business Consult: EKRT : 1950 Requested By: JUAN PEREZ Order Number: [id number] Reading MD: Measurements Intervals [place] Rate: 80 P: 70 SD: 142 QRS: 76 QRSD: 84 T: 102 QT: 434 QTc: 505 Interpretive Statements SINUS RHYTHM VENTRICULAR PREMATURE COMPLEX(ES), BIGEMINY T ABNORMALITY IN ANTERIOR LEADS HIGH LATERAL LEADS PROLONGED QT ABNORMAL ECG RI6.02 Compared to ECG 08/04/2020 11:38:09 T-wave abnormality now present Prolonged QT interval now present
[2020-08-10] MEDS: ALPRAZolam 0.5 MG TABLET PO PRN ×2 (07:49→21:45)
[2020-08-10] MEDS: buPROPion SR 150 MG TABLET.SA PO SCH (07:49)
[2020-08-10] MEDS: PANTOPRAZOLE 40 MG TABLET.DR. PO SCH (07:49)
[2020-08-10] MEDS: GABAPENTIN 400 MG CAPSULE. PO SCH ×3 (07:49→21:45)
[2020-08-10] MEDS: DOCUSATE SODIUM 100 MG CAPSULE. PO SCH ×2 (07:49→21:44)
[2020-08-10] MEDS: POTASSIUM CHLORIDE 20 MEQ TABLET.ER. PO SCH (07:49)
[2020-08-10] MEDS: FAMOTIDINE 20 MG TABLET. PO SCH (07:49)
[2020-08-10] MEDS: METOPROLOL TART IMMED RELEASE 25 MG TABLET. PO SCH ×2 (07:49→21:45)
[2020-08-10] MEDS: NICOTINE 14MG PATCH. TD SCH (07:50)
[2020-08-10] MEDS: IPRATRPIUM/ALBUTEROL 0.5/2.5MG 3 ML NEBU. NEB SCH ×4 (08:58→20:33)
[2020-08-10] MEDS: MORPHINE SULFATE 2 MG/ML VIAL. IV PRN (09:05)
--- NOTE | 2020-08-10 09:30 | NUR ---
Patient was found on the floor on her knees at 0852. Vital signs within normal range, 139/67 HR 92 RR 20 O2 95% on room air. Dr. Shukla and Iveth Rogers, GIDEON notified. No new orders received.
--- NOTE | 2020-08-10 09:44 | PDOC ---
SURGICAL PROGRESS NOTE DATE: 08/10/20 TIME: 09:42 Subjective fall this AM--while transiting from commode to bed--hit her epigastric incision with cane Vital Signs Vital Signs Date Time Temp Pulse Resp B/P (MAP) Pulse Ox O2 Delivery O2 Flow Rate FiO2 08/10/20 09:05 Room Air 08/10/20 07:49 81 132/72 08/10/20 07:00 97.6 18 98 97.6 I&O Intake and Output 08/10/20 07:00 Intake Total 600 ml Balance 600 ml Intake Oral 600 ml # Voids 3 General: Cooperative, Other (tearful) Abdomen: Soft, Other (lap dressings dry) Labs Laboratory Tests Test 08/08/20 13:22 Sodium Level 139 mmol/L (136-145) Potassium Level 4.3 mmol/L (3.5-5.1) Chloride Level 103 mmol/L (98-107) Carbon Dioxide Level 29 mmol/L (21-32) Anion Gap 7 (6-14) Blood Urea Nitrogen 11 mg/dL (7-20) Creatinine 0.9 mg/dL (0.6-1.0) Estimated GFR (Cockcroft-Gault) 62.3 Glucose Level 173 mg/dL (70-99) Calcium Level 9.2 mg/dL (8.5-10.1) Magnesium Level 2.1 mg/dL (1.8-2.4) Problem List Problems Medical Problems: (1) Intractable abdominal pain Status: Acute (2) UTI (urinary tract infection) Status: Acute Assessment/Plan s/p michelle observation after fall pain management Justicifation of Admission Dx: Justifications for Admission: Justification of Admission Dx: N/A TORIBIO MORRIS APRN Aug 10, 2020 09:44
--- NOTE | 2020-08-10 11:02 | PDOC ---
[facility] PROGRESS NOTE Date of Service DOS: DATE: 08/10/20 TIME: 10:48 Chief Complaint Chief Complaint Intractable pain and nausea Symptomatic cholelithiasis Bigeminy, QTc prolongation Abdominal pain of uncertain etiology. 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 Hypertension. Tobacco abuse. Arrhythmia; EKG noted with bigeminy, QTc prolongation at 523. Venlafaxine discontinued. frequent PVC's post-operatively History of Present Illness History of Present Illness Ms Johnson is a 70-year-old female with past medical history of cholelithiasis, who presents to the ER with complaints of worsening right upper quadrant pain. She reports pain 10/10 at worst, aggravated by eating. She reports associated nausea. She denies any vomiting. She is reportedly scheduled to have cholecystectomy on 08/08/[address] Salguero. She denies any fevers, cough, chest pain, shortness of breath. Patient was admitted with general surgery consult. Cardiology consult was placed by ER due to bigeminy noted on EKG. Afebrile today and her pain is better controlled. She is tearful however and does not feel safe at home but notes there is no domestic violence and her family treats her very well. She has requested that I not place in the medical record the reason. No shortness of breath or chest pain. Difficulty ambulating and taking care of herself. 08/10 Patient seen and examined Discussed with RN Chart reviewed Patient is in pain after a fall where a cane hit the incision site. Date: Aug 08, 2020 Pre-Op Diagnosis: Symptomatic cholelithiasis Post-Op Diagnosis: same, calculous cholecystitis Procedure Performed: laparoscopic cholecystectomy with cholangiogram Surgeon: Juan Salguero Anesthesia Type: GETA plus local Blood Loss: 25 Specimans Obtained: gallbladder Findings: no other obvious pathology noted, adhesions to gallbladder, stones in cystic duct, normal cholangiogram Vitals/I&O Vitals/I&O: Vital Signs Date Time Temp Pulse Resp B/P (MAP) Pulse Ox O2 Delivery O2 Flow Rate FiO2 08/10/20 09:45 Room Air 08/10/20 07:49 81 132/72 08/10/20 07:00 97.6 18 98 97.6 I & O 08/09/20 08/09/20 08/10/20 15:00 23:00 07:00 Intake Total 400 ml 200 ml 0 ml Balance 400 ml 200 ml 0 ml Physical Exam Physical Exam: Physical Exam General: Alert, Oriented X3, Cooperative, moderate distress Heart: Regular rate Lungs: Clear Abdomen: Soft, Other (TTP RUQ) Extremities: No edema, Normal pulses Skin: No rashes, No breakdown General: Cooperative, No acute distress, Other (tearful) Heart: Normal S1, Normal S2 Lungs: Clear Abdomen: Normal bowel sounds, Soft, Other (lap dressings dry) Extremities: No edema, Normal pulses Skin: No rashes, No breakdown Review of Systems Review of Systems: Denies headache or changes in vision. Denies urgency with urination, denies painful urination. Denies rashes or itching. Assessment and Plan Assessmemt and Plan Problems Medical Problems: (1) Intractable abdominal pain Status: Acute (2) UTI (urinary tract infection) Status: Acute Assessment: Intractable pain and nausea Symptomatic cholelithiasis Bigeminy, QTc prolongation Abdominal pain of uncertain etiology. 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 Hypertension. Tobacco abuse. Arrhythmia; EKG noted with bigeminy, QTc prolongation at 523. Venlafaxine discontinued. frequent PVC's post-operatively Plan: Wound care Prn pain meds Full code Home meds DVT prophylaxis PT/OT Discharge disposition pending Comment Review of Relevant I have reviewed the following items chery (where applicable) has been applied. Justifications for Admission Other Justification Intractable abdominal pain, symptomatic cholelithiasis MARVIN IYER III DO Aug 10, 2020 11:02
--- NOTE | 2020-08-10 11:41 | PDOC ---
JUAN PEREZ APRN 08/10/20 1141: CARDIO Progress Notes Date and Time Date of Service 08/10/20 Time of Evaluation 1140 Subjective Subjective: No Chest Pain, No shortness of breath Vitals Vitals Vital Signs Date Time Temp Pulse Resp B/P (MAP) Pulse Ox O2 Delivery O2 Flow Rate FiO2 08/10/20 10:58 97.7 94 18 137/70 (92) 96 Room Air 97.7 Weight Weight [ ] Input and Output Intake and Output Intake and Output 08/10/20 07:00 Intake Total 600 ml Balance 600 ml Intake Oral 600 ml # Voids 3 Physical Exam HEENT: Neck Supple W Full Motion Chest: Symmetric LUNGS: Clear to Auscultation Heart: RRR (SR ) Extremities: No Edema Neurology: alert, oriented, follow commands Assessment Assessment 1. Abdominal pain, nausea/vomiting. 2. Symptomatic cholelithiasis; s/p lap michelle. POD #2 3. QTc prolongation at 523. Venlafaxine discontinued. QTc now 505 3. Arrhythmia; EKG noted with bigeminy. Frequent PVC's post-operatively. Improved with metoprolol 4. CAD s/p PCI/ESTHER to the OM 01/2017. Recent stress test without evidence of ischemia/infarct. Echo with preserved LV systolic function 5. Hypertension; controlled 6. Hyperlipidemia 7. GERD 8. Anxiety, depression Recommendations Continue low-dose BB for suppression Secondary prevention; resume ASA, Plavix when okay from a surgical standpoint. Supportive care Continue post-op management as per GS team Justicifation of Admission Dx: Justifications for Admission: Justification of Admission Dx: N/A PEDRITO SEBASTIAN MD 08/10/20 1914: CARDIO Progress Notes Assessment Assessment Patient seen and evaluated I agree with our nurse practitioners assessment and plan. Symptomatic cholelithiasis; s/p lap michelle. POD #2 QTc prolongation at 523. Venlafaxine discontinued. QTc now 505 Arrhythmia; EKG noted with bigeminy. Frequent PVC's post-operatively. Improved with metoprolol CAD s/p PCI/ESTHER to the OM 01/2017. Recent stress test without evidence of ischemia/infarct. Echo with preserved LV systolic function Hypertension; controlled Hyperlipidemia JUAN PEREZ APRN Aug 10, 2020 11:41 PEDRITO SEBASTIAN MD Aug 10, 2020 19:14
[2020-08-10] MEDS: oxyCODONE/APAP 5/325 1 TAB TABLET PO PRN ×3 (12:16→21:44)
--- NOTE | 2020-08-10 12:17 | NUR ---
SW following. Reviewed chart and discussed with RN. Pt had a fall and is not able to discharge home today as anticipated. Met with pt. Pt crying. SW provided support. Pt continues to refuse SNU. Discharge plan [facility] with [facility] stable. EYAD notified [facility] that pt won't discharge today so that they can postpone start of care. SW following.
[2020-08-10] MEDS: PROCHLORPERAZINE 10 MG/2 ML VIAL. IV PRN (14:25)
--- NOTE | 2020-08-10 16:53 | NUR ---
Patient was asked by LEEROY Morocho and this RN if she was ready to shower, patient refused by stated she is too tired today due to working with PT and OT. Patient stated she showered yesterday.
--- NOTE | 2020-08-10 17:18 | PATHOLOGY ---
[facility] Accession Number: [id number] . 01 Material submitted: . gallbladder - GALLBLADDER AND CONTENTS . 01 Clinical history: . SYMPTOMATIC CHOLELITHIASIS, INTRACTABLE ABDOMEN PAIN, UTI . 02 Diagnosis: Gallbladder, laparoscopic cholecystectomy: - Chronic cholecystitis. . (JPM:mm; 08/10/2020) [facility] 08/10/2020 1235 Local . 02 Comment: There are no calculi identified within the gallbladder lumen or specimen container. There is no evidence of malignancy. . (JPM:mm; 08/10/2020) . 02 Electronically signed: . Shane Cleveland MD, Pathologist NPI- [id number] . 01 Gross description: . The specimen is received in formalin, labeled "Lilli Johnson, gallbladder and contents". Received is an intact gallbladder measuring 10.9 x 3.6 x 3.5 cm in greatest dimensions displaying a blue-cooper serosal surface. Opening the specimen reveals a velvety, bile-stained mucosa with a gallbladder wall thickness of 0.1 cm. Calculi are not present, and no masses or lesions are noted grossly. Lead Data Entry Operator sections, to include the proximal margin, are submitted in cassette A1. (CAA; 08/09/2020) QAC/QA 08/09/2020 1307 Local . 02 Pathologist provided ICD-10: K81.1 . 02 CPT . 721178 Specimen Comment: A courtesy copy of this report has been sent to [phone], [phone] Specimen Comment: [id number] Specimen Comment: Report sent to / DR MCCRAY Performed at: 01 [facility] [address], [place], [place] [id number] MD Tobi Arango MD Phone: [phone] Performed at: 02 [facility] [address], [place] [id number] MD Shane Cleveland MD Phone: [phone]
[2020-08-10] MEDS: ATORVASTATIN CALCIUM 10 MG TABLET. PO SCH (21:45)
[2020-08-11] MEDS: oxyCODONE/APAP 5/325 1 TAB TABLET PO PRN ×2 (01:39→05:55)
[2020-08-11 03:00] VITALS: BP 110/62
[2020-08-11 07:30] VITALS: BP 103/56
[2020-08-11 07:43] LABS: BASO % 0 % (0-3); EOS # 0.3 x10^3/uL (0.0-0.7); EOS % 5 % (0-3); HEMATOCRIT 36.7 % (36.0-47.0); HEMOGLOBIN 12.5 g/dL (12.0-15.5); LYMPH # 1.5 x10^3/uL (1.0-4.8); LYMPH % 22 % (24-48); MEAN CORPUSCULAR HEMOGLOBIN 34 pg (25-35); MEAN CORPUSCULAR HGB CONC 34 g/dL (31-37); MEAN CORPUSCULAR VOLUME 100 fL (79-100); MONO # 0.7 x10^3/uL (0.0-1.1); MONO % 11 % (0-9); NEUT # 4.2 x10^3/uL (1.8-7.7); NEUT % 62 % (31-73); PLATELET COUNT 211 x10^3/uL (140-400); RED BLOOD COUNT 3.69 x10^6/uL (3.50-5.40); RED CELL DISTRIBUTION WIDTH 13.4 % (11.5-14.5); WHITE BLOOD COUNT 6.8 x10^3/uL (4.0-11.0)
[2020-08-11] MEDS ORDERED: ASPIRIN ENTERIC COATED 81 MG TABLET.DR. PO SCH (08:00)
[2020-08-11] MEDS ORDERED: CLOPIDOGREL BISULFATE 75 MG TABLET PO SCH (08:00)
[2020-08-11 08:15] LABS: CALCIUM 9.5 mg/dL (8.5-10.1); CREATININE 0.8 mg/dL (0.6-1.0); GFR 71.3; POTASSIUM 3.6 mmol/L (3.5-5.1)
[2020-08-11] MEDS: IPRATRPIUM/ALBUTEROL 0.5/2.5MG 3 ML NEBU. NEB SCH (08:36)
[2020-08-11] MEDS: buPROPion SR 150 MG TABLET.SA PO SCH (08:59)
[2020-08-11] MEDS: PANTOPRAZOLE 40 MG TABLET.DR. PO SCH (09:00)
[2020-08-11] MEDS: METOPROLOL TART IMMED RELEASE 25 MG TABLET. PO SCH (09:00)
[2020-08-11] MEDS: DOCUSATE SODIUM 100 MG CAPSULE. PO SCH (09:00)
[2020-08-11] MEDS: GABAPENTIN 400 MG CAPSULE. PO SCH (09:00)
[2020-08-11] MEDS: FAMOTIDINE 20 MG TABLET. PO SCH (09:00)
[2020-08-11] MEDS: POTASSIUM CHLORIDE 20 MEQ TABLET.ER. PO SCH (09:01)
[2020-08-11] MEDS: NICOTINE 14MG PATCH. TD SCH (09:02)
--- NOTE | 2020-08-11 09:40 | PDOC ---
SURGICAL PROGRESS NOTE DATE: 08/11/20 TIME: 09:39 Subjective feels well, wants to go home minimal abdominal pain tolerating diet Vital Signs Vital Signs Date Time Temp Pulse Resp B/P (MAP) Pulse Ox O2 Delivery O2 Flow Rate FiO2 08/11/20 09:00 83 103/56 08/11/20 08:38 98 Room Air 08/11/20 07:30 98.0 16 98.0 08/10/20 12:16 10.0 I&O Intake and Output 08/11/20 07:00 Intake Total 800 ml Output Total 100 ml Balance 700 ml Intake Oral 800 ml Output Urine Total 100 ml # Voids 4 General: Alert, Oriented X3, Cooperative Abdomen: Soft, Other (lap dressings dry) Labs Laboratory Tests Test 08/11/20 06:30 White Blood Count 6.8 x10^3/uL (4.0-11.0) Red Blood Count 3.69 x10^6/uL (3.50-5.40) Hemoglobin 12.5 g/dL (12.0-15.5) Hematocrit 36.7 % (36.0-47.0) Mean Corpuscular Volume 100 fL (79-100) Mean Corpuscular Hemoglobin 34 pg (25-35) Mean Corpuscular Hemoglobin Concent 34 g/dL (31-37) Red Cell Distribution Width 13.4 % (11.5-14.5) Platelet Count 211 x10^3/uL (140-400) Neutrophils (%) (Auto) 62 % (31-73) Lymphocytes (%) (Auto) 22 % (24-48) Monocytes (%) (Auto) 11 % (0-9) Eosinophils (%) (Auto) 5 % (0-3) Basophils (%) (Auto) 0 % (0-3) Neutrophils # (Auto) 4.2 x10^3/uL (1.8-7.7) Lymphocytes # (Auto) 1.5 x10^3/uL (1.0-4.8) Monocytes # (Auto) 0.7 x10^3/uL (0.0-1.1) Eosinophils # (Auto) 0.3 x10^3/uL (0.0-0.7) Basophils # (Auto) 0.0 x10^3/uL (0.0-0.2) Sodium Level 141 mmol/L (136-145) Potassium Level 3.6 mmol/L (3.5-5.1) Chloride Level 102 mmol/L (98-107) Carbon Dioxide Level 30 mmol/L (21-32) Anion Gap 9 (6-14) Blood Urea Nitrogen 20 mg/dL (7-20) Creatinine 0.8 mg/dL (0.6-1.0) Estimated GFR (Cockcroft-Gault) 71.3 Glucose Level 110 mg/dL (70-99) Calcium Level 9.5 mg/dL (8.5-10.1) Laboratory Tests Test 08/11/20 06:30 White Blood Count 6.8 x10^3/uL (4.0-11.0) Red Blood Count 3.69 x10^6/uL (3.50-5.40) Hemoglobin 12.5 g/dL (12.0-15.5) Hematocrit 36.7 % (36.0-47.0) Mean Corpuscular Volume 100 fL (79-100) Mean Corpuscular Hemoglobin 34 pg (25-35) Mean Corpuscular Hemoglobin Concent 34 g/dL (31-37) Red Cell Distribution Width 13.4 % (11.5-14.5) Platelet Count 211 x10^3/uL (140-400) Neutrophils (%) (Auto) 62 % (31-73) Lymphocytes (%) (Auto) 22 % (24-48) Monocytes (%) (Auto) 11 % (0-9) Eosinophils (%) (Auto) 5 % (0-3) Basophils (%) (Auto) 0 % (0-3) Neutrophils # (Auto) 4.2 x10^3/uL (1.8-7.7) Lymphocytes # (Auto) 1.5 x10^3/uL (1.0-4.8) Monocytes # (Auto) 0.7 x10^3/uL (0.0-1.1) Eosinophils # (Auto) 0.3 x10^3/uL (0.0-0.7) Basophils # (Auto) 0.0 x10^3/uL (0.0-0.2) Sodium Level 141 mmol/L (136-145) Potassium Level 3.6 mmol/L (3.5-5.1) Chloride Level 102 mmol/L (98-107) Carbon Dioxide Level 30 mmol/L (21-32) Anion Gap 9 (6-14) Blood Urea Nitrogen 20 mg/dL (7-20) Creatinine 0.8 mg/dL (0.6-1.0) Estimated GFR (Cockcroft-Gault) 71.3 Glucose Level 110 mg/dL (70-99) Calcium Level 9.5 mg/dL (8.5-10.1) Problem List Problems Medical Problems: (1) Intractable abdominal pain Status: Acute (2) UTI (urinary tract infection) Status: Acute Assessment/Plan s/p michelle ok to dc from surgical pov FU 2 weeks Justicifation of Admission Dx: Justifications for Admission: Justification of Admission Dx: N/A TORIBIO MORRIS TOOL GRINDING MACHINE OPERATOR Aug 11, 2020 09:40
--- NOTE | 2020-08-11 09:53 | SNU/HH DC ---
DISCHARGE WITH HOME HEALTH DISCHARGE INFORMATION: Final Diagnosis: Problems Medical Problems: (1) Intractable abdominal pain Status: Acute (2) UTI (urinary tract infection) Status: Acute Condition on Discharge: Stable CODE STATUS: Code Status: Full HOME HEALTH: Face to Face: I certify this patient is under my care and that I, or a nurse practitioner or physician's housekeeping assistant working with me, had a face to face encounter that meets the physician face to face encounter requirements with this patient on []. Medical Complications: Other (abd pain) RN For Eval/Treatment: Yes Physical Therapy For: Evalulation/Treatment Occupational Therapy For: Evaluation/Treatment Home Health Aide For: Self-care Pt Meets Homebound Status: Poor coordination w/ amb. POST DISCHARGE ORDERS: Activity Instructions for Disc: No restrictions Bathing Instructions: Shower-keep dressing dry, No Tub Bath until see Dr. BARNETT AFTER DISCHARGE: Cardiac Wound/Incision Care: Ice to area for comfort CHECKS AFTER DISCHARGE: Checks after discharge: Check blood press - daily, Check your Temp as needed CERTIFICATION STATEMENT: Certification Statement: Certification Statement: Based on the above finding, I certify that this patient is confined to the home and needs intermittent usp care, physical therapy and/or speech therapy, or continues to need occupational therapy.~ This patient is under my care, and I have initiated the establishment of the plan of care.~ This patient will be followed by myself or a community physician who will periodically review the plan of care. Home Meds Active Scripts Dicyclomine Hcl (DICYCLOMINE HCL) 20 Mg Tablet, 1 TAB PO TID for gallstone pain for 10 Days, #20 TAB 1 Refill Prov:MARYANNE LUU MD 07/12/20 Hydrocodone/Apap 5-325 (NORCO 5-325 TABLET) 1 Each Tablet, 1 TAB PO TID for pain for 5 Days, #15 TAB Prov:MARYANNE LUU MD 07/12/20 Ondansetron Hcl (ZOFRAN) 4 Mg Tablet, 1 TAB PO Q8HRS, #4 TAB 0 Refills Prov:TRUNG MARTINEZ MD 05/18/20 Potassium Chloride (POTASSIUM CHLORIDE ) 20 Meq Tablet.er, 20 MEQ PO DAILY for SUPPLEMENT for 7 Days, #7 TAB.SR 0 Refills Prov:TRUNG MARTINEZ MD 05/18/20 Famotidine (PEPCID) 20 Mg Tablet, 20 MG PO BID, #30 TAB Prov:MARKUS KENYON MD 02/26/20 Potassium Chloride (KLOR-CON M20) 20 Meq Tab.er.prt, 1 TAB PO DAILY for 7 Days, #7 TAB 0 Refills Prov:MARKUS KENYON MD 02/26/20 Ondansetron Hcl (ZOFRAN) 4 Mg Tablet, 1 TAB PO PRN Q6-8HRS, #12 TAB Prov:MARKUS KENYON MD 02/26/20 Ondansetron (ONDANSETRON ODT) 4 Mg Tab.rapdis, 1 TAB PO PRN Q6-8HRS PRN for NAUSEA/VOMITING, #16 TAB 0 Refills Prov:OSCAR CHOE APRN 04/26/19 Reported Medications Aspirin (ASPIRIN) 81 Mg Tab.chew, 1 TAB PO DAILY, #30 TAB 3 Refills 01/24/17 Clopidogrel Bisulfate (CLOPIDOGREL) 75 Mg Tablet, 1 TAB PO DAILY, #90 TAB 1 Refill 01/24/17 Atorvastatin Calcium (LIPITOR) 10 Mg Tablet, 10 MG PO HS for FOR CHOLESTEROL, #30 TAB 0 Refills 01/21/17 Alprazolam (ALPRAZOLAM) 0.5 Mg Tablet, 0.5 MG PO PRN Q6HRS PRN for ANXIETY / AGITATION, TAB 0 Refills 01/21/17 Pantoprazole Sodium (PANTOPRAZOLE SODIUM ) 40 Mg Tablet.dr, 40 MG PO DAILY, TAB 01/21/17 Ipratropium/Albuterol Sulfate (DUONEB 0.5-3(2.5) MG/3 ML) 3 Ml Ampul.neb, 3 ML NEB QID, EACH 01/21/17 Oxycodone Hcl/Acetaminophen (OXYCODONE-ACETAMINOPHEN 10-325) 1 Each Tablet, 1 EACH PO PRN Q6HRS PRN for PAIN, TAB 0 Refills 01/21/17 Oxycodone/Apap 10-325 (PERCOCET 10-325 MG TABLET ) 1 Each Tablet, 1 TAB PO PRN Q6HRS PRN for PAIN, TAB 0 Refills 01/21/17 Bupropion Hcl (WELLBUTRIN SR) 150 Mg Tablet.er, 150 MG PO DAILY, TAB.SR 01/21/17 Venlafaxine Hcl (VENLAFAXINE HCL ER) 150 Mg Tab.er.24, 150 MG PO DAILY, CAP.SR 01/21/17 Venlafaxine Hcl (EFFEXOR XR) 150 Mg Cap.er.24h, 150 MG PO DAILY, CAP.SR 01/21/17 Gabapentin (GABAPENTIN ) 100 Mg Capsule, 400 MG PO TID, CAP 01/17/17 Alprazolam (XANAX) 0.5 Mg Tablet, 0.5 MG PO TID PRN for ANXIETY / AGITATION, TAB 0 Refills 01/17/17 MARVIN IYER III DO Aug 11, 2020 09:53
--- NOTE | 2020-08-11 10:23 | PDOC ---
[facility] [facility] PROGRESS NOTE Date of Service DOS: DATE: 08/11/20 TIME: 10:20 Chief Complaint Chief Complaint Intractable pain and nausea Symptomatic cholelithiasis Bigeminy, QTc prolongation Abdominal pain of uncertain etiology. 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 Hypertension. Tobacco abuse. Arrhythmia; EKG noted with bigeminy, QTc prolongation at 523. Venlafaxine discontinued. frequent PVC's post-operatively History of Present Illness History of Present Illness Ms Johnson is a 70-year-old female with past medical history of cholelithiasis, who presents to the ER with complaints of worsening right upper quadrant pain. She reports pain 10/10 at worst, aggravated by eating. She reports associated nausea. She denies any vomiting. She is reportedly scheduled to have cholecystectomy on 08/08/[address] Salguero. She denies any fevers, cough, chest pain, shortness of breath. Patient was admitted with general surgery consult. Cardiology consult was placed by ER due to bigeminy noted on EKG. Afebrile today and her pain is better controlled. She is tearful however and does not feel safe at home but notes there is no domestic violence and her family treats her very well. She has requested that I not place in the medical record the reason. No shortness of breath or chest pain. Difficulty ambulating and taking care of herself. 08/10 Patient seen and examined Discussed with RN Chart reviewed Patient is in pain after a fall where a cane hit the incision site 08/11 Patient seen and examined Discussed with RN Discussed with case management Chart reviewed Patient is in good mood and wants to go home Date: Aug 08, 2020 Pre-Op Diagnosis: Symptomatic cholelithiasis Post-Op Diagnosis: same, calculous cholecystitis Procedure Performed: laparoscopic cholecystectomy with cholangiogram Surgeon: Juan Salguero Anesthesia Type: GETA plus local Blood Loss: 25 Specimans Obtained: gallbladder Findings: no other obvious pathology noted, adhesions to gallbladder, stones in cystic duct, normal cholangiogram Vitals/I&O Vitals/I&O: Vital Signs Date Time Temp Pulse Resp B/P (MAP) Pulse Ox O2 Delivery O2 Flow Rate FiO2 08/11/20 09:00 83 103/56 08/11/20 08:38 98 Room Air 08/11/20 07:30 98.0 16 98.0 08/10/20 12:16 10.0 I & O 08/10/20 08/10/20 08/11/20 15:00 23:00 07:00 Intake Total 400 ml 200 ml 200 ml Output Total 100 ml Balance 400 ml 100 ml 200 ml Physical Exam Physical Exam: Physical Exam General: Alert, Oriented X3, Cooperative, moderate distress Heart: Regular rate Lungs: Clear Abdomen: Soft, Other (TTP RUQ) Extremities: No edema, Normal pulses Skin: No rashes, No breakdown General: Alert, Oriented X3, Cooperative Heart: Normal S1, Normal S2 Lungs: Clear Abdomen: Soft, No tenderness, Other (lap dressings dry) Extremities: No edema, Normal pulses Skin: No rashes, No breakdown Labs Labs: Laboratory Tests Test 08/11/20 06:30 White Blood Count 6.8 x10^3/uL (4.0-11.0) Red Blood Count 3.69 x10^6/uL (3.50-5.40) Hemoglobin 12.5 g/dL (12.0-15.5) Hematocrit 36.7 % (36.0-47.0) Mean Corpuscular Volume 100 fL (79-100) Mean Corpuscular Hemoglobin 34 pg (25-35) Mean Corpuscular Hemoglobin Concent 34 g/dL (31-37) Red Cell Distribution Width 13.4 % (11.5-14.5) Platelet Count 211 x10^3/uL (140-400) Neutrophils (%) (Auto) 62 % (31-73) Lymphocytes (%) (Auto) 22 % (24-48) Monocytes (%) (Auto) 11 % (0-9) Eosinophils (%) (Auto) 5 % (0-3) Basophils (%) (Auto) 0 % (0-3) Neutrophils # (Auto) 4.2 x10^3/uL (1.8-7.7) Lymphocytes # (Auto) 1.5 x10^3/uL (1.0-4.8) Monocytes # (Auto) 0.7 x10^3/uL (0.0-1.1) Eosinophils # (Auto) 0.3 x10^3/uL (0.0-0.7) Basophils # (Auto) 0.0 x10^3/uL (0.0-0.2) Sodium Level 141 mmol/L (136-145) Potassium Level 3.6 mmol/L (3.5-5.1) Chloride Level 102 mmol/L (98-107) Carbon Dioxide Level 30 mmol/L (21-32) Anion Gap 9 (6-14) Blood Urea Nitrogen 20 mg/dL (7-20) Creatinine 0.8 mg/dL (0.6-1.0) Estimated GFR (Cockcroft-Gault) 71.3 Glucose Level 110 mg/dL (70-99) Calcium Level 9.5 mg/dL (8.5-10.1) Review of Systems Review of Systems: Denies rashes or itching. Denies headache or changes in vision. Denies urgency with urination, denies painful urination. Assessment and Plan Assessmemt and Plan Problems Medical Problems: (1) Intractable abdominal pain Status: Acute (2) UTI (urinary tract infection) Status: Acute Assessment: Intractable pain and nausea Symptomatic cholelithiasis Bigeminy, QTc prolongation Abdominal pain of uncertain etiology. 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 Hypertension. Tobacco abuse. Arrhythmia; EKG noted with bigeminy, QTc prolongation at 523. Venlafaxine discontinued. frequent PVC's post-operatively Plan: Discharge home with home health Comment Review of Relevant I have reviewed the following items chery (where applicable) has been applied. Medications: Current Medications Medications (Trade) Dose Ordered Sig/Salomón Route PRN Reason Start Time Stop Time Status Last Admin Dose Admin Aspirin (Ecotrin) 81 mg DAILYWBKFT PO 08/11/20 08:00 08/11/20 09:00 Clopidogrel Bisulfate (Plavix) 75 mg DAILYWBKFT PO 08/11/20 08:00 08/11/20 08:59 Justifications for Admission Other Justification Intractable abdominal pain, symptomatic cholelithiasis MARVIN IYER III DO Aug 11, 2020 10:23
--- NOTE | 2020-08-11 10:43 | NUR ---
SW following. Reviewed chart and discussed with RN. Met with patient. Pt to discharge home today, 08/11 with [facility] . Start of care with HH is later today, 08/11 per Roselia with [facility]. Discharge orders faxed. Addendum: 08/11/20 at 1249 by SUGAR CASTANO Pt asked about a walker. Pt provided $20 and this SW gave the $20 to nursing sales service supervisor and provided pt with a walker for discharge home. Receipt placed on pt's chart.
[2020-08-11 10:45] VITALS: BP 106/62
--- NOTE | 2020-08-11 11:29 | DS ---
DATE OF DISCHARGE: 08/11/2020 ADMISSION DIAGNOSES: Intractable pain, intractable nausea, symptomatic gallstones, bigeminy. DISCHARGE DIAGNOSES: Resolving intractable pain, resolving bigeminy, resolving symptomatic gallstones, chronic obstructive pulmonary disease, hypertension, tobacco abuse. CONSULTS: General Surgery and Cardiology. PROCEDURES: Laparoscopic cholecystectomy. HOSPITAL COURSE: The patient is a pleasant middle-aged female, who presented with symptomatic gallstones. She was admitted. We consulted General Surgery. She went for a lap michelle 3 days ago. Post-procedure, she has done well. Today, I saw her and examined her; she is wanting to go home. PHYSICAL EXAMINATION: HEART: Tones are normal. LUNGS: Clear. ABDOMEN: Soft with decreased bowel sounds. PLAN: We plan to discharge. DISPOSITION: Home. ACTIVITY: As tolerated. DIET: Low sodium. MEDICATIONS: Please see the MRAD. TOTAL TIME: 34 minutes. MARVIN IYER DO DR: PEPE/osman JOB#: [id number] / [id number]
== END 2020-08-11 12:03 | disposition home health service (06) | DRG 418 ==
LOC: ER 09:24 → 5 NORTH 11:40
PROVIDERS: ADMIT Family Medicine; ATTEND Family Medicine
PROC: BF101ZZ Fluoroscopy of Bile Ducts using Low Osmolar Contrast (ICD-10-PCS; 2020-08-08)
PROC: 0FT44ZZ Resection of Gallbladder, Percutaneous Endoscopic Approach (ICD-10-PCS; principal; 2020-08-08 09:30)
DX: K80.10 Calculus of gallbladder with chronic cholecystitis without obstruction (principal); N30.01 Acute cystitis with hematuria; E78.00 Pure hypercholesterolemia, unspecified; E78.5 Hyperlipidemia, unspecified; F17.210 Nicotine dependence, cigarettes, uncomplicated; F32.9 Major depressive disorder, single episode, unspecified; F41.9 Anxiety disorder, unspecified; G89.29 Other chronic pain; I10 Essential (primary) hypertension; I25.10 Atherosclerotic heart disease of native coronary artery without angina pectoris; I49.3 Ventricular premature depolarization; J44.9 Chronic obstructive pulmonary disease, unspecified; K21.9 Gastro-esophageal reflux disease without esophagitis; K22.70 Barrett's esophagus without dysplasia; K74.60 Unspecified cirrhosis of liver; M79.7 Fibromyalgia; M81.0 Age-related osteoporosis without current pathological fracture; Z82.49 Family history of ischemic heart disease and other diseases of the circulatory system; Z90.710 Acquired absence of both cervix and uterus; Z95.5 Presence of coronary angioplasty implant and graft; F12.90 Cannabis use, unspecified, uncomplicated; M19.90 Unspecified osteoarthritis, unspecified site; I25.2 Old myocardial infarction; Z90.49 Acquired absence of other specified parts of digestive tract; Z20.828 Contact with and (suspected) exposure to other viral communicable diseases
CPT/HCPCS: 36415; 36600; 74300; 76705; 80048; 80053; 81001; 83690; 83735; 84484; 85025; 87426; 88304; 93005; 93306; 94640; 94760; 96374; 96375; 96376; 99406; J0330; J0690; J0696; J0780; J1100; J1644; J2270; J2370; J2405; J2704; J2710; J3010; J3480; J3490; J7030; J7120; Q9967; U0003; 97116-GP; 97530-GO; 97530-GP; 97535-GO; 99285-25; G0378

== ENCOUNTER 2020-09-07 15:34 | Emergency (ER) | payer MEDICARE, OTHER ==
[2020-08-02 09:25] VITALS: BP 128/84
== END 2020-09-07 16:23 | disposition left against medical advice (07) ==
LOC: ER 15:34
DX: J02.9 Acute pharyngitis, unspecified (principal); Z53.21 Procedure and treatment not carried out due to patient leaving prior to being seen by health care provider

== ENCOUNTER 2020-10-03 09:19 | Emergency (ER) | payer MEDICARE, OTHER ==
[~2020-10-03] VITALS: Ht 162.6 cm; Wt 48.0 kg
--- NOTE | 2020-10-03 09:29 | ED.ADGEN ---
Past Medical History Past Medical History: CAD, Gallstones, GERD, High Cholesterol, Hypertension, [place], Other Additional Past Medical Histor: OSTEOPOROSIS, chronic abd pain Past Surgical History: Angioplasty, Hysterectomy, Tonsillectomy Additional Past Surgical Histo: LEFT EYE, cardiac stent Smoking Status: Current Every Day Smoker Alcohol Use: None Drug Use: Marijuana General Adult EDM: Chief Complaint: nausea, vomiting, diarrhea HPI: HPI: Patient is a 70 year old female who presents to the emergency department via EMS today with complaints of generalized abdominal pain with nausea, vomiting, and diarrhea that began 4 days ago. Patient reports that she had a small amount of bright red blood in her stools last night. She denies any chest pain, palpitations, fever, body aches, or headache. Patient states she has had a dry cough recently but denies any change in her chronic cough that she attributes to her COPD. She denies any known exposure to COVID-19. Patient denies any fever, dysuria, hematuria, increased urinary frequency, or body aches. She does report generalized fatigue and weakness. The patient reports that for the last 4 days her stools have been black in color and have a foul odor. She currently rates her discomfort a 7 out of 10 on the pain scale, she denies any alleviating factors. Review of Systems: Review of Systems: Complete ROS is negative unless otherwise noted in HPI. Current Medications: Current Medications Medications (Trade) Dose Ordered Sig/[facility] Start Time Stop Time Status Last Admin Dose Admin Fentanyl Citrate (Fentanyl 2ml Vial) 50 mcg 1X ONCE 10/03/20 09:45 10/03/20 09:49 DC 10/03/20 10:41 50 MCG Info (CONTRAST GIVEN -- Rx MONITORING) 1 each PRN DAILY PRN 10/03/20 10:30 10/03/20 12:51 DC Iohexol (Omnipaque 300 Mg/ml) 75 ml 1X ONCE 10/03/20 10:30 10/03/20 10:31 DC 10/03/20 10:34 75 ML Ondansetron HCl (Zofran) 4 mg 1X ONCE 10/03/20 09:45 10/03/20 09:49 DC 10/03/20 10:40 4 MG Sodium Chloride 1,000 ml @ 1,000 mls/hr 1X ONCE 10/03/20 09:45 10/03/20 10:44 DC 10/03/20 10:40 1,000 MLS/HR Allergies: Allergies: Allergies Coded Allergies Type Severity Reaction Last Updated Verified aluminum Allergy Severe BREAK OUT ALL OVER 04/01/17 Yes gold Au 198 Allergy Severe BREAK OUT ALL OVER 04/01/17 Yes iron Allergy Severe BREAK OUT ALL OVER 04/01/17 Yes nickel Allergy Severe BREAK OUT ALL OVER 04/01/17 Yes silver Allergy Severe BREAK OUT ALL OVER 04/01/17 Yes Physical Exam: PE: See Above Constitutional: Well developed, well nourished, no acute distress, non-toxic tod earance. [] HENT: Normocephalic, atraumatic, bilateral external ears normal, nose normal. [] Eyes: PERRLA, EOMI, conjunctiva normal, no discharge. [] Neck: Normal range of motion, no stridor. 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 [] Extremities: No cyanosis, ROM intact, no edema. [] Neurologic: Alert and oriented X 3, no focal deficits noted. [] Psychologic: Affect normal, judgement normal, mood normal. [] Current Patient Data: Labs: Laboratory Tests Test 10/03/20 09:40 10/03/20 09:45 10/03/20 09:50 Stool Occult Blood Negative (NEG) Urine Collection Type U cath Urine Color Violeta Urine Clarity Clear Urine pH 5.5 (<5.0-8.0) Urine Specific Rosenberg 1.025 (1.000-1.030) Urine Protein 100 mg/dL (NEG-TRACE) Urine Glucose (UA) Negative mg/dL (NEG) Urine Ketones (Stick) 40 mg/dL (NEG) Urine Blood Large (NEG) Urine Nitrite Negative (NEG) Urine Bilirubin Negative (NEG) Urine Urobilinogen Dipstick 0.2 mg/dL (0.2 mg/dL) Urine Leukocyte Esterase Negative (NEG) Urine RBC 11-20 /HPF (0-2) Urine WBC Occ /HPF (0-4) Urine Bacteria Few /HPF (0-FEW) Urine Mucus Mod /LPF White Blood Count 4.6 x10^3/uL (4.0-11.0) Red Blood Count 4.41 x10^6/uL (3.50-5.40) Hemoglobin 14.7 g/dL (12.0-15.5) Hematocrit 42.9 % (36.0-47.0) Mean Corpuscular Volume 97 fL (79-100) Mean Corpuscular Hemoglobin 33 pg (25-35) Mean Corpuscular Hemoglobin Concent 34 g/dL (31-37) Red Cell Distribution Width 13.3 % (11.5-14.5) Platelet Count 286 x10^3/uL (140-400) Neutrophils (%) (Auto) 61 % (31-73) Lymphocytes (%) (Auto) 26 % (24-48) Monocytes (%) (Auto) 12 % (0-9) H Eosinophils (%) (Auto) 0 % (0-3) Basophils (%) (Auto) 1 % (0-3) Neutrophils # (Auto) 2.8 x10^3/uL (1.8-7.7) Lymphocytes # (Auto) 1.2 x10^3/uL (1.0-4.8) Monocytes # (Auto) 0.5 x10^3/uL (0.0-1.1) Eosinophils # (Auto) 0.0 x10^3/uL (0.0-0.7) Basophils # (Auto) 0.1 x10^3/uL (0.0-0.2) Sodium Level 142 mmol/L (136-145) Potassium Level 3.4 mmol/L (3.5-5.1) L Chloride Level 103 mmol/L (98-107) Carbon Dioxide Level 24 mmol/L (21-32) Anion Gap 15 (6-14) H Blood Urea Nitrogen 19 mg/dL (7-20) Creatinine 0.7 mg/dL (0.6-1.0) Estimated GFR (Cockcroft-Gault) 83.2 BUN/Creatinine Ratio 27 (6-20) H Glucose Level 114 mg/dL (70-99) H Calcium Level 10.3 mg/dL (8.5-10.1) H Magnesium Level 1.9 mg/dL (1.8-2.4) Total Bilirubin 0.6 mg/dL (0.2-1.0) Aspartate Amino Transferase (AST) 16 U/L (15-37) Alanine Aminotransferase (ALT) 26 U/L (14-59) Alkaline Phosphatase 95 U/L (46-116) Total Protein 7.8 g/dL (6.4-8.2) Albumin 4.5 g/dL (3.4-5.0) Albumin/Globulin Ratio 1.4 (1.0-1.7) Lipase 97 U/L (73-393) Laboratory Tests 10/03/20 09:50 Laboratory Tests 10/03/20 09:50 Vital Signs: Vital Signs Date Time Temp Pulse Resp B/P (MAP) Pulse Ox O2 Delivery O2 Flow Rate FiO2 10/03/20 11:25 76 159/75 (103) 99 Room Air 10/03/20 10:41 20 10/03/20 09:20 98.6 98.6 EKG: EK- SR with PVCs rate 77, no STEMI read by Dr. Luu[] Heart Score: Risk Factors: Risk Factors: DM, Current or recent (<one month) smoker, HTN, HLP, family history of CAD, obesity. Risk Scores: Score 0 - 3: 2.5% MACE over next 6 weeks - Discharge Home Score 4 - 6: 20.3% MACE over next 6 weeks - Admit for Clinical Observation Score 7 - 10: 72.7% MACE over next 6 weeks - Early Invasive Strategies Radiology/Procedures: Radiology/Procedures: PROCEDURE: CHEST AP ONLY EXAM: CHEST 1 VIEW History: Shortness of breath COMPARISON: 05/18/2020 TECHNIQUE: Single portable radiograph of the chest FINDINGS: The cardiac silhouette is unremarkable. The lungs are clear bilaterally. The costophrenic sulci are clear and well demarcated. IMPRESSION: No radiographic evidence of an acute cardiopulmonary process. [] PROCEDURE: CT ABD PELV W/ IV CONTRST ONLY Exam: CT abdomen/pelvis with intravenous contrast Indication: Nausea vomiting diarrhea, abdominal pain for 2 days, black stool Comparison: CT abdomen pelvis 05/19/2020 Technique: Helical CT imaging performed of the abdomen and pelvis after the intravenous administration of 75 mL Omnipaque 300 contrast. Sagittal and coronal reformats were obtained. One or more of the following individualized dose reduction techniques were utilized for this examination: 1. Automated exposure control 2. Adjustment of the mA and/or kV according to patient size 3. Use of iterative reconstruction technique. Findings: Lower chest: A subpleural band like opacity in the left lower lobe is unchanged. The heart is normal in size. Liver: An 8 mm hypodensity in the right hepatic lobe is unchanged. Gallbladder/Biliary Tree: Gallbladder surgically absent. Common bile duct is prominent, likely related to cholecystectomy state. Pancreas: Normal. Spleen: Normal. Adrenal Glands: Normal. Kidneys/Ureters/Bladder: Kidneys, ureters, and bladder are normal. No hydronephrosis. Reproductive Organs: Normal. Stomach, small bowel, and colon: Stomach, small bowel, and colon are normal. Vasculature: No abdominal aortic aneurysm. Mild calcified aortic and iliac calcifications. Lymph Nodes: No lymphadenopathy. Peritoneum and retroperitoneum: No free fluid or free air. Bones: Mild rightward curvature of the lumbar spine. No acute osseous abnormality. Impression: No acute abnormality in the abdomen or pelvis. Electronically signed by: Jolly Wynn MD (10/03/2020 11:12 AM) [id number] Course & Med Decision Making: Course & Med Decision Making Pertinent Labs and Imaging studies reviewed. (See chart for details) [] Dragon Disclaimer: Dragon Disclaimer: This electronic medical record was generated, in whole or in part, using a voice recognition dictation system. Departure Departure Impression: Primary Impression: Nausea vomiting and diarrhea Disposition: 01 MO HOME SELF CARE/HOMELESS Condition: STABLE Referrals: IJEOMA MCCRAY MD (PCP) Patient Instructions: Diarrhea, [id number], Diet for Diarrhea, Adult, Nausea and Vomiting, [id number] Additional Instructions: Fill prescriptions and use them as directed. Recommend clear fluids for the next 24 hours. Then you may advance to bland foods such as bananas, rice, applesauce, and dry toast. Follow-up with your primary care doctor in the next 1-2 days. Return to the emergency room if your symptoms worsen. Scripts Ondansetron Hcl (ONDANSETRON HCL) 4 Mg Tablet 1 TAB PO PRN Q6-8HRS PRN for NAUSEA/VOMITING for 3 Days, #10 TAB 0 Refills Prov: JOLLY LUU MD 10/03/20 Hydrocodone Bit/Acetaminophen (HYDROCODONE-APAP 5-325 ) 1 Tab Tablet 0.5-1 TAB PO PRN Q6HRS PRN for SEVERE PAIN 7-10, #4 TAB 0 Refills Prov: OSCAR CHOE APRN 10/03/20 OSCRA CHOE APRN Oct 03, 2020 09:29
[2020-10-03] MEDS ORDERED: ONDANSETRON PF 4 MG/2 ML VIAL. IV ONE (09:45)
[2020-10-03] MEDS ORDERED: IV NORMAL SALINE 1000ML BAG 1,000 ML IV ONE (09:45)
[2020-10-03] MEDS ORDERED: fentaNYL PF VIAL 100 MCG/2 ML VIAL IV ONE (09:45)
[2020-10-03 10:09] LABS: BILIRUBIN,URINE NEGATIVE (NEG); CLARITY,URINE CLEAR; COLOR,URINE AMBER; NITRITE,URINE NEGATIVE (NEG); PH,URINE 5.5 (<5.0-8.0); PROTEIN,URINE 100 mg/dL (NEG-TRACE); UROBILINOGEN,URINE 0.2 mg/dL (0.2 mg/dL)
--- NOTE | 2020-10-03 10:10 | RAD ---
EXAM: CHEST 1 VIEW History: Shortness of breath COMPARISON: 05/18/2020 TECHNIQUE: Single portable radiograph of the chest FINDINGS: The cardiac silhouette is unremarkable. The lungs are clear bilaterally. The costophrenic sulci are clear and well demarcated. IMPRESSION: No radiographic evidence of an acute cardiopulmonary process. Electronically signed by: Westley Bee MD (10/03/2020 10:08 AM) [id number]
[2020-10-03 10:16] LABS: CALCIUM 10.3 mg/dL (8.5-10.1); CREATININE 0.7 mg/dL (0.6-1.0); GFR 83.2; POTASSIUM 3.4 mmol/L (3.5-5.1)
[2020-10-03 10:21] LABS: BASO # 0.1 x10^3/uL (0.0-0.2); BASO % 1 % (0-3); EOS % 0 % (0-3); HEMATOCRIT 42.9 % (36.0-47.0); HEMOGLOBIN 14.7 g/dL (12.0-15.5); LYMPH # 1.2 x10^3/uL (1.0-4.8); LYMPH % 26 % (24-48); MEAN CORPUSCULAR HEMOGLOBIN 33 pg (25-35); MEAN CORPUSCULAR HGB CONC 34 g/dL (31-37); MEAN CORPUSCULAR VOLUME 97 fL (79-100); MONO # 0.5 x10^3/uL (0.0-1.1); MONO % 12 % (0-9); NEUT # 2.8 x10^3/uL (1.8-7.7); NEUT % 61 % (31-73); PLATELET COUNT 286 x10^3/uL (140-400); RED BLOOD COUNT 4.41 x10^6/uL (3.50-5.40); RED CELL DISTRIBUTION WIDTH 13.3 % (11.5-14.5); WHITE BLOOD COUNT 4.6 x10^3/uL (4.0-11.0)
[2020-10-03 10:23] LABS: ALBUMIN 4.5 g/dL (3.4-5.0); ALBUMIN/GLOBULIN RATIO 1.4 (1.0-1.7); MAGNESIUM 1.9 mg/dL (1.8-2.4); TOTAL BILIRUBIN 0.6 mg/dL (0.2-1.0); TOTAL PROTEIN 7.8 g/dL (6.4-8.2)
[2020-10-03] MEDS ORDERED: IOHEXOL 300 MG/ML 100ML VIAL. IV ONE (10:30)
[2020-10-03] MEDS ORDERED: CONTRAST GIVEN. MC PRN (10:30)
[2020-10-03 10:34] LABS: BACTERIA,URINE FEW /HPF (0-FEW); WBC,URINE OCC /HPF (0-4)
[2020-10-03 10:37] LABS: FECAL OB PT NEGATIVE (NEG)
--- NOTE | 2020-10-03 11:15 | RAD ---
Exam: CT abdomen/pelvis with intravenous contrast Indication: Nausea vomiting diarrhea, abdominal pain for 2 days, black stool Comparison: CT abdomen pelvis 05/19/2020 Technique: Helical CT imaging performed of the abdomen and pelvis after the intravenous administratio n of 75 mL Omnipaque 300 contrast. Sagittal and coronal reformats were obtained. One or more of the following individualized dose reduction techniques were utilized for this examinat ion: 1. Automated exposure control 2. Adjustment of the mA and/or kV according to patient size 3. Use of iterative reconstruction technique. Findings: Lower chest: A subpleural band like opacity in the left lower lobe is unchanged. The heart is normal in size. Liver: An 8 mm hypodensity in the right hepatic lobe is unchanged. Gallbladder/Biliary Tree: Gallbladder surgically absent. Common bile duct is prominent, likely relate d to cholecystectomy state. Pancreas: Normal. Spleen: Normal. Adrenal Glands: Normal. Kidneys/Ureters/Bladder: Kidneys, ureters, and bladder are normal. No hydronephrosis. Reproductive Organs: Normal. Stomach, small bowel, and colon: Stomach, small bowel, and colon are normal. Vasculature: No abdominal aortic aneurysm. Mild calcified aortic and iliac calcifications. Lymph Nodes: No lymphadenopathy. Peritoneum and retroperitoneum: No free fluid or free air. Bones: Mild rightward curvature of the lumbar spine. No acute osseous abnormality. Impression: No acute abnormality in the abdomen or pelvis. Electronically signed by: Jolly Wynn MD (10/03/2020 11:12 AM) [id number]
[2020-10-03] MEDS ORDERED: ONDA-84 PO ×2 (11:22→12:28)
[2020-10-03 11:25] VITALS: BP 159/75
[2020-10-03] MEDS ORDERED: HYDR-2761 PO (11:34)
== END 2020-10-03 12:10 | disposition home or self-care (01) ==
LOC: ER 09:19
DX: R11.2 Nausea with vomiting, unspecified (principal); R19.7 Diarrhea, unspecified; R10.84 Generalized abdominal pain; K21.9 Gastro-esophageal reflux disease without esophagitis; E78.00 Pure hypercholesterolemia, unspecified; I11.9 Hypertensive heart disease without heart failure; I25.2 Old myocardial infarction; F17.200 Nicotine dependence, unspecified, uncomplicated; F12.90 Cannabis use, unspecified, uncomplicated; Z87.442 Personal history of urinary calculi; Z90.710 Acquired absence of both cervix and uterus; Z90.89 Acquired absence of other organs; Z88.8 Allergy status to other drugs, medicaments and biological substances
CPT/HCPCS: 36415; 71045; 74177; 80053; 81001; 82274; 83690; 83735; 85025; 93005; 96361; 96374; 96375; 99285; J2405; J3010; J7030; Q9967

== ENCOUNTER 2020-10-18 11:48 | Emergency (ER) | payer MEDICARE, OTHER ==
[~2020-10-18] VITALS: Ht 162.6 cm; Wt 45.0 kg
[~2020-10-18 11:48] MED LIST changes: +HYDR-2761 PO; +ONDA-84 PO
--- NOTE | 2020-10-18 12:03 | PHYS DOC ---
Past Medical History Past Medical History: Asthma, CAD, COPD, Gallstones, GERD, High Cholesterol, Hypertension, [place], Other Additional Past Medical Histor: OSTEOPOROSIS, chronic abd pain Past Surgical History: Angioplasty, Hysterectomy, Tonsillectomy Additional Past Surgical Histo: LEFT EYE, cardiac stent Smoking Status: Current Every Day Smoker Alcohol Use: None Drug Use: Marijuana General Adult EDM: Chief Complaint: SHORTNESS OF BREATH HPI: HPI: Patient is a 70 year old female with a history of CAD, hypertension, high cholesterol, asthma, COPD, current smoker, who presents to the ED today complaining of shortness of breath since yesterday. Patient denies any chest pain. She states she was seen by the PCP yesterday and was instructed to come to the ED today if her symptoms are not improving. She states she is also in the ED on October 03, 2020 for abdominal pain with vomiting and diarrhea and her work-up was negative. Denies any fever. Review of Systems: Review of Systems: Constitutional: Denies fever or chills. [] Eyes: Denies change in visual acuity. [] HENT: Denies nasal congestion or sore throat. [] Respiratory: Reports shortness of breath. Denies cough Cardiovascular: Denies chest pain or edema. [] GI: Denies abdominal pain, nausea, vomiting, bloody stools or diarrhea. [] : Denies dysuria. [] Musculoskeletal: Denies back pain or joint pain. [] Integument: Denies rash. [] Neurologic: Denies headache, focal weakness or sensory changes. [] Psychiatric: Denies depression or anxiety. [] Heart Score: Risk Factors: Risk Factors: DM, Current or recent (<one month) smoker, HTN, HLP, family history of CAD, obesity. Risk Scores: Score 0 - 3: 2.5% MACE over next 6 weeks - Discharge Home Score 4 - 6: 20.3% MACE over next 6 weeks - Admit for Clinical Observation Score 7 - 10: 72.7% MACE over next 6 weeks - Early Invasive Strategies Allergies: Allergies: Allergies Coded Allergies Type Severity Reaction Last Updated Verified aluminum Allergy Severe BREAK OUT ALL OVER 10/18/20 Yes gold Au 198 Allergy Severe BREAK OUT ALL OVER 10/18/20 Yes iron Allergy Severe BREAK OUT ALL OVER 10/18/20 Yes nickel Allergy Severe BREAK OUT ALL OVER 10/18/20 Yes silver Allergy Severe BREAK OUT ALL OVER 10/18/20 Yes Physical Exam: PE: Constitutional: Well developed, well nourished, no acute distress, non-toxic appearance. [] HENT: Normocephalic, atraumatic, bilateral external ears normal, oropharynx moist, no oral exudates, nose normal. [] Eyes: PERRLA, EOMI, conjunctiva normal, no discharge. [] Neck: Normal range of motion, no tenderness, supple, no stridor. [] Cardiovascular:Heart rate regular rhythm, no murmur [] Lungs & Thorax: Bilateral breath sounds clear to auscultation [] Abdomen: Bowel sounds normal, soft, no tenderness, no masses, no pulsatile masses. [] Skin: Warm, dry, no erythema, no rash. [] Back: No tenderness, no CVA tenderness. [] Extremities: No tenderness, no cyanosis, no clubbing, ROM intact, no edema. [] Neurologic: Alert and oriented X 3, normal motor function, normal sensory fun ction, no focal deficits noted. [] Psychologic: Anxious appearing patient. EKG: EKG: [] Radiology/Procedures: Radiology/Procedures: []PROCEDURE: PORTABLE CHEST 1V EXAM: XR CHEST 1V INDICATION: Reason: SOA / Spl. Instructions: / History: . TECHNIQUE: Single view COMPARISON: Chest x-ray 10/03/2020 at 9:44 AM, CT chest of 05/20/2020 FINDINGS: The heart size is normal. The great vessels appear unremarkable. There is no hilar or mediastinal mass. The lungs are clear. There is no pleural effusion or pneumothorax. There are no significant osseous abnormalities. IMPRESSION: No active cardiopulmonary disease. Electronically signed by: Aguilar Staley MD (10/18/2020 4:03 PM) [id number] DICTATED and SIGNED BY: AGUILAR STALEY MD DATE: 10/18/20 [id number] 0 Course & Med Decision Making: Course & Med Decision Making Pertinent Labs and Imaging studies reviewed. (See chart for details) This is a 70-year-old female patient presented to the ED today complaining of shortness of breath since yesterday. Patient was seen by the PCP yesterday and instructed to come to the ED today if symptoms did not improve. Arrives in the ED with O2 sats at 100% on room air and appears very anxious. She is afebrile. She is talking nonstop. Chest x-ray is negative, CBC with a normal WBC. Hemoglobin and hematocrit are normal. CMP with potassium of 3.2, patient was given oral potassium replacement in the ED. D-dimer is normal. Initial lactic was 3.9. Repeat lactic was 1.5. Urine positive for UTI. Patient does not appear septic. I spoke to patient about her results. She states she wants to be admitted in the hospital because she cannot go home she does not breath or eat. She states she has fired her primary care doctor and is going to call her insurance to give her a new doctor but she states the primary care doctor told her to go find another doctor she will not care for her. PCP is doctor Coppola Discharge patient to home. Given a prescription for cephalexin for UTI. Provided return precautions and discharged in stable condition. Dragon Disclaimer: Dragon Disclaimer: This electronic medical record was generated, in whole or in part, using a voice recognition dictation system. Departure Departure Impression: Primary Impression: UTI (urinary tract infection) Qualified Codes: N39.0 - Urinary tract infection, site not specified Additional Impression: Shortness of breath Disposition: 01 DC HOME SELF CARE/HOMELESS Condition: STABLE Referrals: IJEOMA MCCRAY MD (PCP) follow up with your doctor next week RUTH LUGO MD follow up with your doctor in 1 week Patient Instructions: Shortness of Breath, [id number], Urinary Tract Infection Additional Instructions: You were evaluated in the emergency room, you have urinary tract infection, we put you on antibiotics. Ensure you complete them. Please take Tylenol/Motrin as needed for pain. Please come back to the ED at any point symptoms worsen. 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
[2020-10-18] MEDS ORDERED: DEXAMETHASONE SOD PHOS 20 MG/5 ML VIAL. IV ONE (12:30)
[2020-10-18 12:35] LABS: BASO # 0.1 x10^3/uL (0.0-0.2); BASO % 1 % (0-3); EOS % 0 % (0-3); HEMATOCRIT 45.4 % (36.0-47.0); HEMOGLOBIN 15.2 g/dL (12.0-15.5); LYMPH # 1.2 x10^3/uL (1.0-4.8); LYMPH % 19 % (24-48); MEAN CORPUSCULAR HEMOGLOBIN 33 pg (25-35); MEAN CORPUSCULAR HGB CONC 34 g/dL (31-37); MEAN CORPUSCULAR VOLUME 97 fL (79-100); MONO # 0.3 x10^3/uL (0.0-1.1); MONO % 5 % (0-9); NEUT # 4.8 x10^3/uL (1.8-7.7); NEUT % 75 % (31-73); PLATELET COUNT 308 x10^3/uL (140-400); RED BLOOD COUNT 4.67 x10^6/uL (3.50-5.40); RED CELL DISTRIBUTION WIDTH 13.3 % (11.5-14.5); WHITE BLOOD COUNT 6.4 x10^3/uL (4.0-11.0)
[2020-10-18 12:47] LABS: CALCIUM 10.3 mg/dL (8.5-10.1); GFR 55.1; POTASSIUM 3.2 mmol/L (3.5-5.1)
[2020-10-18] MEDS ORDERED: POTASSIUM CHLORIDE 20 MEQ TABLET.ER. PO ONE (13:00)
--- NOTE | 2020-10-18 13:00 | EKG ---
[facility] [address] [place] [address] Test Date: 2020-10-18 Test Time: 12:04:09 Pat Name: TOÑA GUZMÁN Department: Room: Gender: F Administrative Liaison: : 1950 Requested By: SILVINO SAMS Order Number: [id number] Reading MD: Measurements Intervals [place] Rate: 81 P: 67 [place]: 136 QRS: 70 QRSD: 90 T: 60 QT: 386 QTc: 449 Interpretive Statements SINUS RHYTHM VENTRICULAR PREMATURE COMPLEX(ES) ABNORMAL ECG RI6.02 No previous ECG available for comparison
[2020-10-18 13:01] LABS: ALBUMIN 4.9 g/dL (3.4-5.0); ALBUMIN/GLOBULIN RATIO 1.3 (1.0-1.7); MAGNESIUM 1.9 mg/dL (1.8-2.4); TOTAL BILIRUBIN 0.7 mg/dL (0.2-1.0); TOTAL PROTEIN 8.6 g/dL (6.4-8.2)
[2020-10-18 13:04] LABS: CREATINE KINASE 46 U/L (26-192)
[2020-10-18 13:14] LABS: BILIRUBIN,URINE SMALL (NEG); CLARITY,URINE CLOUDY; COLOR,URINE AMBER; NITRITE,URINE NEGATIVE (NEG); PH,URINE 5.5 (<5.0-8.0); PROTEIN,URINE 100 mg/dL (NEG-TRACE); UROBILINOGEN,URINE 0.2 mg/dL (0.2 mg/dL)
[2020-10-18] MEDS ORDERED: IV NORMAL SALINE 1000ML BAG 1,000 ML IV ONE ×2 (13:15→13:30)
[2020-10-18 13:23] LABS: BARBITURATES NEG (NEG); BENZODIAZEPINES NEG (NEG); CANNABINOIDS POS (NEG); COCAINE NEG (NEG); METHADONE NEG (NEG); OPIATES NEG (NEG); PHENCYCLIDINE NEG (NEG)
[2020-10-18 13:24] LABS: AMPHETAMINE/METHAMPHETAMINE NEG (NEG)
[2020-10-18 13:37] LABS: BACTERIA,URINE FEW /HPF (0-FEW)
[2020-10-18 13:38] LABS: INFLUENZA A PATIENT NEGATIVE (NEGATIVE); INFLUENZA B PATIENT NEGATIVE (NEGATIVE)
[2020-10-18] MEDS ORDERED: ONDANSETRON PF 4 MG/2 ML VIAL. IVP ONE (14:45)
[2020-10-18] MEDS ORDERED: ALPRAZolam 0.5 MG TABLET PO ONE (14:45)
--- NOTE | 2020-10-18 16:05 | RAD ---
EXAM: XR CHEST 1V INDICATION: Reason: SOA / Spl. Instructions: / History: . TECHNIQUE: Single view COMPARISON: Chest x-ray 10/03/2020 at 9:44 AM, CT chest of 05/20/2020 FINDINGS: The heart size is normal. The great vessels appear unremarkable. There is no hilar or mediastinal mass. The lungs are clear. There is no pleural effusion or pneumothorax. There are no significant osseous abnormalities. IMPRESSION: No active cardiopulmonary disease. Electronically signed by: Justin Staley MD (10/18/2020 4:03 PM) [id number]
[2020-10-18 16:29] VITALS: BP 122/56
[2020-10-18] MEDS ORDERED: CEPH500T PO (16:41)
[2020-10-18] MEDS ORDERED: DICY20TA3 PO (16:41)
[2020-10-18] MEDS ORDERED: ONDA4TAB12 PO (16:41)
== END 2020-10-18 17:28 | disposition home or self-care (01) ==
LOC: ER 11:48
DX: N39.0 Urinary tract infection, site not specified (principal); Z20.822 Contact with and (suspected) exposure to COVID-19; R06.02 Shortness of breath; J44.9 Chronic obstructive pulmonary disease, unspecified; K21.9 Gastro-esophageal reflux disease without esophagitis; E78.00 Pure hypercholesterolemia, unspecified; I10 Essential (primary) hypertension; I25.10 Atherosclerotic heart disease of native coronary artery without angina pectoris; I25.2 Old myocardial infarction; G89.29 Other chronic pain; Z95.5 Presence of coronary angioplasty implant and graft; Z90.710 Acquired absence of both cervix and uterus; F17.200 Nicotine dependence, unspecified, uncomplicated; Z88.8 Allergy status to other drugs, medicaments and biological substances
CPT/HCPCS: 36415; 71045; 80053; 80307; 81001; 82553; 83605; 83735; 83880; 84145; 84443; 84484; 85025; 85379; 87040; 87086; 87804; 93005; 96361; 96374; 96375; 99285; C9803; J1100; J2405; J7030; U0003

== ENCOUNTER 2020-11-09 16:35 | Inpatient (IN) | payer MEDICARE, OTHER ==
[~2020-11-09] VITALS: Ht 162.6 cm; Wt 44.5 kg
[~2020-11-09 16:35] MED LIST changes: +CEPH500T PO
--- NOTE | 2020-11-09 17:03 | ED.ADGEN ---
Past Medical History Past Medical History: Asthma, CAD, COPD, Gallstones, GERD, High Cholesterol, Hypertension, CT, Other Additional Past Medical Histor: OSTEOPOROSIS, chronic abd pain Past Surgical History: Angioplasty, Hysterectomy, Tonsillectomy Additional Past Surgical Histo: LEFT EYE, cardiac stent Smoking Status: Current Every Day Smoker Alcohol Use: None Drug Use: Marijuana General Adult EDM: Chief Complaint: WEAKNESS/GENERALIZED HPI: HPI: Patient is a 70-year-old female who arrives ambulatory to the emergency department complaining of central abdominal pain. Patient reports his pain is been ongoing for 3 weeks and is continuing to worsen. Patient reports that she has been nauseated during this time and had multiple episodes of vomiting over the course of the past 3 weeks. Patient also reports that she has had dark stools during this time as well. Patient was referred here by her GI physician for further evaluation with respect to her symptoms. Despite the patient's reported symptoms, she denies any history of fever, chest pain or shortness of air. She further denies any genitourinary symptoms. Patient was evaluated 4 days previously at another hospital and evaluated with CT imaging and treated with antibiotics for presumed abdominal infection. Despite this the patient reports that she is not improving with respect to her symptomology. She is awake, alert and anxious appearing Review of Systems: Review of Systems: Constitutional: Denies fever or chills. [] Eyes: Denies change in visual acuity. [] HENT: Denies nasal congestion or sore throat. [] Respiratory: Denies cough or shortness of breath. [] Cardiovascular: Denies chest pain or edema. [] GI: Reports abdominal pain, nausea, vomiting, bloody stools or diarrhea. [] : Denies dysuria. [] Musculoskeletal: Denies back pain or joint pain. [] Integument: Denies rash. [] Neurologic: Denies headache, focal weakness or sensory changes. [] Endocrine: Denies polyuria or polydipsia. [] Lymphatic: Denies swollen glands. [] Psychiatric: Denies depression or anxiety. [] Current Medications: Current Medications Medications (Trade) Dose Ordered Sig/[place] Start Time Stop Time Status Last Admin Dose Admin Ceftriaxone Sodium (Rocephin) 1 gm 1X ONCE 11/09/20 18:00 11/09/20 18:01 Allergies: Allergies: Allergies Coded Allergies Type Severity Reaction Last Updated Verified aluminum Allergy Severe BREAK OUT ALL OVER 2/24/21 Yes gold Au 198 Allergy Severe BREAK OUT ALL OVER 10/18/20 Yes iron Allergy Severe BREAK OUT ALL OVER 10/18/20 Yes nickel Allergy Severe BREAK OUT ALL OVER 10/18/20 Yes silver Allergy Severe BREAK OUT ALL OVER 10/18/20 Yes Physical Exam: PE: Constitutional: Anxious appearing. Well nourished, no acute distress, non-toxic appearance. [] HENT: Normocephalic, atraumatic, bilateral external ears normal, oropharynx moist, no oral exudates, nose normal. [] Eyes: PERRLA, EOMI, conjunctiva normal, no discharge. [] Neck: Normal range of motion, no tenderness, supple, no stridor. [] Cardiovascular:Heart rate regular rhythm, no murmur [] Lungs & Thorax: Bilateral breath sounds clear to auscultation [] Abdomen: Bowel sounds normal, soft, no tenderness, no masses, no pulsatile masses. [] Skin: Warm, dry, no erythema, no rash. [] Back: No tenderness, no CVA tenderness. [] Extremities: No tenderness, no cyanosis, no clubbing, ROM intact, no edema. [] Neurologic: Alert and oriented X 3, normal motor function, normal sensory function, no focal deficits noted. [] Psychologic: Affect normal, judgement normal, mood normal. [] Current Patient Data: Labs: Laboratory Tests Test 11/09/20 16:50 11/09/20 17:20 Urine Collection Type Unknown Urine Color Violeta Urine Clarity Turbid Urine pH 5.0 (<5.0-8.0) Urine Specific [place] 1.025 (1.000-1.030) Urine Protein 30 mg/dL (NEG-TRACE) Urine Glucose (UA) Negative mg/dL (NEG) Urine Ketones (Stick) Trace mg/dL (NEG) Urine Blood Small (NEG) Urine Nitrite Negative (NEG) Urine Bilirubin Small (NEG) Urine Urobilinogen Dipstick 0.2 mg/dL (0.2 mg/dL) Urine Leukocyte Esterase Small (NEG) Urine RBC 1-2 /HPF (0-2) Urine WBC 5-10 /HPF (0-4) Urine Squamous Epithelial Cells Many /LPF Urine Amorphous Sediment Present /HPF Urine Bacteria 0 /HPF (0-FEW) Urine Hyaline Casts Moderate /HPF Urine Mucus Marked /LPF White Blood Count 5.7 x10^3/uL (4.0-11.0) Red Blood Count 3.93 x10^6/uL (3.50-5.40) Hemoglobin 13.2 g/dL (12.0-15.5) Hematocrit 38.5 % (36.0-47.0) Mean Corpuscular Volume 98 fL (79-100) Mean Corpuscular Hemoglobin 34 pg (25-35) Mean Corpuscular Hemoglobin Concent 34 g/dL (31-37) Red Cell Distribution Width 13.4 % (11.5-14.5) Platelet Count 226 x10^3/uL (140-400) Neutrophils (%) (Auto) 58 % (31-73) Lymphocytes (%) (Auto) 31 % (24-48) Monocytes (%) (Auto) 7 % (0-9) Eosinophils (%) (Auto) 3 % (0-3) Basophils (%) (Auto) 1 % (0-3) Neutrophils # (Auto) 3.3 x10^3/uL (1.8-7.7) Lymphocytes # (Auto) 1.8 x10^3/uL (1.0-4.8) Monocytes # (Auto) 0.4 x10^3/uL (0.0-1.1) Eosinophils # (Auto) 0.2 x10^3/uL (0.0-0.7) Basophils # (Auto) 0.1 x10^3/uL (0.0-0.2) Laboratory Tests 11/09/20 17:20 Vital Signs: Vital Signs Date Time Temp Pulse Resp B/P (MAP) Pulse Ox O2 Delivery O2 Flow Rate FiO2 11/09/20 16:57 97.6 76 20 118/71 (87) 100 Room Air 97.6 EKG: EKG: EKG was obtained at 1710 hrs. and revealed a sinus rhythm with premature v entricular complexes and bigeminy. Ventricular rate is 69 bpm without any acute ST/T wave changes to denote ischemia. [] Heart Score: C/O Chest Pain: No Risk Factors: Risk Factors: DM, Current or recent (<one month) smoker, HTN, HLP, family history of CAD, obesity. Risk Scores: Score 0 - 3: 2.5% MACE over next 6 weeks - Discharge Home Score 4 - 6: 20.3% MACE over next 6 weeks - Admit for Clinical Observation Score 7 - 10: 72.7% MACE over next 6 weeks - Early Invasive Strategies Radiology/Procedures: Radiology/Procedures: [] Course & Med Decision Making: Course & Med Decision Making Pertinent Labs and Imaging studies reviewed. (See chart for details) Patient still has lab work pending at this time. Given the nature of this patient's complaint I will order CT of the abdomen and pelvis for further examination to the patient's history of pain with nausea and vomiting as well as diarrhea. The patient's care will be transitioned to Dr. Dank Viera for further evaluation and treatment. Dragon Disclaimer: Dragon Disclaimer: This electronic medical record was generated, in whole or in part, using a voice recognition dictation system. Departure Departure Impression: Primary Impression: UTI (urinary tract infection) Additional Impression: Gastroenteritis Referrals: IJEOMA MCCRAY MD (PCP) Problem Qualifiers NAOMY FUNEZ DO Nov 09, 2020 17:03
[2020-11-09 17:12] LABS: BILIRUBIN,URINE SMALL (NEG); CLARITY,URINE TURBID; COLOR,URINE AMBER; NITRITE,URINE NEGATIVE (NEG); PROTEIN,URINE 30 mg/dL (NEG-TRACE); UROBILINOGEN,URINE 0.2 mg/dL (0.2 mg/dL)
--- NOTE | 2020-11-09 17:27 | EKG ---
[facility] [address] [place] [address] Test Date: 2020-11-09 Test Time: 17:10:34 Pat Name: TOÑA GUZMÁN Department: Patient ID: [id number] Room: Gender: F Security Director: [facility] ER : 1950 Requested By: NAOMY FUNEZ Order Number: [id number] Reading MD: Measurements Intervals [place] Rate: 69 P: 66 NE: 142 QRS: 76 QRSD: 92 T: 69 QT: 412 QTc: 448 Interpretive Statements SINUS RHYTHM VENTRICULAR PREMATURE COMPLEX(ES), BIGEMINY ABNORMAL ECG RI6.02 No previous ECG available for comparison
[2020-11-09 17:29] LABS: AMORPHOUS SEDIMENT,UR PRESENT /HPF; BACTERIA,URINE 0 /HPF (0-FEW); HYALINE CASTS, URINE MODERATE /HPF
[2020-11-09 17:29] LABS: BASO # 0.1 x10^3/uL (0.0-0.2); BASO % 1 % (0-3); EOS # 0.2 x10^3/uL (0.0-0.7); EOS % 3 % (0-3); HEMATOCRIT 38.5 % (36.0-47.0); HEMOGLOBIN 13.2 g/dL (12.0-15.5); LYMPH # 1.8 x10^3/uL (1.0-4.8); LYMPH % 31 % (24-48); MEAN CORPUSCULAR HEMOGLOBIN 34 pg (25-35); MEAN CORPUSCULAR HGB CONC 34 g/dL (31-37); MEAN CORPUSCULAR VOLUME 98 fL (79-100); MONO # 0.4 x10^3/uL (0.0-1.1); MONO % 7 % (0-9); NEUT # 3.3 x10^3/uL (1.8-7.7); NEUT % 58 % (31-73); PLATELET COUNT 226 x10^3/uL (140-400); RED BLOOD COUNT 3.93 x10^6/uL (3.50-5.40); RED CELL DISTRIBUTION WIDTH 13.4 % (11.5-14.5); WHITE BLOOD COUNT 5.7 x10^3/uL (4.0-11.0)
[2020-11-09 17:40] LABS: CALCIUM 9.7 mg/dL (8.5-10.1); CREATININE 0.8 mg/dL (0.6-1.0); GFR 71.3; POTASSIUM 3.4 mmol/L (3.5-5.1)
[2020-11-09 17:46] LABS: ALBUMIN 4.3 g/dL (3.4-5.0); ALBUMIN/GLOBULIN RATIO 1.3 (1.0-1.7); TOTAL BILIRUBIN 0.5 mg/dL (0.2-1.0); TOTAL PROTEIN 7.6 g/dL (6.4-8.2)
[2020-11-09] MEDS ORDERED: CONTRAST GIVEN. MC PRN (18:00)
[2020-11-09] MEDS ORDERED: cefTRIAXone IV Push 1 GM VIAL. IVP ONE (18:00)
[2020-11-09] MEDS ORDERED: IOHEXOL 300 MG/ML 100ML VIAL. IV ONE (18:00)
--- NOTE | 2020-11-09 18:06 | RAD ---
INDICATION: Reason: Nausea and vomiting, Epigastric pain / Spl. Instructions: / History: COMPARISON: October 18, 2020 FINDINGS: Single view of chest obtained. Calcific atherosclerosis. Degenerative changes the bilateral shoulders. Hyperexpanded lungs with coarsened interstitial markings again seen. A definite new region of consoli dation is not identified. IMPRESSION: * Similar exam compared to prior without a definite new region of consolidation. Electronically signed by: Jose Eduardo Hallman MD (11/09/2020 6:04 PM) [id number]
--- NOTE | 2020-11-09 19:14 | RAD ---
Exam: CT abdomen and pelvis with contrast INDICATION: Pain with nausea, vomiting and diarrhea TECHNIQUE: Sequential axial images through the abdomen and pelvis obtained following the administrati on of 75 mL of Isovue-370 IV contrast. Sagittal and coronal reformatted images were reconstructed fro m the axial data and reviewed. Comparisons: 10/03/2020 FINDINGS: Heart size is normal. No pericardial effusion. Visualized lung bases are clear. No pleural effusion. Liver, spleen, pancreas and adrenals are unremarkable. Gallbladder surgically absent. No perinephric inflammation or hydronephrosis. No renal or ureteral calculi are identified. Bladder is decompressed not well evaluated. Uterus is absent. No abnormal adnexal mass. Mild stranding adjacent to the rectum. Remainder of the large and small bowel are unremarkable. No fr ee intra-abdominal air or fluid. No obstruction. Abdominal aorta has a normal course and caliber. No enlarged intra-abdominal lymph nodes are identified. No suspicious osseous lesions or acute fractures. IMPRESSION: 1. Mild stranding adjacent to the rectum may relate to focal colitis. 2. Cholecystectomy changes. Exposure: One or more of the following in the visualized dose reduction techniques were utilized for this examination: 1. Automated exposure control 2. Adjustment of the MA and/or KV according to patient size 3. Use of iterative of reconstructive technique Electronically signed by: Reji Ruff MD (11/09/2020 7:12 PM) [facility]
[2020-11-09] MEDS ORDERED: MORPHINE SULFATE 2 MG/ML VIAL. IV ONE (19:15)
[2020-11-09] MEDS ORDERED: ONDANSETRON PF 4 MG/2 ML VIAL. IVP ONE (19:15)
[2020-11-09] MEDS ORDERED: MORPHINE SULFATE 2 MG/ML VIAL. IV PRN (19:45)
[2020-11-09] MEDS ORDERED: ONDANSETRON PF 4 MG/2 ML VIAL. IV PRN (19:45)
[2020-11-09] MEDS ORDERED: TRAZ150T49 PO (23:37)
[2020-11-10] MEDS ORDERED: MAG HYDROX/ALUMINUM HYD/SIMETH 30 ML ORAL.SUSP PO PRN ×2 (00:30→07:15)
[2020-11-10] MEDS ORDERED: diphenhydrAMINE 50 MG/ML VIAL IVP PRN (00:30)
[2020-11-10] MEDS ORDERED: diphenhydrAMINE HCL 25 MG CAPSULE PO PRN (00:30)
[2020-11-10] MEDS ORDERED: CALCIUM CARBONATE 500 MG TAB.CHEW PO PRN ×2 (01:15→07:15)
[2020-11-10] MEDS: traZODone 50 MG TABLET. PO PRN ×2 (01:18→20:12)
--- NOTE | 2020-11-10 01:34 | NUR ---
Pt verbalized she not allergic to aluminum, Mylanta given and aluminum allergy removed. Pt then verbalized she did not like the taste of Mylanta and could not finish the dose. Tums order placed and given, tolerated better. Pt much happier
[2020-11-10 03:00] VITALS: BP 98/60
[2020-11-10] MEDS ORDERED: MORPHINE SULFATE 2 MG/ML VIAL. IV PRN ×2 (03:15→07:15)
[2020-11-10] MEDS ORDERED: MAGNESIUM HYDROXIDE 2,400 MG/30 ML ORAL.SUSP. PO PRN ×2 (03:30→07:15)
--- NOTE | 2020-11-10 03:33 | NUR ---
MD Shukla called regarding pt unrelieved abdominal pain. Order given for IV Morphine 2 mg x two doses. Order placed as a one time dose two times. Thank you
[2020-11-10] MEDS ORDERED: MORPHINE SULFATE 2 MG/ML VIAL. IV ONE (04:00)
[2020-11-10 07:00] VITALS: BP 123/72
--- NOTE | 2020-11-10 07:11 | PDOC1 ---
History and Physical Date of Admission Date of Admission DATE: 11/10/20 TIME: 06:56 Identification/Chief Complaint Chief Complaint Abdominal pain Source Source: Chart review, Patient History of Present Illness History of Present Illness Patient is a 70-year-old female presents to the ED with complaints of worsening abdominal pain over the past 3 weeks. She reports sharp lower abdominal pain, 10/10. She notes associated nausea, vomiting, and dark stools over this time. She was recently treated at another ER for similar symptoms with antibiotics for presumed infectious process without improvement. She has multiple admissions over the past year for similar complaints of abdominal pain, nausea, and vomiting. She was recently admitted to our service on 08/08/[address]. [address] abdomen/pelvis obtained on admission showed presumed focal colitis. Will admit patient with GI consult for further medical management. Past Medical History Cardiovascular: CAD, HTN, Other Pulmonary: Asthma, COPD Past Surgical History Past Surgical History Cardiac stents Past Surgical History: Cholecystectomy Family History Family History Denies pertinent family history Social History Smoke: Quit ALCOHOL: none Drugs: Marijuana Current Problem List Problem List Problems Medical Problems: (1) Gastroenteritis Status: Acute (2) Intractable abdominal pain Status: Acute (3) UTI (urinary tract infection) Status: Acute Current Medications Current Medications Current Medications Ceftriaxone Sodium (Rocephin) 1 gm 1X ONCE IVP Last administered on 11/09/20at 18:19; Start 11/09/20 at 18:00; Stop 11/09/20 at 18:01; Status DC Iohexol (Omnipaque 300 Mg/ml) 75 ml 1X ONCE IV Last administered on 11/09/20at 18:00; Start 11/09/20 at 18:00; Stop 11/09/20 at 18:01; Status DC Info (CONTRAST GIVEN -- Rx MONITORING) 1 each PRN DAILY PRN MC SEE COMMENTS; Start 11/09/20 at 18:00; Stop 11/11/20 at 17:59 Morphine Sulfate (Morphine Sulfate) 2 mg 1X ONCE IV Last administered on 11/09/20at 19:16; Start 11/09/20 at 19:15; Stop 11/09/20 at 19:16; Status DC Ondansetron HCl (Zofran) 4 mg 1X ONCE IVP Last administered on 11/09/20at 19:14; Start 11/09/20 at 19:15; Stop 11/09/20 at 19:16; Status DC Ondansetron HCl (Zofran) 4 mg PRN Q8HRS PRN IV NAUSEA/VOMITING; Start 11/09/20 at 19:45; Stop 11/10/20 at 19:44 Morphine Sulfate (Morphine Sulfate) 2 mg PRN Q2HR PRN IV PAIN; Start 11/09/20 at 19:45; Stop 11/10/20 at 19:44 Levofloxacin/ Dextrose 100 ml @ 100 mls/hr 1X ONCE IV Last administered on 11/10/20at 00:11; Start 11/09/20 at 22:00; Stop 11/09/20 at 22:59; Status DC Metronidazole 100 ml @ 100 mls/hr 1X ONCE IV Last administered on 11/09/20at 22:55; Start 11/09/20 at 22:00; Stop 11/09/20 at 22:59; Status DC Al Hydroxide/Mg Hydroxide (Mylanta Plus Xs) 30 ml PRN Q2HR PRN PO HEARTBURN / GAS Last administered on 11/10/20at 00:58; Start 11/10/20 at 00:30 Diphenhydramine HCl (Benadryl) 25 mg PRN Q6HRS PRN IVP ITCHING Last administered on 11/10/20at 00:58; Start 11/10/20 at 00:30 Diphenhydramine HCl (Benadryl) 25 mg PRN Q6HRS PRN PO ITCHING; Start 11/10/20 at 00:30 Trazodone HCl (Desyrel) 150 mg PRN QHS PRN PO INSOMNIA Last administered on 11/10/20at 01:18; Start 11/10/20 at 00:45 Calcium Carbonate/ Glycine (Tums) 500 mg PRN AFTMEALHC PRN PO INDIGESTION Last administered on 11/10/20at 01:17; Start 11/10/20 at 01:15 Morphine Sulfate (Morphine Sulfate) 2 mg 1X PRN IV PAIN Last administered on 11/10/20at 03:26; Start 11/10/20 at 03:15; Stop 11/10/20 at 04:00; Status DC Magnesium Hydroxide (Milk Of Magnesia) 2,400 mg PRN DAILY PRN PO CONSTIPATION Last administered on 11/10/20at 03:25; Start 11/10/20 at 03:30 Morphine Sulfate (Morphine Sulfate) 2 mg 1X ONCE IV ; Start 11/10/20 at 04:00; Stop 11/10/20 at 04:01; Status DC Active Scripts Active Dicyclomine Hcl 20 Mg Tablet 1 Tab PO TID Ondansetron Odt (Ondansetron) 4 Mg Tab.rapdis 1 Tab PO PRN Q6-8HRS Cephalexin 500 Mg Tablet 1 Tab PO BID Ondansetron Hcl 4 Mg Tablet 1 Tab PO PRN Q6-8HRS PRN 3 Days Hydrocodone-Apap 5-325 (Hydrocodone Bit/Acetaminophen) 1 Tab Tablet 0.5-1 Tab PO PRN Q6HRS PRN Dicyclomine Hcl 20 Mg Tablet 1 Tab PO TID 10 Days Martin 5-325 Tablet (Acetaminophen/Hydrocodone Bitart) 1 Each Tablet 1 Tab PO TID 5 Days Zofran (Ondansetron Hcl) 4 Mg Tablet 1 Tab PO Q8HRS Potassium Chloride (Potassium Chloride) 20 Meq Tablet.er 20 Meq PO DAILY 7 Days Pepcid (Famotidine) 20 Mg Tablet 20 Mg PO BID Klor-Con M20 (Potassium Chloride) 20 Meq Tab.er.prt 1 Tab PO DAILY 7 Days Zofran (Ondansetron Hcl) 4 Mg Tablet 1 Tab PO PRN Q6-8HRS Ondansetron Odt (Ondansetron) 4 Mg Tab.rapdis 1 Tab PO PRN Q6-8HRS PRN Reported Trazodone Hcl 150 Mg Tablet 150 Tab PO QHS Aspirin 81 Mg Tab.chew 1 Tab PO DAILY Clopidogrel (Clopidogrel Bisulfate) 75 Mg Tablet 1 Tab PO DAILY Lipitor (Atorvastatin Calcium) 10 Mg Tablet 10 Mg PO HS Alprazolam 0.5 Mg Tablet 0.5 Mg PO PRN Q6HRS PRN Pantoprazole Sodium (Pantoprazole Sodium) 40 Mg Tablet.dr 40 Mg PO DAILY Duoneb 0.5-3(2.5) Mg/3 Ml (Albuterol/Ipratropium) 3 Ml Ampul.neb 3 Ml NEB QID Oxycodone-Acetaminophen 10-325 (Oxycodone Hcl/Acetaminophen) 1 Each Tablet 1 Each PO PRN Q6HRS PRN Percocet 10-325 Mg Tablet (Oxycodone/Acetaminophen) 1 Each Tablet 1 Tab PO PRN Q6HRS PRN Wellbutrin Sr (Bupropion Hcl) 150 Mg Tablet.er 150 Mg PO DAILY Venlafaxine Hcl Er (Venlafaxine Hcl) 150 Mg Tab.er.24 150 Mg PO DAILY Effexor Xr (Venlafaxine Hcl) 150 Mg Cap.er.24h 150 Mg PO DAILY Gabapentin (Gabapentin) 100 Mg Capsule 400 Mg PO TID Xanax (Alprazolam) 0.5 Mg Tablet 0.5 Mg PO TID PRN Allergies Allergies: Coded Allergies: gold Au 198 (Verified Allergy, Severe, BREAK OUT ALL OVER, 10/18/20) iron (Verified Allergy, Severe, BREAK OUT ALL OVER, 10/18/20) METALS nickel (Verified Allergy, Severe, BREAK OUT ALL OVER, 10/18/20) silver (Verified Allergy, Severe, BREAK OUT ALL OVER, 10/18/20) ROS Review of System GENERAL: No history of weight change, weakness or fevers. SKIN: No bruising, hair changes or rashes. EYES: No blurred, double or loss of vision. NOSE AND THROAT: No history of nosebleeds, hoarseness or sore throat. HEART: Denies chest pain, denies palpitations. LUNGS: Denies cough, hemoptysis, wheezing or shortness of breath. GASTROINTESTINAL: Abdominal pain, nausea, vomiting, melena. GENITOURINARY: Denies dysuria, frequency, urgency, hematuria. NEUROLOGIC: Denies history of numbness, tingling, tremor or weakness. PSYCHIATRIC: Denies anxiety, denies depression. ENDOCRINE: No history of heat or cold intolerance, polyuria or polydipsia. EXTREMITIES: Denies muscle weakness, joint pain, pain on walking or stiffness. Physical Exam Physical Exam General: Alert, Oriented X3, Cooperative, mild distress. HEENT: PERRLA, EOMI Lungs: Clear to auscultation, Normal air movement Heart: RRR, no murmurs Cardiovascular: S1, S2 Abdomen: Lower abdominal tenderness. Normal bowel sounds, Soft. Extremities: No clubbing, No cyanosis Skin: No rashes, No significant lesion Neuro: Normal speech, Normal tone, Sensation intact Psych/Mental Status: Mental status NL, Mood NL Vitals Vitals Vital Signs Date Time Temp Pulse Resp B/P (MAP) Pulse Ox O2 Delivery O2 Flow Rate FiO2 11/10/20 03:26 98 Room Air 11/10/20 03:00 98.2 67 18 98/60 (73) 98.2 Labs Labs Laboratory Tests Test 11/09/20 16:50 11/09/20 17:20 Urine Collection Type Unknown Urine Color Violeta Urine Clarity Turbid Urine pH 5.0 (<5.0-8.0) Urine Specific [place] 1.025 (1.000-1.030) Urine Protein 30 mg/dL (NEG-TRACE) Urine Glucose (UA) Negative mg/dL (NEG) Urine Ketones (Stick) Trace mg/dL (NEG) Urine Blood Small (NEG) Urine Nitrite Negative (NEG) Urine Bilirubin Small (NEG) Urine Urobilinogen Dipstick 0.2 mg/dL (0.2 mg/dL) Urine Leukocyte Esterase Small (NEG) Urine RBC 1-2 /HPF (0-2) Urine WBC 5-10 /HPF (0-4) Urine Squamous Epithelial Cells Many /LPF Urine Amorphous Sediment Present /HPF Urine Bacteria 0 /HPF (0-FEW) Urine Hyaline Casts Moderate /HPF Urine Mucus Marked /LPF White Blood Count 5.7 x10^3/uL (4.0-11.0) Red Blood Count 3.93 x10^6/uL (3.50-5.40) Hemoglobin 13.2 g/dL (12.0-15.5) Hematocrit 38.5 % (36.0-47.0) Mean Corpuscular Volume 98 fL (79-100) Mean Corpuscular Hemoglobin 34 pg (25-35) Mean Corpuscular Hemoglobin Concent 34 g/dL (31-37) Red Cell Distribution Width 13.4 % (11.5-14.5) Platelet Count 226 x10^3/uL (140-400) Neutrophils (%) (Auto) 58 % (31-73) Lymphocytes (%) (Auto) 31 % (24-48) Monocytes (%) (Auto) 7 % (0-9) Eosinophils (%) (Auto) 3 % (0-3) Basophils (%) (Auto) 1 % (0-3) Neutrophils # (Auto) 3.3 x10^3/uL (1.8-7.7) Lymphocytes # (Auto) 1.8 x10^3/uL (1.0-4.8) Monocytes # (Auto) 0.4 x10^3/uL (0.0-1.1) Eosinophils # (Auto) 0.2 x10^3/uL (0.0-0.7) Basophils # (Auto) 0.1 x10^3/uL (0.0-0.2) Sodium Level 136 mmol/L (136-145) Potassium Level 3.4 mmol/L (3.5-5.1) Chloride Level 96 mmol/L (98-107) Carbon Dioxide Level 25 mmol/L (21-32) Anion Gap 15 (6-14) Blood Urea Nitrogen 15 mg/dL (7-20) Creatinine 0.8 mg/dL (0.6-1.0) Estimated GFR (Cockcroft-Gault) 71.3 BUN/Creatinine Ratio 19 (6-20) Glucose Level 97 mg/dL (70-99) Calcium Level 9.7 mg/dL (8.5-10.1) Total Bilirubin 0.5 mg/dL (0.2-1.0) Aspartate Amino Transf (AST/SGOT) 15 U/L (15-37) Alanine Aminotransferase (ALT/SGPT) 19 U/L (14-59) Alkaline Phosphatase 78 U/L (46-116) Troponin I Quantitative < 0.017 ng/mL (0.000-0.055) Total Protein 7.6 g/dL (6.4-8.2) Albumin 4.3 g/dL (3.4-5.0) Albumin/Globulin Ratio 1.3 (1.0-1.7) Lipase 77 U/L (73-393) Laboratory Tests Test 11/09/20 16:50 11/09/20 17:20 Urine Collection Type Unknown Urine Color Violeta Urine Clarity Turbid Urine pH 5.0 (<5.0-8.0) Urine Specific [place] 1.025 (1.000-1.030) Urine Protein 30 mg/dL (NEG-TRACE) Urine Glucose (UA) Negative mg/dL (NEG) Urine Ketones (Stick) Trace mg/dL (NEG) Urine Blood Small (NEG) Urine Nitrite Negative (NEG) Urine Bilirubin Small (NEG) Urine Urobilinogen Dipstick 0.2 mg/dL (0.2 mg/dL) Urine Leukocyte Esterase Small (NEG) Urine RBC 1-2 /HPF (0-2) Urine WBC 5-10 /HPF (0-4) Urine Squamous Epithelial Cells Many /LPF Urine Amorphous Sediment Present /HPF Urine Bacteria 0 /HPF (0-FEW) Urine Hyaline Casts Moderate /HPF Urine Mucus Marked /LPF White Blood Count 5.7 x10^3/uL (4.0-11.0) Red Blood Count 3.93 x10^6/uL (3.50-5.40) Hemoglobin 13.2 g/dL (12.0-15.5) Hematocrit 38.5 % (36.0-47.0) Mean Corpuscular Volume 98 fL (79-100) Mean Corpuscular Hemoglobin 34 pg (25-35) Mean Corpuscular Hemoglobin Concent 34 g/dL (31-37) Red Cell Distribution Width 13.4 % (11.5-14.5) Platelet Count 226 x10^3/uL (140-400) Neutrophils (%) (Auto) 58 % (31-73) Lymphocytes (%) (Auto) 31 % (24-48) Monocytes (%) (Auto) 7 % (0-9) Eosinophils (%) (Auto) 3 % (0-3) Basophils (%) (Auto) 1 % (0-3) Neutrophils # (Auto) 3.3 x10^3/uL (1.8-7.7) Lymphocytes # (Auto) 1.8 x10^3/uL (1.0-4.8) Monocytes # (Auto) 0.4 x10^3/uL (0.0-1.1) Eosinophils # (Auto) 0.2 x10^3/uL (0.0-0.7) Basophils # (Auto) 0.1 x10^3/uL (0.0-0.2) Sodium Level 136 mmol/L (136-145) Potassium Level 3.4 mmol/L (3.5-5.1) Chloride Level 96 mmol/L (98-107) Carbon Dioxide Level 25 mmol/L (21-32) Anion Gap 15 (6-14) Blood Urea Nitrogen 15 mg/dL (7-20) Creatinine 0.8 mg/dL (0.6-1.0) Estimated GFR (Cockcroft-Gault) 71.3 BUN/Creatinine Ratio 19 (6-20) Glucose Level 97 mg/dL (70-99) Calcium Level 9.7 mg/dL (8.5-10.1) Total Bilirubin 0.5 mg/dL (0.2-1.0) Aspartate Amino Transf (AST/SGOT) 15 U/L (15-37) Alanine Aminotransferase (ALT/SGPT) 19 U/L (14-59) Alkaline Phosphatase 78 U/L (46-116) Troponin I Quantitative < 0.017 ng/mL (0.000-0.055) Total Protein 7.6 g/dL (6.4-8.2) Albumin 4.3 g/dL (3.4-5.0) Albumin/Globulin Ratio 1.3 (1.0-1.7) Lipase 77 U/L (73-393) Images Images CT ABD PELV W/ IV CONTRST ONLY Exam: CT abdomen and pelvis with contrast INDICATION: Pain with nausea, vomiting and diarrhea TECHNIQUE: Sequential axial images through the abdomen and pelvis obtained following the administration of 75 mL of Isovue-370 IV contrast. Sagittal and coronal reformatted images were reconstructed from the axial data and reviewed. Comparisons: 10/03/2020 FINDINGS: Heart size is normal. No pericardial effusion. Visualized lung bases are clear. No pleural effusion. Liver, spleen, pancreas and adrenals are unremarkable. Gallbladder surgically absent. No perinephric inflammation or hydronephrosis. No renal or ureteral calculi are identified. Bladder is decompressed not well evaluated. Uterus is absent. No abnormal adnexal mass. Mild stranding adjacent to the rectum. Remainder of the large and small bowel are unremarkable. No free intra-abdominal air or fluid. No obstruction. Abdominal aorta has a normal course and caliber. No enlarged intra-abdominal lymph nodes are identified. No suspicious osseous lesions or acute fractures. IMPRESSION: 1. Mild stranding adjacent to the rectum may relate to focal colitis. 2. Cholecystectomy changes. PORTABLE CHEST 1V INDICATION: Reason: Nausea and vomiting, Epigastric pain / Spl. Instructions: / History: COMPARISON: October 18, 2020 FINDINGS: Single view of chest obtained. Calcific atherosclerosis. Degenerative changes the bilateral shoulders. Hyperexpanded lungs with coarsened interstitial markings again seen. A definite new region of consolidation is not identified. IMPRESSION: * Similar exam compared to prior without a definite new region of consolidation. VTE Prophylaxis Ordered VTE Prophylaxis Devices: No VTE Pharmacological Prophylaxi: Yes Assessment/Plan Assessment/Plan Abdominal pain Intractable nausea and vomiting Melena Plan: Received pain medication, antibiotics, and antiemetics in ED WBC and hemoglobin within normal limits Consult to GI Resume home medications FEN - clear liquid PPX - Lovenox DNR Dispo - inpatient for above Justifications for Admission Other Justification Intractable abdominal pain, symptomatic cholelithiasis NA COPELAND MD Nov 10, 2020 07:11
[2020-11-10] MEDS ORDERED: BISACODYL 10 MG SUPP.RECT. PR PRN (07:15)
[2020-11-10] MEDS ORDERED: ACETAMINOPHEN 325 MG TABLET. PO PRN (07:15)
[2020-11-10] MEDS ORDERED: PROCHLORPERAZINE 10 MG/2 ML VIAL. IVP PRN (07:15)
[2020-11-10] MEDS ORDERED: HYDROcodone/APAP 5/325MG 1 TAB TABLET PO PRN (07:15)
[2020-11-10] MEDS ORDERED: GABA-689 PO (07:48)
[2020-11-10] MEDS ORDERED: ATOR10TA60 PO (07:48)
[2020-11-10] MEDS ORDERED: VENTOLIN HFA18 GM INH (07:48)
[2020-11-10] MEDS ORDERED: MELO15TA23 PO (07:48)
[2020-11-10] MEDS ORDERED: FLUT12HF3 INH (07:48)
[2020-11-10] MEDS: buPROPion SR 150 MG TABLET.SA PO SCH ×2 (08:08→20:12)
[2020-11-10] MEDS: ASPIRIN CHEWABLE 81 MG TABLET. PO SCH (08:08)
[2020-11-10] MEDS: PANTOPRAZOLE IV PUSH 40 MG VIAL. IVP SCH (08:08)
[2020-11-10] MEDS: CLOPIDOGREL BISULFATE 75 MG TABLET PO SCH (08:09)
[2020-11-10] MEDS: GABAPENTIN 400 MG CAPSULE. PO SCH ×3 (08:09→20:11)
[2020-11-10] MEDS: ENOXAPARIN 40 MG/0.4 ML SYRINGE. SQ SCH (08:09)
--- NOTE | 2020-11-10 10:22 | PDOC2 ---
GI CONSULT Date of Service: DATE: 11/10/20 TIME: 10:22 Reason For Consult: abd pain HPI: HPI: 70 y/o female who we've seen in the past. Saw Dr. Amin in the office yesterday - advised to come to the ER. H/o chronic abdominal pain (mid) associated w/ decreased appetite and weight loss. Starts off by saying no one has told her anything and that's wrong. Reports "bad" pain x 2 weeks w/ "runny black stools" (?several times daily - vague details) and nausea. Is tearful during exam when she discusses not being able to eat at home. Pain is worse after eating but also occurs unrelated to eating. Not sure if related to stooling. Takes nothing for pain at home. Past agitation w/ staff re: narcotics here. H/o GERD on Pepcid. No dysphagia, hematemesis, or hematochezia. Usually has constipation. EGD in 2016 w/ Dr. Amin - cannot view procedure report though reported as normal when admitted shortly after. Esophageal biopsy c/w reflux (no Tejeda's). Reports normal colonoscopy at within the past 5 years. Previously asked for records but not received. Outpt colonoscopy suggested when we last saw here - she did not pursue. Lots of imaging here - CTs (8), US (5), HIDA, hepatic duplex, etc. 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 Had vascular eval, no further treatment recommended. S/p cholecystectomy (path w/ chronic cholecystitis). Hepatic steatosis on past imaging. Denies pancreas and PUD history. 24 hr urine and heavy metal screen unrevealing in 2019. On Plavix and ASA. PMH: PMH: CAD/CT w/ stent, HTN, HLD, COPD, UTI, depression/anxiety, fibromyalgia hysterectomy, eye surgery, cholecystectomy FH: Family History: Cancer (lung) Social History: Smoke: <1 pack per day ALCOHOL: none Drugs: Marijuana ROS: GEN: Denies fevers, chills, sweats HEENT: Denies blurred vision, sore throat CV: Denies chest pain RESP: Denies shortness of air, cough GI: Per HPI : Denies hematuria, dysuria ENDO: +weight loss NEURO: Denies confusion, dizziness MSK: Denies weakness, joint pain/swelling SKIN: Denies jaundice, pruritus Vitals: Vitals: Vital Signs Date Time Temp Pulse Resp B/P (MAP) Pulse Ox O2 Delivery O2 Flow Rate FiO2 11/10/20 07:00 98.6 73 18 123/72 (89) 96 Room Air 98.6 Labs: Labs: Laboratory Tests Test 11/09/20 16:50 11/09/20 17:20 Urine Collection Type Unknown Urine Color Violeta Urine Clarity Turbid Urine pH 5.0 (<5.0-8.0) Urine Specific [place] 1.025 (1.000-1.030) Urine Protein 30 mg/dL (NEG-TRACE) Urine Glucose (UA) Negative mg/dL (NEG) Urine Ketones (Stick) Trace mg/dL (NEG) Urine Blood Small (NEG) Urine Nitrite Negative (NEG) Urine Bilirubin Small (NEG) Urine Urobilinogen Dipstick 0.2 mg/dL (0.2 mg/dL) Urine Leukocyte Esterase Small (NEG) Urine RBC 1-2 /HPF (0-2) Urine WBC 5-10 /HPF (0-4) Urine Squamous Epithelial Cells Many /LPF Urine Amorphous Sediment Present /HPF Urine Bacteria 0 /HPF (0-FEW) Urine Hyaline Casts Moderate /HPF Urine Mucus Marked /LPF White Blood Count 5.7 x10^3/uL (4.0-11.0) Red Blood Count 3.93 x10^6/uL (3.50-5.40) Hemoglobin 13.2 g/dL (12.0-15.5) Hematocrit 38.5 % (36.0-47.0) Mean Corpuscular Volume 98 fL (79-100) Mean Corpuscular Hemoglobin 34 pg (25-35) Mean Corpuscular Hemoglobin Concent 34 g/dL (31-37) Red Cell Distribution Width 13.4 % (11.5-14.5) Platelet Count 226 x10^3/uL (140-400) Neutrophils (%) (Auto) 58 % (31-73) Lymphocytes (%) (Auto) 31 % (24-48) Monocytes (%) (Auto) 7 % (0-9) Eosinophils (%) (Auto) 3 % (0-3) Basophils (%) (Auto) 1 % (0-3) Neutrophils # (Auto) 3.3 x10^3/uL (1.8-7.7) Lymphocytes # (Auto) 1.8 x10^3/uL (1.0-4.8) Monocytes # (Auto) 0.4 x10^3/uL (0.0-1.1) Eosinophils # (Auto) 0.2 x10^3/uL (0.0-0.7) Basophils # (Auto) 0.1 x10^3/uL (0.0-0.2) Sodium Level 136 mmol/L (136-145) Potassium Level 3.4 mmol/L (3.5-5.1) Chloride Level 96 mmol/L (98-107) Carbon Dioxide Level 25 mmol/L (21-32) Anion Gap 15 (6-14) Blood Urea Nitrogen 15 mg/dL (7-20) Creatinine 0.8 mg/dL (0.6-1.0) Estimated GFR (Cockcroft-Gault) 71.3 BUN/Creatinine Ratio 19 (6-20) Glucose Level 97 mg/dL (70-99) Calcium Level 9.7 mg/dL (8.5-10.1) Total Bilirubin 0.5 mg/dL (0.2-1.0) Aspartate Amino Transf (AST/SGOT) 15 U/L (15-37) Alanine Aminotransferase (ALT/SGPT) 19 U/L (14-59) Alkaline Phosphatase 78 U/L (46-116) Troponin I Quantitative < 0.017 ng/mL (0.000-0.055) Total Protein 7.6 g/dL (6.4-8.2) Albumin 4.3 g/dL (3.4-5.0) Albumin/Globulin Ratio 1.3 (1.0-1.7) Lipase 77 U/L (73-393) Allergies: Coded Allergies: gold Au 198 (Verified Allergy, Severe, BREAK OUT ALL OVER, 10/18/20) iron (Verified Allergy, Severe, BREAK OUT ALL OVER, 10/18/20) METALS nickel (Verified Allergy, Severe, BREAK OUT ALL OVER, 10/18/20) silver (Verified Allergy, Severe, BREAK OUT ALL OVER, 10/18/20) Medications: Current Medications Medications (Trade) Dose Ordered Sig/Salomón Route PRN Reason Start Time Stop Time Status Last Admin Dose Admin Ceftriaxone Sodium (Rocephin) 1 gm 1X ONCE IVP 11/09/20 18:00 11/09/20 18:01 DC 11/09/20 18:19 Iohexol (Omnipaque 300 Mg/ml) 75 ml 1X ONCE IV 11/09/20 18:00 11/09/20 18:01 DC 11/09/20 18:00 Morphine Sulfate (Morphine Sulfate) 2 mg 1X ONCE IV 11/09/20 19:15 11/09/20 19:16 DC 11/09/20 19:16 Ondansetron HCl (Zofran) 4 mg 1X ONCE IVP 11/09/20 19:15 11/09/20 19:16 DC 11/09/20 19:14 Levofloxacin/ Dextrose 100 ml @ 100 mls/hr 1X ONCE IV 11/09/20 22:00 11/09/20 22:59 DC 11/10/20 00:11 Metronidazole 100 ml @ 100 mls/hr 1X ONCE IV 11/09/20 22:00 11/09/20 22:59 DC 11/09/20 22:55 Al Hydroxide/Mg Hydroxide (Mylanta Plus Xs) 30 ml PRN Q2HR PRN PO HEARTBURN / GAS 11/10/20 00:30 11/10/20 00:58 Diphenhydramine HCl (Benadryl) 25 mg PRN Q6HRS PRN IVP ITCHING 11/10/20 00:30 11/10/20 00:58 Trazodone HCl (Desyrel) 150 mg PRN QHS PRN PO INSOMNIA 11/10/20 00:45 11/10/20 01:18 Calcium Carbonate/ Glycine (Tums) 500 mg PRN AFTMEALHC PRN PO INDIGESTION 11/10/20 01:15 11/10/20 01:17 Morphine Sulfate (Morphine Sulfate) 2 mg 1X PRN IV PAIN 11/10/20 03:15 11/10/20 04:00 DC 11/10/20 03:26 Magnesium Hydroxide (Milk Of Magnesia) 2,400 mg PRN DAILY PRN PO CONSTIPATION 11/10/20 03:30 11/10/20 03:25 Aspirin (Aspirin Chewable) 81 mg DAILY08 PO 11/10/20 08:00 11/10/20 08:08 Bupropion HCl (Wellbutrin Sr) 150 mg BID PO 11/10/20 09:00 11/10/20 08:08 Clopidogrel Bisulfate (Plavix) 75 mg DAILY08 PO 11/10/20 08:00 11/10/20 08:09 Gabapentin (Neurontin) 400 mg TID PO 11/10/20 09:00 11/10/20 08:09 Enoxaparin Sodium (Lovenox 40mg Syringe) 40 mg Q24H SQ 11/10/20 07:15 11/10/20 08:09 Pantoprazole Sodium (PROTONIX VIAL for IV PUSH) 40 mg DAILYAC IVP 11/10/20 07:30 11/10/20 08:08 Imaging: Imaging: CT A/P IMPRESSION: 1. Mild stranding adjacent to the rectum may relate to focal colitis. 2. Cholecystectomy changes. CXR IMPRESSION: * Similar exam compared to prior without a definite new region of consolidation. 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 Normal Hgb and BUN. Check stool studies and a.m. Cortisol, abd Doppler, SBS, and consider colonoscopy. Clear, IV acid-body finisher. CAROL WELLS Nov 10, 2020 10:22
[2020-11-10 11:00] VITALS: BP 102/50
[2020-11-10] MEDS ORDERED: BARIUM SULFATE 60% 355 ML SUSP PO ONE (11:00)
--- NOTE | 2020-11-10 13:21 | NUR ---
SW following for discharge planning. SW reviewed chart and spoke with RN. Pt from home. SW familiar with this pt from previous admission lsat July. Pt discharged home with [facility] on last admission. Pt plans to discharge home, self-care either today or tomorrow. Pt on room air, clear liquid diet. GI consulted. Working to advance pt's diet. No anticipated SW needs on discharge. SW available as needed.
[2020-11-10] MEDS: HYDROcodone/APAP 5/325MG 1 TAB TABLET PO PRN ×2 (15:14→20:11)
--- NOTE | 2020-11-10 16:37 | RAD ---
US LIMITED ABDOMINAL DOPPLER Clinical Indication: ;abd pain and weight loss; Comparison: CT abdomen and pelvis with contrast, prior day. TECHNIQUE: Real-time grayscale, color-flow, Doppler spectral waveform analysis of the mesenteric iam [place] is performed. Findings: Atherosclerotic abdominal aorta. No obvious aneurysm. Peak systolic velocity is 95 cc of second. The celiac artery has peak systolic velocity of 187 cm/s. Less than 200 is considered normal. The superio r mesenteric artery as maximum peak systolic velocity of 222 cm/s in the midportion. Less than 250 is considered normal. The hepatic artery has peak systolic velocity of 99 cm/s and hepatopedal flow. IMPRESSION: No evidence of hemodynamically significant stenosis. Electronically signed by: Jasbir Saunders MD (11/10/2020 4:34 PM) [id number]
--- NOTE | 2020-11-10 17:26 | RAD ---
EXAM: SMALL BOWEL FOLLOW-THROUGH. HISTORY: Chronic abdominal pain, weight loss.. COMPARISON: Abdomen pelvis CT scans of 11/09/2020 and 10/03/2020. FINDINGS: A boilers inspector image was obtained. Barium contrast material was administered orally and followed i n its course through the stomach, small bowel and proximal colon with plain radiographs. 0 fluoroscopic images were obtained. Fluoroscopy time 0 seconds. The boilers inspector image demonstrates a nonobstructive bowel gas pattern. Terminal ileum is normal. There are no distended small bowel loops. No strictures are seen. The small bowel fold pattern is unr emarkable. Transit time was mildly prolonged at 2.5 hours (normal <2 hours.) In correlation with the prior abdominal CTs, surgical clips in the right upper quadrant abdomen sarah tible previous cholecystectomy are redemonstrated. Better seen on CT is an approximately 9 mm rounded low-density lesion in the right hepatic lobe anterior segment with peripheral hyperemia which is non specific. IMPRESSION: 1. Marginally prolonged transit time. Otherwise unremarkable small bowel series. 2. Status post cholecystectomy, an 8 mm low-density lesion in the right hepatic lobe with peripheral hyperemia is present. This is nonspecific but if an abscess is suspected, further imaging by liver [facility] protocol abdominal MRI including diffusion-weighted imaging could be considered in further evaluat ion. Electronically signed by: Justin Staley MD (11/10/2020 5:23 PM) [id number]
[2020-11-10 19:00] VITALS: BP 104/54
[2020-11-10] MEDS: ATORVASTATIN CALCIUM 10 MG TABLET. PO SCH (20:12)
[2020-11-10 23:00] VITALS: BP 120/70
[2020-11-11] MEDS: HYDROcodone/APAP 5/325MG 1 TAB TABLET PO PRN ×4 (00:19→20:40)
[2020-11-11 03:00] VITALS: BP 68/66
[2020-11-11 07:00] VITALS: BP 106/63
[2020-11-11 08:28] LABS: ALBUMIN 3.8 g/dL (3.4-5.0); ALBUMIN/GLOBULIN RATIO 1.3 (1.0-1.7); CALCIUM 9.1 mg/dL (8.5-10.1); CREATININE 0.7 mg/dL (0.6-1.0); GFR 83.2; POTASSIUM 3.1 mmol/L (3.5-5.1); TOTAL BILIRUBIN 0.5 mg/dL (0.2-1.0); TOTAL PROTEIN 6.7 g/dL (6.4-8.2)
[2020-11-11] MEDS: ASPIRIN CHEWABLE 81 MG TABLET. PO SCH (08:35)
[2020-11-11] MEDS: PANTOPRAZOLE IV PUSH 40 MG VIAL. IVP SCH (08:35)
[2020-11-11] MEDS: GABAPENTIN 400 MG CAPSULE. PO SCH ×3 (08:35→20:38)
[2020-11-11] MEDS: ONDANSETRON PF 4 MG/2 ML VIAL. IVP PRN (08:35)
[2020-11-11] MEDS: buPROPion SR 150 MG TABLET.SA PO SCH ×2 (08:35→20:38)
[2020-11-11] MEDS: CLOPIDOGREL BISULFATE 75 MG TABLET PO SCH (08:35)
[2020-11-11] MEDS: ENOXAPARIN 40 MG/0.4 ML SYRINGE. SQ SCH (08:36)
[2020-11-11 08:41] LABS: HEMATOCRIT 38.3 % (36.0-47.0); HEMOGLOBIN 12.9 g/dL (12.0-15.5); RED BLOOD COUNT 3.94 x10^6/uL (3.50-5.40); RED CELL DISTRIBUTION WIDTH 13.5 % (11.5-14.5); WHITE BLOOD COUNT 3.7 x10^3/uL (4.0-11.0)
--- NOTE | 2020-11-11 09:00 | PDOC ---
[facility] PROGRESS NOTE Date of Service DOS: DATE: 11/11/20 TIME: 08:39 Chief Complaint Chief Complaint Abdominal pain Intractable nausea and vomiting Melena Plan: Received pain medication, antibiotics, and antiemetics in ED WBC and hemoglobin within normal limits Consult to GI Resume home medications FEN - clear liquid PPX - Lovenox DNR Dispo - inpatient for above History of Present Illness History of Present Illness Patient is a 70-year-old female presents to the ED with complaints of worsening abdominal pain over the past 3 weeks. She reports sharp lower abdominal pain, 10/10. She notes associated nausea, vomiting, and dark stools over this time. She was recently treated at another ER for similar symptoms with antibiotics for presumed infectious process without improvement. She has multiple admissions over the past year for similar complaints of abdominal pain, nausea, and vomiting. She was recently admitted to our service on 08/08/[address]. [address] abdomen/pelvis obtained on admission showed presumed focal colitis. Will admit patient with GI consult for further medical management. 11/11/2020: Afebrile. Ultrasound showed no evidence of SMA stenosis. Small bowel series with marginally prolonged transit time, otherwise unremarkable. There is note of 8 mm low-density lesion in the right hepatic lobe with peripheral hyperemia is present. S/P cholecystectomy, this is nonspecific but will obtain procalcitonin. Low suspicion for abscess. Appreciate GI recommendations. Still with epigastric tenderness. GES Friday; if unrevealing may further assessed with endoscopy on Friday. Vitals/I&O Vitals/I&O: Vital Signs Date Time Temp Pulse Resp B/P (MAP) Pulse Ox O2 Delivery O2 Flow Rate FiO2 11/11/20 07:00 98.1 60 16 106/63 (77) 98 Room Air 98.1 I & O 11/10/20 11/10/20 11/11/20 14:59 22:59 06:59 Intake Total 120 ml 340 ml 350 ml Balance 120 ml 340 ml 350 ml Physical Exam General: Alert, mild distress Heart: Regular rate Lungs: Clear Abdomen: Normal bowel sounds, Soft Extremities: No clubbing, No cyanosis Skin: No rashes, No breakdown Labs Labs: Laboratory Tests Test 11/11/20 07:45 Sodium Level 140 mmol/L (136-145) Potassium Level 3.1 mmol/L (3.5-5.1) Chloride Level 103 mmol/L (98-107) Carbon Dioxide Level 29 mmol/L (21-32) Anion Gap 8 (6-14) Blood Urea Nitrogen 8 mg/dL (7-20) Creatinine 0.7 mg/dL (0.6-1.0) Estimated GFR (Cockcroft-Gault) 83.2 BUN/Creatinine Ratio 11 (6-20) Glucose Level 96 mg/dL (70-99) Calcium Level 9.1 mg/dL (8.5-10.1) Total Bilirubin 0.5 mg/dL (0.2-1.0) Aspartate Amino Transf (AST/SGOT) 14 U/L (15-37) Alanine Aminotransferase (ALT/SGPT) 18 U/L (14-59) Alkaline Phosphatase 68 U/L (46-116) Total Protein 6.7 g/dL (6.4-8.2) Albumin 3.8 g/dL (3.4-5.0) Albumin/Globulin Ratio 1.3 (1.0-1.7) Assessment and Plan Assessmemt and Plan Problems Medical Problems: (1) Gastroenteritis Status: Acute (2) Intractable abdominal pain Status: Acute (3) UTI (urinary tract infection) Status: Acute Comment Review of Relevant I have reviewed the following items chery (where applicable) has been applied. Medications: Current Medications Medications (Trade) Dose Ordered Sig/Salomón Route PRN Reason Start Time Stop Time Status Last Admin Dose Admin Atorvastatin Calcium (Lipitor) 10 mg HS PO 11/10/20 21:00 11/10/20 20:12 Bupropion HCl (Wellbutrin Sr) 150 mg BID PO 11/10/20 09:00 11/11/20 08:35 Gabapentin (Neurontin) 400 mg TID PO 11/10/20 09:00 11/11/20 08:35 Barium Sulfate (Liquid E-Z Paque) 710 ml 1X ONCE PO 11/10/20 11:00 11/10/20 11:02 DC 11/10/20 11:00 Justifications for Admission Other Justification Intractable abdominal pain, symptomatic cholelithiasis NA COPELAND MD Nov 11, 2020 09:00
--- NOTE | 2020-11-11 10:14 | PDOC ---
G I PROGRESS NOTE Reason for Follow-up ABd pain/n/v Subjective Still nauseated/poor oral intake Physical Exam Lungs clear CV S1 S2 ABD +BS, soft, epigastric tenderness to palpation Review of Relevant I have reviewed the following items chery (where applicable) has been applied. Labs Laboratory Tests Test 11/09/20 16:50 11/09/20 17:20 11/11/20 07:45 Urine Collection Type Unknown Urine Color Violeta Urine Clarity Turbid Urine pH 5.0 (<5.0-8.0) Urine Specific Weir 1.025 (1.000-1.030) Urine Protein 30 mg/dL (NEG-TRACE) Urine Glucose (UA) Negative mg/dL (NEG) Urine Ketones (Stick) Trace mg/dL (NEG) Urine Blood Small (NEG) Urine Nitrite Negative (NEG) Urine Bilirubin Small (NEG) Urine Urobilinogen Dipstick 0.2 mg/dL (0.2 mg/dL) Urine Leukocyte Esterase Small (NEG) Urine RBC 1-2 /HPF (0-2) Urine WBC 5-10 /HPF (0-4) Urine Squamous Epithelial Cells Many /LPF Urine Amorphous Sediment Present /HPF Urine Bacteria 0 /HPF (0-FEW) Urine Hyaline Casts Moderate /HPF Urine Mucus Marked /LPF White Blood Count 5.7 x10^3/uL (4.0-11.0) 3.7 x10^3/uL (4.0-11.0) Red Blood Count 3.93 x10^6/uL (3.50-5.40) 3.94 x10^6/uL (3.50-5.40) Hemoglobin 13.2 g/dL (12.0-15.5) 12.9 g/dL (12.0-15.5) Hematocrit 38.5 % (36.0-47.0) 38.3 % (36.0-47.0) Mean Corpuscular Volume 98 fL (79-100) 97 fL (79-100) Mean Corpuscular Hemoglobin 34 pg (25-35) 33 pg (25-35) Mean Corpuscular Hemoglobin Concent 34 g/dL (31-37) 34 g/dL (31-37) Red Cell Distribution Width 13.4 % (11.5-14.5) 13.5 % (11.5-14.5) Platelet Count 226 x10^3/uL (140-400) 228 x10^3/uL (140-400) Neutrophils (%) (Auto) 58 % (31-73) Lymphocytes (%) (Auto) 31 % (24-48) Monocytes (%) (Auto) 7 % (0-9) Eosinophils (%) (Auto) 3 % (0-3) Basophils (%) (Auto) 1 % (0-3) Neutrophils # (Auto) 3.3 x10^3/uL (1.8-7.7) Lymphocytes # (Auto) 1.8 x10^3/uL (1.0-4.8) Monocytes # (Auto) 0.4 x10^3/uL (0.0-1.1) Eosinophils # (Auto) 0.2 x10^3/uL (0.0-0.7) Basophils # (Auto) 0.1 x10^3/uL (0.0-0.2) Sodium Level 136 mmol/L (136-145) 140 mmol/L (136-145) Potassium Level 3.4 mmol/L (3.5-5.1) 3.1 mmol/L (3.5-5.1) Chloride Level 96 mmol/L (98-107) 103 mmol/L (98-107) Carbon Dioxide Level 25 mmol/L (21-32) 29 mmol/L (21-32) Anion Gap 15 (6-14) 8 (6-14) Blood Urea Nitrogen 15 mg/dL (7-20) 8 mg/dL (7-20) Creatinine 0.8 mg/dL (0.6-1.0) 0.7 mg/dL (0.6-1.0) Estimated GFR (Cockcroft-Gault) 71.3 83.2 BUN/Creatinine Ratio 19 (6-20) 11 (6-20) Glucose Level 97 mg/dL (70-99) 96 mg/dL (70-99) Calcium Level 9.7 mg/dL (8.5-10.1) 9.1 mg/dL (8.5-10.1) Total Bilirubin 0.5 mg/dL (0.2-1.0) 0.5 mg/dL (0.2-1.0) Aspartate Amino Transf (AST/SGOT) 15 U/L (15-37) 14 U/L (15-37) Alanine Aminotransferase (ALT/SGPT) 19 U/L (14-59) 18 U/L (14-59) Alkaline Phosphatase 78 U/L (46-116) 68 U/L (46-116) Troponin I Quantitative < 0.017 ng/mL (0.000-0.055) Total Protein 7.6 g/dL (6.4-8.2) 6.7 g/dL (6.4-8.2) Albumin 4.3 g/dL (3.4-5.0) 3.8 g/dL (3.4-5.0) Albumin/Globulin Ratio 1.3 (1.0-1.7) 1.3 (1.0-1.7) Lipase 77 U/L (73-393) Laboratory Tests Test 11/11/20 07:45 White Blood Count 3.7 x10^3/uL (4.0-11.0) Red Blood Count 3.94 x10^6/uL (3.50-5.40) Hemoglobin 12.9 g/dL (12.0-15.5) Hematocrit 38.3 % (36.0-47.0) Mean Corpuscular Volume 97 fL (79-100) Mean Corpuscular Hemoglobin 33 pg (25-35) Mean Corpuscular Hemoglobin Concent 34 g/dL (31-37) Red Cell Distribution Width 13.5 % (11.5-14.5) Platelet Count 228 x10^3/uL (140-400) Sodium Level 140 mmol/L (136-145) Potassium Level 3.1 mmol/L (3.5-5.1) Chloride Level 103 mmol/L (98-107) Carbon Dioxide Level 29 mmol/L (21-32) Anion Gap 8 (6-14) Blood Urea Nitrogen 8 mg/dL (7-20) Creatinine 0.7 mg/dL (0.6-1.0) Estimated GFR (Cockcroft-Gault) 83.2 BUN/Creatinine Ratio 11 (6-20) Glucose Level 96 mg/dL (70-99) Calcium Level 9.1 mg/dL (8.5-10.1) Total Bilirubin 0.5 mg/dL (0.2-1.0) Aspartate Amino Transf (AST/SGOT) 14 U/L (15-37) Alanine Aminotransferase (ALT/SGPT) 18 U/L (14-59) Alkaline Phosphatase 68 U/L (46-116) Total Protein 6.7 g/dL (6.4-8.2) Albumin 3.8 g/dL (3.4-5.0) Albumin/Globulin Ratio 1.3 (1.0-1.7) Microbiology 11/09/20 Urine Culture - Final, Complete Medications Current Medications Ceftriaxone Sodium (Rocephin) 1 gm 1X ONCE IVP Last administered on 11/09/20at 18:19; Start 11/09/20 at 18:00; Stop 11/09/20 at 18:01; Status DC Iohexol (Omnipaque 300 Mg/ml) 75 ml 1X ONCE IV Last administered on 11/09/20at 18:00; Start 11/09/20 at 18:00; Stop 11/09/20 at 18:01; Status DC Info (CONTRAST GIVEN -- Rx MONITORING) 1 each PRN DAILY PRN MC SEE COMMENTS; Start 11/09/20 at 18:00; Stop 11/11/20 at 17:59 Morphine Sulfate (Morphine Sulfate) 2 mg 1X ONCE IV Last administered on at 19:16; Start 11/09/20 at 19:15; Stop 11/09/20 at 19:16; Status DC Ondansetron HCl (Zofran) 4 mg 1X ONCE IVP Last administered on 11/09/20at 19:14; Start 11/09/20 at 19:15; Stop 11/09/20 at 19:16; Status DC Ondansetron HCl (Zofran) 4 mg PRN Q8HRS PRN IV NAUSEA/VOMITING; Start 11/09/20 at 19:45; Stop 11/10/20 at 19:44; Status Cancel Morphine Sulfate (Morphine Sulfate) 2 mg PRN Q2HR PRN IV PAIN; Start 11/09/20 at 19:45; Stop 11/10/20 at 15:42; Status DC Levofloxacin/ Dextrose 100 ml @ 100 mls/hr 1X ONCE IV Last administered on 11/10/20at 00:11; Start 11/09/20 at 22:00; Stop 11/09/20 at 22:59; Status DC Metronidazole 100 ml @ 100 mls/hr 1X ONCE IV Last administered on 11/09/20at 22:55; Start 11/09/20 at 22:00; Stop 11/09/20 at 22:59; Status DC Al Hydroxide/Mg Hydroxide (Mylanta Plus Xs) 30 ml PRN Q2HR PRN PO HEARTBURN / GAS Last administered on 11/10/20at 00:58; Start 11/10/20 at 00:30; Stop 11/10/20 at 15:41; Status DC Diphenhydramine HCl (Benadryl) 25 mg PRN Q6HRS PRN IVP ITCHING Last ad ministered on 11/10/20at 00:58; Start 11/10/20 at 00:30 Diphenhydramine HCl (Benadryl) 25 mg PRN Q6HRS PRN PO ITCHING; Start 11/10/20 at 00:30 Trazodone HCl (Desyrel) 150 mg PRN QHS PRN PO INSOMNIA Last administered on 11/10/20at 20:12; Start 11/10/20 at 00:45 Calcium Carbonate/ Glycine (Tums) 500 mg PRN AFTMEALHC PRN PO INDIGESTION Last administered on 11/10/20at 01:17; Start 11/10/20 at 01:15; Stop 11/10/20 at 15:42; Status DC Morphine Sulfate (Morphine Sulfate) 2 mg 1X PRN IV PAIN Last administered on 11/10/20at 03:26; Start 11/10/20 at 03:15; Stop 11/10/20 at 04:00; Status DC Magnesium Hydroxide (Milk Of Magnesia) 2,400 mg PRN DAILY PRN PO CONSTIPATION Last administered on 11/10/20at 03:25; Start 11/10/20 at 03:30; Stop 11/10/20 at 15:42; Status DC Morphine Sulfate (Morphine Sulfate) 2 mg 1X ONCE IV ; Start 11/10/20 at 04:00; Stop 11/10/20 at 04:01; Status DC Alprazolam (Xanax) 0.5 mg PRN Q6HRS PRN PO ANXIETY / AGITATION; Start 11/10/20 at 07:00 Aspirin (Aspirin Chewable) 81 mg DAILY08 PO Last administered on 11/11/20at 08:35; Start 11/10/20 at 08:00 Atorvastatin Calcium (Lipitor) 10 mg HS PO Last administered on 11/10/20at 20:12; Start 11/10/20 at 21:00 Bupropion HCl (Wellbutrin Sr) 150 mg BID PO Last administered on 11/11/20at 08:35; Start 11/10/20 at 09:00 Clopidogrel Bisulfate (Plavix) 75 mg DAILY08 PO Last administered on 11/11/20at 08:35; Start 11/10/20 at 08:00 Gabapentin (Neurontin) 400 mg TID PO Last administered on 11/11/20at 08:35; Start 11/10/20 at 09:00 Ondansetron HCl (Zofran) 4 mg PRN Q6HRS PRN IVP NAUSEA/VOMITING Last administered on 11/11/20at 08:35; Start 11/10/20 at 07:15 Prochlorperazine Edisylate (Compazine) 10 mg PRN Q6HRS PRN IVP NAUSEA/VOMITING; Start 11/10/20 at 07:15 Al Hydroxide/Mg Hydroxide (Mylanta Plus Xs) 30 ml PRN Q3HRS PRN PO HEARTBURN / GAS; Start 11/10/20 at 07:15 Calcium Carbonate/ Glycine (Tums) 500 mg PRN Q3HRS PRN PO UPSET STOMACH; Start 11/10/20 at 07:15 Morphine Sulfate (Morphine Sulfate) 2 mg PRN Q1HR PRN IV PAIN; Start 11/10/20 at 07:15 Acetaminophen/ Hydrocodone Bitart (Lortab 5/325) 1 tab PRN Q4HRS PRN PO MILD PAIN 1-3; Start 11/10/20 at 07:15 Acetaminophen/ Hydrocodone Bitart (Lortab 5/325) 2 tab PRN Q4HRS PRN PO MODERATE PAIN, SEVERE PAIN Last administered on 11/11/20at 06:38; Start 11/10/20 at 07:15 Acetaminophen (Tylenol) 650 mg PRN Q6HRS PRN PO Headaches, Temp > 101.5F; Start 11/10/20 at 07:15 Magnesium Hydroxide (Milk Of Magnesia) 2,400 mg PRN Q12HR PRN PO CONSTIPATION; Start 11/10/20 at 07:15 Bisacodyl (Dulcolax Supp) 10 mg PRN DAILY PRN NE CONSTIPATION; Start 11/10/20 at 07:15 Enoxaparin Sodium (Lovenox 40mg Syringe) 40 mg Q24H SQ Last administered on 11/11/20at 08:36; Start 11/10/20 at 07:15 Pantoprazole Sodium (PROTONIX VIAL for IV PUSH) 40 mg DAILYAC IVP Last administered on 11/11/20at 08:35; Start 11/10/20 at 07:30 Barium Sulfate (Liquid E-Z Paque) 710 ml 1X ONCE PO Last administered on 11/10/20at 11:00; Start 11/10/20 at 11:00; Stop 11/10/20 at 11:02; Status DC Active Scripts Active Dicyclomine Hcl 20 Mg Tablet 1 Tab PO TID Pepcid (Famotidine) 20 Mg Tablet 20 Mg PO BID Zofran (Ondansetron Hcl) 4 Mg Tablet 1 Tab PO PRN Q6-8HRS Reported Ventolin Hfa Inhaler (Albuterol Sulfate) 18 Gm Hfa.aer.ad 2 Puff INH BID Advair Hfa 230-21 Mcg Inhaler (Fluticasone/Salmeterol) 12 Gm Hfa.aer.ad 2 Puff INH BID Meloxicam 15 Mg Tablet 1 Tab PO DAILY Gabapentin (Gabapentin) 400 Mg Capsule 800 Mg PO TID Trazodone Hcl 150 Mg Tablet 150 Tab PO QHS Aspirin 81 Mg Tab.chew 1 Tab PO DAILY Clopidogrel (Clopidogrel Bisulfate) 75 Mg Tablet 1 Tab PO DAILY Lipitor (Atorvastatin Calcium) 10 Mg Tablet 10 Mg PO HS Pantoprazole Sodium (Pantoprazole Sodium) 40 Mg Tablet.dr 40 Mg PO DAILY Duoneb 0.5-3(2.5) Mg/3 Ml (Albuterol/Ipratropium) 3 Ml Ampul.neb 3 Ml NEB QID Wellbutrin Sr (Bupropion Hcl) 150 Mg Tablet.er 150 Mg PO DAILY Effexor Xr (Venlafaxine Hcl) 150 Mg Cap.er.24h 150 Mg PO DAILY Vitals/I & O Vital Sign - Last 24 Hours 11/10/20 11/10/20 11/10/20 11/10/20 11:00 15:14 16:15 19:00 Temp 98.1 98.1 98.1 98.1 Pulse 66 66 Resp 18 16 B/P (MAP) 102/50 (67) 104/54 (71) Pulse Ox 97 97 O2 Delivery Room Air Room Air Room Air 11/10/20 11/10/20 11/10/20 11/10/20 20:00 20:11 21:11 23:00 Temp 96.2 96.2 Pulse 78 Resp 20 20 16 B/P (MAP) 120/70 (87) Pulse Ox 95 O2 Delivery Room Air Room Air Room Air 11/11/20 11/11/20 11/11/20 11/11/20 00:19 01:19 03:00 06:38 Temp 97.7 97.7 Pulse 66 Resp 20 18 16 18 B/P (MAP) 68/66 (67) Pulse Ox 99 O2 Delivery Room Air Room Air Room Air 11/11/20 11/11/20 07:00 07:40 Temp 98.1 98.1 Pulse 60 Resp 16 19 B/P (MAP) 106/63 (77) Pulse Ox 98 98 O2 Delivery Room Air Room Air Intake and Output 11/10/20 11/10/20 11/11/20 15:00 23:00 07:00 Intake Total 120 ml 340 ml 350 ml Balance 120 ml 340 ml 350 ml Problem List Problems Medical Problems: (1) Gastroenteritis Status: Acute (2) Intractable abdominal pain Status: Acute (3) UTI (urinary tract infection) Status: Acute Assessment Abd pain- with n/v, await cortisol levels for possible Addisons disease, GES friday if no improvement to further asess with possible endoscopy Friday if work-up unhelpful Justicifation of Admission Dx: Justifications for Admission: Justification of Admission Dx: N/A RUTH LUGO MD Nov 11, 2020 10:14
[2020-11-11 11:30] VITALS: BP 96/45
[2020-11-11] MEDS: POTASSIUM CHLORIDE 20 MEQ TABLET.ER. PO SCH (14:40)
[2020-11-11 15:00] VITALS: BP 105/52
[2020-11-11 19:00] VITALS: BP 97/56
[2020-11-11] MEDS: traZODone 50 MG TABLET. PO PRN (20:38)
[2020-11-11] MEDS: ATORVASTATIN CALCIUM 10 MG TABLET. PO SCH (20:38)
[2020-11-11 23:00] VITALS: BP 117/47
[2020-11-12 03:00] VITALS: BP 108/53
[2020-11-12] MEDS: HYDROcodone/APAP 5/325MG 1 TAB TABLET PO PRN ×4 (04:35→20:31)
[2020-11-12 07:00] VITALS: BP 104/48
--- NOTE | 2020-11-12 07:03 | PDOC ---
[facility] PROGRESS NOTE Date of Service DOS: DATE: 11/12/20 TIME: 07:00 Chief Complaint Chief Complaint Abdominal pain Intractable nausea and vomiting Melena Plan: Received pain medication, antibiotics, and antiemetics in ED WBC and hemoglobin within normal limits Consult to GI Resume home medications FEN - clear liquid PPX - Lovenox DNR Dispo - inpatient for above History of Present Illness History of Present Illness Patient is a 70-year-old female presents to the ED with complaints of worsening abdominal pain over the past 3 weeks. She reports sharp lower abdominal pain, 10/10. She notes associated nausea, vomiting, and dark stools over this time. She was recently treated at another ER for similar symptoms with antibiotics for presumed infectious process without improvement. She has multiple admissions over the past year for similar complaints of abdominal pain, nausea, and vomiting. She was recently admitted to our service on 08/08/[address]. [address] abdomen/pelvis obtained on admission showed presumed focal colitis. Will admit patient with GI consult for further medical management. 11/11/2020: Afebrile. Ultrasound showed no evidence of SMA stenosis. Small bowel series with marginally prolonged transit time, otherwise unremarkable. There is note of 8 mm low-density lesion in the right hepatic lobe with peripheral hyperemia is present. S/P cholecystectomy, this is nonspecific but will obtain procalcitonin. Low suspicion for abscess. Appreciate GI recommendations. Still with epigastric tenderness. GES Friday; if unrevealing may further assessed with endoscopy on Friday. 11/12/2020: No acute events overnight. No further episodes of vomiting; still with some abdominal pain. Afebrile. Discussed with patient indications of gastric emptying study and EGD. Continue GI soft diet as tolerated. Denies any personal history of peptic ulcer. Vitals/I&O Vitals/I&O: Vital Signs Date Time Temp Pulse Resp B/P (MAP) Pulse Ox O2 Delivery O2 Flow Rate FiO2 11/12/20 05:26 17 Room Air 11/12/20 03:00 96.3 77 108/53 (71) 97 96.3 I & O 11/11/20 11/11/20 11/12/20 15:00 23:00 07:00 Intake Total 500 ml 240 ml 720 ml Balance 500 ml 240 ml 720 ml Physical Exam General: Alert, mild distress Heart: Regular rate Lungs: Clear Abdomen: Normal bowel sounds, Soft Extremities: No clubbing, No cyanosis Skin: No rashes, No breakdown Labs Labs: Laboratory Tests Test 11/11/20 07:45 White Blood Count 3.7 x10^3/uL (4.0-11.0) Red Blood Count 3.94 x10^6/uL (3.50-5.40) Hemoglobin 12.9 g/dL (12.0-15.5) Hematocrit 38.3 % (36.0-47.0) Mean Corpuscular Volume 97 fL (79-100) Mean Corpuscular Hemoglobin 33 pg (25-35) Mean Corpuscular Hemoglobin Concent 34 g/dL (31-37) Red Cell Distribution Width 13.5 % (11.5-14.5) Platelet Count 228 x10^3/uL (140-400) Sodium Level 140 mmol/L (136-145) Potassium Level 3.1 mmol/L (3.5-5.1) Chloride Level 103 mmol/L (98-107) Carbon Dioxide Level 29 mmol/L (21-32) Anion Gap 8 (6-14) Blood Urea Nitrogen 8 mg/dL (7-20) Creatinine 0.7 mg/dL (0.6-1.0) Estimated GFR (Cockcroft-Gault) 83.2 BUN/Creatinine Ratio 11 (6-20) Glucose Level 96 mg/dL (70-99) Calcium Level 9.1 mg/dL (8.5-10.1) Total Bilirubin 0.5 mg/dL (0.2-1.0) Aspartate Amino Transf (AST/SGOT) 14 U/L (15-37) Alanine Aminotransferase (ALT/SGPT) 18 U/L (14-59) Alkaline Phosphatase 68 U/L (46-116) Total Protein 6.7 g/dL (6.4-8.2) Albumin 3.8 g/dL (3.4-5.0) Albumin/Globulin Ratio 1.3 (1.0-1.7) Assessment and Plan Assessmemt and Plan Problems Medical Problems: (1) Gastroenteritis Status: Acute (2) Intractable abdominal pain Status: Acute (3) UTI (urinary tract infection) Status: Acute Comment Review of Relevant I have reviewed the following items chery (where applicable) has been applied. Medications: Current Medications Medications (Trade) Dose Ordered Sig/Salomón Route PRN Reason Start Time Stop Time Status Last Admin Dose Admin Potassium Chloride (Klor-Con) 20 meq [id number] PO 11/11/20 13:00 11/11/20 14:40 Justifications for Admission Other Justification Intractable abdominal pain, symptomatic cholelithiasis NA COPELAND MD Nov 12, 2020 07:03
[2020-11-12 07:07] LABS: CALCIUM 8.9 mg/dL (8.5-10.1); CREATININE 0.8 mg/dL (0.6-1.0); GFR 71.3
[2020-11-12] MEDS: PANTOPRAZOLE IV PUSH 40 MG VIAL. IVP SCH (08:15)
[2020-11-12] MEDS: ENOXAPARIN 40 MG/0.4 ML SYRINGE. SQ SCH (08:15)
[2020-11-12] MEDS: ASPIRIN CHEWABLE 81 MG TABLET. PO SCH (08:15)
[2020-11-12] MEDS: CLOPIDOGREL BISULFATE 75 MG TABLET PO SCH (08:16)
[2020-11-12] MEDS: POTASSIUM CHLORIDE 20 MEQ TABLET.ER. PO SCH (08:16)
[2020-11-12] MEDS: buPROPion SR 150 MG TABLET.SA PO SCH ×2 (08:16→20:30)
[2020-11-12] MEDS: GABAPENTIN 400 MG CAPSULE. PO SCH ×3 (08:16→20:30)
[2020-11-12 11:00] VITALS: BP 108/50
--- NOTE | 2020-11-12 14:40 | PDOC ---
G I PROGRESS NOTE Reason for Follow-up abd pain/nausea Subjective No new complaints Physical Exam Lungs clear CV S1 S2 ABD +BS, soft, diffuse tenderness to palpation Review of Relevant I have reviewed the following items chery (where applicable) has been applied. Labs Laboratory Tests Test 11/10/20 15:50 11/11/20 07:45 11/12/20 05:40 Stool Campylobacter PCR Negative (NEGATIVE) Stool E. coli Shiga Toxins (PCR) Negative (NEGATIVE) Stool Salmonella PCR Negative (NEGATIVE) Stool Shigella PCR Negative (NEGATIVE) Clostridium difficile Toxin (PCR) Negative (NEGATIVE) White Blood Count 3.7 x10^3/uL (4.0-11.0) Red Blood Count 3.94 x10^6/uL (3.50-5.40) Hemoglobin 12.9 g/dL (12.0-15.5) Hematocrit 38.3 % (36.0-47.0) Mean Corpuscular Volume 97 fL (79-100) Mean Corpuscular Hemoglobin 33 pg (25-35) Mean Corpuscular Hemoglobin Concent 34 g/dL (31-37) Red Cell Distribution Width 13.5 % (11.5-14.5) Platelet Count 228 x10^3/uL (140-400) Sodium Level 140 mmol/L (136-145) 142 mmol/L (136-145) Potassium Level 3.1 mmol/L (3.5-5.1) 3.0 mmol/L (3.5-5.1) Chloride Level 103 mmol/L (98-107) 104 mmol/L (98-107) Carbon Dioxide Level 29 mmol/L (21-32) 31 mmol/L (21-32) Anion Gap 8 (6-14) 7 (6-14) Blood Urea Nitrogen 8 mg/dL (7-20) 8 mg/dL (7-20) Creatinine 0.7 mg/dL (0.6-1.0) 0.8 mg/dL (0.6-1.0) Estimated GFR (Cockcroft-Gault) 83.2 71.3 BUN/Creatinine Ratio 11 (6-20) Glucose Level 96 mg/dL (70-99) 84 mg/dL (70-99) Calcium Level 9.1 mg/dL (8.5-10.1) 8.9 mg/dL (8.5-10.1) Total Bilirubin 0.5 mg/dL (0.2-1.0) Aspartate Amino Transf (AST/SGOT) 14 U/L (15-37) Alanine Aminotransferase (ALT/SGPT) 18 U/L (14-59) Alkaline Phosphatase 68 U/L (46-116) Total Protein 6.7 g/dL (6.4-8.2) Albumin 3.8 g/dL (3.4-5.0) Albumin/Globulin Ratio 1.3 (1.0-1.7) Laboratory Tests Test 11/12/20 05:40 Sodium Level 142 mmol/L (136-145) Potassium Level 3.0 mmol/L (3.5-5.1) Chloride Level 104 mmol/L (98-107) Carbon Dioxide Level 31 mmol/L (21-32) Anion Gap 7 (6-14) Blood Urea Nitrogen 8 mg/dL (7-20) Creatinine 0.8 mg/dL (0.6-1.0) Estimated GFR (Cockcroft-Gault) 71.3 Glucose Level 84 mg/dL (70-99) Calcium Level 8.9 mg/dL (8.5-10.1) Microbiology 11/09/20 Urine Culture - Final, Complete Medications Current Medications Ceftriaxone Sodium (Rocephin) 1 gm 1X ONCE IVP Last administered on 11/09/20at 18:19; Start 11/09/20 at 18:00; Stop 11/09/20 at 18:01; Status DC Iohexol (Omnipaque 300 Mg/ml) 75 ml 1X ONCE IV Last administered on 11/09/20at 18:00; Start 11/09/20 at 18:00; Stop 11/09/20 at 18:01; Status DC Info (CONTRAST GIVEN -- Rx MONITORING) 1 each PRN DAILY PRN MC SEE COMMENTS; Start 11/09/20 at 18:00; Stop 11/11/20 at 17:59; Status DC Morphine Sulfate (Morphine Sulfate) 2 mg 1X ONCE IV Last administered on 11/09/20at 19:16; Start 11/09/20 at 19:15; Stop 11/09/20 at 19:16; Status DC Ondansetron HCl (Zofran) 4 mg 1X ONCE IVP Last administered on 11/09/20at 19:14; Start 11/09/20 at 19:15; Stop 11/09/20 at 19:16; Status DC Ondansetron HCl (Zofran) 4 mg PRN Q8HRS PRN IV NAUSEA/VOMITING; Start 11/09/20 at 19:45; Stop 11/10/20 at 19:44; Status Cancel Morphine Sulfate (Morphine Sulfate) 2 mg PRN Q2HR PRN IV PAIN; Start 11/09/20 at 19:45; Stop 11/10/20 at 15:42; Status DC Levofloxacin/ Dextrose 100 ml @ 100 mls/hr 1X ONCE IV Last administered on 11/10/20at 00:11; Start 11/09/20 at 22:00; Stop 11/09/20 at 22:59; Status DC Metronidazole 100 ml @ 100 mls/hr 1X ONCE IV Last administered on 11/09/20at 22:55; Start 11/09/20 at 22:00; Stop 11/09/20 at 22:59; Status DC Al Hydroxide/Mg Hydroxide (Mylanta Plus Xs) 30 ml PRN Q2HR PRN PO HEARTBURN / GAS Last administered on 11/10/20at 00:58; Start 11/10/20 at 00:30; Stop 11/10/20 at 15:41; Status DC Diphenhydramine HCl (Benadryl) 25 mg PRN Q6HRS PRN IVP ITCHING Last administered on 11/10/20at 00:58; Start 11/10/20 at 00:30 Diphenhydramine HCl (Benadryl) 25 mg PRN Q6HRS PRN PO ITCHING; Start 11/10/20 at 00:30 Trazodone HCl (Desyrel) 150 mg PRN QHS PRN PO INSOMNIA Last administered on 11/11/20at 20:38; Start 11/10/20 at 00:45 Calcium Carbonate/ Glycine (Tums) 500 mg PRN AFTMEALHC PRN PO INDIGESTION Last administered on 11/10/20at 01:17; Start 11/10/20 at 01:15; Stop 11/10/20 at 15:42; Status DC Morphine Sulfate (Morphine Sulfate) 2 mg 1X PRN IV PAIN Last administered on 11/10/20at 03:26; Start 11/10/20 at 03:15; Stop 11/10/20 at 04:00; Status DC Magnesium Hydroxide (Milk Of Magnesia) 2,400 mg PRN DAILY PRN PO CONSTIPATION Last administered on 11/10/20at 03:25; Start 11/10/20 at 03:30; Stop 11/10/20 at 15:42; Status DC Morphine Sulfate (Morphine Sulfate) 2 mg 1X ONCE IV ; Start 11/10/20 at 04:00; Stop 11/10/20 at 04:01; Status Cancel Alprazolam (Xanax) 0.5 mg PRN Q6HRS PRN PO ANXIETY / AGITATION; Start 11/10/20 at 07:00 Aspirin (Aspirin Chewable) 81 mg DAILY08 PO Last administered on 11/12/20at 08:15; Start 11/10/20 at 08:00 Atorvastatin Calcium (Lipitor) 10 mg HS PO Last administered on 11/11/20at 20:38; Start 11/10/20 at 21:00 Bupropion HCl (Wellbutrin Sr) 150 mg BID PO Last administered on 11/12/20at 08:16; Start 11/10/20 at 09:00 Clopidogrel Bisulfate (Plavix) 75 mg DAILY08 PO Last administered on 11/12/20at 08:16; Start 11/10/20 at 08:00 Gabapentin (Neurontin) 400 mg TID PO Last administered on 11/12/20at 13:43; Start 11/10/20 at 09:00 Ondansetron HCl (Zofran) 4 mg PRN Q6HRS PRN IVP NAUSEA/VOMITING, 1st CHOICE Last administered on 11/11/20at 08:35; Start 11/10/20 at 07:15 Prochlorperazine Edisylate (Compazine) 10 mg PRN Q6HRS PRN IVP NAUSEA/VOMITING,2nd CHOICE; Start 11/10/20 at 07:15 Al Hydroxide/Mg Hydroxide (Mylanta Plus Xs) 30 ml PRN Q3HRS PRN PO HEARTBURN / GAS Last administered on 11/11/20at 14:40; Start 11/10/20 at 07:15 Calcium Carbonate/ Glycine (Tums) 500 mg PRN Q3HRS PRN PO UPSET STOMACH; Start 11/10/20 at 07:15 Morphine Sulfate (Morphine Sulfate) 2 mg PRN Q1HR PRN IV PAIN; Start 11/10/20 at 07:15 Acetaminophen/ Hydrocodone Bitart (Lortab 5/325) 1 tab PRN Q4HRS PRN PO MILD PAIN 1-3; Start 11/10/20 at 07:15 Acetaminophen/ Hydrocodone Bitart (Lortab 5/325) 2 tab PRN Q4HRS PRN PO MODERATE PAIN, SEVERE PAIN Last administered on 11/12/20at 08:39; Start 11/10/20 at 07:15 Acetaminophen (Tylenol) 650 mg PRN Q6HRS PRN PO Headaches, Temp > 101.5F; Start 11/10/20 at 07:15 Magnesium Hydroxide (Milk Of Magnesia) 2,400 mg PRN Q12HR PRN PO CONSTIPATION; Start 11/10/20 at 07:15 Bisacodyl (Dulcolax Supp) 10 mg PRN DAILY PRN MD CONSTIPATION; Start 11/10/20 at 07:15 Enoxaparin Sodium (Lovenox 40mg Syringe) 40 mg Q24H SQ Last administered on 11/12/20at 08:15; Start 11/10/20 at 07:15 Pantoprazole Sodium (PROTONIX VIAL for IV PUSH) 40 mg DAILYAC IVP Last administered on 11/12/20at 08:15; Start 11/10/20 at 07:30 Barium Sulfate (Liquid E-Z Paque) 710 ml 1X ONCE PO Last administered on 11/10/20at 11:00; Start 11/10/20 at 11:00; Stop 11/10/20 at 11:02; Status DC Potassium Chloride (Klor-Con) 20 meq DAILYWBKFT PO Last administered on 11/12/20at 08:16; Start 11/11/20 at 13:00 Active Scripts Active Dicyclomine Hcl 20 Mg Tablet 1 Tab PO TID Pepcid (Famotidine) 20 Mg Tablet 20 Mg PO BID Zofran (Ondansetron Hcl) 4 Mg Tablet 1 Tab PO PRN Q6-8HRS Reported Ventolin Hfa Inhaler (Albuterol Sulfate) 18 Gm Hfa.aer.ad 2 Puff INH BID Advair Hfa 230-21 Mcg Inhaler (Fluticasone/Salmeterol) 12 Gm Hfa.aer.ad 2 Puff INH BID Meloxicam 15 Mg Tablet 1 Tab PO DAILY Gabapentin (Gabapentin) 400 Mg Capsule 800 Mg PO TID Trazodone Hcl 150 Mg Tablet 150 Tab PO QHS Aspirin 81 Mg Tab.chew 1 Tab PO DAILY Clopidogrel (Clopidogrel Bisulfate) 75 Mg Tablet 1 Tab PO DAILY Lipitor (Atorvastatin Calcium) 10 Mg Tablet 10 Mg PO HS Pantoprazole Sodium (Pantoprazole Sodium) 40 Mg Tablet.dr 40 Mg PO DAILY Duoneb 0.5-3(2.5) Mg/3 Ml (Albuterol/Ipratropium) 3 Ml Ampul.neb 3 Ml NEB QID Wellbutrin Sr (Bupropion Hcl) 150 Mg Tablet.er 150 Mg PO DAILY Effexor Xr (Venlafaxine Hcl) 150 Mg Cap.er.24h 150 Mg PO DAILY Vitals/I & O Vital Sign - Last 24 Hours 11/11/20 11/11/20 11/11/20 11/11/20 14:41 15:00 15:45 19:00 Temp 97.9 97.5 97.9 97.5 Pulse 70 65 Resp 19 16 18 B/P (MAP) 105/52 (69) 97/56 (70) Pulse Ox 97 98 97 98 O2 Delivery Room Air Room Air Room Air Room Air 11/11/20 11/11/20 11/11/20 11/11/20 19:00 20:40 21:40 23:00 Temp 98.1 98.1 Pulse 70 Resp 17 16 20 B/P (MAP) 117/47 (70) Pulse Ox 99 O2 Delivery Room Air Room Air Room Air Room Air 11/12/20 11/12/20 11/12/20 11/12/20 03:00 04:35 05:26 07:00 Temp 96.3 99.0 96.3 99.0 Pulse 77 69 Resp 20 16 17 16 B/P (MAP) 108/53 (71) 104/48 (66) Pulse Ox 97 96 O2 Delivery Room Air Room Air Room Air Room Air 11/12/20 11/12/20 11/12/20 08:39 09:48 11:00 Temp 97.9 97.9 Pulse 74 Resp 16 B/P (MAP) 108/50 (69) Pulse Ox 99 O2 Delivery Room Air Room Air Room Air Intake and Output 11/11/20 11/11/20 11/12/20 15:00 23:00 07:00 Intake Total 500 ml 240 ml 720 ml Balance 500 ml 240 ml 720 ml Problem List Problems Medical Problems: (1) Gastroenteritis Status: Acute (2) Intractable abdominal pain Status: Acute (3) UTI (urinary tract infection) Status: Acute Assessment Abd pain- refractory, with n/v, differential include: gastroparesis, malignancy stomach/colon, adhesions with partial SBO, and/or IBS. Await GES and cortisol levels prior to possible endoscopy. Tertiary center consultation at [facility] may be beneficial if work-up is unrevealing. Justicifation of Admission Dx: Justifications for Admission: Justification of Admission Dx: N/A RUTH LUGO MD Nov 12, 2020 14:40
[2020-11-12 15:42] VITALS: BP 121/89
[2020-11-12 19:00] VITALS: BP 105/42
[2020-11-12] MEDS: ATORVASTATIN CALCIUM 10 MG TABLET. PO SCH (20:30)
[2020-11-12 23:00] VITALS: BP 106/33
[2020-11-13 03:00] VITALS: BP 97/54
[2020-11-13] MEDS: ONDANSETRON PF 4 MG/2 ML VIAL. IVP PRN (03:28)
[2020-11-13] MEDS: HYDROcodone/APAP 5/325MG 1 TAB TABLET PO PRN ×4 (03:31→22:13)
[2020-11-13 07:00] VITALS: BP 102/52
--- NOTE | 2020-11-13 07:15 | PDOC ---
[facility] [facility] PROGRESS NOTE Date of Service DOS: DATE: 11/13/20 TIME: 07:10 Chief Complaint Chief Complaint Abdominal pain Intractable nausea and vomiting Melena Plan: Received pain medication, antibiotics, and antiemetics in ED WBC and hemoglobin within normal limits Consult to GI Resume home medications FEN - clear liquid PPX - Lovenox DNR Dispo - inpatient for above History of Present Illness History of Present Illness Patient is a 70-year-old female presents to the ED with complaints of worsening abdominal pain over the past 3 weeks. She reports sharp lower abdominal pain, 10/10. She notes associated nausea, vomiting, and dark stools over this time. She was recently treated at another ER for similar symptoms with antibiotics for presumed infectious process without improvement. She has multiple admissions over the past year for similar complaints of abdominal pain, nausea, and vomiting. She was recently admitted to our service on 08/08/[address] abdomen/pelvis obtained on admission showed presumed focal colitis. Will admit patient with GI consult for further medical management. 11/11/2020: Afebrile. Ultrasound showed no evidence of SMA stenosis. Small bowel series with marginally prolonged transit time, otherwise unremarkable. There is note of 8 mm low-density lesion in the right hepatic lobe with peripheral hyperemia is present. S/P cholecystectomy, this is nonspecific but will obtain procalcitonin. Low suspicion for abscess. Appreciate GI recommendations. Still with epigastric tenderness. GES Friday; if unrevealing may further assessed with endoscopy on Friday. 11/12/2020: No acute events overnight. No further episodes of vomiting; still with some abdominal pain. Afebrile. Discussed with patient indications of gastric emptying study and EGD. Continue GI soft diet as tolerated. Denies any personal history of peptic ulcer. 11/13/2020 Still with nausea and diarrhea. Stool studies negative, C. difficile negative. GES today with possible endoscopy tomorrow. If nonrevealing, tertiary center consultation at [facility] may be beneficial, per GI. Vitals/I&O Vitals/I&O: Vital Signs Date Time Temp Pulse Resp B/P (MAP) Pulse Ox O2 Delivery O2 Flow Rate FiO2 11/13/20 05:01 18 96 Room Air 11/13/20 03:00 98.0 69 97/54 (68) 98.0 I & O 3/11/12/20 11/13/20 15:00 23:00 07:00 Intake Total 580 ml 360 ml 300 ml Balance 580 ml 360 ml 300 ml Physical Exam General: Alert, mild distress Heart: Regular rate Lungs: Clear Abdomen: Normal bowel sounds, Soft Extremities: No clubbing, No cyanosis Skin: No rashes, No breakdown Assessment and Plan Assessmemt and Plan Problems Medical Problems: (1) Gastroenteritis Status: Acute (2) Intractable abdominal pain Status: Acute (3) UTI (urinary tract infection) Status: Acute Comment Review of Relevant I have reviewed the following items chery (where applicable) has been applied. Justifications for Admission Other Justification Intractable abdominal pain, symptomatic cholelithiasis NA COPELAND MD Nov 13, 2020 07:14
[2020-11-13] MEDS: PANTOPRAZOLE IV PUSH 40 MG VIAL. IVP SCH (07:30)
[2020-11-13 07:36] LABS: CREATININE 0.8 mg/dL (0.6-1.0); GFR 71.3; POTASSIUM 3.9 mmol/L (3.5-5.1)
[2020-11-13] MEDS: CLOPIDOGREL BISULFATE 75 MG TABLET PO SCH (08:00)
[2020-11-13] MEDS: ENOXAPARIN 40 MG/0.4 ML SYRINGE. SQ SCH (08:00)
[2020-11-13] MEDS: POTASSIUM CHLORIDE 20 MEQ TABLET.ER. PO SCH (08:00)
[2020-11-13] MEDS: ASPIRIN CHEWABLE 81 MG TABLET. PO SCH (08:00)
[2020-11-13] MEDS: GABAPENTIN 400 MG CAPSULE. PO SCH ×3 (09:00→20:51)
[2020-11-13] MEDS: buPROPion SR 150 MG TABLET.SA PO SCH ×2 (09:00→20:51)
--- NOTE | 2020-11-13 09:16 | NUR ---
Received patient transfer from [address] [place] [address], ANA Martel. Patient denies any pain.
[2020-11-13 11:00] VITALS: BP 127/60
--- NOTE | 2020-11-13 11:15 | PDOC ---
Date of Service: DATE: 11/13/20 TIME: 11:11 Objective: Objective: D/w nurse - gone for GES, just transferred from 6th floor. Enteric panel and C Diff negative. Vital Signs: Vital Signs Date Time Temp Pulse Resp B/P (MAP) Pulse Ox O2 Delivery O2 Flow Rate FiO2 11/13/20 08:00 Room Air 11/13/20 07:00 98.1 72 17 102/52 (69) 98 98.1 Imaging: Abd Doppler 11/10 IMPRESSION: No evidence of hemodynamically significant stenosis. SBS 11/10 IMPRESSION: 1. Marginally prolonged transit time. Otherwise unremarkable small bowel series. 2. Status post cholecystectomy, an 8 mm low-density lesion in the right hepatic lobe with peripheral hyperemia is present. This is nonspecific but if an abscess is suspected, further imaging by liver mass protocol abdominal MRI including diffusion-weighted imaging could be considered in further evaluation. PE: not in room - no exam A/P: Abd pain, decreased appetite, weight loss - chronic symptoms - extensive past/present workup unrevealing GERD, h/o constipation CRC screen - reportedly normal @ [facility] ~5 years ago - did not pursue repeat colonoscopy as outpt as previously discussed S/p cholecystectomy CAD on Plavix and ASA Marijuana use -- Out of room - follow-up on GES results. Cortisol normal/elevated. I believe on GI soft diet. Change to PO PPI. Justicifation of Admission Dx: Justifications for Admission: Justification of Admission Dx: N/A CAROL WELLS Nov 13, 2020 11:15
--- NOTE | 2020-11-13 12:21 | RAD ---
NM GASTRIC EMPTYING STUDY History: Reason: n/v abd pain / Spl. Instructions: / History: COMPARISON: None. TECHNIQUE: Serial static images were obtained over the stomach following oral administration of 2 mCi of 99m-Tc sulfur colloid in an egg based meal. FINDINGS: The stomach appears normal in contour. There is clearance of activity into the small bowel. The remaining fraction of gastric activity is as follows. 1 hour 20% (normal range 34.8-91%) 2 hour 6% (normal range 2.7-60%) 3 hour 1% (normal range 0.5-28%) IMPRESSION: 1. Normal gastric emptying. Electronically signed by: Ramin Schwab DO (11/13/2020 12:18 PM) [id number]
--- NOTE | 2020-11-13 14:49 | NUR ---
SW following for discharge planning. Spoke with RN and reviewed chart. Pt remains on room air. Diet advanced to GI soft. Discharge plan remains home, self-care. Pt transferred to .
[2020-11-13 15:00] VITALS: BP 124/43
[2020-11-13] MEDS ORDERED: BISACODYL 5 MG TABLET.DR. PO ONE (15:30)
[2020-11-13] MEDS ORDERED: MAGNESIUM CITRATE 296 ML SOLUTION. PO ONE (15:30)
[2020-11-13] MEDS ORDERED: POLYETHYLENE GLYCOL 3350 BTL 238 GM POWDER PO ONE (16:30)
[2020-11-13 19:00] VITALS: BP 112/59
[2020-11-13] MEDS: ATORVASTATIN CALCIUM 10 MG TABLET. PO SCH (20:51)
[2020-11-13] MEDS: ALPRAZolam 0.5 MG TABLET PO PRN (22:13)
[2020-11-13 23:00] VITALS: BP 127/62
[2020-11-14 03:00] VITALS: BP 113/67
[2020-11-14] MEDS ORDERED: IV RINGERS,LACTATED 1000ML 1,000 ML IV ONE (06:30)
[2020-11-14] MEDS ORDERED: IV RINGERS,LACTATED 1000ML 1,000 ML IV SCH (07:00)
[2020-11-14] MEDS: POTASSIUM CHLORIDE 20 MEQ TABLET.ER. PO SCH ×2 (07:03→14:46)
[2020-11-14] MEDS: ASPIRIN CHEWABLE 81 MG TABLET. PO SCH ×2 (07:03→14:46)
[2020-11-14] MEDS: PANTOPRAZOLE 40 MG TABLET.DR. PO SCH ×2 (07:03→14:46)
[2020-11-14] MEDS: CLOPIDOGREL BISULFATE 75 MG TABLET PO SCH ×2 (07:04→14:46)
[2020-11-14] MEDS: ENOXAPARIN 40 MG/0.4 ML SYRINGE. SQ SCH (07:04)
[2020-11-14] MEDS: buPROPion SR 150 MG TABLET.SA PO SCH ×2 (07:04→14:46)
[2020-11-14] MEDS: GABAPENTIN 400 MG CAPSULE. PO SCH ×2 (07:04→14:46)
[2020-11-14 07:31] VITALS: BP 128/73
[2020-11-14] MEDS: ALPRAZolam 0.5 MG TABLET PO PRN (08:06)
[2020-11-14 08:08] LABS: HEMATOCRIT 38.2 % (36.0-47.0); HEMOGLOBIN 12.7 g/dL (12.0-15.5); RED BLOOD COUNT 3.87 x10^6/uL (3.50-5.40); RED CELL DISTRIBUTION WIDTH 13.4 % (11.5-14.5); WHITE BLOOD COUNT 3.3 x10^3/uL (4.0-11.0)
[2020-11-14] MEDS: HYDROcodone/APAP 5/325MG 1 TAB TABLET PO PRN (08:11)
[2020-11-14 08:34] LABS: CALCIUM 8.8 mg/dL (8.5-10.1); CREATININE 0.6 mg/dL (0.6-1.0); GFR 99.4; POTASSIUM 3.1 mmol/L (3.5-5.1)
--- NOTE | 2020-11-14 09:51 | NUR ---
SW following. Discussed with RN, pt from home, room air, NPO, rapid COVID-19 negative, SBA. Pt having an EGD and colonoscopy today. RN advised no SW needs at this time. SW will continue to follow.
[2020-11-14] MEDS ORDERED: POTASSIUM CHLORIDE 20 MEQ TABLET.ER. PO ONE (10:00)
[2020-11-14 10:45] VITALS: BP 135/47
[2020-11-14] MEDS ORDERED: PROPOFOL 10 MG/ML (20ML) VIAL. IV ONE (11:27)
[2020-11-14] MEDS ORDERED: ePHEDrine PF IN SALINE 50 MG/10 ML SYRINGE. IV ONE (11:27)
[2020-11-14] MEDS ORDERED: LIDOCAINE 2% PF 5 ML VIAL. ONE (11:27)
--- NOTE | 2020-11-14 12:15 | PDOC ---
[facility] [facility] PROGRESS NOTE Date of Service DOS: DATE: 11/14/20 TIME: 11:56 Chief Complaint Chief Complaint Abdominal pain Intractable nausea and vomiting Melena History of Present Illness History of Present Illness Patient is a 70-year-old female presents to the ED with complaints of worsening abdominal pain over the past 3 weeks. She reports sharp lower abdominal pain, 10/10. She notes associated nausea, vomiting, and dark stools over this time. She was recently treated at another ER for similar symptoms with antibiotics for presumed infectious process without improvement. She has multiple admissions over the past year for similar complaints of abdominal pain, nausea, and vomiting. She was recently admitted to our service on 08/08/[address]olecystectomy. CT abdomen/pelvis obtained on admission showed presumed focal colitis. Will admit patient with GI consult for further medical management. 11/11/2020: Afebrile. Ultrasound showed no evidence of SMA stenosis. Small bowel series with marginally prolonged transit time, otherwise unremarkable. There is note of 8 mm low-density lesion in the right hepatic lobe with peripheral hyperemia is present. S/P cholecystectomy, this is nonspecific but will obtain procalcitonin. Low suspicion for abscess. Appreciate GI recommendations. Still with epigastric tenderness. GES Friday; if unrevealing may further assessed with endoscopy on Friday. 11/12/2020: No acute events overnight. No further episodes of vomiting; still with some abdominal pain. Afebrile. Discussed with patient indications of gastric emptying study and EGD. Continue GI soft diet as tolerated. Denies any personal history of peptic ulcer. 11/13/2020 Still with nausea and diarrhea. Stool studies negative, C. difficile negative. GES today with possible endoscopy tomorrow. If nonrevealing, tertiary center consultation at [facility] may be beneficial, per GI. 11/14/2020 Patient is seen today for examination in room. Resting with no distress. Normal GES. EGD and Colonoscopy today. Patient's case is discussed with RN and window caser. Vitals/I&O Vitals/I&O: Vital Signs Date Time Temp Pulse Resp B/P (MAP) Pulse Ox O2 Delivery O2 Flow Rate FiO2 11/14/20 11:00 64 11/14/20 10:45 98.0 16 135/47 (76) 96 Room Air 98.0 I & O 11/13/20 11/13/20 11/14/20 15:00 23:00 07:00 Intake Total 250 ml 220 ml Output Total 450 ml Balance 250 ml 220 ml -450 ml Physical Exam General: Alert, No acute distress Heart: Regular rate, No murmurs Lungs: Clear Abdomen: Normal bowel sounds, Soft, No masses Extremities: No clubbing, No cyanosis, No edema Skin: No rashes, No breakdown Labs Labs: Laboratory Tests Test 11/13/20 15:30 11/14/20 07:00 SARS-CoV-2 Antigen (Rapid) Negative (NEGATIVE) White Blood Count 3.3 x10^3/uL (4.0-11.0) Red Blood Count 3.87 x10^6/uL (3.50-5.40) Hemoglobin 12.7 g/dL (12.0-15.5) Hematocrit 38.2 % (36.0-47.0) Mean Corpuscular Volume 99 fL (79-100) Mean Corpuscular Hemoglobin 33 pg (25-35) Mean Corpuscular Hemoglobin Concent 33 g/dL (31-37) Red Cell Distribution Width 13.4 % (11.5-14.5) Platelet Count 223 x10^3/uL (140-400) Sodium Level 142 mmol/L (136-145) Potassium Level 3.1 mmol/L (3.5-5.1) Chloride Level 104 mmol/L (98-107) Carbon Dioxide Level 30 mmol/L (21-32) Anion Gap 8 (6-14) Blood Urea Nitrogen 6 mg/dL (7-20) Creatinine 0.6 mg/dL (0.6-1.0) Estimated GFR (Cockcroft-Gault) 99.4 Glucose Level 78 mg/dL (70-99) Calcium Level 8.8 mg/dL (8.5-10.1) Review of Systems Review of Systems: Patient was resting with no distress. Patient denies nasal discharge. Patient denies tingling or tremor. Patient denies sweating. Patient denies cough. Assessment and Plan Assessmemt and Plan Problems Medical Problems: (1) Gastroenteritis Status: Acute (2) Intractable abdominal pain Status: Acute (3) UTI (urinary tract infection) Status: Acute Assessment Abdominal pain Intractable nausea and vomiting Melena Plan EGD and Colonoscopy today. DVT prophylaxis. Continue home medications. If EGD and Colonoscopy are negative, patient can return home. Patient would like to consult with a assistant office manager due to continued weight loss. DNR Continue PT/OT Appreciate subspecialty input. Comment Review of Relevant I have reviewed the following items chery (where applicable) has been applied. Medications: Current Medications Medications (Trade) Dose Ordered Sig/Salomón Route PRN Reason Start Time Stop Time Status Last Admin Dose Admin Polyethylene Glycol (miraLAX Powder BULK BOTTLE) 238 gm 1X ONCE PO 11/13/20 16:30 11/13/20 16:31 DC 11/13/20 15:52 Bisacodyl (Dulcolax Tab) 10 mg 1X ONCE PO 11/13/20 15:30 11/13/20 15:31 DC 11/13/20 15:52 Magnesium Citrate (Citroma) 296 ml 1X ONCE PO 11/13/20 15:30 11/13/20 15:31 DC 11/13/20 15:52 Justifications for Admission Other Justification Intractable abdominal pain, symptomatic cholelithiasis MARVIN IYER III DO Nov 14, 2020 12:15
--- NOTE | 2020-11-14 13:52 | PDOC4 ---
Operative Note Operative Note EGD Colonoscopy Meds propofol per anesthesia Pre-op dx abd pain/weight loss post-op dx non-erosvie gastritis intrenal hemorrhoids Plan advance diet and release home second opinion at [facility] for possible laparoscopy RUTH LUGO MD Nov 14, 2020 13:52
[2020-11-14 15:00] VITALS: BP 124/53
--- NOTE | 2020-11-14 17:25 | NUR ---
Discharge Note: TOÑA GUZMÁN Discharge instructions and discharge home medications reviewed with Patient and a copy given. All questions have been answered and understanding verbalized. The following instructions and handouts were given: information about follow up with PCP, option to get second opinion at GI, medications, activity, diet, etc. Discontinued lines and drains: IV line in left AC removed, catheter tip intact. Patient discharged to home with self care with brother, wheelchair used for mobility to discharge vehicle.
--- NOTE | 2020-11-14 22:01 | DS ---
DATE OF DISCHARGE: 11/14/2020 ADMISSION DIAGNOSES: Nausea and vomiting. DISCHARGE DIAGNOSES: Resolving nausea and vomiting. HOSPITAL COURSE: The patient is a pleasant 70-year-old female who presented with intractable nausea and vomiting. She was admitted. We gave her antiemetics and fluids. Consulted GI. Today, she went for EGD and colonoscopy, no acute disease was noted. GI said she was okay to go home. We are discharging home. DISPOSITION: Home. ACTIVITY: As tolerated. DIET: Low sodium. MEDICATIONS: Please see MRAD. TOTAL TIME: 32 minutes. MARVIN IYER DO DR: PEPE/osman JOB#: [id number] / [id number]
== END 2020-11-14 17:25 | disposition home or self-care (01) | DRG 391 ==
LOC: ER 16:35 → 6 SOUTH 19:30 → OBSVTOIN 11-11 09:00 → 4 NORTH 11-13 09:16
PROVIDERS: ADMIT Internal Medicine; ATTEND Internal Medicine
PROC: 0DJ08ZZ Inspection of Upper Intestinal Tract, Via Natural or Artificial Opening Endoscopic (ICD-10-PCS; principal; 2020-11-14 13:00)
PROC: 0DJD8ZZ Inspection of Lower Intestinal Tract, Via Natural or Artificial Opening Endoscopic (ICD-10-PCS; 2020-11-14 13:00)
DX: K52.9 Noninfective gastroenteritis and colitis, unspecified (principal); K29.71 Gastritis, unspecified, with bleeding; N39.0 Urinary tract infection, site not specified; E78.00 Pure hypercholesterolemia, unspecified; E78.5 Hyperlipidemia, unspecified; F12.90 Cannabis use, unspecified, uncomplicated; F17.210 Nicotine dependence, cigarettes, uncomplicated; F32.9 Major depressive disorder, single episode, unspecified; F41.9 Anxiety disorder, unspecified; G89.29 Other chronic pain; I10 Essential (primary) hypertension; I25.10 Atherosclerotic heart disease of native coronary artery without angina pectoris; J44.9 Chronic obstructive pulmonary disease, unspecified; K21.9 Gastro-esophageal reflux disease without esophagitis; K59.00 Constipation, unspecified; K64.9 Unspecified hemorrhoids; K76.0 Fatty (change of) liver, not elsewhere classified; M79.7 Fibromyalgia; M81.0 Age-related osteoporosis without current pathological fracture; Z80.1 Family history of malignant neoplasm of trachea, bronchus and lung; Z90.49 Acquired absence of other specified parts of digestive tract; Z90.710 Acquired absence of both cervix and uterus; Z95.5 Presence of coronary angioplasty implant and graft; I25.2 Old myocardial infarction; Z66 Do not resuscitate; Z20.822 Contact with and (suspected) exposure to COVID-19
CPT/HCPCS: 36415; 71045; 74177; 74250; 78264; 80048; 80053; 81001; 82533; 83690; 84484; 85025; 85027; 86677; 87086; 87338; 87426; 87493; 87505; 93005; 93976; 96374; 96375; 99285; A9541; C9113; G0378; G0379; J0696; J1200; J1650; J1956; J2270; J2405; J2704; J3490; J7120; Q9967; U0003

== ENCOUNTER 2021-01-06 07:16 | Emergency (ER) | payer MEDICARE, OTHER ==
[~2021-01-06] VITALS: Ht 162.6 cm; Wt 45.5 kg
[~2021-01-06 07:16] MED LIST changes: +ATOR10TA60 PO; +FLUT12HF3 INH; +GABA-689 PO; +MELO15TA23 PO; +TRAZ150T49 PO
--- NOTE | 2021-01-06 07:29 | PHYS DOC ---
Past Medical History Past Medical History: High Cholesterol, MD Additional Past Medical Histor: OSTEOPOROSIS, chronic abd pain Past Surgical History: Cholecystectomy, Other Additional Past Surgical Histo: CARDIAC STENTS Smoking Status: Current Every Day Smoker Alcohol Use: None Drug Use: Marijuana General Adult EDM: Chief Complaint: ABDOMINAL PAIN HPI: HPI: Patient is a 70 year old female presents with 1 month history of intermittent abdominal discomfort with associated nausea and vomiting. Patient also reports has been having some "black stools ". Patient reports symptoms have become worse over the last 2 to 3 days. Patient reports calling her PCP yesterday who instructed her to present to the ER for further evaluation. Patient reports she did not go yesterday because she was feeling too ill. Reports this morning she was feeling well enough to get in the car with her brother and travel to the ER for evaluation. Patient does report use of Plavix and aspirin. Denies any chest pain. Denies fever or chills. Denies trauma. Patient denies alcohol use. Review of Systems: Review of Systems: Constitutional: Denies fever or chills; reports malaise Eyes: Denies redness or eye pain HENT: Denies nasal congestion or sore throat Respiratory: Denies cough or shortness of breath Cardiovascular: Denies chest pain or palpitations GI: Reports upper abdominal pain, nausea, vomiting and diarrhea; reports "black stools" : Denies dysuria or hematuria Musculoskeletal: Denies back pain or joint pain Integument: Denies rash or skin lesions Neurologic: Denies headache, focal weakness or sensory changes Complete systems were reviewed and found to be within normal limits, except as documented in this note. Heart Score: C/O Chest Pain: N/A Allergies: Allergies: Allergies Coded Allergies Type Severity Reaction Last Updated Verified gold Au 198 Allergy Severe BREAK OUT ALL OVER 11/14/20 Yes iron Allergy Severe BREAK OUT ALL OVER 11/14/20 Yes nickel Allergy Severe BREAK OUT ALL OVER 11/14/20 Yes silver Allergy Severe BREAK OUT ALL OVER 11/14/20 Yes Physical Exam: PE: Constitutional: Well developed, thin, appears uncomfortable, non-toxic appearance HENT: Normocephalic, atraumatic Eyes: Conjunctiva normal, no discharge Neck: Normal range of motion, no tenderness, supple Lungs & Thorax: No respiratory distress, equal chest rise and fall Abdomen: Soft, epigastric tenderness, no rebound tenderness Skin: Warm, dry, no erythema, no rash Back: No tenderness, no CVA tenderness Extremities: No tenderness, ROM intact, no edema Neurologic: Alert and oriented X 3, normal motor function, normal sensory function, no focal deficits noted Psychologic: Affect normal, judgment normal EKG: EKG: @0742 NSR at 77bpm, NO ST elevation, QRS 88ms, QT/QTc 382/434ms Radiology/Procedures: Radiology/Procedures: PROCEDURE: CT ABD PELV W/ IV CONTRST ONLY PQRS Compliance Statement: One or more of the following individualized dose reduction techniques were utilized for this examination: 1. Automated exposure control 2. Adjustment of the mA and/or kV according to patient size 3. Use of iterative reconstruction technique Exam performed: CT abdomen and pelvis with contrast HISTORY: Abdominal pain, dark stool DATE OF SERVICE: 01/06/2021. Comparison made to a CT abdomen and pelvis from 11/09/2020. TECHNIQUE: Contiguous helical acquisitions are obtained through the abdomen and pelvis during intravenous and demonstration of IV contrast. Sagittal and coronal reformatted images are obtained and reviewed. FINDINGS: The lung bases are clear. The visualized heart is normal. The liver is normal in size and attenuation. There is a small low attenuating peripherally enhancing mass in the right hepatic lobe, stable to somewhat smaller. The spleen and pancreas are normal. Cholecystectomy. Both adrenal glands and bilateral kidneys are normal in size with symmetric excretion of contrast via both kidneys. There is no hydronephrosis or nephrolithiasis. The small and large bowel loops are nondilated and unremarkable. Mild occasional stool in the colon. The urinary bladder is distended. Hysterectomy. No adnexal masses seen. Bones are normal. IMPRESSION: No acute intra-abdominal or pelvic process seen. Electronically signed by: Kita Lindsey MD (01/06/2021 9:37 AM) [facility] Course & Med Decision Making: Course & Med Decision Making Pertinent Labs and Imaging studies reviewed. (See chart for details) Patient presents with upper abdominal pain with associated nausea/vomiting/diarrhea which has been worse over the last 2 to 3 days but ongoing for the past month. Patient also reports some "black stools ". Patient is currently treated with aspirin and Plavix. Patient slightly tender to palpation of epigastric region. Symptomatic treatment provided with Pepcid and Zofran. IV fluid hydration given. EKG stable. Labs obtained and posted to chart. H/H stable. LFTs/lipase also WNL. UA with signs of infection. Empiric antibiotics given. CT abdomen/pelvis without acute process. Patient did not produce stool to check for occult stool. RN performed digital rectal exam without stool in rectal vault. Patient stable for discharge with outpatient follow-up with PCP/GI. GI referral provided. Discussed findings and plan with patient, who acknowledges understanding and agreement. Marquise Disclaimer: Marquise Disclaimer: This electronic medical record was generated, in whole or in part, using a voice recognition dictation system. Departure Departure Impression: Primary Impression: Epigastric abdominal pain Additional Impressions: Nausea & vomiting Qualified Codes: R11.2 - Nausea with vomiting, unspecified UTI (urinary tract infection) Qualified Codes: N30.00 - Acute cystitis without hematuria Hypokalemia Disposition: HOME / SELF CARE / HOMELESS Condition: STABLE Referrals: IJEOMA MCCRAY MD (PCP) RUTH LUGO MD Patient Instructions: Abdominal Pain, [id number], Gastritis, Adult, Nduk-hb-[id number], Hypokalemia-Brief, Nausea and Vomiting, Icqi-cb-Cyxa, Potassium Content of Foods, Urinary Tract Infection, Jbvx-xo-Qhrv Scripts Cephalexin (CEPHALEXIN) 500 Mg Capsule 1 CAP PO TID for 7 Days, #21 CAP Prov: LOAN HA DO 01/06/21 Pantoprazole Sodium (PROTONIX ) 40 Mg Tablet.dr 40 MG PO DAILYAC for Gastritis, #30 TAB Prov: LOAN HA DO 01/06/21 Ondansetron (ONDANSETRON ODT) 4 Mg Tab.rapdis 1 TAB PO PRN Q6-8HRS PRN for NAUSEA, #16 TAB Prov: LOAN HA DO 01/06/21 LOAN HA DO January 06, 2021 07:29
[2021-01-06] MEDS ORDERED: FAMOTIDINE 20 MG/2 ML VIAL IVP ONE (07:30)
[2021-01-06] MEDS ORDERED: IV NORMAL SALINE 1000ML BAG 1,000 ML IV ONE (07:30)
[2021-01-06] MEDS ORDERED: ONDANSETRON PF 4 MG/2 ML VIAL. IVP ONE (07:30)
[2021-01-06 07:42] LABS: BILIRUBIN,URINE NEGATIVE (NEG); CLARITY,URINE CLEAR; COLOR,URINE YELLOW; NITRITE,URINE NEGATIVE (NEG); PH,URINE 6.5 (<5.0-8.0); PROTEIN,URINE NEGATIVE (NEG-TRACE); UROBILINOGEN,URINE 0.2 mg/dL (0.2 mg/dL)
[2021-01-06 07:48] LABS: BACTERIA,URINE FEW /HPF (0-FEW)
[2021-01-06 08:13] LABS: BASO # 0.1 x10^3/uL (0.0-0.2); BASO % 1 % (0-3); EOS # 0.2 x10^3/uL (0.0-0.7); EOS % 4 % (0-3); HEMATOCRIT 40.7 % (36.0-47.0); LYMPH # 1.3 x10^3/uL (1.0-4.8); LYMPH % 26 % (24-48); MEAN CORPUSCULAR HEMOGLOBIN 33 pg (25-35); MEAN CORPUSCULAR HGB CONC 34 g/dL (31-37); MEAN CORPUSCULAR VOLUME 97 fL (79-100); MONO # 0.4 x10^3/uL (0.0-1.1); MONO % 8 % (0-9); NEUT # 3.1 x10^3/uL (1.8-7.7); NEUT % 61 % (31-73); PLATELET COUNT 246 x10^3/uL (140-400); RED CELL DISTRIBUTION WIDTH 13.1 % (11.5-14.5); WHITE BLOOD COUNT 5.1 x10^3/uL (4.0-11.0)
[2021-01-06 08:27] LABS: CALCIUM 9.2 mg/dL (8.5-10.1); CREATININE 0.7 mg/dL (0.6-1.0); GFR 83.2; POTASSIUM 3.3 mmol/L (3.5-5.1)
[2021-01-06 08:30] LABS: ALBUMIN 4.1 g/dL (3.4-5.0); ALBUMIN/GLOBULIN RATIO 1.3 (1.0-1.7); TOTAL BILIRUBIN 0.5 mg/dL (0.2-1.0); TOTAL PROTEIN 7.2 g/dL (6.4-8.2)
[2021-01-06] MEDS ORDERED: IOHEXOL 300 MG/ML 100ML VIAL. IV ONE (08:30)
[2021-01-06] MEDS ORDERED: CONTRAST GIVEN. MC PRN (08:45)
--- NOTE | 2021-01-06 09:39 | RAD ---
PQRS Compliance Statement: One or more of the following individualized dose reduction techniques were utilized for this examinat ion: 1. Automated exposure control 2. Adjustment of the mA and/or kV according to patient size 3. Use of iterative reconstruction technique Exam performed: CT abdomen and pelvis with contrast HISTORY: Abdominal pain, dark stool DATE OF SERVICE: 01/06/2021. Comparison made to a CT abdomen and pelvis from 11/09/2020. TECHNIQUE: Contiguous helical acquisitions are obtained through the abdomen and pelvis during intrave nous and demonstration of IV contrast. Sagittal and coronal reformatted images are obtained and revie wed. FINDINGS: The lung bases are clear. The visualized heart is normal. The liver is normal in size and attenuation. There is a small low attenuating peripherally enhancing mass in the right hepatic lobe, stable to somewhat smaller. The spleen and pancreas are normal. Grisel cystectomy. Both adrenal glands and bilateral kidneys are normal in size with symmetric excretion of contrast via both kidneys. There is no hydronephrosis or nephrolithiasis. The small and large bowel l oops are nondilated and unremarkable. Mild occasional stool in the colon. The urinary bladder is dist ended. Hysterectomy. No adnexal masses seen. Bones are normal. IMPRESSION: No acute intra-abdominal or pelvic process seen. Electronically signed by: Kita Lindsey MD (01/06/2021 9:37 AM) [facility]
[2021-01-06] MEDS ORDERED: cefTRIAXone IV Push 1 GM VIAL. IVP ONE (10:00)
[2021-01-06] MEDS ORDERED: POTASSIUM CHLORIDE 10 MEQ TABLET.ER. PO ONE (10:00)
[2021-01-06 10:10] VITALS: BP 141/60
[2021-01-06] MEDS ORDERED: ONDA4TAB12 PO (10:24)
[2021-01-06] MEDS ORDERED: CEPH500C PO (10:24)
[2021-01-06] MEDS ORDERED: PANT40TA77 PO (10:24)
--- NOTE | 2021-01-06 11:14 | EKG ---
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
== END 2021-01-06 10:45 | disposition home or self-care (01) ==
LOC: ER 07:16
DX: N30.00 Acute cystitis without hematuria (principal); E87.6 Hypokalemia; R11.2 Nausea with vomiting, unspecified; E78.00 Pure hypercholesterolemia, unspecified; G89.29 Other chronic pain; I25.2 Old myocardial infarction; F17.200 Nicotine dependence, unspecified, uncomplicated; Z90.49 Acquired absence of other specified parts of digestive tract; Z95.5 Presence of coronary angioplasty implant and graft; Z88.8 Allergy status to other drugs, medicaments and biological substances
CPT/HCPCS: 36415; 74177; 80053; 81001; 82553; 83605; 83690; 84484; 85025; 87086; 93005; 96361; 96374; 96375; 99285; J0696; J2405; J3490; J7030; Q9967

== ENCOUNTER 2021-07-07 07:50 | Emergency (ER) | payer MEDICARE, OTHER ==
[~2021-07-07] VITALS: Ht 162.6 cm; Wt 40.9 kg
[~2021-07-07 07:50] MED LIST changes: +CEPH500C PO; +DICY20TA PO; -DICY20TA3 PO; +POTA-121 PO
[2021-07-07 08:46] LABS: BASO # 0.1 x10^3/uL (0.0-0.2); BASO % 1 % (0-3); EOS # 0.1 x10^3/uL (0.0-0.7); EOS % 1 % (0-3); HEMATOCRIT 41.3 % (36.0-47.0); HEMOGLOBIN 13.9 g/dL (12.0-15.5); LYMPH # 1.8 x10^3/uL (1.0-4.8); LYMPH % 24 % (24-48); MEAN CORPUSCULAR HEMOGLOBIN 34 pg (25-35); MEAN CORPUSCULAR HGB CONC 34 g/dL (31-37); MEAN CORPUSCULAR VOLUME 101 fL (79-100); MONO # 0.5 x10^3/uL (0.0-1.1); MONO % 7 % (0-9); NEUT # 5.1 x10^3/uL (1.8-7.7); NEUT % 67 % (31-73); PLATELET COUNT 326 x10^3/uL (140-400); RED CELL DISTRIBUTION WIDTH 13.4 % (11.5-14.5); WHITE BLOOD COUNT 7.6 x10^3/uL (4.0-11.0)
[2021-07-07 08:53] LABS: CALCIUM 9.9 mg/dL (8.5-10.1); CREATININE 0.7 mg/dL (0.6-1.0); GFR 83.2; POTASSIUM 3.3 mmol/L (3.5-5.1)
[2021-07-07 08:58] LABS: ALBUMIN 4.4 g/dL (3.4-5.0); ALBUMIN/GLOBULIN RATIO 1.4 (1.0-1.7); TOTAL BILIRUBIN 0.7 mg/dL (0.2-1.0); TOTAL PROTEIN 7.6 g/dL (6.4-8.2)
[2021-07-07] MEDS ORDERED: METOCLOPRAMIDE HCL 10 MG/2 ML VIAL. IVP ONE (09:00)
[2021-07-07] MEDS ORDERED: IV NORMAL SALINE 1000ML BAG 1,000 ML IV ONE (09:00)
[2021-07-07] MEDS ORDERED: MORPHINE SULFATE 4 MG/ML INJ. IVP ONE (09:00)
[2021-07-07] MEDS ORDERED: PANTOPRAZOLE IV PUSH 40 MG VIAL. IVP ONE (09:00)
[2021-07-07] MEDS ORDERED: POTASSIUM PHOSPHATE,MONOBASIC 500 MG TABLET. PO STA (09:51)
[2021-07-07 10:02] LABS: BILIRUBIN,URINE NEGATIVE (NEG); CLARITY,URINE CLEAR; COLOR,URINE YELLOW; NITRITE,URINE NEGATIVE (NEG); PROTEIN,URINE NEGATIVE (NEG-TRACE)
[2021-07-07 10:12] LABS: BACTERIA,URINE 0 /HPF (0-FEW)
[2021-07-07] MEDS ORDERED: ONDANSETRON PF 4 MG/2 ML VIAL. IVP ONE (10:15)
--- NOTE | 2021-07-07 10:21 | RAD ---
Acute abdominal series: Reason for examination: Acute abdominal pain. The heart size is normal. Mediastinum is unremarkable. Lung garcia are hyperaerated but clear. No acu te bony abnormality seen in the thorax. There is no gross organomegaly. Psoas muscles are symmetric. Bowel gas pattern is nonspecific and non obstructive. Phleboliths is seen in the left pelvis. No acute bony is present. IMPRESSION: No acute cardiopulmonary disease. Nonspecific nonobstructive bowel gas pattern. Electronically signed by: Jennifer Bunch MD (07/07/2021 10:19 AM) [id number]
--- NOTE | 2021-07-07 11:38 | PHYS DOC ---
Past Medical History Past Medical History: High Cholesterol, [place] Additional Past Medical Histor: OSTEOPOROSIS, chronic abd pain, INSOMNIA Past Surgical History: Cholecystectomy, Other Additional Past Surgical Histo: CARDIAC STENTS Smoking Status: Current Every Day Smoker Alcohol Use: None Drug Use: Marijuana General Adult EDM: Chief Complaint: ABDOMINAL PAIN HPI: HPI: Patient is a 70 year old female who was brought here by EMS from home due to epigastric abdominal pain with nausea vomiting for about 2 weeks. Patient has history of chronic abdominal problem, history of pancreatitis in the past, she already had her gallbladder removed. Patient says she was supposed to see Dr. Mireles, her GI specialist last week but her doctor did not show up for the appointment. Patient currently not taking any medication for abdominal pain. Patient denies any fever, no vomiting blood, no dark stool. Patient denies any chest pain Review of Systems: Review of Systems: Constitutional: Denies fever or chills. [] Eyes: Denies change in visual acuity. [] HENT: Denies nasal congestion or sore throat. [] Respiratory: Denies cough or shortness of breath. [] Cardiovascular: Denies chest pain or edema. [] GI: Positive for epigastric abdominal pain with nausea and vomiting, no diarrhea : Denies dysuria. [] Musculoskeletal: Denies back pain or joint pain. [] Integument: Denies rash. [] Neurologic: Denies headache, focal weakness or sensory changes. [] Endocrine: Denies polyuria or polydipsia. [] Lymphatic: Denies swollen glands. [] Psychiatric: Denies depression or anxiety. [] Heart Score: C/O Chest Pain: N/A Risk Factors: Risk Factors: DM, Current or recent (<one month) smoker, HTN, HLP, family history of CAD, obesity. Risk Scores: Score 0 - 3: 2.5% MACE over next 6 weeks - Discharge Home Score 4 - 6: 20.3% MACE over next 6 weeks - Admit for Clinical Observation Score 7 - 10: 72.7% MACE over next 6 weeks - Early Invasive Strategies Current Medications: Current Medications Medications (Trade) Dose Ordered Sig/[place] Start Time Stop Time Status Last Admin Dose Admin Metoclopramide HCl (Reglan Vial) 10 mg 1X ONCE 07/07/21 09:00 07/07/21 09:01 DC 07/07/21 09:07 10 MG Morphine Sulfate (Morphine Sulfate) 4 mg 1X ONCE 07/07/21 09:00 07/07/21 09:01 DC 07/07/21 09:07 4 MG Ondansetron HCl (Zofran) 4 mg 1X ONCE 07/07/21 10:15 07/07/21 10:16 DC 07/07/21 10:34 4 MG Pantoprazole Sodium (PROTONIX VIAL for IV PUSH) 40 mg 1X ONCE 07/07/21 09:00 07/07/21 09:01 DC 07/07/21 09:07 40 MG Potassium Phosphate (K-Phos Original) 250 mg 1X STAT 07/07/21 09:51 07/07/21 09:56 DC 07/07/21 10:36 250 MG Sodium Chloride 1,000 ml @ 1,000 mls/hr 1X ONCE 07/07/21 09:00 07/07/21 09:59 DC 07/07/21 09:00 1,000 MLS/HR Allergies: Allergies: Allergies Coded Allergies Type Severity Reaction Last Updated Verified gold Au 198 Allergy Severe BREAK OUT ALL OVER 11/14/20 Yes iron Allergy Severe BREAK OUT ALL OVER 11/14/20 Yes nickel Allergy Severe BREAK OUT ALL OVER 11/14/20 Yes silver Allergy Severe BREAK OUT ALL OVER 11/14/20 Yes Physical Exam: PE: Constitutional: Well developed, well nourished, no acute distress, non-toxic appearance. [] HENT: Normocephalic, atraumatic, bilateral external ears normal, oropharynx moist, no oral exudates, nose normal. [] Eyes: PERRLA, EOMI, conjunctiva normal, no discharge. [] Neck: Normal range of motion, there is tenderness to palpation in epigastric area, supple, no stridor. [] Cardiovascular:Heart rate regular rhythm, no murmur [] Lungs & Thorax: Bilateral breath sounds clear to auscultation [] Abdomen: Bowel sounds normal, soft, no tenderness, no masses, no pulsatile masses. [] Skin: Warm, dry, no erythema, no rash. [] Back: No tenderness, no CVA tenderness. [] Extremities: No tenderness, no cyanosis, no clubbing, ROM intact, no edema. [] Neurologic: Alert and oriented X 3, normal motor function, normal sensory function, no focal deficits noted. [] Psychologic: Affect normal, judgement normal, mood normal. [] Current Patient Data: Labs: Laboratory Tests Test 07/07/21 08:00 07/07/21 08:01 07/07/21 09:45 Troponin I High Sensitivity < 4 ng/L (4-50) L White Blood Count 7.6 x10^3/uL (4.0-11.0) Red Blood Count 4.10 x10^6/uL (3.50-5.40) Hemoglobin 13.9 g/dL (12.0-15.5) Hematocrit 41.3 % (36.0-47.0) Mean Corpuscular Volume 101 fL (79-100) H Mean Corpuscular Hemoglobin 34 pg (25-35) Mean Corpuscular Hemoglobin Concent 34 g/dL (31-37) Red Cell Distribution Width 13.4 % (11.5-14.5) Platelet Count 326 x10^3/uL (140-400) Neutrophils (%) (Auto) 67 % (31-73) Lymphocytes (%) (Auto) 24 % (24-48) Monocytes (%) (Auto) 7 % (0-9) Eosinophils (%) (Auto) 1 % (0-3) Basophils (%) (Auto) 1 % (0-3) Neutrophils # (Auto) 5.1 x10^3/uL (1.8-7.7) Lymphocytes # (Auto) 1.8 x10^3/uL (1.0-4.8) Monocytes # (Auto) 0.5 x10^3/uL (0.0-1.1) Eosinophils # (Auto) 0.1 x10^3/uL (0.0-0.7) Basophils # (Auto) 0.1 x10^3/uL (0.0-0.2) Sodium Level 136 mmol/L (136-145) Potassium Level 3.3 mmol/L (3.5-5.1) L Chloride Level 103 mmol/L (98-107) Carbon Dioxide Level 21 mmol/L (21-32) Anion Gap 12 (6-14) Blood Urea Nitrogen 15 mg/dL (7-20) Creatinine 0.7 mg/dL (0.6-1.0) Estimated GFR (Cockcroft-Gault) 83.2 BUN/Creatinine Ratio 21 (6-20) H Glucose Level 116 mg/dL (70-99) H Calcium Level 9.9 mg/dL (8.5-10.1) Total Bilirubin 0.7 mg/dL (0.2-1.0) Aspartate Amino Transferase (AST) 26 U/L (15-37) Alanine Aminotransferase (ALT) 39 U/L (14-59) Alkaline Phosphatase 109 U/L (46-116) Total Protein 7.6 g/dL (6.4-8.2) Albumin 4.4 g/dL (3.4-5.0) Albumin/Globulin Ratio 1.4 (1.0-1.7) Lipase 73 U/L (73-393) Urine Collection Type Unknown Urine Color Yellow Urine Clarity Clear Urine pH 7.0 (<5.0-8.0) Urine Specific [place] 1.010 (1.000-1.030) Urine Protein Negative mg/dL (NEG-TRACE) Urine Glucose (UA) Negative mg/dL (NEG) Urine Ketones (Stick) Trace mg/dL (NEG) Urine Blood Small (NEG) Urine Nitrite Negative (NEG) Urine Bilirubin Negative (NEG) Urine Urobilinogen Dipstick 1.0 mg/dL (0.2 mg/dL) Urine Leukocyte Esterase Small (NEG) Urine RBC 6-10 /HPF (0-2) Urine WBC 1-4 /HPF (0-4) Urine Squamous Epithelial Cells Few /LPF Urine Bacteria 0 /HPF (0-FEW) Laboratory Tests 07/07/21 08:01 Laboratory Tests 07/07/21 08:01 Vital Signs: Vital Signs Date Time Temp Pulse Resp B/P (MAP) Pulse Ox O2 Delivery O2 Flow Rate FiO2 07/07/21 09:40 18 100 Room Air 07/07/21 08:34 80 133/72 (92) 07/07/21 07:51 98.1 98.1 EKG: EKG: EKG was done at 926, heart rate 76 beats minute per minute, normal sinus rhythm, normal axis, no ST segment elevation Radiology/Procedures: Radiology/Procedures: [][facility] [address] [place] [address] IMAGING REPORT Signed PATIENT: TOÑA GUZMÁN ACCOUNT: [id number] : 1950 LOCATION: ER AGE: 70 SEX: F EXAM STATUS: REG ER ORD. PHYSICIAN: KEYLA BROOKS DO REASON: acute abdominal pain PROCEDURE: ACUTE ABDOMEN SERIES Acute abdominal series: Reason for examination: Acute abdominal pain. The heart size is normal. Mediastinum is unremarkable. Lung garcia are hyperaerated but clear. No acute bony abnormality seen in the thorax. There is no gross organomegaly. Psoas muscles are symmetric. Bowel gas pattern is nonspecific and nonobstructive. Phleboliths is seen in the left pelvis. No acute bony is present. IMPRESSION: No acute cardiopulmonary disease. Nonspecific nonobstructive bowel gas pattern. Electronically signed by: Jennifer Stover MD (07/07/2021 10:19 AM) [id number] DICTATED and SIGNED BY: JENNIFER STOVER MD DATE: 07/07/21 [id number] Course & Med Decision Making: Course & Med Decision Making Pertinent Labs and Imaging studies reviewed. (See chart for details) Patient is a 70-year-old female who present to ER due to epigastric abdominal pain. Patient suspect to have gastritis. Patient was given Protonix and antinausea medication in the ED, she felt much better. Patient will be discharged home with prescription for Carafate and Protonix to take at home. Patient also given a prescription for nausea medication. Patient had low potassium level, she was given potassium in the ED. Patient was advised to follow-up with her GI specialist next week for reevaluation. Patient was amenable to plan of care. Marquise Disclaimer: Marquise Disclaimer: This electronic medical record was generated, in whole or in part, using a voice recognition dictation system. Departure Departure Impression: Primary Impression: Acute gastritis Additional Impression: Hypokalemia Disposition: HOME / SELF CARE / HOMELESS Condition: IMPROVED Referrals: IJEOMA MCCRAY MD (PCP) RUTH LUGO MD Please follow up with your GI DOCTOR NEXT WEEK. Patient Instructions: Gastritis, Adult Additional Instructions: Thank you for visiting our Emergency Department. We appreciate you trusting us with your care. If any additional problems come up don't hesitate to return to visit us. Please follow up with your primary care provider so they can plan additional care if needed and know about the problem that you had. If symptoms worsen come back to the Emergency Department. Any concerning symptoms that start such as chest pain, shortness of air, weakness or numbness on one side of the body, running high fevers or any other concerning symptoms return to the ER. Scripts Ondansetron Hcl (ZOFRAN) 4 Mg Tablet 1 TAB PO Q6HRS, #20 TAB Prov: KEYLA BROOKS DO 07/07/21 Sucralfate (CARAFATE) 1 Gm Tablet 1 TAB PO QID for 14 Days, #56 TAB 0 Refills Prov: KEYLA BROOKS DO 07/07/21 Pantoprazole Sodium (PROTONIX ) 40 Mg Tablet.dr 40 MG PO DAILYAC for GERD for 30 Days, #30 TAB Prov: KEYLA BROOKS DO 07/07/21 KEYLA BROOKS DO Jul 07, 2021 11:38
[2021-07-07] MEDS ORDERED: ONDA4TAB7 PO (12:26)
[2021-07-07] MEDS ORDERED: PANT40TA77 PO (12:26)
[2021-07-07] MEDS ORDERED: SUCR1TAB35 PO (12:26)
[2021-07-07 12:44] VITALS: BP 137/66
--- NOTE | 2021-07-07 16:41 | EKG ---
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
== END 2021-07-07 12:49 | disposition home or self-care (01) ==
LOC: ER 07:50
DX: K29.00 Acute gastritis without bleeding (principal); E87.6 Hypokalemia; E78.00 Pure hypercholesterolemia, unspecified; I25.2 Old myocardial infarction; G89.29 Other chronic pain; F17.200 Nicotine dependence, unspecified, uncomplicated; Z90.49 Acquired absence of other specified parts of digestive tract; Z95.5 Presence of coronary angioplasty implant and graft; Z88.8 Allergy status to other drugs, medicaments and biological substances
CPT/HCPCS: 36415; 74022; 80053; 81001; 83690; 84484; 85025; 87086; 93005; 96361; 96374; 96375; 99285; C9113; J2270; J2405; J2765; J7030